=== PATIENT | female | born 1970 | race Caucasian/White ===

== ENCOUNTER 2016-08-17 11:23 | Emergency (ER) | payer OTHER ==
[2016-08-17 11:28] VITALS: RESP 16
[2016-08-17] MEDS ORDERED: SODIUM CHLORIDE 0.9% 1,000 ML IV STA (11:39)
--- NOTE | 2016-08-17 11:50 | ED ---
Abdominal Pain HPI - General Chief Complaint: Abdominal Pain Stated Complaint: Abdominal pain, heartburn Time Seen by Provider: 08/17/16 11:32 Source: patient, RN notes reviewed Mode of arrival: ambulatory Limitations: no limitations - History of Present Illness Initial Comments: This a 46-year-old female presents emergency Department with chief complaint of left-sided abdominal pain. Patient states it started last few days. He states that she's been having some diarrhea but also some constipation. She states this is hard to go. She states that she's had some vomiting and nausea she states that his sour taste. Patient denies any chest pain or shortness breath. Patient has fever, chills, dysuria, hematuria. Patient has no history of diverticulitis, kidney stones, abdominal surgeries. Patient states she's had cardiac stents in the past proximal one year ago. Patient called her primary care physician if symptoms emergency department for evaluation. Patient states she does not want any medications at this time. - Related Data Home Medications Medication Instructions Recorded Confirmed Calcium Carbonate [Calcium] 600 mg PO DAILY 10/18/15 08/17/16 Cyanocobalamin [Vitamin B-12] 500 mcg PO DAILY 10/18/15 08/17/16 [place]-3 Fatty Acids/Fish Oil [Fish 1 cap PO DAILY 10/18/15 08/17/16 Oil 1,000 mg Softgel] Atorvastatin Calcium [Lipitor] 40 mg PO HS 08/17/16 08/17/16 Biotin 5 mg PO DAILY 08/17/16 08/17/16 Cholecalciferol [Vitamin D3] 1,000 unit PO DAILY 08/17/16 08/17/16 Ubidecarenone [Co Q-10] 100 mg PO DAILY 08/17/16 08/17/16 Zinc 50 mg PO DAILY 08/17/16 08/17/16 Previous Rx's Medication Instructions Recorded Aspirin 325 mg PO DAILY #30 tab 10/21/15 Clopidogrel [Plavix] 75 mg PO DAILY #30 tab 10/21/15 Enalapril [Vasotec] 5 mg PO BID #60 tab 10/21/15 Metoprolol Tartrate [Lopressor] 50 mg PO BID #60 tab 10/21/15 Nitroglycerin Sl Tabs [Nitrostat] 0.4 mg SUBLINGUAL Q5M PRN #25 tab 10/21/15 Ciprofloxacin HCl [Cipro] 500 mg PO Q12HR #20 tablet 08/17/16 metroNIDAZOLE [Flagyl] 500 mg PO TID #30 tab 08/17/16 Allergies Allergy/AdvReac Type Severity Reaction Status Date / Time Penicillins Allergy Rash/Hives Verified 08/17/16 11:40 Review of Systems ROS Statement: Those systems with pertinent positive or pertinent negative responses have been documented in the HPI. ROS Other: All systems not noted in ROS Statement are negative. Past Medical History Past Medical History: Coronary Artery Disease (CAD), Hyperlipidemia, Hypertension, Myocardial Infarction (ID) Additional Past Medical History / Comment(s): NO REPORTED MEDICAL HX Last Myocardial Infarction Date:: 10/18/15 History of Any Multi-Drug Resistant Organisms: None Reported Past Surgical History: Heart Catheterization With Stent Additional Past Surgical History / Comment(s): STENTS X2 10/18/15 Past Anesthesia/Blood Transfusion Reactions: No Reported Reaction Additional Past Anesthesia/Blood Transfusion Reaction / Comment(s): NO GENERAL ANESTHESIA Date of Last Stent Placement:: 10/18/15 Past Psychological History: No Psychological Hx Reported Smoking Status: Former smoker Past Alcohol Use History: None Reported Additional Past Alcohol Use History / Comment(s): QUIT SMOKING 10/18/15, STARTED SMOKING AT AGE 13, DID QUIT FOR 6 YEARS THEN RESUMED 2012. SMOKED 1 PPD. Past Drug Use History: None Reported - Past Family History Father Family Medical History: Unable to Obtain Additional Family Medical History / Comment(s): RAISED BY STEP DAD Mother Family Medical History: CVA/TIA General Exam Limitations: no limitations General appearance: alert, in no apparent distress Head exam: Present: atraumatic, normocephalic, normal inspection Neck exam: Present: normal inspection, full ROM. Absent: tenderness, meningismus, lymphadenopathy Respiratory exam: Present: normal lung sounds bilaterally. Absent: respiratory distress, wheezes, rales, rhonchi, stridor Cardiovascular Exam: Present: regular rate, normal rhythm, normal heart sounds. Absent: systolic murmur, diastolic murmur, rubs, gallop, clicks GI/Abdominal exam: Present: soft, tenderness (Mild tenderness on left lower quadrant), normal bowel sounds. Absent: distended, guarding, rebound, rigid Back exam: Present: CVA tenderness (L). Absent: CVA tenderness (R) Skin exam: Present: warm, dry, intact, normal color. Absent: rash Course Vital Signs 08/17/16 11:24 Temperature 99.2 F Pulse Rate 81 Respiratory 16 Rate Blood Pressure 193/96 O2 Sat by Pulse 97 Oximetry Medical Decision Making - Medical Decision Making 46-year-old female presented emergency from for left-sided abdominal pain. Patient lab work within normal limits CT does show some diverticulitis. There is no abscesses. Patient was started on Cipro and Flagyl discharge. She'll have close follow-up with primary care physician and surgery as needed. Return parameters were discussed. - Lab Data Result diagrams: 08/17/16 12:00 08/17/16 12:00 Lab Results 08/17/16 08/17/16 08/17/16 Range/Units 12:00 12:00 12:00 WBC 7.3 (3.8-10.6) k/uL RBC 3.93 (3.80-5.40) m/uL Hgb 12.6 (11.4-16.0) gm/dL Hct 38.4 (34.0-46.0) % MCV 97.7 (80.0-100.0) fL MCH 32.2 (25.0-35.0) pg MCHC 32.9 (31.0-37.0) g/dL RDW 13.2 (11.5-15.5) % Plt Count 292 (150-450) k/uL Neutrophils % 61 % Lymphocytes % 27 % Monocytes % 5 % Eosinophils % 4 % Basophils % 0 % Neutrophils # 4.5 (1.3-7.7) k/uL Lymphocytes # 2.0 (1.0-4.8) k/uL Monocytes # 0.4 (0-1.0) k/uL Eosinophils # 0.3 (0-0.7) k/uL Basophils # 0.0 (0-0.2) k/uL Sodium 143 (137-145) mmol/L Potassium 4.0 (3.5-5.1) mmol/L Chloride 107 (98-107) mmol/L Carbon Dioxide 25 (22-30) mmol/L Anion Gap 11 mmol/L BUN 11 (7-17) mg/dL Creatinine 0.77 (0.52-1.04) mg/dL Est GFR (MDRD) Af Amer >60 (>60 ml/min/1.73 sqM) Est GFR (MDRD) Non-Af >60 (>60 ml/min/1.73 sqM) Glucose 109 H (74-99) mg/dL Calcium 8.9 (8.4-10.2) mg/dL Total Bilirubin 0.3 (0.2-1.3) mg/dL AST 25 (14-36) U/L ALT 45 (9-52) U/L Alkaline Phosphatase 56 (38-126) U/L Troponin I (0.000-0.034) ng/mL Total Protein 7.4 (6.3-8.2) g/dL Albumin 4.0 (3.5-5.0) g/dL Amylase 33 (30-110) U/L Lipase 38 (23-300) U/L Urine Color Urine Appearance (Clear) Urine pH (5.0-8.0) Ur Specific [place] (1.001-1.035) Urine Protein (Negative) Urine Glucose (UA) (Negative) Urine Ketones (Negative) Urine Blood (Negative) Urine Nitrate (Negative) Urine Bilirubin (Negative) Urine Urobilinogen (<2.0) mg/dL Ur Leukocyte Esterase (Negative) Urine RBC (0-5) /hpf Urine WBC (0-5) /hpf Ur Squamous Epith Cells (0-4) /hpf Urine Bacteria (None) /hpf Urine Mucus (None) /hpf Urine HCG, Qual Not Detected (Not Detectd) 08/17/16 08/17/16 Range/Units 12:00 12:00 WBC (3.8-10.6) k/uL RBC (3.80-5.40) m/uL Hgb (11.4-16.0) gm/dL Hct (34.0-46.0) % MCV (80.0-100.0) fL MCH (25.0-35.0) pg MCHC (31.0-37.0) g/dL RDW (11.5-15.5) % Plt Count (150-450) k/uL Neutrophils % % Lymphocytes % % Monocytes % % Eosinophils % % Basophils % % Neutrophils # (1.3-7.7) k/uL Lymphocytes # (1.0-4.8) k/uL Monocytes # (0-1.0) k/uL Eosinophils # (0-0.7) k/uL Basophils # (0-0.2) k/uL Sodium (137-145) mmol/L Potassium (3.5-5.1) mmol/L Chloride (98-107) mmol/L Carbon Dioxide (22-30) mmol/L Anion Gap mmol/L BUN (7-17) mg/dL Creatinine (0.52-1.04) mg/dL Est GFR (MDRD) Af Amer (>60 ml/min/1.73 sqM) Est GFR (MDRD) Non-Af (>60 ml/min/1.73 sqM) Glucose (74-99) mg/dL Calcium (8.4-10.2) mg/dL Total Bilirubin (0.2-1.3) mg/dL AST (14-36) U/L ALT (9-52) U/L Alkaline Phosphatase (38-126) U/L Troponin I <0.012 (0.000-0.034) ng/mL Total Protein (6.3-8.2) g/dL Albumin (3.5-5.0) g/dL Amylase (30-110) U/L Lipase (23-300) U/L Urine Color Yellow Urine Appearance Cloudy H (Clear) Urine pH 7.0 (5.0-8.0) Ur Specific [place] 1.011 (1.001-1.035) Urine Protein Negative (Negative) Urine Glucose (UA) Negative (Negative) Urine Ketones Negative (Negative) Urine Blood Negative (Negative) Urine Nitrate Negative (Negative) Urine Bilirubin Negative (Negative) Urine Urobilinogen <2.0 (<2.0) mg/dL Ur Leukocyte Esterase Negative (Negative) Urine RBC <1 (0-5) /hpf Urine WBC 2 (0-5) /hpf Ur Squamous Epith Cells 9 H (0-4) /hpf Urine Bacteria Rare H (None) /hpf Urine Mucus Rare H (None) /hpf Urine HCG, Qual (Not Detectd) Disposition Clinical Impression: Diverticulitis Disposition: HOME SELF-CARE Condition: Stable Instructions: Diverticulitis (ED), Diverticulitis Diet (ED) Additional Instructions: Please return to the Emergency Department if symptoms worsen or any other concerns. Prescriptions: Ciprofloxacin HCl [Cipro] 500 mg PO Q12HR #20 tablet metroNIDAZOLE [Flagyl] 500 mg PO TID #30 tab Time of Disposition: 13:32
[2016-08-17 12:25] LABS: Appearance,Urine Cloudy (Clear); Bacteria,Urine Rare /hpf; Bilirubin,Urine Negative (Negative); Glucose,Urine (UA) Negative (Negative); Ketones,Urine Negative (Negative); Leukocyte Esterase,Urine Negative (Negative); Mucus,Urine Rare /hpf; Nitrite,Urine Negative (Negative); Particle Count 5217; Protein,Urine Negative (Negative); RBC,Urine <1 /hpf (0-5); Specific Gravity,Urine 1.011 (1.001-1.035); Squamous Epithelial Cell,Urine 9 /hpf (0-4); UA Billing (MACRO vs. MICRO) MICRO; Urobilinogen,Urine <2.0 mg/dL (<2.0); WBC,Urine 2 /hpf (0-5)
[2016-08-17 12:29] LABS: Basophils % (A) 0 %; CH 32.9; CHCM 33.8; Eosinophils # (A) 0.3 k/uL (0-0.7); Eosinophils % (A) 4 %; HCT 38.4 % (34.0-46.0); HDW 2.33; HGB 12.6 gm/dL (11.4-16.0); Luc # (Auto) 0.12; Luc % (Auto) 2; Lymphocytes % (A) 27 %; MCH 32.2 pg (25.0-35.0); MCHC 32.9 g/dL (31.0-37.0); MCV 97.7 fL (80.0-100.0); Mean Platelet Volume 6.6; Monocytes # (A) 0.4 k/uL (0-1.0); Monocytes % (A) 5 %; Neutrophils # (A) 4.5 k/uL (1.3-7.7); Neutrophils % (A) 61 %; RBC 3.93 m/uL (3.80-5.40); RDW 13.2 % (11.5-15.5); WBC 7.3 k/uL (3.8-10.6); WBC (Perox) 7.53
[2016-08-17 12:30] LABS: ALT 45 U/L (9-52); AST 25 U/L (14-36); Alkaline Phosphatase 56 U/L (38-126); Amylase 33 U/L (30-110); Anion Gap 11 mmol/L; Blood Urea Nitrogen 11 mg/dL (7-17); Calcium 8.9 mg/dL (8.4-10.2); Carbon Dioxide 25 mmol/L (22-30); Chloride 107 mmol/L (98-107); Glucose 109 mg/dL (74-99); Non-African American GFR(MDRD) >60 (>60 ml/min/1.73 sqM); Sodium 143 mmol/L (137-145); Total Bilirubin 0.3 mg/dL (0.2-1.3); Total Protein 7.4 g/dL (6.3-8.2)
[2016-08-17] MEDS ORDERED: RX INFO: IV CONTRAST WAS GIVEN 1 EACH MISC MISCELLANE PRN (12:39)
[2016-08-17] MEDS ORDERED: ACETAMINOPHEN TAB 500 MG TAB PO STA (12:41)
--- NOTE | 2016-08-17 12:42 | XR ---
Abdomen HISTORY: Nausea vomiting and constipation Frontal view of the abdomen on 2 images The heart is enlarged. Lung bases are clear. No pneumoperitoneum or bowel obstruction is evident. The re is a spinal curvature. Air-fluid levels present without bowel dilation. IMPRESSION: Correlate for possible enteritis, ileus, follow-up as indicated. Cardiomegaly.
--- NOTE | 2016-08-17 13:27 | CT ---
EXAMINATION TYPE: CT abdomen pelvis w con DATE OF EXAM: 08/17/2016 1:06 PM COMPARISON: Abdomen same date HISTORY: LUQ pain, RLQ pain moving to the Lt. painful bowel movements CT DLP: 1654.3 mGycm Automated exposure control for dose reduction was used. TECHNIQUE: Helical acquisition of images was performed from the lung bases through the pelvis. CONTRAST: Performed without Oral Contrast and with IV Contrast, patient injected with 100 ml mL of Omnipaque 30 0. FINDINGS: Small hiatal hernia is present. There are coronary artery calcifications. LUNG BASES: Some minimal peripheral increased attenuation present in the nondependent lung bases may be related to some scarring. LIVER/GB: The liver shows low attenuation and is slightly enlarged. Gallbladder is contracted. PANCREAS: No significant abnormality is seen. SPLEEN: No significant abnormality is seen. ADRENALS: No significant abnormality is seen. KIDNEYS: No significant abnormality is seen. RETROPERITONEAL ADENOPATHY: None visualized REPRODUCTIVE ORGANS: Uterus and adnexal structures within normal limits. URINARY BLADDER: No significant abnormality is seen. PELVIC ADENOPATHY: None visualized. OSSEOUS STRUCTURES: No significant abnormality is seen. BOWEL: There is diverticular change involving the descending and sigmoid colon, areas of colonic wal l thickening. Dirty fat, pericolonic inflammatory change noted adjacent to the descending colon. The appendix is normal. OTHER: IMPRESSION: FINDINGS COMPATIBLE WITH DIVERTICULITIS WITHOUT ABSCESS, FOLLOW-UP INDICATED.
[2016-08-17 13:45] VITALS: BP 154/74; PULSE 71; TEMP 98.1
== END 2016-08-17 13:44 | disposition home or self-care (01) ==
LOC: EC 11:23
DX: K57.92 Diverticulitis of intestine, part unspecified, without perforation or abscess without bleeding (principal); R10.32 Left lower quadrant pain; R11.2 Nausea with vomiting, unspecified; R19.7 Diarrhea, unspecified; I25.10 Atherosclerotic heart disease of native coronary artery without angina pectoris; E78.5 Hyperlipidemia, unspecified; I10 Essential (primary) hypertension; I25.2 Old myocardial infarction; Z87.891 Personal history of nicotine dependence; Z79.899 Other long term (current) drug therapy; Z88.0 Allergy status to penicillin
CPT/HCPCS: 99284; 96360; 36415; 80053; 82150; 83690; 84484; 85025; 81001; 81025; 74000; 74177; Q9967

== ENCOUNTER → 2016-09-22 | Outpatient (CLI) | payer OTHER ==
--- NOTE | 2016-09-22 10:11 | MM ---
Reason for exam: follow-up at short interval from prior study. Last mammogram was performed 6 months ago. History: Patient is nulliparous. Physical Findings: Nurse did not find any significant physical abnormalities on exam. MG Diagnostic Mammo RT w CAD CC and MLO view(s) were taken of the right breast. Prior study comparison: March 30, 2016, right breast MG work up mamm w CAD RT. March 23, 2016, bilateral MG screening mammo w CAD. The breast tissue is heterogeneously dense. This may lower the sensitivity of mammography. Dense tissues in the upper outer quadrant. Stable upper outer quadrant nodularity likely lymph nodes, unchanged from 03/30/16. These results were verbally communicated with the patient and result sheet given to the patient on 09/22/16. ASSESSMENT: Incomplete: need additional imaging evaluation, BI-RAD 0 RECOMMENDATION: Ultrasound of the right breast.
--- NOTE | 2016-09-22 10:13 | USB ---
Reason for exam: additional evaluation requested from abnormal screening. History: Patient is nulliparous. US Breast RT Right breast ultrasound includes all four quadrants, the retroareolar region and axilla. Finding demonstrate no cystic or solid lesion seen. Unable to reproduce prior lesion, probable 10 o'clock lymph node seen on prior. Continued short interval follow up right breast mammogram recommended. These results were verbally communicated with the patient and result sheet given to the patient on 09/22/16. ASSESSMENT: Probably benign, BI-RAD 3 RECOMMENDATION: Follow-up diagnostic mammogram of both breasts in 6 months.
== END | disposition home or self-care (01) ==
LOC: RADMAMWWP 08:50
PROVIDERS: ATTEND Internal Medicine
DX: R92.8 Other abnormal and inconclusive findings on diagnostic imaging of breast (principal)
CPT/HCPCS: 76641; G0206

== ENCOUNTER → 2016-10-29 | Outpatient (CLI) | payer OTHER ==
[2016-10-29 12:53] LABS: CH 32.5; CHCM 33.2; HCT 37.7 % (34.0-46.0); HDW 2.32; HGB 12.7 gm/dL (11.4-16.0); MCH 33.3 pg (25.0-35.0); MCHC 33.8 g/dL (31.0-37.0); MCV 98.4 fL (80.0-100.0); Mean Platelet Volume 6.6; RBC 3.83 m/uL (3.80-5.40); RDW 13.7 % (11.5-15.5); WBC 7.6 k/uL (3.8-10.6)
[2016-10-29 13:10] LABS: Anion Gap 10 mmol/L; Blood Urea Nitrogen 16 mg/dL (7-17); Carbon Dioxide 22 mmol/L (22-30); Chloride 109 mmol/L (98-107); Non-African American GFR(MDRD) >60 (>60 ml/min/1.73 sqM); Potassium 4.4 mmol/L (3.5-5.1); Sodium 141 mmol/L (137-145)
== END ==
LOC: LABPAT 12:22
PROVIDERS: ATTEND Internal Medicine Interventional Cardiology
DX: I25.10 Atherosclerotic heart disease of native coronary artery without angina pectoris (principal)
CPT/HCPCS: 80051; 82565; 84520; 85027

== ENCOUNTER 2016-11-03 08:00 | Day surgery (SDC) | payer OTHER ==
[~2016-11-03 08:00] MED LIST: ALPRAZolam 0.25 MG TAB PO PRN; ASPIRIN 325 MG TAB PO ONE; ATORVASTATIN 80 MG TAB PO ONE; NITROGLYCERIN SL TABS 0.4 MG TAB SUBLINGUAL PRN; SODIUM CHLORIDE 0.9% 1,000 ML in EMPTY BAG 1 BAG IV ONE
[2016-11-03] MEDS ORDERED: LIDOCAINE 2% INJ 20 MG/ML (20 ML MDV) ONE (09:41)
[2016-11-03] MEDS ORDERED: MIDAZOLAM 2 MG/2 ML VIAL IV ONE (10:00)
[2016-11-03] MEDS ORDERED: MIDAZOLAM 2 MG/2 ML VIAL ONE (10:02)
[2016-11-03] MEDS ORDERED: LIDOCAINE 2% INJ 20 MG/ML SQ ONE (10:05)
[2016-11-03] MEDS ORDERED: HYDROmorphone 2 MG/ML 1 ML SYRINGE ONE (10:08)
[2016-11-03] MEDS ORDERED: HYDROmorphone 2 MG/ML 1 ML SYRINGE IV ONE (10:09)
[2016-11-03] MEDS ORDERED: NITROGLYCERIN 1000MCG/10ML SYRINGE INTRAARTER ONE ×2 (10:12→10:40)
[2016-11-03] MEDS ORDERED: CLOPIDOGREL 75 MG TAB PO ONE (10:15)
[2016-11-03] MEDS ORDERED: CLOPIDOGREL 75 MG TAB ONE (10:27)
[2016-11-03] MEDS ORDERED: BIVALIRUDIN BOLUS 250 MG/50 ML IV ONE (10:27)
[2016-11-03] MEDS ORDERED: BIVALIRUDIN 250 MG in SODIUM CHLORIDE 0.9% 50 ML IV ONE (10:28)
[2016-11-03] MEDS ORDERED: IOHEXOL 350 MG/ML 125ML BOTTLE INJ ONE (10:46)
[2016-11-03] MEDS ORDERED: NITROGLYCERIN SL TABS 0.4 MG TAB SUBLINGUAL PRN (10:53)
[2016-11-03] MEDS ORDERED: RX INFO: IV CONTRAST WAS GIVEN 1 EACH MISC MISCELLANE PRN (10:54)
[2016-11-03] MEDS ORDERED: SODIUM CHLORIDE 0.9% 1,000 ML IV SCH (11:00)
[2016-11-03] MEDS: Acetaminophen-Codeine 300-30mg TAB PO PRN ×2 (14:00→22:54)
[2016-11-03 17:22] VITALS: BMI 39.2
--- NOTE | 2016-11-03 21:59 | LTR ---
November 03, 2016 RE: Thiago Isela Kary Dear Dr. Owen: Ms. Isela Das was experiencing chest discomfort. The patient underwent a stress test as an outpatient and that showed lateral ischemia. In view of that she underwent a heart catheterization which showed severe disease involving the proximal left circumflex. The previous 2 stents in the LAD and RCA are patent. She underwent successful stenting of the left circumflex with a good angiographic result and without any complication. I want to thank you for allowing us to participate in her care. Sincerely, ANH GIL MD
--- NOTE | 2016-11-03 22:14 | CC ---
DATE OF SERVICE: 11/03/2016 PERFORMING PHYSICIAN: Chao Marsh M.D., gericare aide teacher. PROCEDURES PERFORMED: 1. Selective right and left coronary angiogram. 2. Successful stenting of the proximal left circumflex using a 3.0 x 18 mm Xience ALONA with good angiographic results. INDICATION: This is a pleasant 46-year-old female patient who is known to have coronary artery disease with prior stenting of the mid RCA and mid LAD. She was experiencing chest discomfort consistent with angina. She underwent a stress test which showed lateral ischemia. She was brought today to undergo heart catheterization. APPROACH: Right common femoral artery. COMPLICATIONS: None. LEVEL OF SEDATION: Moderate with sedation length of 45 minutes. PROCEDURE DESCRIPTION: After obtaining informed consent, the patient was brought to the cardiac labor economics professor. The right common femoral artery was cannulated using micropuncture technique. The micropuncture wire passed easily. Then I placed a 6 Haitian sheath in the right common femoral artery. After that I did selective right and left coronary angiogram using JR4 and JL4 catheters. I was having some dampening in the pressure using JR4 catheter, so I used a 5 Haitian Jadiel Brooks catheter. After that I decided to intervene on the left circumflex. Please see separate paragraph for that. SELECTIVE CORONARY ANGIOGRAM: 1. The right coronary artery is a large-caliber vessel and it is a dominant vessel. The proximal RCA appeared to be angiographically normally. The mid RCA is stented, and the stent is patent. The RCA distally appeared to be angiographically normal and bifurcates into PDA and PLV branches; both are angiographically normal. 2. Left main is angiographically normal. It bifurcates into the left circumflex and left anterior descending artery. 3. The left circumflex is a large-caliber vessel. It is a non-dominant vessel. The proximal circumflex appeared to have a hazy lesion that seemed to be in the range of 70%. The mid and distal circumflex appeared to be angiographically normal. 4. Left anterior descending artery. The proximal LAD appeared to be angiographically normal. The mid LAD is stented and the stent seems to be patent. The LAD distally appeared to be angiographically normal. PCI OF THE LEFT CIRCUMFLEX: Anticoagulation was initiated using Angiomax. Subsequently I took JL4 guide and the left main was engaged. The left circumflex was wired using a Whisper wire. Subsequently I did direct stenting of the lesion using a 3.0 x 18 mm Xience ALONA, where the stent was positioned under fluoroscopy guidance and it was deployed under 14 atmospheres for 20 seconds. I post dilated that stent using a 3.25 mm NC balloon. It was inflated under 18 atmospheres for 20 seconds. The following angiogram showed good angiographic results. The procedure was completed without any complication. CONCLUSION: 1. Patent stents in the mid RCA and mid LAD. 2. Severe de ashwin lesion that involving the proximal left circumflex coronary artery. 3. Successful stenting of the left circumflex using a 3.0 x 18 mm Xience ALONA with good angiographic results. POST-PROCEDURE MANAGEMENT: 1. Dual antiplatelet therapy. 2. Risk factor modifications. 3. Followup with the patient.
[2016-11-03] MEDS: METOPROLOL TARTRATE 50 MG TAB PO SCH (22:55)
[2016-11-04 07:00] LABS: Basophils % (A) 0 %; CH 32.5; CHCM 32.8; Eosinophils # (A) 0.4 k/uL (0-0.7); Eosinophils % (A) 7 %; HCT 37.5 % (34.0-46.0); HDW 2.33; HGB 12.1 gm/dL (11.4-16.0); Luc # (Auto) 0.09; Luc % (Auto) 2; Lymphocytes # (A) 2.1 k/uL (1.0-4.8); Lymphocytes % (A) 38 %; MCH 32.2 pg (25.0-35.0); MCHC 32.4 g/dL (31.0-37.0); MCV 99.5 fL (80.0-100.0); Mean Platelet Volume 6.5; Monocytes # (A) 0.3 k/uL (0-1.0); Monocytes % (A) 6 %; Neutrophils # (A) 2.6 k/uL (1.3-7.7); Neutrophils % (A) 48 %; RBC 3.77 m/uL (3.80-5.40); RDW 13.4 % (11.5-15.5); WBC 5.5 k/uL (3.8-10.6)
[2016-11-04 07:16] LABS: Anion Gap 7 mmol/L; Blood Urea Nitrogen 12 mg/dL (7-17); Calcium 8.5 mg/dL (8.4-10.2); Carbon Dioxide 25 mmol/L (22-30); Chloride 107 mmol/L (98-107); Glucose 91 mg/dL (74-99); Non-African American GFR(MDRD) >60 (>60 ml/min/1.73 sqM); Potassium 4.1 mmol/L (3.5-5.1); Sodium 139 mmol/L (137-145)
[2016-11-04] MEDS: METOPROLOL TARTRATE 50 MG TAB PO SCH (07:39)
[2016-11-04 07:51] VITALS: TEMP 97
[2016-11-04] MEDS ORDERED: ISOSORBIDE MONONITRATE ER 30 MG TAB.ER.24H PO SCH (09:00)
[2016-11-04] MEDS ORDERED: NON-FORMULARY DRUG (Ubidecarenone [Co Q-10] 100 MG) PO SCH (09:00)
[2016-11-04] MEDS ORDERED: ASPIRIN 325 MG TAB PO SCH (09:00)
[2016-11-04] MEDS ORDERED: NON-FORMULARY DRUG (Zinc [Zinc] 50 MG) PO SCH (09:00)
[2016-11-04] MEDS ORDERED: NON-FORMULARY DRUG (Biotin [Biotin] 5 MG) PO SCH (09:00)
[2016-11-04] MEDS ORDERED: LISINOPRIL 20 MG TAB PO SCH (09:00)
[2016-11-04] MEDS ORDERED: CALCIUM CARBONATE 500 MG CHEWABLE PO SCH (09:00)
[2016-11-04] MEDS ORDERED: CLOPIDOGREL 75 MG TAB PO SCH (09:00)
[2016-11-04] MEDS ORDERED: NON-FORMULARY DRUG (Omega-3 Fatty Acids/Fish Oil [Fish Oil 1,000 Mg Softgel] 1 CAP) PO SCH (09:00)
[2016-11-04] MEDS ORDERED: CHOLECALCIFEROL 1,000 UNIT TAB PO SCH (12:00)
[2016-11-04] MEDS ORDERED: CYANOCOBALAMIN 500 MCG TAB PO SCH (12:00)
--- NOTE | 2016-11-04 14:04 | P.PN ---
Subjective Principal diagnosis: Status post circumflex stent Discharge note This is a pleasant 46-year-old female with known history of coronary artery disease and prior RCA and LAD stenting. Patient was experiencing chest discomfort consistent with angina and for this reason was brought to the hospital for further evaluation. She was taken to the Automatic Packer Operator where she underwent successful stenting of the proximal circumflex. Patient was seen and examined this morning, denies any chest pain or difficulty in breathing. She has been up ambulating without any difficulty. Blood pressure this morning 128/70 with a heart rate in the 70s, 97% on room air. Objective - Vital Signs Vital signs: Vital Signs Temp 97 F L 11/04/16 07:48 Pulse 73 11/04/16 07:48 Resp 16 11/04/16 07:48 BP 127/72 11/04/16 07:48 Pulse Ox 97 11/04/16 07:48 Intake & Output 11/03/16 11/04/16 11/04/16 18:59 06:59 18:59 Intake Total 1350.59 360 Output Total 550 Balance 800.59 360 Weight 103.5 kg 106.4 kg Intake: IV 550.59 Sodium Chloride 0.9% 1, 220 000 ml @ 100 mls/hr IV . Q10H SANDOR Rx#:[id number] Oral 800 360 Output: Urine 550 Other: Voiding Method Toilet # Voids 1 1 1 - Exam PHYSICAL EXAMINATION: HEENT: Head is atraumatic, normocephalic. Pupils equal, round. Neck is supple. There is no elevated jugular venous pressure. HEART EXAMINATION: Heart S1, S2 normal. No murmur or gallop heard. CHEST EXAMINATION: Lungs are clear to auscultation and precussion. No chest wall tenderness is noted on palpation or with deep breathing. ABDOMEN: Soft, nontender. Bowel sounds are heard. No organomegaly noted. Right groin soft, no evidence of any hematoma. EXTREMITIES: 2+ peripheral pulses with no evidence of peripheral edema and no calf tenderness noted. NEUROLOGIC patient is awake, alert and oriented -3. . - Labs CBC & Chem 7: 11/04/16 06:33 11/04/16 06:33 Labs: Abnormal Lab Results - Last 24 Hours (Table) 11/04/16 Range/Units 06:33 RBC 3.77 L (3.80-5.40) m/uL Assessment and Plan (1) Presence of stent in left circumflex coronary artery Status: Acute (2) Chest pain Status: Acute (3) CAD (coronary artery disease) Status: Acute (4) Hyperlipemia Status: Acute (5) Nicotine dependence Status: Acute Plan: Patient may be able to be discharged home today. We'll make her a follow-up appointment to see Dr. Golden in the office in one week. Patient will be discharged home on aspirin 325 mg daily, Lipitor 80 mg daily, vitamin D, Plavix 75 mg daily, Imdur will be discontinued per the patient's request secondary to headaches, metoprolol tartrate 50 mg twice a day, sublingual nitro as needed for chest pain. DNP note has been reviewed, I agree with a documented findings and plan of care. Patient was seen and examined.
[2016-11-04 14:39] VITALS: BP 117/65; PULSE 68; RESP 18
[2016-11-04] MEDS ORDERED: ATORVASTATIN 40 MG TAB PO SCH (21:00)
== END 2016-11-04 15:04 | disposition home or self-care (01) ==
LOC: CATHCVL 08:00 → 6SEL 10:46 → CATHCVL 11-04 15:04
PROVIDERS: ATTEND Internal Medicine Interventional Cardiology
DX: I25.110 Atherosclerotic heart disease of native coronary artery with unstable angina pectoris (principal); Z95.5 Presence of coronary angioplasty implant and graft; I10 Essential (primary) hypertension; Z87.891 Personal history of nicotine dependence; E78.5 Hyperlipidemia, unspecified; I42.9 Cardiomyopathy, unspecified; Z88.0 Allergy status to penicillin
CPT/HCPCS: 93454; 80048; 85025; 81025; 99152; 99153 ×2; C9600; C1769 ×4; C1887; C1725; C1894; C1874; C1760; J2001; J2250; J1170; J0583; Q9967

== ENCOUNTER → 2017-04-06 | Outpatient (CLI) | payer OTHER ==
--- NOTE | 2017-04-06 11:57 | MM ---
Reason for exam: additional evaluation requested from prior study. Last mammogram was performed 6 months ago. History: Patient is nulliparous. Physical Findings: Nurse did not find any significant physical abnormalities on exam. MG Diagnostic Mammo w CAD [place]RIST[place] Bilateral CC and MLO view(s) were taken. Prior study comparison: September 22, 2016, right breast MG diagnostic mammo RT w CAD. March 30, 2016, right breast MG work up mamm w CAD RT. The breast tissue is heterogeneously dense. This may lower the sensitivity of mammography. There is chronic nodularity bilaterally, stable. These results were verbally communicated with the patient and result sheet given to the patient on 04/06/17. ASSESSMENT: Probably benign, BI-RAD 3 RECOMMENDATION: Follow-up diagnostic mammogram of the right breast in 6 months.
--- NOTE | 2017-04-06 11:59 | USB ---
Reason for exam: additional evaluation requested from prior study. History: Patient is nulliparous. US Breast RT Right breast ultrasound includes all four quadrants, the retroareolar region and axilla. Finding demonstrates a 0.4 x 0.3 x 0.2cm oval lesion too small to characterize at 5 o'clock and a 0.6 x 0.9 x 0.1cm questionable duct at 6 o'clock. These results were verbally communicated with the patient and result sheet given to the patient on 04/06/17. ASSESSMENT: Probably benign, BI-RAD 3 RECOMMENDATION: Follow-up diagnostic mammogram and ultrasound of the right breast in 6 months.
== END | disposition home or self-care (01) ==
LOC: RADMAMWWP 08:00
PROVIDERS: ATTEND Internal Medicine
DX: R92.8 Other abnormal and inconclusive findings on diagnostic imaging of breast (principal)
CPT/HCPCS: 76641; G0204

== ENCOUNTER → 2017-09-16 | Outpatient (CLI) | payer OTHER ==
[2017-09-16 11:03] LABS: ALT 34 U/L (9-52); AST 22 U/L (14-36); Cholesterol 159 mg/dL (<200); HDL Cholesterol 37 mg/dL (40-60); LDL Cholesterol,Calculated 67 mg/dL (0-99); Triglycerides 273 mg/dL (<150)
== END | disposition home or self-care (01) ==
LOC: LABWHC1 10:26
PROVIDERS: ATTEND Internal Medicine Interventional Cardiology
DX: E78.2 Mixed hyperlipidemia (principal)
CPT/HCPCS: 36415; 80061; 84450; 84460

== ENCOUNTER → 2017-09-29 | Outpatient (CLI) | payer OTHER ==
--- NOTE | 2017-09-29 11:08 | MM ---
Reason for exam: additional evaluation requested from prior study. Last mammogram was performed 6 months ago. History: Patient is nulliparous. Physical Findings: Nurse did not find any significant physical abnormalities on exam. MG Diagnostic Mammo RT w CAD CC and MLO view(s) were taken of the right breast. Prior study comparison: April 06, 2017, bilateral MG diagnostic mammo w CAD CHRISTIAN. September 22, 2016, right breast MG diagnostic mammo RT w CAD. The breast tissue is heterogeneously dense. This may lower the sensitivity of mammography. Global asymmetry and nodularity in the upper outer quadrant right breast is unchanged for 18 months. These results were verbally communicated with the patient and result sheet given to the patient on 09/29/17. ASSESSMENT: Incomplete: need additional imaging evaluation, BI-RAD 0 RECOMMENDATION: Ultrasound of the right breast.
--- NOTE | 2017-09-29 11:11 | USB ---
Reason for exam: follow-up at short interval from prior study. History: Patient is nulliparous. US Breast RT Right breast ultrasound includes all four quadrants, the retroareolar region and axilla. Finding demonstrates a 0.5 x 0.9 x 0.1cm cystic lesion at 5 o'clock but slightly larger and a 0.6 x 0.7 x 0.1cm cystic lesion at 6 o'clock. No solid or cystic lesion seen in the upper outer quadrant at the mammographic site. Additional 6 month follow up would demonstrate 2 years of stability. These results were verbally communicated with the patient and result sheet given to the patient on 09/29/17. ASSESSMENT: Probably benign, BI-RAD 3 RECOMMENDATION: Follow-up diagnostic mammogram of both breasts in 6 months. Back on schedule for April 2018.
== END | disposition home or self-care (01) ==
LOC: RADMAMWWP 08:07
PROVIDERS: ATTEND Internal Medicine
DX: R92.8 Other abnormal and inconclusive findings on diagnostic imaging of breast (principal)
CPT/HCPCS: 77065

== ENCOUNTER → 2018-08-08 | Outpatient (CLI) | payer OTHER ==
--- NOTE | 2018-08-08 14:55 | CT ---
EXAMINATION TYPE: CT abdomen pelvis w con DATE OF EXAM: 08/08/2018 HISTORY: Patient complains of LLQ pain x1 year with recurrent bouts of diverticulitis. CT DLP: 1558.7mGycm Automated Exposure Control for Dose Reduction was Utilized. CONTRAST: CT scan of the abdomen and pelvis is performed with IV Contrast, patient injected with 100 mL of Isov ue 300. COMPARISON: CT abdomen pelvis August 17, 2016 FINDINGS: LUNG BASES: There is coronary stent RCA distribution redemonstrated. LIVER/GB: No significant abnormality is appreciated. PANCREAS: No significant abnormality is seen. SPLEEN: No significant abnormality is seen. ADRENALS: No significant abnormality is seen. KIDNEYS: No significant abnormality is seen. BOWEL: The oral contrast reaches level of rectum. There are diverticula in the left and sigmoid colon . There is moderate to severe wall thickening in the sigmoid colon redemonstrated with mild to modera te ill-defined fluid and fat stranding. There is round 2.3 cm enhancing lesion axial image 66 seen li peter was present prior study image 64 that shows heterogeneous internal and rim peripheral enhancemen t of uncertain etiology, possible large polyp. No free air is seen. No well-formed fluid collection o r abscess is noted. UTERUS/ADNEXA: Anteverted uterus incidentally noted. LYMPH NODES: No greater than 1cm abdominal or pelvic lymph nodes are appreciated. OSSEOUS STRUCTURES: No significant abnormality is seen. OTHER: No significant additional abnormality is seen. IMPRESSION: CT findings consistent with mild to moderate acute diverticulitis on background severe di verticulosis. No drainable abscess noted. Suspicious enhancing 2.3 cm round structure raises concern for large sigmoid polyp. Consider colonoscopy after medical treatment. Consider surgical referral due to background severe sigmoid colonic diverticulosis. A [place] level critical message alert has been initiated for Jeanette Wise MD via the [employer] Critical Results System on 08/08/2018 2:53 PM. This message alert has been sent to Jeanette Wise MD v may the preferences provided by the clinician for the receipt of Radiology Critical Findings. Message ID [id number].
== END | disposition home or self-care (01) ==
LOC: RADCTMAIN 12:18
PROVIDERS: ATTEND Internal Medicine
DX: R10.84 Generalized abdominal pain (principal)
CPT/HCPCS: 74177; Q9967

== ENCOUNTER 2018-08-15 12:19 | Inpatient (IN) | payer OTHER ==
--- NOTE | 2018-08-15 16:18 | P.HPIM ---
History of Present Illness H&P Date: 08/15/18 This is a 48-year-old female patient who was direct admit from her PCP. Patient reports that he's been having issues with diverticulitis intermittently for the past year. Patient reports that this flareup started about 3 months ago patient reports that she's had no improvement with antibiotics. Patient reports that she's had severe abdominal cramping with diarrhea. Patient denies nausea vomiting Patient does reports she has a colonoscopy scheduled at the end of August with Dr. Yeager. Patient does have a past medical history of coronary artery disease with myocardial infarction and stent placement last stent November 2016. Patient reports that she follows with cardiology is currently not on anticoagulation per cardiology. Additional medical history includes hyperlipidemia, hypertension and ex-smoker. Computed tomography scan completed outpatient sewing findings consistent with mild to moderate acute diverticulitis on background severe diverticulosis. No drainable abscess noted. Suspicious enhancing 2. recently round structure raises concern for large sigmoid polyp. Consider colonoscopy after medical treatment. Consider surgical referral due to back on severe sigmoid colonic diverticulosis . Will consult Dr. yeager at this time. Patient started on Levaquin and Flagyl for IV antibiotics. A.m. labs have been ordered. At this time patient denies chest pain or shortness breath. Patient denies nausea or vomiting. Patient denies any urinary burning or frequency Review of Systems Please refer to HPI otherwise unremarkable Past Medical History Past Medical History: Coronary Artery Disease (CAD), Hyperlipidemia, Hypertension, Myocardial Infarction ([place]) Additional Past Medical History / Comment(s): NO REPORTED other MEDICAL HX Last Myocardial Infarction Date:: 10/18/15 History of Any Multi-Drug Resistant Organisms: None Reported Past Surgical History: Heart Catheterization With Stent Additional Past Surgical History / Comment(s): STENTS X2 10/18/15 Past Anesthesia/Blood Transfusion Reactions: No Reported Reaction Additional Past Anesthesia/Blood Transfusion Reaction / Comment(s): NO GENERAL ANESTHESIA Date of Last Stent Placement:: 10/18/15 Past Psychological History: No Psychological Hx Reported Smoking Status: Former smoker Past Alcohol Use History: None Reported Additional Past Alcohol Use History / Comment(s): QUIT SMOKING 10/18/15, STARTED SMOKING AT AGE 13, DID QUIT FOR 6 YEARS THEN RESUMED 2012. SMOKED 1 PPD. Past Drug Use History: None Reported - Past Family History Father Family Medical History: Unable to Obtain Additional Family Medical History / Comment(s): RAISED BY STEP DAD Mother Family Medical History: CVA/TIA Medications and Allergies Home Medications Medication Instructions Recorded Confirmed Type Calcium Carbonate [Calcium] 600 mg PO DAILY 10/18/15 11/03/16 History Cyanocobalamin [Vitamin B-12] 500 mcg PO DAILY 10/18/15 11/03/16 History [place]-3 Fatty Acids/Fish Oil [Fish 1 cap PO DAILY 10/18/15 11/03/16 History Oil 1,000 mg Softgel] Aspirin 325 mg PO DAILY #30 tab 10/21/15 11/03/16 Rx Clopidogrel [Plavix] 75 mg PO DAILY #30 tab 10/21/15 11/03/16 Rx Metoprolol Tartrate [Lopressor] 50 mg PO BID #60 tab 10/21/15 11/03/16 Rx Nitroglycerin Sl Tabs [Nitrostat] 0.4 mg SUBLINGUAL Q5M PRN #25 tab 10/21/1508/21 Rx Atorvastatin Calcium [Lipitor] 40 mg PO HS 08/17/16 11/03/16 History Biotin 5 mg PO DAILY 08/17/16 11/03/16 History Cholecalciferol [Vitamin D3] 1,000 unit PO DAILY 08/17/16 11/03/16 History Ubidecarenone [Co Q-10] 100 mg PO DAILY 08/17/16 11/03/16 History Zinc 50 mg PO DAILY 08/17/16 11/03/16 History Lisinopril [Zestril] 20 mg PO DAILY #30 tab 11/04/16 Rx Nitroglycerin Sl Tabs [Nitrostat] 0.4 mg SUBLINGUAL Q5M PRN #25 tab 11/04/16 Rx Allergies Allergy/AdvReac Type Severity Reaction Status Date / Time Penicillins Allergy Rash/Hives Verified 11/03/16 08:11 Physical Exam Head normocephalic Neck supple Lungs clear to auscultation bilaterally no wheezing or crackles Heart regular rate and rhythm S1-S2, no rub or gallop Abdomen is soft nontender nondistended positive bowel sounds no hepatosplenomegaly Extremities no edema Neuro alert and orientated to 3 Assessment and Plan Assessment: 1. Diverticulitis. CT completed outpatient showing findings consistent with mild to moderate acute diverticulitis on Bactrim and severe diverticulosis. No drainable abscess noted. Suspicious enhancing 2.3 cm round structure raises concern for large sigmoid polyp. Consider colonoscopy after medical treatment. Consider surgical referral due to Severe Sigmoid Colonic Diverticulosis. Dr. Yeager Has Been Consulted for Surgical Services. Patient Started on Levaquin and Flagyl. 2. History of coronary artery disease with previous ID with stent placement in November 2016. Patient reports she is no longer on anticoagulation per cardiology 3. Ex-smoker. Patient reports she quit in 2015 4. History of essential hypertension 5. History of hyperlipidemia DVT prophylaxis Lovenox. GI prophylaxis Protonix Dr. yeager consulted for surgical services A.m. labs have been Time with Patient: Greater than 30 (Greater than 60% of the total time spent in counseling and coordination of care. I performed an examination of the patient and discussed their management with the Nurse Practitioner. I have reviewed the Nurse Practitioner's notes and agree with the documented findings and plan of care)
[2018-08-15 16:52] LABS: Basophils % (A) 0 %; Eosinophils # (A) 0.3 k/uL (0-0.7); Eosinophils % (A) 3 %; HCT 37.4 % (34.0-46.0); HGB 12.1 gm/dL (11.4-16.0); Lymphocytes # (A) 2.2 k/uL (1.0-4.8); Lymphocytes % (A) 24 %; MCH 31.1 pg (25.0-35.0); MCHC 32.4 g/dL (31.0-37.0); MCV 96.2 fL (80.0-100.0); Mean Platelet Volume 6.7; Monocytes # (A) 0.5 k/uL (0-1.0); Monocytes % (A) 5 %; Neutrophils # (A) 6.3 k/uL (1.3-7.7); Neutrophils % (A) 68 %; Platelet Count 318 k/uL (150-450); RBC 3.89 m/uL (3.80-5.40); RDW 13.5 % (11.5-15.5); WBC 9.3 k/uL (3.8-10.6)
[2018-08-15 17:00] LABS: ALT 33 U/L (9-52); AST 19 U/L (14-36); Albumin 3.8 g/dL (3.5-5.0); Alkaline Phosphatase 54 U/L (38-126); Anion Gap 9 mmol/L; Blood Urea Nitrogen 13 mg/dL (7-17); Calcium 9.2 mg/dL (8.4-10.2); Carbon Dioxide 27 mmol/L (22-30); Chloride 105 mmol/L (98-107); Glucose 88 mg/dL (74-99); Potassium 4.6 mmol/L (3.5-5.1); Sodium 141 mmol/L (137-145); Total Bilirubin 0.3 mg/dL (0.2-1.3); Total Protein 7.2 g/dL (6.3-8.2)
[2018-08-15] MEDS: metroNIDAZOLE-NS PMX 500 MG in SALINE 1 100ML.BAG IVPB SCH ×2 (17:08→23:27)
[2018-08-15] MEDS: SODIUM CHLORIDE 0.9% 1,000 ML IV SCH (17:08)
--- NOTE | 2018-08-15 17:39 | P.GSCN ---
History of Present Illness Consult date: 08/15/18 Reason for Consult: Sigmoid diverticulitis History of present illness: 48-year-old female known to our service. The patient was seen in the office last year for diverticulitis. At that time the patient was not cleared for colonoscopy or sigmoid colon resection because of underlying cardiac disease and ongoing blood thinner use. The patient states she has had symptoms of left lower quadrant pain for the last 3 months. Pain is daily at this time. She says she has 2-3 stools per day which are not diarrhea she states. No mucus or rectal bleeding. Patient had a CAT scan performed on 08/08 as an outpatient. CAT scan shows inflammatory change involving the sigmoid colon and descending colon with a possible large polyp in the sigmoid colon. Denies fevers. White blood cell count normal. Review of Systems The patient denies any acute changes in vision or hearing, no dysphagia or odynophagia, no chest pain or shortness of breath, no dysuria or hematuria, no headache, no runny nose, no rectal bleeding or melena, no unexplained weight loss Past Medical History Past Medical History: Coronary Artery Disease (CAD), Hyperlipidemia, Hypertension, Myocardial Infarction ([place]) Additional Past Medical History / Comment(s): NO REPORTED other MEDICAL HX Last Myocardial Infarction Date:: 10/18/15 History of Any Multi-Drug Resistant Organisms: None Reported Past Surgical History: Heart Catheterization With Stent Additional Past Surgical History / Comment(s): STENTS X2 10/18/15 Past Anesthesia/Blood Transfusion Reactions: No Reported Reaction Additional Past Anesthesia/Blood Transfusion Reaction / Comm: NO GENERAL ANESTHESIA Date of Last Stent Placement:: 10/18/15 Smoking Status: Former smoker - Past Family History Father Family Medical History: Unable to Obtain Additional Family Medical History / Comment(s): RAISED BY STEP DAD Mother Family Medical History: CVA/TIA Medications and Allergies Home Medications Medication Instructions Recorded Confirmed Type Aspirin 325 mg PO DAILY #30 tab 10/21/15 08/15/18 Rx Atorvastatin Calcium [Lipitor] 40 mg PO HS 08/17/16 08/15/18 History Lisinopril [Zestril] 20 mg PO DAILY #30 tab 11/04/16 08/15/18 Rx Naproxen 500 mg PO BID PRN 08/15/18 08/15/18 History Allergies Allergy/AdvReac Type Severity Reaction Status Date / Time Penicillins Allergy Rash/Hives Verified 08/15/18 17:09 Surgical - Exam Vital Signs Temp Pulse Resp BP Pulse Ox 97.4 F L 82 17 139/87 97 08/15/18 16:14 08/15/18 16:14 08/15/18 16:14 08/15/18 16:14 08/15/18 16:14 Physical exam: General: Well-developed, well-nourished HEENT: Normocephalic, sclerae nonicteric Abdomen: Mild left lower quadrant tenderness, nondistended Extremities: No edema Neuro: Alert and oriented Results - Labs 08/15/18 16:05 08/15/18 16:05 Diabetes panel 08/15/18 Range/Units 16:05 Sodium 141 (137-145) mmol/L Potassium 4.6 (3.5-5.1) mmol/L Chloride 105 (98-107) mmol/L Carbon Dioxide 27 (22-30) mmol/L BUN 13 (7-17) mg/dL Creatinine 0.70 (0.52-1.04) mg/dL Glucose 88 (74-99) mg/dL Calcium 9.2 (8.4-10.2) mg/dL AST 19 (14-36) U/L ALT 33 (9-52) U/L Alkaline Phosphatase 54 (38-126) U/L Total Protein 7.2 (6.3-8.2) g/dL Albumin 3.8 (3.5-5.0) g/dL Calcium panel 08/15/18 Range/Units 16:05 Calcium 9.2 (8.4-10.2) mg/dL Albumin 3.8 (3.5-5.0) g/dL Pituitary panel 08/15/18 Range/Units 16:05 Sodium 141 (137-145) mmol/L Potassium 4.6 (3.5-5.1) mmol/L Chloride 105 (98-107) mmol/L Carbon Dioxide 27 (22-30) mmol/L BUN 13 (7-17) mg/dL Creatinine 0.70 (0.52-1.04) mg/dL Glucose 88 (74-99) mg/dL Calcium 9.2 (8.4-10.2) mg/dL Adrenal panel 08/15/18 Range/Units 16:05 Sodium 141 (137-145) mmol/L Potassium 4.6 (3.5-5.1) mmol/L Chloride 105 (98-107) mmol/L Carbon Dioxide 27 (22-30) mmol/L BUN 13 (7-17) mg/dL Creatinine 0.70 (0.52-1.04) mg/dL Glucose 88 (74-99) mg/dL Calcium 9.2 (8.4-10.2) mg/dL Total Bilirubin 0.3 (0.2-1.3) mg/dL AST 19 (14-36) U/L ALT 33 (9-52) U/L Alkaline Phosphatase 54 (38-126) U/L Total Protein 7.2 (6.3-8.2) g/dL Albumin 3.8 (3.5-5.0) g/dL Assessment and Plan (1) Diverticulitis Narrative/Plan: Continue IV antibiotics. Will review office records. We'll discuss further plans with patient. Current Visit: Yes Status: Acute Code(s): K57.92 - DVTRCLI OF INTEST, PART UNSP, W/O PERF OR ABSCESS W/O BLEED SNOMED Code(s): 296072766
[2018-08-15] MEDS: LEVOFLOXACIN 500MG-D5W PMX 500 MG in DEXTROSE/WATER 1 100ML.BAG IVPB SCH (18:25)
[2018-08-16] MEDS: SODIUM CHLORIDE 0.9% 1,000 ML IV SCH ×2 (07:41→18:20)
[2018-08-16] MEDS: metroNIDAZOLE-NS PMX 500 MG in SALINE 1 100ML.BAG IVPB SCH ×3 (07:45→23:41)
[2018-08-16] MEDS: PANTOPRAZOLE 40 MG TABLET PO SCH (07:51)
[2018-08-16 08:06] LABS: Basophils % (A) 0 %; Eosinophils # (A) 0.3 k/uL (0-0.7); Eosinophils % (A) 5 %; HCT 33.4 % (34.0-46.0); HGB 11.3 gm/dL (11.4-16.0); Lymphocytes # (A) 1.7 k/uL (1.0-4.8); Lymphocytes % (A) 28 %; MCH 32.7 pg (25.0-35.0); MCHC 33.9 g/dL (31.0-37.0); MCV 96.7 fL (80.0-100.0); Mean Platelet Volume 6.9; Monocytes # (A) 0.4 k/uL (0-1.0); Monocytes % (A) 7 %; Neutrophils # (A) 3.6 k/uL (1.3-7.7); Neutrophils % (A) 59 %; Platelet Count 255 k/uL (150-450); RBC 3.45 m/uL (3.80-5.40); RDW 13.3 % (11.5-15.5); WBC 6.1 k/uL (3.8-10.6)
[2018-08-16] MEDS ORDERED: NAPROXEN 250 MG TAB PO PRN (08:24)
[2018-08-16 08:27] LABS: ALT 29 U/L (9-52); AST 13 U/L (14-36); Albumin 3.2 g/dL (3.5-5.0); Alkaline Phosphatase 46 U/L (38-126); Anion Gap 5 mmol/L; Blood Urea Nitrogen 13 mg/dL (7-17); Calcium 8.5 mg/dL (8.4-10.2); Carbon Dioxide 28 mmol/L (22-30); Chloride 107 mmol/L (98-107); Glucose 96 mg/dL (74-99); Potassium 4.7 mmol/L (3.5-5.1); Sodium 140 mmol/L (137-145); Total Bilirubin 0.4 mg/dL (0.2-1.3); Total Protein 6.2 g/dL (6.3-8.2)
[2018-08-16] MEDS: LISINOPRIL 20 MG TAB PO SCH (09:05)
--- NOTE | 2018-08-16 10:22 | P.PN ---
Subjective Progress Note Date: 08/16/18 This is a 48-year-old female patient who was direct admit from her PCP. Patient reports that he's been having issues with diverticulitis intermittently for the past year. Patient reports that this flareup started about 3 months ago patient reports that she's had no improvement with antibiotics. Patient reports that she's had severe abdominal cramping with diarrhea. Patient denies nausea vomiting Patient does reports she has a colonoscopy scheduled at the end of August with Dr. Yeager. Patient does have a past medical history of coronary artery disease with myocardial infarction and stent placement last stent November 2016. Patient reports that she follows with cardiology is currently not on anticoagulation per cardiology. Additional medical history includes hyperlipidemia, hypertension and ex-smoker. Computed tomography scan completed outpatient sewing findings consistent with mild to moderate acute diverticulitis on background severe diverticulosis. No drainable abscess noted. Suspicious enhancing 2. recently round structure raises concern for large sigmoid polyp. Consider colonoscopy after medical treatment. Consider surgical referral due to back on severe sigmoid colonic diverticulosis . Will consult Dr. yeager at this time. Patient started on Levaquin and Flagyl for IV antibiotics. A.m. labs have been ordered. At this time patient denies chest pain or shortness breath. Patient denies nausea or vomiting. Patient denies any urinary burning or frequency On 08/16/2018 patient remains alert and oriented 3. Patient continuing to have abdominal discomfort. Patient denies any nausea vomiting or diarrhea. Patient remains on Levaquin and Flagyl for IV antibiotics. Patient followed by surgical services. This time patient denies nausea vomiting or diarrhea. Patient denies any urinary burning or frequency. Objective - Vital Signs Vital signs: Vital Signs Temp 97.8 F 08/15/18 21:00 Pulse 78 08/15/18 21:00 Resp 16 08/15/18 23:48 BP 123/64 08/15/18 21:00 Pulse Ox 97 08/15/18 21:00 Intake & Output 08/15/18 08/16/18 08/16/18 18:59 06:59 18:59 Intake Total 2260 Balance 2260 Weight 96.842 kg Intake: Intake, IV Titration 600 Amount Sodium Chloride 0.9% 1, 600 000 ml @ 75 mls/hr IV . [id number] [facility] Rx#:[id number] Oral 1660 Other: # Voids 1 - Exam Head normocephalic Neck supple Lungs clear to auscultation bilaterally no wheezing or crackles Heart regular rate and rhythm S1-S2, no rub or gallop Abdomen is soft nontender nondistended positive bowel sounds no hepatosplenomegaly Extremities no edema Neuro alert and orientated to 3 - Labs CBC & Chem 7: 08/16/18 06:26 08/16/18 06:26 Labs: Abnormal Lab Results - Last 24 Hours (Table) 08/16/18 08/16/18 Range/Units 06:26 06:26 RBC 3.45 L (3.80-5.40) m/uL Hgb 11.3 L (11.4-16.0) gm/dL Hct 33.4 L (34.0-46.0) % AST 13 L (14-36) U/L Total Protein 6.2 L (6.3-8.2) g/dL Albumin 3.2 L (3.5-5.0) g/dL Assessment and Plan Assessment: 1. Diverticulitis. CT completed outpatient showing findings consistent with mild to moderate acute diverticulitis on Bactrim and severe diverticulosis. No drainable abscess noted. Suspicious enhancing 2.3 cm round structure raises concern for large sigmoid polyp. Consider colonoscopy after medical treatment. Consider surgical referral due to Severe Sigmoid Colonic Diverticulosis. Dr. Yeager Has Been Consulted for Surgical Services. Patient Started on Levaquin and Flagyl. 2. History of coronary artery disease with previous [place] with stent placement in November 2016. Patient reports she is no longer on anticoagulation per cardiology 3. Ex-smoker. Patient reports she quit in 2015 4. History of essential hypertension 5. History of hyperlipidemia DVT prophylaxis Lovenox. GI prophylaxis Protonix Dr. yeager consulted for surgical services A.m. labs have been I performed an examination of the patient and discussed their management with the Nurse Practitioner. I have reviewed the Nurse Practitioner's notes and agree with the documented findings and plan of care
[2018-08-16] MEDS: ENOXAPARIN 40 MG/0.4 ML SYRINGE SQ SCH (12:16)
[2018-08-16] MEDS: ASPIRIN 325 MG TAB PO SCH (12:16)
[2018-08-16] MEDS: IOPAMIDOL-300 CONTRAST 30 ML VIAL (ORAL USE) PO PRN ×2 (12:27→13:04)
--- NOTE | 2018-08-16 13:54 | P.PN ---
Subjective Progress Note Date: 08/16/18 Principal diagnosis: Left lower quadrant pain Patient continues to have pain left lower quadrant. No significant change. She is afebrile. White blood cell count remains normal. Her office charts were reviewed. The patient had been last seen in the office November 2016. At that time she was tentatively scheduled for colonoscopy April 2017. Apparently while she was waiting to have that repeat colonoscopy performed she developed another cardiac event requiring catheterization and stent placement. This required prolonging her anticoagulation. She then lost her insurance and did not follow-up with me. Objective - Vital Signs Vital signs: Vital Signs Temp 97.8 F 08/16/18 12:27 Pulse 90 08/16/18 12:27 Resp 18 08/16/18 12:27 BP 148/85 08/16/18 12:27 Pulse Ox 99 08/16/18 12:27 Intake & Output 08/15/18 08/16/18 08/16/18 18:59 06:59 18:59 Intake Total 2260 Balance 2260 Weight 96.842 kg Intake: Intake, IV Titration 600 Amount Sodium Chloride 0.9% 1, 600 000 ml @ 75 mls/hr IV . [id number] [facility] Rx#:[id number] Oral 1660 Other: # Voids 1 - Exam Abdomen: Soft, mild left lower quadrant tenderness - Labs CBC & Chem 7: 08/16/18 06:26 08/16/18 06:26 Labs: Abnormal Lab Results - Last 24 Hours (Table) 08/16/18 08/16/18 Range/Units 06:26 06:26 RBC 3.45 L (3.80-5.40) m/uL Hgb 11.3 L (11.4-16.0) gm/dL Hct 33.4 L (34.0-46.0) % AST 13 L (14-36) U/L Total Protein 6.2 L (6.3-8.2) g/dL Albumin 3.2 L (3.5-5.0) g/dL Assessment and Plan (1) Diverticulitis Narrative/Plan: Repeat CAT scan ordered by the primary service. Patient I discussed the plans moving forward. We'll review the CAT scan before decision regarding colonoscopy made however the patient's symptoms have persisted over the last 3 months or so despite 2-3 courses of outpatient oral antibiotics. The long segment of inflammation involving sigmoid and distal descending colon raised the possibility of colitis rather than diverticulitis. The other abnormalities seen on CAT scan that is worrisome is the possible large polyp in the mid sigmoid colon. The patient realizes there is increased risk of colonoscopy in the setting of possible diverticulitis and perforation risk is significantly increased. Despite that however would consider colonoscopy during this hospitalization to better differentiate between diverticulitis or colitis. Decisions regarding surgical resection would obviously then be made following endoscopic evaluation. At this time await CAT scan. Current Visit: Yes Status: Acute Code(s): K57.92 - DVTRCLI OF INTEST, PART UNSP, W/O PERF OR ABSCESS W/O BLEED SNOMED Code(s): 331490533
--- NOTE | 2018-08-16 14:20 | CT ---
EXAMINATION TYPE: CT abdomen pelvis w con DATE OF EXAM: 08/16/2018 HISTORY: LLQ pain CT DLP: 1589mGycm Automated Exposure Control for Dose Reduction was Utilized. CONTRAST: CT scan of the abdomen and pelvis is performed with IV Contrast, patient injected with 100 mL of Isov ue 370. COMPARISON: CT abdomen pelvis 8 days ago FINDINGS: LUNG BASES: Coronary calcification or stent RCA distribution is redemonstrated. LIVER/GB: No significant abnormality is appreciated. PANCREAS: No significant abnormality is seen. SPLEEN: No significant abnormality is seen. ADRENALS: No significant abnormality is seen. KIDNEYS: No significant abnormality is seen. BOWEL: The oral contrast reaches level of the distal transverse colon. There are scattered diverticul a throughout the colon most prominent in the left and sigmoid colon. There is persistent moderate to severe wall thickening in the proximal to mid sigmoid colon with mild/moderate ill-defined fluid and fat stranding that is slightly more prominent from prior study. There is persistent 2.5 cm round hype rdense structure axial image 66 slightly more hyperdense from prior favoring contrast filled large or giant diverticulum. No new pneumoperitoneum is present. No new well-formed drainable abscess is iden tified. UTERUS/ADNEXA: No gross abnormality seen. LYMPH NODES: No greater than 1cm abdominal or pelvic lymph nodes are appreciated. OSSEOUS STRUCTURES: No significant abnormality is seen. OTHER: No significant additional abnormality is seen. IMPRESSION: CT findings consistent with fairly moderate to severe acute diverticulitis over fairly mo derate segment with more prominent inflammatory change noted from prior CT beginning distal left colo n level extending through the mid transverse colon.
[2018-08-16] MEDS: LEVOFLOXACIN 500MG-D5W PMX 500 MG in DEXTROSE/WATER 1 100ML.BAG IVPB SCH (18:19)
[2018-08-16] MEDS: ATORVASTATIN 40 MG TAB PO SCH (20:23)
[2018-08-17 07:21] LABS: Basophils % (A) 1 %; Eosinophils # (A) 0.3 k/uL (0-0.7); Eosinophils % (A) 6 %; HCT 35.2 % (34.0-46.0); HGB 11.6 gm/dL (11.4-16.0); Lymphocytes # (A) 1.7 k/uL (1.0-4.8); Lymphocytes % (A) 34 %; MCH 31.6 pg (25.0-35.0); MCHC 32.9 g/dL (31.0-37.0); MCV 96.1 fL (80.0-100.0); Mean Platelet Volume 6.6; Monocytes # (A) 0.4 k/uL (0-1.0); Monocytes % (A) 7 %; Neutrophils # (A) 2.5 k/uL (1.3-7.7); Neutrophils % (A) 51 %; Platelet Count 241 k/uL (150-450); RBC 3.66 m/uL (3.80-5.40); RDW 13.2 % (11.5-15.5)
[2018-08-17 07:36] LABS: ALT 30 U/L (9-52); AST 15 U/L (14-36); Albumin 3.2 g/dL (3.5-5.0); Alkaline Phosphatase 45 U/L (38-126); Anion Gap 5 mmol/L; Blood Urea Nitrogen 8 mg/dL (7-17); Calcium 8.8 mg/dL (8.4-10.2); Carbon Dioxide 29 mmol/L (22-30); Chloride 106 mmol/L (98-107); Glucose 94 mg/dL (74-99); Potassium 4.2 mmol/L (3.5-5.1); Sodium 140 mmol/L (137-145); Total Bilirubin 0.3 mg/dL (0.2-1.3); Total Protein 6.3 g/dL (6.3-8.2)
[2018-08-17] MEDS: metroNIDAZOLE-NS PMX 500 MG in SALINE 1 100ML.BAG IVPB SCH ×3 (09:20→23:52)
[2018-08-17] MEDS: ENOXAPARIN 40 MG/0.4 ML SYRINGE SQ SCH (10:11)
[2018-08-17] MEDS: PANTOPRAZOLE 40 MG TABLET PO SCH (10:11)
[2018-08-17] MEDS: LISINOPRIL 20 MG TAB PO SCH (10:11)
[2018-08-17] MEDS: ASPIRIN 325 MG TAB PO SCH (10:11)
--- NOTE | 2018-08-17 11:12 | P.PN ---
Subjective Progress Note Date: 08/17/18 This is a 48-year-old female patient who was direct admit from her PCP. Patient reports that he's been having issues with diverticulitis intermittently for the past year. Patient reports that this flareup started about 3 months ago patient reports that she's had no improvement with antibiotics. Patient reports that she's had severe abdominal cramping with diarrhea. Patient denies nausea vomiting Patient does reports she has a colonoscopy scheduled at the end of August with Dr. Yeager. Patient does have a past medical history of coronary artery disease with myocardial infarction and stent placement last stent November 2016. Patient reports that she follows with cardiology is currently not on anticoagulation per cardiology. Additional medical history includes hyperlipidemia, hypertension and ex-smoker. Computed tomography scan completed outpatient sewing findings consistent with mild to moderate acute diverticulitis on background severe diverticulosis. No drainable abscess noted. Suspicious enhancing 2. recently round structure raises concern for large sigmoid polyp. Consider colonoscopy after medical treatment. Consider surgical referral due to back on severe sigmoid colonic diverticulosis . Will consult Dr. yeager at this time. Patient started on Levaquin and Flagyl for IV antibiotics. A.m. labs have been ordered. At this time patient denies chest pain or shortness breath. Patient denies nausea or vomiting. Patient denies any urinary burning or frequency On 08/16/2018 patient remains alert and oriented 3. Patient continuing to have abdominal discomfort. Patient denies any nausea vomiting or diarrhea. Patient remains on Levaquin and Flagyl for IV antibiotics. Patient followed by surgical services. This time patient denies nausea vomiting or diarrhea. Patient denies any urinary burning or frequency. On 08/17/2018 patient remains alert and oriented 3. Patient reports some improvement with abdominal discomfort. Patient remains on IV Levaquin and Flagyl for antibiotics. Repeat CT completed. Awaiting surgical input. At this time patient denies chest pain or shortness breath. Patient denies any nausea vomiting or diarrhea. Patient denies any urinary burning or frequency Objective - Vital Signs Vital signs: Vital Signs Temp 98.2 F 08/17/18 05:00 Pulse 61 08/17/18 05:00 Resp 16 08/17/18 05:00 BP 90/49 08/17/18 05:00 Pulse Ox 96 08/17/18 05:00 Intake & Output 08/16/18 08/17/18 08/17/18 18:59 06:59 18:59 Intake Total 1580 1340 Balance 1580 1340 Intake: Intake, IV Titration 800 500 Amount Levofloxacin 500Mg-D5w 100 100 Pmx 500 mg In Dextrose/ Water 1 100ml.bag @ 100 mls/hr IVPB Q24H [facility] Rx#: [id number] Sodium Chloride 0.9% 1, 600 300 000 ml @ 75 mls/hr IV . [id number] [facility] Rx#:[id number] metroNIDAZOLE-NS PMX 500 100 100 mg In Saline 1 100ml.bag @ 100 mls/hr IVPB Q8HR [facility] Rx#:[id number] Oral 780 840 Other: # Voids 3 1 - Exam Head normocephalic Neck supple Lungs clear to auscultation bilaterally no wheezing or crackles Heart regular rate and rhythm S1-S2, no rub or gallop Abdomen is soft nontender nondistended positive bowel sounds no hepatosplenomegaly Extremities no edema Neuro alert and orientated to 3 - Labs CBC & Chem 7: 08/17/18 06:50 08/17/18 06:50 Labs: Abnormal Lab Results - Last 24 Hours (Table) 08/17/18 08/17/18 Range/Units 06:50 06:50 RBC 3.66 L (3.80-5.40) m/uL Albumin 3.2 L (3.5-5.0) g/dL Assessment and Plan Assessment: 1. Diverticulitis. CT completed outpatient showing findings consistent with mild to moderate acute diverticulitis on Bactrim and severe diverticulosis. No drainable abscess noted. Suspicious enhancing 2.3 cm round structure raises concern for large sigmoid polyp. Consider colonoscopy after medical treatment. Consider surgical referral due to Severe Sigmoid Colonic Diverticulosis. Repeat CT of abdomen and pelvis completed showing findings consistent with fairly moderate to severe acute diverticulitis over fairly moderate segmental wall pulmonary inflammatory changes noted prior CT dating distal left colon level extending to the mid transverse colon. Awaiting surgical recommendation. Patient remains on IV Flagyl and Levaquin at this time 2. History of coronary artery disease with previous [place] with stent placement in November 2016. Patient reports she is no longer on anticoagulation per cardiology 3. Ex-smoker. Patient reports she quit in 2015 4. History of essential hypertension 5. History of hyperlipidemia DVT prophylaxis Lovenox. GI prophylaxis Protonix I performed an examination of the patient and discussed their management with the Nurse Practitioner. I have reviewed the Nurse Practitioner's notes and agree with the documented findings and plan of care
[2018-08-17] MEDS: SODIUM CHLORIDE 0.9% 1,000 ML IV SCH ×2 (12:12→22:55)
[2018-08-17] MEDS ORDERED: PEG 3350-NA SULF,BICARB,CL/KCL 4,000 ML BOTTLE PO ONE (13:07)
--- NOTE | 2018-08-17 13:09 | P.PN ---
Subjective Progress Note Date: 08/17/18 Principal diagnosis: Left lower quadrant pain Patient says her pain is slightly better today. CAT scan from yesterday reviewed. Patient has persistent thickening of the descending and sigmoid colon. The previously described area that was thought to represent a polyp is likely a large diverticulum. Tolerating clears. No fevers. White blood cell count remains normal. Objective - Vital Signs Vital signs: Vital Signs Temp 97.3 F L 08/17/18 11:27 Pulse 72 08/17/18 11:27 Resp 16 08/17/18 11:27 BP 124/74 08/17/18 11:27 Pulse Ox 97 08/17/18 11:27 Intake & Output 08/16/18 08/17/18 08/17/18 18:59 06:59 18:59 Intake Total 1580 1340 750 Balance 1580 1340 750 Intake: Intake, IV Titration 800 500 250 Amount Levofloxacin 500Mg-D5w 100 100 Pmx 500 mg In Dextrose/ Water 1 100ml.bag @ 100 mls/hr IVPB Q24H [facility] Rx#: [id number] Sodium Chloride 0.9% 1, 600 300 150 000 ml @ 75 mls/hr IV . [id number] [facility] Rx#:[id number] metroNIDAZOLE-NS PMX 500 100 100 100 mg In Saline 1 100ml.bag @ 100 mls/hr IVPB Q8HR [facility] Rx#:[id number] Oral 780 840 Tube Feeding 500 Other: # Voids 3 1 - Exam Abdomen: Soft, nondistended, mild left lower quadrant tenderness - Labs CBC & Chem 7: 08/17/18 06:50 08/17/18 06:50 Labs: Abnormal Lab Results - Last 24 Hours (Table) 08/17/18 08/17/18 Range/Units 06:50 06:50 RBC 3.66 L (3.80-5.40) m/uL Albumin 3.2 L (3.5-5.0) g/dL Assessment and Plan (1) Diverticulitis Narrative/Plan: Continue antibiotics. Ambulate. Options reviewed with the patient in detail. Option of outpatient antibiotics with interval colonoscopy versus seeding with colonoscopy at this time given the increased risks of perforation. Possibility of finding colitis rather than diverticulitis reviewed. Will schedule colonoscopy for tomorrow. Patient understands the increased risk of perforation and bleeding. Current Visit: Yes Status: Acute Code(s): K57.92 - DVTRCLI OF INTEST, PART UNSP, W/O PERF OR ABSCESS W/O BLEED SNOMED Code(s): 613294425
[2018-08-17] MEDS: LEVOFLOXACIN 500MG-D5W PMX 500 MG in DEXTROSE/WATER 1 100ML.BAG IVPB SCH (19:28)
[2018-08-17] MEDS: ATORVASTATIN 40 MG TAB PO SCH (20:08)
[2018-08-18 08:08] LABS: Basophils % (A) 1 %; Eosinophils # (A) 0.3 k/uL (0-0.7); Eosinophils % (A) 5 %; HCT 36.7 % (34.0-46.0); HGB 12.1 gm/dL (11.4-16.0); Lymphocytes # (A) 1.6 k/uL (1.0-4.8); Lymphocytes % (A) 32 %; MCH 31.8 pg (25.0-35.0); MCV 96.3 fL (80.0-100.0); Mean Platelet Volume 6.9; Monocytes # (A) 0.3 k/uL (0-1.0); Monocytes % (A) 6 %; Neutrophils # (A) 2.7 k/uL (1.3-7.7); Neutrophils % (A) 55 %; Platelet Count 258 k/uL (150-450); RBC 3.81 m/uL (3.80-5.40); RDW 13.3 % (11.5-15.5); WBC 4.9 k/uL (3.8-10.6)
[2018-08-18 08:22] LABS: ALT 35 U/L (9-52); AST 30 U/L (14-36); Albumin 3.3 g/dL (3.5-5.0); Alkaline Phosphatase 46 U/L (38-126); Anion Gap 9 mmol/L; Blood Urea Nitrogen 7 mg/dL (7-17); Calcium 8.9 mg/dL (8.4-10.2); Carbon Dioxide 27 mmol/L (22-30); Chloride 106 mmol/L (98-107); Glucose 92 mg/dL (74-99); Sodium 142 mmol/L (137-145); Total Bilirubin 0.3 mg/dL (0.2-1.3); Total Protein 6.4 g/dL (6.3-8.2)
[2018-08-18] MEDS: ASPIRIN 325 MG TAB PO SCH (08:30)
[2018-08-18] MEDS: ENOXAPARIN 40 MG/0.4 ML SYRINGE SQ SCH (08:30)
[2018-08-18] MEDS: PANTOPRAZOLE 40 MG TABLET PO SCH (08:32)
[2018-08-18] MEDS: LISINOPRIL 20 MG TAB PO SCH (08:32)
[2018-08-18] MEDS: metroNIDAZOLE-NS PMX 500 MG in SALINE 1 100ML.BAG IVPB SCH ×3 (09:20→23:24)
[2018-08-18] MEDS: SODIUM CHLORIDE 0.9% 1,000 ML IV SCH ×2 (09:34→15:51)
--- NOTE | 2018-08-18 12:21 | P.PN ---
Subjective Progress Note Date: 08/18/18 This is a 48-year-old female patient who was direct admit from her PCP. Patient reports that he's been having issues with diverticulitis intermittently for the past year. Patient reports that this flareup started about 3 months ago patient reports that she's had no improvement with antibiotics. Patient reports that she's had severe abdominal cramping with diarrhea. Patient denies nausea vomiting Patient does reports she has a colonoscopy scheduled at the end of August with Dr. Yeager. Patient does have a past medical history of coronary artery disease with myocardial infarction and stent placement last stent November 2016. Patient reports that she follows with cardiology is currently not on anticoagulation per cardiology. Additional medical history includes hyperlipidemia, hypertension and ex-smoker. Computed tomography scan completed outpatient sewing findings consistent with mild to moderate acute diverticulitis on background severe diverticulosis. No drainable abscess noted. Suspicious enhancing 2. recently round structure raises concern for large sigmoid polyp. Consider colonoscopy after medical treatment. Consider surgical referral due to back on severe sigmoid colonic diverticulosis . Will consult Dr. yeager at this time. Patient started on Levaquin and Flagyl for IV antibiotics. A.m. labs have been ordered. At this time patient denies chest pain or shortness breath. Patient denies nausea or vomiting. Patient denies any urinary burning or frequency On 08/16/2018 patient remains alert and oriented 3. Patient continuing to have abdominal discomfort. Patient denies any nausea vomiting or diarrhea. Patient remains on Levaquin and Flagyl for IV antibiotics. Patient followed by surgical services. This time patient denies nausea vomiting or diarrhea. Patient denies any urinary burning or frequency. On 08/17/2018 patient remains alert and oriented 3. Patient reports some improvement with abdominal discomfort. Patient remains on IV Levaquin and Flagyl for antibiotics. Repeat CT completed. Awaiting surgical input. At this time patient denies chest pain or shortness breath. Patient denies any nausea vomiting or diarrhea. Patient denies any urinary burning or frequency On 08/18/2018. Patient is alert and oriented 3. Patient states improvement with abdominal discomfort. Plan for colonoscopy. Is today. Patient remains on Levaquin and Flagyl. Patient denies nausea vomiting or diarrhea. Patient denies any urinary burning or frequency. Patient denies chest pain or shortness of breath. Objective - Vital Signs Vital signs: Vital Signs Temp 98 F 08/18/18 12:17 Pulse 98 02/14/19 12:17 Resp 20 08/18/18 12:17 BP 123/84 08/18/18 12:17 Pulse Ox 96 08/18/18 12:17 Intake & Output 08/17/18 08/18/18 08/18/18 18:59 06:59 18:59 Intake Total 750 300 Balance 750 300 Intake: Intake, IV Titration 250 300 Amount Levofloxacin 500Mg-D5w 200 Pmx 500 mg In Dextrose/ Water 1 100ml.bag @ 100 mls/hr IVPB Q24H [facility] Rx#: [id number] Sodium Chloride 0.9% 1, 150 000 ml @ 75 mls/hr IV . [id number] [facility] Rx#:[id number] metroNIDAZOLE-NS PMX 500 100 100 mg In Saline 1 100ml.bag @ 100 mls/hr IVPB Q8HR [facility] Rx#:[id number] Tube Feeding 500 Other: Voiding Method Toilet # Voids 1 3 # Bowel Movements 3 - Exam Head normocephalic Neck supple Lungs clear to auscultation bilaterally no wheezing or crackles Heart regular rate and rhythm S1-S2, no rub or gallop Abdomen is soft nontender nondistended positive bowel sounds no hepatosplenomegaly Extremities no edema Neuro alert and orientated to 3 - Labs CBC & Chem 7: 08/18/18 07:41 08/18/18 07:41 Labs: Abnormal Lab Results - Last 24 Hours (Table) 08/18/18 Range/Units 07:41 Albumin 3.3 L (3.5-5.0) g/dL Assessment and Plan Assessment: 1. Diverticulitis. CT completed outpatient showing findings consistent with mild to moderate acute diverticulitis on Bactrim and severe diverticulosis. No drainable abscess noted. Suspicious enhancing 2.3 cm round structure raises concern for large sigmoid polyp. Consider colonoscopy after medical treatment. Consider surgical referral due to Severe Sigmoid Colonic Diverticulosis. Repeat CT of abdomen and pelvis completed showing findings consistent with fairly moderate to severe acute diverticulitis over fairly moderate segmental wall pulmonary inflammatory changes noted prior CT dating distal left colon level extending to the mid transverse colon. Awaiting surgical recommendation. Patient remains on IV Flagyl and Levaquin at this time. Planning colonoscopy today per surgical services 2. History of coronary artery disease with previous [place] with stent placement in November 2016. Patient reports she is no longer on anticoagulation per cardiology 3. Ex-smoker. Patient reports she quit in 2016 4. History of essential hypertension 5. History of hyperlipidemia DVT prophylaxis Lovenox. GI prophylaxis Protonix I performed an examination of the patient and discussed their management with the Nurse Practitioner. I have reviewed the Nurse Practitioner's notes and agree with the documented findings and plan of care
[2018-08-18] MEDS ORDERED: PROPOFOL 10 MG/ML 20 ML VIAL IV ONE (13:30)
[2018-08-18] MEDS ORDERED: fentaNYL (PF) 50 MCG/ML 2 ML AMP ONE (13:30)
[2018-08-18] MEDS ORDERED: IV FLUID CONTINUATION 1,000 ML IV ONE (13:39)
--- NOTE | 2018-08-18 14:43 | P.PCN ---
Date of Procedure: 08/18/18 Procedure(s) Performed: PREOPERATIVE DIAGNOSIS: Change in bowel habits, diverticulitis, abnormal CAT scan POSTOPERATIVE DIAGNOSIS: Diverticulosis, diverticulitis, ascending colon polyp PROCEDURE: Colonoscopy with snare polypectomy ANESTHESIA: MAC SURGEON: Nicolas Chavez M.D. SPECIMENS: Ascending colon polyp ENDOSCOPIC PROCEDURE: The patient was placed on the endoscopy table in the left decubitus position. The Olympus colonoscope was inserted into the anus and passed under direct visualization to the base of the cecum. The appendiceal orifice was visualized. From that point the scope was slowly withdrawn inspecting all surfaces carefully. There were no neoplastic inflammatory or polypoid lesions throughout the cecum. In the ascending colon a small polyp was identified and removed using the snare with cautery technique. The remainder of the ascending transverse and descending colon appeared normal. The patient had evidence of diverticulosis seen scattered throughout the entire colon. In the mid sigmoid there was a segment that probably measured 10 cm or so in length that demonstrated edema and mild erythema of the lining of the colon. There was no ulcerations or significant mucosal irritation. This was consistent with the patient's presumptive diagnosis of diverticulitis rather than colitis. No biopsies were necessary. A single large diverticular orifice was thought to be visualized as well. The remainder of the distal sigmoid and rectum appeared relatively normal. Digital rectal examination was normal. The patient was taken to the recovery room in stable condition per anesthesia guidelines. RECOMMENDATIONS: Await biopsy results. Anticipate resuming diet at this time. Will plan discharge home on oral antibiotics and will discuss sigmoid resection in the next several weeks. The patient I discussed that waiting for full resolution of the diverticulitis before proceeding with surgical intervention is likely not possible given the patient's persistent symptoms over the last 3 months.
[2018-08-18] MEDS: LEVOFLOXACIN 500MG-D5W PMX 500 MG in DEXTROSE/WATER 1 100ML.BAG IVPB SCH (16:46)
[2018-08-18] MEDS: ATORVASTATIN 40 MG TAB PO SCH (20:22)
[2018-08-19] MEDS: SODIUM CHLORIDE 0.9% 1,000 ML IV SCH (01:09)
[2018-08-19] MEDS: metroNIDAZOLE-NS PMX 500 MG in SALINE 1 100ML.BAG IVPB SCH (08:16)
[2018-08-19 08:30] LABS: Basophils % (A) 0 %; Eosinophils # (A) 0.3 k/uL (0-0.7); Eosinophils % (A) 4 %; HCT 36.8 % (34.0-46.0); Lymphocytes # (A) 1.9 k/uL (1.0-4.8); Lymphocytes % (A) 35 %; MCH 31.4 pg (25.0-35.0); MCHC 32.7 g/dL (31.0-37.0); Mean Platelet Volume 6.1; Monocytes # (A) 0.3 k/uL (0-1.0); Monocytes % (A) 6 %; Neutrophils % (A) 54 %; Platelet Count 273 k/uL (150-450); RBC 3.83 m/uL (3.80-5.40); RDW 13.1 % (11.5-15.5); WBC 5.6 k/uL (3.8-10.6)
[2018-08-19 08:41] LABS: ALT 45 U/L (9-52); AST 42 U/L (14-36); Albumin 3.2 g/dL (3.5-5.0); Alkaline Phosphatase 39 U/L (38-126); Anion Gap 5 mmol/L; Blood Urea Nitrogen 10 mg/dL (7-17); Calcium 8.5 mg/dL (8.4-10.2); Carbon Dioxide 27 mmol/L (22-30); Chloride 109 mmol/L (98-107); Glucose 87 mg/dL (74-99); Potassium 4.7 mmol/L (3.5-5.1); Sodium 141 mmol/L (137-145); Total Bilirubin 0.3 mg/dL (0.2-1.3); Total Protein 6.2 g/dL (6.3-8.2)
[2018-08-19] MEDS: LISINOPRIL 20 MG TAB PO SCH (09:55)
[2018-08-19] MEDS: PANTOPRAZOLE 40 MG TABLET PO SCH (09:55)
[2018-08-19] MEDS: ASPIRIN 325 MG TAB PO SCH (09:55)
[2018-08-19] MEDS: ENOXAPARIN 40 MG/0.4 ML SYRINGE SQ SCH (09:55)
--- NOTE | 2018-08-19 11:04 | P.DS ---
Providers Date of admission: 08/15/18 15:22 Expected date of discharge: 08/19/18 Attending physician: Jeanette Wise Consults: 08/15/18 15:45 Consult Physician Routine Consulting Provider: Nicolas Chavez Consult Reason/Comments: diverticulitis. OP CT Do you want consulting provider notified?: Yes Placement Type Exists?: Yes Primary care physician: Jeanette Wise Hospital Course: Discharge diagnosis 1. Diverticulitis. CT completed outpatient showing findings consistent with mild to moderate acute diverticulitis on Bactrim and severe diverticulosis. No drainable abscess noted. Suspicious enhancing 2.3 cm round structure raises concern for large sigmoid polyp. Consider colonoscopy after medical treatment. Consider surgical referral due to Severe Sigmoid Colonic Diverticulosis. Repeat CT of abdomen and pelvis completed showing findings consistent with fairly moderate to severe acute diverticulitis over fairly moderate segmental wall pulmonary inflammatory changes noted prior CT dating distal left colon level extending to the mid transverse colon. Awaiting surgical recommendation. Patient remains on IV Flagyl and Levaquin at this time. Patient underwent colonoscopy yesterday with Dr. yeager. Colonoscopy findings include diverticulosis, diverticulitis and ascending colon polyp. Patient has been tolerating diet and feels much improved. Per Dr. yeager recommending oral antibiotics with possible sigmoid resection in the next several weeks. Patient will be DC'd on Augmentin and Flagyl. Follow-up with PCP and surgical services. 2. History of coronary artery disease with previous [place] with stent placement in November 2016. Patient reports she is no longer on anticoagulation per cardiology 3. Ex-smoker. Patient reports she quit in 2015 4. History of essential hypertension 5. History of hyperlipidemia Hospital course This is a 48-year-old female patient who was direct admit from her PCP. Patient reports that he's been having issues with diverticulitis intermittently for the past year. Patient reports that this flareup started about 3 months ago patient reports that she's had no improvement with antibiotics. Patient reports that she's had severe abdominal cramping with diarrhea. Patient denies nausea vomiting Patient does reports she has a colonoscopy scheduled at the end of August with Dr. Yeager. Patient does have a past medical history of coronary artery disease with myocardial infarction and stent placement last stent November 2016. Patient reports that she follows with cardiology is currently not on anticoagulation per cardiology. Additional medical history includes hyperlipidemia, hypertension and ex-smoker. Computed tomography scan completed outpatient sewing findings consistent with mild to moderate acute diverticulitis on background severe diverticulosis. No drainable abscess noted. Suspicious enhancing 2. recently round structure raises concern for large sigmoid polyp. Consider colonoscopy after medical treatment. Consider surgical referral due to back on severe sigmoid colonic diverticulosis . Will consult Dr. yeager at this time. Patient started on Levaquin and Flagyl for IV antibiotics. A.m. labs have been ordered. At this time patient denies chest pain or shortness breath. Patient denies nausea or vomiting. Patient denies any urinary burning or frequency On 08/16/2018 patient remains alert and oriented 3. Patient continuing to have abdominal discomfort. Patient denies any nausea vomiting or diarrhea. Patient remains on Levaquin and Flagyl for IV antibiotics. Patient followed by surgical services. This time patient denies nausea vomiting or diarrhea. Patient denies any urinary burning or frequency. On 08/17/2018 patient remains alert and oriented 3. Patient reports some improvement with abdominal discomfort. Patient remains on IV Levaquin and Flagyl for antibiotics. Repeat CT completed. Awaiting surgical input. At this time patient denies chest pain or shortness breath. Patient denies any nausea vomiting or diarrhea. Patient denies any urinary burning or frequency On 08/18/2018. Patient is alert and oriented 3. Patient states improvement with abdominal discomfort. Plan for colonoscopy. Is today. Patient remains on Levaquin and Flagyl. Patient denies nausea vomiting or diarrhea. Patient denies any urinary burning or frequency. Patient denies chest pain or shortness of breath. On 08/19/2018 patient alert and oriented 3. Patient should she is eager to go home. Patient's states her abdominal pain is significantly improved. Patient denies nausea vomiting or diarrhea. Patient denies chest pain or shortness breath. Patient denies any urinary burning or frequency. Patient to follow up I performed an examination of the patient and discussed their management with the Nurse Practitioner. I have reviewed the Nurse Practitioner's notes and agree with the documented findings and plan of care Patient Condition at Discharge: Stable Plan - Discharge Summary Discharge Rx Participant: No New Discharge Prescriptions: New Pantoprazole [Protonix] 40 mg PO AC-BRKFST #30 tablet. metroNIDAZOLE [Flagyl] 500 mg PO TID 10 Days #30 tab Continue Aspirin 325 mg PO DAILY #30 tab Atorvastatin Calcium [Lipitor] 40 mg PO HS Lisinopril [Zestril] 20 mg PO DAILY #30 tab Naproxen 500 mg PO BID PRN PRN Reason: Pain Discharge Medication List Aspirin 325 mg PO DAILY #30 tab 10/21/15 [Rx] Atorvastatin Calcium [Lipitor] 40 mg PO HS 08/17/16 [History] Lisinopril [Zestril] 20 mg PO DAILY #30 tab 11/04/16 [Rx] Naproxen 500 mg PO BID PRN 08/15/18 [History] Pantoprazole [Protonix] 40 mg PO AC-BRKFST #30 tablet. 08/19/18 [Rx] metroNIDAZOLE [Flagyl] 500 mg PO TID 10 Days #30 tab 08/19/18 [Rx] Follow up Appointment(s)/Referral(s): Nicolas Chavez MD [Medical Doctor] - 1 Week Jeanette Wise MD [Primary Care Provider] - 1 Week Ambulatory/Diagnostic Orders: Comprehensive Metabolic Panel [LAB.AMB] Time Frame: 3 Days, Location: None Selected Activity/Diet/Wound Care/Special Instructions: Activity as tolerated Diet low fiber Discharge Disposition: HOME SELF-CARE
[2018-08-19 11:43] VITALS: BP 139/82; PULSE 83; RESP 18; TEMP 98.7
== END 2018-08-19 12:33 | disposition home or self-care (01) | DRG 392 ==
LOC: 3NMEDONC 15:22
PROVIDERS: ADMIT Internal Medicine; ATTEND Internal Medicine
PROC: 0DBK8ZX Excision of Ascending Colon, Via Natural or Artificial Opening Endoscopic, Diagnostic (ICD-10-PCS; principal; 2018-08-18 07:30)
DX: K57.32 Diverticulitis of large intestine without perforation or abscess without bleeding (principal); D12.2 Benign neoplasm of ascending colon; E78.5 Hyperlipidemia, unspecified; I25.10 Atherosclerotic heart disease of native coronary artery without angina pectoris; I10 Essential (primary) hypertension; I25.2 Old myocardial infarction; Z79.82 Long term (current) use of aspirin; Z79.02 Long term (current) use of antithrombotics/antiplatelets; Z79.899 Other long term (current) drug therapy; Z87.891 Personal history of nicotine dependence; Z95.5 Presence of coronary angioplasty implant and graft; Z88.0 Allergy status to penicillin; Z82.3 Family history of stroke
CPT/HCPCS: 45385; 74177; 80053; 82378; 84703; 85025; 88305; 93005

== ENCOUNTER → 2018-11-15 | Outpatient (CLI) | payer OTHER ==
--- NOTE | 2018-11-15 10:27 | MM ---
Reason for exam: additional evaluation requested from prior study. Last mammogram was performed 1 year and 2 months ago. History: Patient is nulliparous. Physical Findings: Nurse did not find any significant physical abnormalities on exam. [facility] Diagnostic Mammo w CAD [facility]RISTIAN Bilateral CC and MLO view(s) were taken. XCCL view(s) were taken of the right breast. Prior study comparison: September 29, 2017, right breast MG diagnostic mammo RT w CAD. April 06, 2017, bilateral MG diagnostic mammo w CAD CHRISTIAN. The breast tissue is heterogeneously dense. This may lower the sensitivity of mammography. Overall increased density corresponds with weight loss. Right upper outer quadrant focal asymmetry appears similar to priors however precautionary ultrasound will be performed. These results were verbally communicated with the patient and result sheet given to the patient on 11/15/18. ASSESSMENT: Incomplete: need additional imaging evaluation, BI-RAD 0 RECOMMENDATION: Ultrasound of the right breast. (upper outer quadrant)
--- NOTE | 2018-11-15 10:31 | USB ---
Reason for exam: additional evaluation requested from abnormal screening. History: Patient is nulliparous. US Breast Limited RT Right limited breast ultrasound including focal area of concern, retroareolar and axilla demonstrates a 5 x 2 x 5mm oval, cystic lesion at 12 o'clock and a 7 x 3 x 4mm cystic cluster at 7 o'clock. These results were verbally communicated with the patient and result sheet given to the patient on 11/15/18. ASSESSMENT: Benign, BI-RAD 2 RECOMMENDATION: Routine screening mammogram of both breasts in 1 year.
== END | disposition home or self-care (01) ==
LOC: RADMAMWWP 08:14
PROVIDERS: ATTEND Internal Medicine
DX: R92.8 Other abnormal and inconclusive findings on diagnostic imaging of breast (principal)
CPT/HCPCS: 77066

== ENCOUNTER → 2018-12-21 | Outpatient (CLI) | payer OTHER ==
--- NOTE | 2018-12-21 10:36 | XR ---
EXAMINATION TYPE: XR foot complete RT DATE OF EXAM: 12/21/2018 COMPARISON: NONE HISTORY: Pain TECHNIQUE: Three views are submitted. FINDINGS: There is a fracture line through the proximal phalanx fourth digit. Plantar calcaneal spur noted. Hyp ertrophic change and arthropathy of the first MTP. IMPRESSION: 1. Mildly displaced fracture proximal phalanx fourth digit.
== END | disposition home or self-care (01) ==
LOC: RADXRMAIN 09:47
PROVIDERS: ATTEND Emergency Medicine
DX: S92.511A Displaced fracture of proximal phalanx of right lesser toe(s), initial encounter for closed fracture (principal)

== ENCOUNTER 2020-01-25 21:28 | Emergency (ER) | payer OTHER ==
[2020-01-25 21:35] VITALS: BP 160/94; PULSE 106; RESP 18; TEMP 98.2
--- NOTE | 2020-01-25 22:14 | XR ---
EXAMINATION TYPE: XR hand complete LT DATE OF EXAM: 01/25/2020 COMPARISON: None HISTORY: Pain TECHNIQUE: 3 views FINDINGS: I see no fracture nor dislocation. Joint spaces are normal. There are no pathologic calcifi cations. IMPRESSION: Negative left hand exam.
--- NOTE | 2020-01-25 22:16 | XR ---
PROCEDURE: XR wrist complete LT - 3V DATE AND TIME: 01/25/2020 10:07 PM CLINICAL INDICATION: PHH; pain after fall TECHNIQUE: Department protocol COMPARISON: None FINDINGS: There is evidence of dorsal soft tissue swelling over the wrist with a vertically oriented linear lucency suspicious for nondisplaced triquetral fracture. The bones and joints are otherwise unremarkable. IMPRESSION: Subtle findings can correlate with a clinical diagnosis of triquetral fracture.
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
== END 2020-01-25 22:44 | disposition home or self-care (01) ==
LOC: EC 21:28
DX: S62.112A Displaced fracture of triquetrum [cuneiform] bone, left wrist, initial encounter for closed fracture (principal); I25.10 Atherosclerotic heart disease of native coronary artery without angina pectoris; I10 Essential (primary) hypertension; E78.5 Hyperlipidemia, unspecified; I25.2 Old myocardial infarction; Z79.899 Other long term (current) drug therapy; Z88.0 Allergy status to penicillin; Z95.5 Presence of coronary angioplasty implant and graft; W19.XXXA Unspecified fall, initial encounter; Y93.02 Activity, running
CPT/HCPCS: 29125; 99283

== ENCOUNTER → 2020-05-16 | Outpatient (CLI) | payer OTHER ==
--- NOTE | 2020-05-20 09:01 | MM ---
Reason for exam: screening (asymptomatic). Last mammogram was performed 1 year and 6 months ago. History: Patient is nulliparous. Physical Findings: A clinical breast exam by your physician is recommended on an annual basis and results should be correlated with mammographic findings. MG Screening Mammo w CAD Bilateral CC and MLO view(s) were taken. Prior study comparison: November 15, 2018, bilateral MG diagnostic mammo w CAD [facility]. September 29, 2017, right breast MG diagnostic mammo RT w CAD. April 06, 2017, bilateral MG diagnostic mammo w CAD [facility]. March 23, 2016, bilateral MG screening mammo w CAD. The breast tissue is heterogeneously dense. This may lower the sensitivity of mammography. There is chronic nodularity in the right breast. No significant changes when compared with prior studies. ASSESSMENT: Benign, BI-RAD 2 RECOMMENDATION: Routine screening mammogram of both breasts in 1 year.
== END | disposition home or self-care (01) ==
LOC: RADMAMWWP 14:27
PROVIDERS: ATTEND Internal Medicine
DX: Z12.31 Encounter for screening mammogram for malignant neoplasm of breast (principal)
CPT/HCPCS: 77067

== ENCOUNTER 2020-10-07 02:26 | Inpatient (IN) | payer OTHER ==
--- NOTE | 2020-10-07 02:46 | ED ---
SOB HPI - General Chief Complaint: Shortness of Breath Stated Complaint: SOB Time Seen by Provider: 10/07/20 02:42 Source: patient, EMS Mode of arrival: EMS Limitations: no limitations - History of Present Illness Initial Comments: This patient is a 50-year-old woman presenting with a constellation of symptoms she is concerned about possibility of coronavirus. Going back approximately 4 days she has had myalgias, fever or chills, mild headache, cough and now developing worsening shortness of breath. MD Complaint: shortness of breath, cough -: days(s) Consistency: constant Improves With: nothing Worsens With: exertion Associated Symptoms: fever, cough Treatments Prior to Arrival: none - Related Data Home Medications Medication Instructions Recorded Confirmed Naproxen 500 mg PO BID PRN 08/15/18 10/07/20 Cyclobenzaprine [Flexeril] 5 mg PO HS PRN 10/07/20 10/07/20 Docusate [Colace] 100 mg PO DAILY 10/07/20 10/07/20 Metoprolol Tartrate [Lopressor] 25 mg PO DAILY 10/07/20 10/07/20 Rosuvastatin [Crestor] 20 mg PO DAILY 10/07/20 10/07/20 hydroCHLOROthiazide [Hydrodiuril] 25 mg PO DAILY 10/07/20 10/07/20 lisinopriL [Zestril] 20 mg PO BID 10/07/20 10/07/20 Previous Rx's Medication Instructions Recorded Aspirin 325 mg PO DAILY #30 tab 10/21/15 Allergies Allergy/AdvReac Type Severity Reaction Status Date / Time Penicillins Allergy Rash/Hives Verified 10/07/20 06:55 Review of Systems ROS Statement: Those systems with pertinent positive or pertinent negative responses have been documented in the HPI. ROS Other: All systems not noted in ROS Statement are negative. Constitutional: Reports: fever, chills, weakness Respiratory: Reports: cough, dyspnea. Denies: hemoptysis Cardiovascular: Denies: chest pain, palpitations, orthopnea, edema, syncope Endocrine: Reports: fatigue Gastrointestinal: Denies: abdominal pain, nausea, vomiting, diarrhea Genitourinary: Denies: dysuria, hematuria Musculoskeletal: Denies: back pain Skin: Denies: rash Neurological: Denies: headache, weakness Past Medical History Past Medical History: Coronary Artery Disease (CAD), Hyperlipidemia, Hypertension, Myocardial Infarction ([place]) Additional Past Medical History / Comment(s): NO REPORTED other MEDICAL HX Last Myocardial Infarction Date:: 10/18/15 History of Any Multi-Drug Resistant Organisms: None Reported Past Surgical History: Heart Catheterization With Stent Additional Past Surgical History / Comment(s): STENTS X2 10/18/15 Past Anesthesia/Blood Transfusion Reactions: No Reported Reaction Additional Past Anesthesia/Blood Transfusion Reaction / Comment(s): NO GENERAL ANESTHESIA Date of Last Stent Placement:: 10/18/15 Past Psychological History: No Psychological Hx Reported Past Alcohol Use History: None Reported Past Drug Use History: None Reported - Past Family History Father Family Medical History: Unable to Obtain Additional Family Medical History / Comment(s): RAISED BY STEP DAD Mother Family Medical History: CVA/TIA General Exam Limitations: no limitations General appearance: alert, in distress Head exam: Present: atraumatic, normocephalic Eye exam: Present: normal appearance. Absent: scleral icterus, conjunctival injection ENT exam: Present: normal oropharynx Neck exam: Present: normal inspection Respiratory exam: Present: respiratory distress, rales. Absent: wheezes, rhonchi, stridor, accessory muscle use, decreased breath sounds Cardiovascular Exam: Present: regular rate, normal rhythm, normal heart sounds. Absent: systolic murmur, diastolic murmur, rubs, gallop GI/Abdominal exam: Present: soft. Absent: distended, tenderness, guarding, rebound, rigid, mass Extremities exam: Present: normal inspection, normal capillary refill. Absent: pedal edema, calf tenderness Back exam: Present: normal inspection. Absent: CVA tenderness (R), CVA tenderness (L) Neurological exam: Present: alert Skin exam: Present: warm, dry, intact, normal color. Absent: rash Course Vital Signs 10/07/20 10/07/20 10/07/20 02:28 04:44 06:26 Temperature 99.8 F H 99.9 F H Pulse Rate 100 89 80 Respiratory 22 20 21 Rate Blood Pressure 89/40 105/54 99/54 O2 Sat by Pulse 88 L 87 L 90 L Oximetry Medical Decision Making - Lab Data Result diagrams: 10/07/20 03:19 10/07/20 03:19 Lab Results 10/07/20 10/07/20 10/07/20 Range/Units 03:19 03:19 03:19 WBC 4.6 (3.8-10.6) k/uL RBC 3.77 L (3.80-5.40) m/uL Hgb 12.3 (11.4-16.0) gm/dL Hct 35.8 (34.0-46.0) % MCV 95.2 (80.0-100.0) fL MCH 32.7 (25.0-35.0) pg MCHC 34.4 (31.0-37.0) g/dL RDW 12.7 (11.5-15.5) % Plt Count 231 (150-450) k/uL MPV 7.6 Neutrophils % 66 % Lymphocytes % 25 % Monocytes % 7 % Eosinophils % 0 % Basophils % 0 % Neutrophils # 3.0 (1.3-7.7) k/uL Lymphocytes # 1.1 (1.0-4.8) k/uL Monocytes # 0.3 (0-1.0) k/uL Eosinophils # 0.0 (0-0.7) k/uL Basophils # 0.0 (0-0.2) k/uL PT 9.8 (9.0-12.0) sec INR 0.9 (<1.2) APTT 26.8 (22.0-30.0) sec D-Dimer 0.31 (<0.60) mg/L FEU Sodium 133 L (137-145) mmol/L Potassium 3.8 (3.5-5.1) mmol/L Chloride 98 (98-107) mmol/L Carbon Dioxide 26 (22-30) mmol/L Anion Gap 9 mmol/L BUN 30 H (7-17) mg/dL Creatinine 1.45 H (0.52-1.04) mg/dL Est GFR (CKD-EPI)AfAm 48 (>60 ml/min/1.73 sqM) Est GFR (CKD-EPI)NonAf 42 (>60 ml/min/1.73 sqM) Glucose 157 H (74-99) mg/dL Plasma Lactic Acid Madan (0.7-2.0) mmol/L Calcium 7.7 L (8.4-10.2) mg/dL Magnesium 2.7 H (1.6-2.3) mg/dL Total Bilirubin 0.4 (0.2-1.3) mg/dL AST 163 H (14-36) U/L ALT 117 H (4-34) U/L Alkaline Phosphatase 44 (38-126) U/L Lactate Dehydrogenase 2034 H (313-618) U/L C-Reactive Protein 83.4 H (<10.0) mg/L Total Protein 6.5 (6.3-8.2) g/dL Albumin 3.4 L (3.5-5.0) g/dL Coronavirus (PCR) (Not Detectd) 10/07/20 10/07/20 Range/Units 03:19 03:45 WBC (3.8-10.6) k/uL RBC (3.80-5.40) m/uL Hgb (11.4-16.0) gm/dL Hct (34.0-46.0) % MCV (80.0-100.0) fL MCH (25.0-35.0) pg MCHC (31.0-37.0) g/dL RDW (11.5-15.5) % Plt Count (150-450) k/uL MPV Neutrophils % % Lymphocytes % % Monocytes % % Eosinophils % % Basophils % % Neutrophils # (1.3-7.7) k/uL Lymphocytes # (1.0-4.8) k/uL Monocytes # (0-1.0) k/uL Eosinophils # (0-0.7) k/uL Basophils # (0-0.2) k/uL PT (9.0-12.0) sec INR (<1.2) APTT (22.0-30.0) sec D-Dimer (<0.60) mg/L FEU Sodium (137-145) mmol/L Potassium (3.5-5.1) mmol/L Chloride (98-107) mmol/L Carbon Dioxide (22-30) mmol/L Anion Gap mmol/L BUN (7-17) mg/dL Creatinine (0.52-1.04) mg/dL Est GFR (CKD-EPI)AfAm (>60 ml/min/1.73 sqM) Est GFR (CKD-EPI)NonAf (>60 ml/min/1.73 sqM) Glucose (74-99) mg/dL Plasma Lactic Acid Madan 0.9 (0.7-2.0) mmol/L Calcium (8.4-10.2) mg/dL Magnesium (1.6-2.3) mg/dL Total Bilirubin (0.2-1.3) mg/dL AST (14-36) U/L ALT (4-34) U/L Alkaline Phosphatase (38-126) U/L Lactate Dehydrogenase (313-618) U/L C-Reactive Protein (<10.0) mg/L Total Protein (6.3-8.2) g/dL Albumin (3.5-5.0) g/dL Coronavirus (PCR) Detected A (Not Detectd) - EKG Data -: EKG Interpreted by Ms EKG shows normal: sinus rhythm, axis (left axis), intervals (normal), QRS complexes (normal), ST-T waves (normal) Rate: normal (98 bpm) Disposition Clinical Impression: Pneumonia due to COVID-19 virus Disposition: ADMITTED IP TO THIS [facility] Condition: Fair Is patient prescribed a controlled substance at d/c from ED?: No
[2020-10-07 03:36] LABS: Basophils % (A) 0 %; Eosinophils % (A) 0 %; HCT 35.8 % (34.0-46.0); HGB 12.3 gm/dL (11.4-16.0); Lymphocytes # (A) 1.1 k/uL (1.0-4.8); Lymphocytes % (A) 25 %; MCH 32.7 pg (25.0-35.0); MCHC 34.4 g/dL (31.0-37.0); MCV 95.2 fL (80.0-100.0); Mean Platelet Volume 7.6; Monocytes # (A) 0.3 k/uL (0-1.0); Monocytes % (A) 7 %; Neutrophils % (A) 66 %; Platelet Count 231 k/uL (150-450); RBC 3.77 m/uL (3.80-5.40); RDW 12.7 % (11.5-15.5); WBC 4.6 k/uL (3.8-10.6)
[2020-10-07 03:49] LABS: D-Dimer 0.31 mg/L FEU (<0.60); INR 0.9 (<1.2); Partial Thromboplastin Time 26.8 sec (22.0-30.0); Potassium 3.8 mmol/L (3.5-5.1); Prothrombin Time 9.8 sec (9.0-12.0)
[2020-10-07 03:52] LABS: Albumin 3.4 g/dL (3.5-5.0); C Reactive Protein 83.4 mg/L (<10.0); Calcium 7.7 mg/dL (8.4-10.2); Magnesium 2.7 mg/dL (1.6-2.3); Total Bilirubin 0.4 mg/dL (0.2-1.3); Total Protein 6.5 g/dL (6.3-8.2)
--- NOTE | 2020-10-07 03:56 | XR ---
EXAM: XR Chest, 1 View CLINICAL HISTORY: ITS.REASON XR Reason: Suspected COVID-19 pneumonia TECHNIQUE: Frontal view of the chest. COMPARISON: No relevant prior studies available. FINDINGS: Lungs: Ill-defined opacities in the lower lobes bilaterally. Pleural space: No acute findings Heart: No cardiomegaly. Bones/joints: No acute findings. IMPRESSION: Ill-defined opacities in the lower lobes bilaterally.
[2020-10-07] MEDS ORDERED: DEXAMETHASONE SOD PHOSPHATE 4 MG/ML 1 ML VIAL IV STA (04:12)
[2020-10-07] MEDS ORDERED: NALOXONE 0.4 MG/ML 1 ML VIAL IV PRN (05:13)
[2020-10-07] MEDS ORDERED: NAPROXEN 250 MG TAB PO PRN (05:14)
[2020-10-07] MEDS: SODIUM CHLORIDE 0.9% 1,000 ML IV SCH (06:08)
[2020-10-07] MEDS ORDERED: FAMOTIDINE 20 MG TAB PO SCH (09:00)
[2020-10-07] MEDS ORDERED: lisinopriL 20 MG TAB PO SCH (09:00)
[2020-10-07] MEDS ORDERED: ENOXAPARIN 40 MG/0.4 ML SYRINGE SQ SCH (09:00)
[2020-10-07] MEDS: metroNIDAZOLE 500 MG TAB PO SCH ×3 (09:06→15:29)
[2020-10-07] MEDS: DEXAMETHASONE SOD PHOSPHATE 10 MG/ML 1 ML VIAL IV SCH (09:07)
[2020-10-07] MEDS: ZINC SULFATE 220 MG CAP PO SCH (09:07)
[2020-10-07] MEDS: CHOLECALCIFEROL 25 MCG (1000 IU) TABLET PO SCH (09:07)
[2020-10-07] MEDS: ASPIRIN 325 MG TAB PO SCH (09:07)
[2020-10-07] MEDS: PANTOPRAZOLE 40 MG TABLET PO SCH (09:07)
[2020-10-07] MEDS: ASCORBIC ACID 500 MG TAB PO SCH ×2 (09:07→22:23)
[2020-10-07 11:25] LABS: Ferritin 3834.4 ng/mL (10.0-291.0)
--- NOTE | 2020-10-07 12:32 | P.CNPUL ---
History of Present Illness Consult date: 10/07/20 Requesting physician: José Miguel Hall Reason for consult: dyspnea, hypoxemia, pneumonia, abnormal CXR/CT Chief complaint: Fever, body aches, headache, cough, shortness of breath History of present illness: 50-year-old white female patient of Dr. Wise, who presented to the emergency department on 10/07/2020 for evaluation of dyspnea, cough, fever, body aches and chills. Patient reports symptom onset 4 days ago, she saw Dr. Wise and had an outpatient test for COVID 19, the results were unknown to her, however she was told in case of worsening symptoms to present to the emergency department. Past medical history is that of hypertension, hyperlipidemia, previous history of myocardial infarction, coronary artery disease with prior stenting. Chest x-ray shows ill-defined opacities in the lower lobes bilaterally. COVID 19 PCR was positive. Lab work has been reviewed, showing white blood cell, 4.6, hemoglobin 12.3, lymphocyte count was within normal limits at 1.1, d-dimer is 0.31, sodium is 133, the rest of electrolytes were within normal limits, B1 is 20 creatinine is 1.45 with GFR of 42, lactic acid 0.9, ferritin level is 3834, AST is 163, ALT is 117, LDH is 2034, CRP is 83.4, pro-calcitonin was 0.27. Low-grade fevers followed in the emergency department. Patient was started on Decadron 6 mg daily, we'll start her on vitamins, one unit, less than plasma, we'll try to qu alify her for tocilizumab Review of Systems All systems: negative Constitutional: Denies chills, Denies fever Eyes: denies blurred vision, denies pain Ears, nose, mouth and throat: Denies headache, Denies sore throat Cardiovascular: Denies chest pain, Denies shortness of breath Respiratory: Reports dyspnea, Denies cough Gastrointestinal: Denies abdominal pain, Denies diarrhea, Denies nausea, Denies vomiting Genitourinary: Denies dysuria, Denies hematuria Musculoskeletal: Denies myalgias Integumentary: Denies pruritus, Denies rash Neurological: Denies numbness, Denies weakness Psychiatric: Denies anxiety, Denies depression Endocrine: Denies fatigue, Denies weight change Past Medical History Past Medical History: Coronary Artery Disease (CAD), Hyperlipidemia, Hypertension, Myocardial Infarction ([place]) Additional Past Medical History / Comment(s): NO REPORTED other MEDICAL HX Last Myocardial Infarction Date:: 10/18/15 History of Any Multi-Drug Resistant Organisms: None Reported Past Surgical History: Heart Catheterization With Stent Additional Past Surgical History / Comment(s): STENTS X2 10/18/15 Past Anesthesia/Blood Transfusion Reactions: No Reported Reaction Additional Past Anesthesia/Blood Transfusion Reaction / Comment(s): NO GENERAL ANESTHESIA Date of Last Stent Placement:: 10/18/15 Past Psychological History: No Psychological Hx Reported Past Alcohol Use History: None Reported Past Drug Use History: None Reported - Past Family History Father Family Medical History: Unable to Obtain Additional Family Medical History / Comment(s): RAISED BY STEP DAD Mother Family Medical History: CVA/TIA Medications and Allergies Home Medications Medication Instructions Recorded Confirmed Type Aspirin 325 mg PO DAILY #30 tab 10/21/15 10/07/20 Rx Naproxen 500 mg PO BID PRN 08/15/18 10/07/20 History Cyclobenzaprine [Flexeril] 5 mg PO HS PRN 10/07/20 10/07/20 History Docusate [Colace] 100 mg PO DAILY 10/07/20 10/07/20 History Metoprolol Tartrate [Lopressor] 25 mg PO DAILY 10/07/20 10/07/20 History Rosuvastatin [Crestor] 20 mg PO DAILY 10/07/20 10/07/20 History hydroCHLOROthiazide [Hydrodiuril] 25 mg PO DAILY 10/07/20 10/07/20 History lisinopriL [Zestril] 20 mg PO BID 10/07/20 10/07/20 History Allergies Allergy/AdvReac Type Severity Reaction Status Date / Time Penicillins Allergy Rash/Hives Verified 10/07/20 06:55 Physical Exam Vitals: Vital Signs Temp Pulse Resp BP Pulse Ox 10/07/20 08:00 91 L 10/07/20 07:55 98.8 F 84 24 104/58 88 L 10/07/20 06:26 99.9 F H 80 21 99/54 90 L 10/07/20 04:44 89 20 105/54 87 L 10/07/20 02:28 99.8 F H 100 22 89/40 88 L Intake and Output 10/06/20 10/07/20 10/07/20 22:59 06:59 14:59 Other: Weight 107.955 kg GENERAL EXAM: Alert, very pleasant, 50-year-old white female, on 15 L of oxygen with pulse ox of comfortable in no apparent distress. HEAD: Normocephalic/atraumatic. EYES: Normal reaction of pupils, equal size. Conjunctiva pink, sclera white. NOSE: Clear with pink turbinates. THROAT: No erythema or exudates. NECK: No masses, no JVD, no thyroid enlargement, no adenopathy. CHEST: No chest wall deformity. Symmetrical expansion. LUNGS: Equal air entry with no crackles, wheeze, rhonchi or dullness. CVS: Regular rate and rhythm, normal S1 and S2, no gallops, no murmurs, no rubs ABDOMEN: Soft, nontender. No hepatosplenomegaly, normal bowel sounds, no guarding or rigidity. EXTREMITIES: No clubbing, no edema, no cyanosis, 2+ pulses and upper and lower extremities. MUSCULOSKELETAL: Muscle strength and tone normal. SPINE: No scoliosis or deformity SKIN: No rashes CENTRAL NERVOUS SYSTEM: Alert and oriented -3. No focal deficits, tone is normal in all 4 extremities. PSYCHIATRIC: Alert and oriented -3. Appropriate affect. Intact judgment and insight. Results - Laboratory Findings CBC and BMP: 10/07/20 03:19 10/07/20 03:19 PT/INR, D-dimer PT 9.8 sec (9.0-12.0) 10/07/20 03:19 INR 0.9 (<1.2) 10/07/20 03:19 D-Dimer 0.31 mg/L FEU (<0.60) 10/07/20 03:19 Abnormal lab findings: Abnormal Labs 10/07/20 10/07/20 10/07/20 03:19 03:19 03:19 RBC 3.77 L Sodium 133 L BUN 30 H Creatinine 1.45 H Glucose 157 H Calcium 7.7 L Magnesium 2.7 H Ferritin 3834.4 H AST 163 H ALT 117 H Lactate Dehydrogenase 2034 H C-Reactive Protein 83.4 H Albumin 3.4 L Procalcitonin 0.27 H Coronavirus (PCR) 10/07/20 03:19 RBC Sodium BUN Creatinine Glucose Calcium Magnesium Ferritin AST ALT Lactate Dehydrogenase C-Reactive Protein Albumin Procalcitonin Coronavirus (PCR) Detected A - Diagnostic Findings Chest x-ray: report reviewed, image reviewed Assessment and Plan Plan: Assessment: #1. Acute hypoxic respiratory failure, related to acute COVID19 pneumonia, patient reports a 4 day history of worsening dyspnea, fever, chills, patient was already in moderate to severe hypoxic respiratory failure on presentation, and as such does not qualify for Remdesivir. We will try to qualify the patient for Tocilizumab, convalescent plasma in addition to steroids #2. Dyspnea, cough, body aches, weakness related to the above #3. Acute kidney injury likely related to ATN, dehydration #4. Recent inflammatory markers related to acute COVID 19 pneumonia #5. Increased liver enzymes related to viral pneumonia #6. Hypertension #7. Hyperlipidemia #8. History of coronary artery disease with previous stenting #9. History of myocardial infarction #10. History of morbid obesity Plan: Although still within the window for Remdesivir patient already presented in severe hypoxic respiratory failure, not a candidate for Remdesivir, we'll give the patient a dose of Tocilizumab, continue Decadron, with vitamins, we will add prophylactic anticoagulation, we'll continue to closely follow her clinical course, we will add a 1 unit convalescent plasma. Overall prognosis is extremely guarded. I performed a history & physical examination of the patient and discussed their management with my nurse practitioner, Abby Peters. I reviewed the nurse practitioner's note and agree with the documented findings and plan of care. Lung sounds are positive for diminished breath sounds. The findings and the impression was discussed with the patient. I attest to the documentation by the nurse practitioner. Time with Patient: Greater than 30
[2020-10-07] MEDS ORDERED: TOCILIZUMAB 800 MG in SODIUM CHLORIDE 0.9% 60 ML IV ONE (13:00)
[2020-10-07] MEDS: HEPARIN SODIUM,PORCINE/PF 5,000 UNIT/0.5 ML SYRINGE SQ SCH ×2 (15:13→22:23)
[2020-10-07] MEDS: ACETAMINOPHEN TAB 325 MG TAB PO PRN (15:15)
--- NOTE | 2020-10-07 17:04 | P.HPIM ---
History of Present Illness 50-year-old pleasant female came to ER with complaints of a cough fever body aches chills and shortness of breath presently on 15 L of oxygen along with the nonrebreather still saturations are low and patient had to use prone position for the saturations to go up. Patient started having symptoms about 8 days ago was tested positive for covid 19, patient was started on Decadron, vitamins, received convulsant plasma and toclizumab. Patient does have elevated inflammatory markers with a d-dimer of around 0.31, patient is hyponatremic with elevated creatinine of 1.45 baseline being within normal limits. Patient does have elevated liver enzymes Review of Systems REVIEW OF SYSTEMS: CONSTITUTIONAL: As mentioned in HPI HEENT: No recent visual problems or hearing problems. Denied any sore throat. CARDIOVASCULAR: No chest pain, orthopnea, PND, no palpitations, no syncope. PULMONARY no hemoptysis. GASTROINTESTINAL: No diarrhea, no nausea, no vomiting, no abdominal pain. NEUROLOGICAL: No headaches, no weakness, no numbness. HEMATOLOGICAL: Denies any bleeding or petechiae. GENITOURINARY: Denies any burning micturition, frequency, or urgency. MUSCULOSKELETAL/RHEUMATOLOGICAL: Denies any joint pain, swelling, or any muscle pain. ENDOCRINE: Denies any polyuria or polydipsia. The rest of the 14-point review of systems is negative. Past Medical History Past Medical History: Coronary Artery Disease (CAD), Hyperlipidemia, Hypertension, Myocardial Infarction (NE) Additional Past Medical History / Comment(s): NO REPORTED other MEDICAL HX Last Myocardial Infarction Date:: 10/18/15 History of Any Multi-Drug Resistant Organisms: None Reported Past Surgical History: Heart Catheterization With Stent Additional Past Surgical History / Comment(s): STENTS X2 10/18/15 Past Anesthesia/Blood Transfusion Reactions: No Reported Reaction Additional Past Anesthesia/Blood Transfusion Reaction / Comment(s): NO GENERAL ANESTHESIA Date of Last Stent Placement:: 10/18/15 Past Psychological History: No Psychological Hx Reported Smoking Status: Never smoker Past Alcohol Use History: None Reported Additional Past Alcohol Use History / Comment(s): QUIT SMOKING 10/18/15, STARTED SMOKING AT AGE 13, DID QUIT FOR 6 YEARS THEN RESUMED 2012. SMOKED 1 PPD. Past Drug Use History: None Reported - Past Family History Father Family Medical History: Unable to Obtain Additional Family Medical History / Comment(s): RAISED BY GLADIS ORNELAS Mother Family Medical History: CVA/TIA Medications and Allergies Home Medications Medication Instructions Recorded Confirmed Type Aspirin 325 mg PO DAILY #30 tab 10/21/15 10/07/20 Rx Naproxen 500 mg PO BID PRN 08/15/18 10/07/20 History Cyclobenzaprine [Flexeril] 5 mg PO HS PRN 10/07/20 10/07/20 History Docusate [Colace] 100 mg PO DAILY 10/07/20 10/07/20 History Metoprolol Tartrate [Lopressor] 25 mg PO DAILY 10/07/20 10/07/20 History Rosuvastatin [Crestor] 20 mg PO DAILY 10/07/20 10/07/20 History hydroCHLOROthiazide [Hydrodiuril] 25 mg PO DAILY 10/07/20 10/07/20 History lisinopriL [Zestril] 20 mg PO BID 10/07/20 10/07/20 History Allergies Allergy/AdvReac Type Severity Reaction Status Date / Time Penicillins Allergy Rash/Hives Verified 10/07/20 06:55 Physical Exam Vitals: Vital Signs Temp Pulse Resp BP Pulse Ox 10/07/20 16:15 99.0 F 84 18 104/66 88 L 10/07/20 16:02 87 L 10/07/20 16:00 87 L 10/07/20 15:50 88 L 10/07/20 15:42 88 L 10/07/20 15:40 99.0 F 80 17 104/54 87 L 10/07/20 15:34 80 L 10/07/20 15:27 88 17 107/62 80 L 10/07/20 15:10 99.0 F 84 19 107/60 87 L 10/07/20 15:00 99.0 F 81 16 104/50 89 L 10/07/20 14:48 99.0 F 79 24 92/51 89 L 10/07/20 08:00 91 L 10/07/20 07:55 98.8 F 84 24 104/58 88 L 10/07/20 06:26 99.9 F H 80 21 99/54 90 L 10/07/20 04:44 89 20 105/54 87 L 10/07/20 02:28 99.8 F H 100 22 89/40 88 L Intake and Output 10/07/20 10/07/20 10/07/20 06:59 14:59 22:59 Intake Total 0 Balance 0 Intake: Blood Product 0 Ffp Convalescent Plasma 0 Cpd Unit [id number] Other: Weight 107.955 kg 107.955 kg PHYSICAL EXAMINATION: GENERAL: The patient is alert and oriented x3, not in any acute distress. Well developed, well nourished. HEENT: Pupils are round and equally reacting to light. EOMI. No scleral icterus. No conjunctival pallor. Normocephalic, atraumatic. No pharyngeal erythema. No thyromegaly. CARDIOVASCULAR: S1 and S2 present. No murmurs, rubs, or gallops. PULMONARY: Chest is clear to auscultation, no wheezing or crackles. ABDOMEN: Soft, nontender, nondistended, normoactive bowel sounds. No palpable organomegaly. MUSCULOSKELETAL: No joint swelling or deformity. EXTREMITIES: No cyanosis, clubbing, or pedal edema. NEUROLOGICAL: Gross neurological examination did not reveal any focal deficits. SKIN: No rashes. Results CBC & Chem 7: 10/07/20 03:19 10/07/20 03:19 Labs: Abnormal Lab Results - Last 24 Hours (Table) 10/07/20 10/07/20 10/07/20 Range/Units 03:19 03:19 03:19 RBC 3.77 L (3.80-5.40) m/uL Sodium 133 L (137-145) mmol/L BUN 30 H (7-17) mg/dL Creatinine 1.45 H (0.52-1.04) mg/dL Glucose 157 H (74-99) mg/dL Calcium 7.7 L (8.4-10.2) mg/dL Magnesium 2.7 H (1.6-2.3) mg/dL Ferritin 3834.4 H (10.0-291.0) ng/mL AST 163 H (14-36) U/L ALT 117 H (4-34) U/L Lactate Dehydrogenase 2034 H (313-618) U/L C-Reactive Protein 83.4 H (<10.0) mg/L Albumin 3.4 L (3.5-5.0) g/dL Procalcitonin 0.27 H (0.02-0.09) ng/mL Coronavirus (PCR) (Not Detectd) 10/07/20 Range/Units 03:19 RBC (3.80-5.40) m/uL Sodium (137-145) mmol/L BUN (7-17) mg/dL Creatinine (0.52-1.04) mg/dL Glucose (74-99) mg/dL Calcium (8.4-10.2) mg/dL Magnesium (1.6-2.3) mg/dL Ferritin (10.0-291.0) ng/mL AST (14-36) U/L ALT (4-34) U/L Lactate Dehydrogenase (313-618) U/L C-Reactive Protein (<10.0) mg/L Albumin (3.5-5.0) g/dL Procalcitonin (0.02-0.09) ng/mL Coronavirus (PCR) Detected A (Not Detectd) Thrombosis Risk Factor Assmnt - Choose All That Apply Any of the Below Risk Factors Present?: Yes Each Factor Represents 1 point: Age 41-60 years Thrombosis Risk Factor Assessment Total Risk Factor Score: 1 Thrombosis Risk Factor Assessment Level: Low Risk Assessment and Plan Plan: Acute hypoxic respiratory failure secondary to covid 19 ammonia.: Patient is on systemic steroids, received Tocilizumab, convalescent plasma. Patient is still severely hypoxic is on Ventimask as well as a high flow nasal cannula oxygen 15 L patient appears to be getting bit worse at this time -Acute renal failure: Probably peripheral azotemia and acute tubular necrosis secondary to sepsis patient will be started on IV fluids -Hypovolemic hyponatremia expected to improve with IV fluids -Elevated liver enzymes seconded to sepsis and viral pneumonia -Hypertension -Hyperlipidemia -Coronary disease with previous stenting in the past GI prophylaxis with Protonix DVT prophylaxis with heparin as patient has renal failure.
[2020-10-07] MEDS: ATORVASTATIN 40 MG TAB PO SCH (22:23)
[2020-10-08] MEDS: SODIUM CHLORIDE 0.9% 1,000 ML IV SCH (05:40)
[2020-10-08] MEDS: ZINC SULFATE 220 MG CAP PO SCH (08:25)
[2020-10-08] MEDS: CHOLECALCIFEROL 25 MCG (1000 IU) TABLET PO SCH (08:25)
[2020-10-08] MEDS: HEPARIN SODIUM,PORCINE/PF 5,000 UNIT/0.5 ML SYRINGE SQ SCH ×3 (08:25→23:44)
[2020-10-08] MEDS: DEXAMETHASONE SOD PHOSPHATE 10 MG/ML 1 ML VIAL IV SCH (08:25)
[2020-10-08] MEDS: ASPIRIN 325 MG TAB PO SCH (08:25)
[2020-10-08] MEDS: ASCORBIC ACID 500 MG TAB PO SCH ×2 (08:25→21:33)
[2020-10-08] MEDS: PANTOPRAZOLE 40 MG TABLET PO SCH (08:25)
--- NOTE | 2020-10-08 08:31 | XR ---
EXAMINATION TYPE: XR chest 1V portable DATE OF EXAM: 10/08/2020 COMPARISON: 10/07/2020 INDICATION: Covid TECHNIQUE: Single frontal view of the chest is obtained. FINDINGS: The heart size is upper limits of normal. The pulmonary vasculature is normal. Diffuse increased lung markings are present prominently at bilateral lung bases. Findings are worseni ng over the interval IMPRESSION: 1. Worsening diffuse lung infiltrates greater in the lung bases
[2020-10-08] MEDS ORDERED: FAMOTIDINE 20 MG TAB PO SCH (09:00)
--- NOTE | 2020-10-08 15:21 | P.PN ---
Subjective 50-year-old pleasant female came to ER with complaints of a cough fever body aches chills and shortness of breath presently on 15 L of oxygen along with the nonrebreather still saturations are low and patient had to use prone position for the saturations to go up. Patient started having symptoms about 8 days ago was tested positive for covid 19, patient was started on Decadron, vitamins, received convulsant plasma and toclizumab. Patient does have elevated inflammatory markers with a d-dimer of around 0.31, patient is hyponatremic with elevated creatinine of 1.45 baseline being within normal limits. Patient does have elevated liver enzymes 10/08/2020 Patient is still on 15 L of oxygen, patient is on Decadron. I do not have any repeat labs available today patient will be continued on IV fluids at this time. Patient feels little bit better overall although still significantly short of breath. Constitutional: Denied any fatigue denied any fever. Cardio vascular: denied any chest pain, palpitations Gastrointestinal denied any nausea vomiting Pulmonary: As mentioned in HPI Neurologic denied any new focal deficits All inpatient medications were reviewed and appropriate changes in these medications as dictated in the interval history and assessment and plan. Objective - Vital Signs Vital signs: Vital Signs Temp 98.1 F 10/08/20 14:00 Pulse 76 10/08/20 14:00 Resp 18 10/08/20 14:00 BP 120/73 10/08/20 14:00 Pulse Ox 93 L 10/08/20 14:00 Intake & Output 10/07/20 10/08/20 10/08/20 18:59 06:59 18:59 Intake Total 291 Balance 291 Weight 107.955 kg Intake: Blood Product 291 Ffp Convalescent Plasma 291 Cpd Unit [id number] Other: Voiding Method Bedside Commode # Voids 2 # Bowel Movements 2 - Exam PHYSICAL EXAMINATION: GENERAL: The patient is alert and oriented x3, not in any acute distress. Well developed, well nourished. HEENT: Pupils are round and equally reacting to light. EOMI. No scleral icterus. No conjunctival pallor. Normocephalic, atraumatic. No pharyngeal erythema. No thyromegaly. CARDIOVASCULAR: S1 and S2 present. No murmurs, rubs, or gallops. PULMONARY: Chest is clear to auscultation, no wheezing or crackles. ABDOMEN: Soft, nontender, nondistended, normoactive bowel sounds. No palpable organomegaly. MUSCULOSKELETAL: No joint swelling or deformity. EXTREMITIES: No cyanosis, clubbing, or pedal edema. NEUROLOGICAL: Gross neurological examination did not reveal any focal deficits. SKIN: No rashes. - Labs CBC & Chem 7: 10/07/20 03:19 10/07/20 03:19 Assessment and Plan Plan: Acute hypoxic respiratory failure secondary to covid 19 pneumonia: Patient is on systemic steroids, received Tocilizumab, convalescent plasma. Patient is on 50 L of oxygen at this time. Patient is on systemic steroids -Acute renal failure: Probably peripheral azotemia and acute tubular necrosis secondary to sepsis patient is on IV fluids -Hypovolemic hyponatremia expected to improve with IV fluids -Elevated liver enzymes seconded to sepsis and viral pneumonia -Hypertension -Hyperlipidemia -Coronary disease with previous stenting in the past GI prophylaxis with Protonix DVT prophylaxis with heparin as patient has renal failure.
--- NOTE | 2020-10-08 16:13 | P.PN ---
Subjective Progress Note Date: 10/08/20 Principal diagnosis: Covid 19 pneumonia 50-year-old white female patient of Dr. Wise, who presented to the emergency department on 10/07/2020 for evaluation of dyspnea, cough, fever, body aches and chills. Patient reports symptom onset 4 days ago, she saw Dr. Wise and had an outpatient test for COVID 19, the results were unknown to her, however she was told in case of worsening symptoms to present to the emergency department. Past medical history is that of hypertension, hyperlipidemia, previous history of myocardial infarction, coronary artery disease with prior stenting. Chest x-ray shows ill-defined opacities in the lower lobes bilaterally. COVID 19 PCR was p ositive. Lab work has been reviewed, showing white blood cell, 4.6, hemoglobin 12.3, lymphocyte count was within normal limits at 1.1, d-dimer is 0.31, sodium is 133, the rest of electrolytes were within normal limits, B1 is 20 creatinine is 1.45 with GFR of 42, lactic acid 0.9, ferritin level is 3834, AST is 163, ALT is 117, LDH is 2034, CRP is 83.4, pro-calcitonin was 0.27. Low-grade fevers fo llowed in the emergency department. Patient was started on Decadron 6 mg daily, we'll start her on vitamins, one unit, less than plasma, we'll try to qualify her for tocilizumab 10/08/2020 patient seen in follow-up on medical floor, patient is status post Tocilizumab, infusion of 1 dose of convalescent plasma, she remains on Decadron, she remains on vitamins, IV hydration with 0.9 normal saline at 100 ML per hour, she is on subcu heparin 5000 units subcu 8 hours. Remains on 15 L high flow and nonrebreather mask, her pulse ox is 93-96%, overall reports feeling somewhat better. Follow-up chest x-ray today shows worsening diffuse lung infiltrates greatest in the lung bases, labs today show d-dimer 0.26, LDH and CRP are pending, pro-calcitonin level was low at 0.27. Objective - Vital Signs Vital signs: Vital Signs Temp 98.1 F 10/08/20 14:00 Pulse 76 10/08/20 14:00 Resp 18 10/08/20 14:00 BP 120/73 10/08/20 14:00 Pulse Ox 93 L 10/08/20 14:00 Intake & Output 10/07/20 10/08/20 10/08/20 18:59 06:59 18:59 Intake Total 291 Balance 291 Weight 107.955 kg Intake: Blood Product 291 Ffp Convalescent Plasma 291 Cpd Unit [id number] Other: Voiding Method Bedside Commode # Voids 2 # Bowel Movements 2 - Exam GENERAL EXAM: Alert, very pleasant, 50-year-old white female, on 15 L of oxygen and 100% nonrebreather, with pulse ox of 93 comfortable in no apparent distress. HEAD: Normocephalic/atraumatic. EYES: Normal reaction of pupils, equal size. Conjunctiva pink, sclera white. NOSE: Clear with pink turbinates. THROAT: No erythema or exudates. NECK: No masses, no JVD, no thyroid enlargement, no adenopathy. CHEST: No chest wall deformity. Symmetrical expansion. LUNGS: Equal air entry with no crackles, wheeze, rhonchi or dullness. CVS: Regular rate and rhythm, normal S1 and S2, no gallops, no murmurs, no rubs ABDOMEN: Soft, nontender. No hepatosplenomegaly, normal bowel sounds, no guarding or rigidity. EXTREMITIES: No clubbing, no edema, no cyanosis, 2+ pulses and upper and lower extremities. MUSCULOSKELETAL: Muscle strength and tone normal. SPINE: No scoliosis or deformity SKIN: No rashes CENTRAL NERVOUS SYSTEM: Alert and oriented -3. No focal deficits, tone is normal in all 4 extremities. PSYCHIATRIC: Alert and oriented -3. Appropriate affect. Intact judgment and insight. - Labs CBC & Chem 7: 10/07/20 03:19 10/07/20 03:19 Assessment and Plan Plan: Assessment: #1. Acute hypoxic respiratory failure, related to acute COVID19 pneumonia, patient reports a 4 day history of worsening dyspnea, fever, chills, patient was already in moderate to severe hypoxic respiratory failure on presentation, and as such does not qualify for Remdesivir. Status post fusion of Tocilizumab, convalescent plasma in addition to steroids #2. Dyspnea, cough, body aches, weakness related to the above #3. Acute kidney injury likely related to ATN, dehydration #4. Recent inflammatory markers related to acute COVID 19 pneumonia #5. Increased liver enzymes related to viral pneumonia #6. Hypertension #7. Hyperlipidemia #8. History of coronary artery disease with previous stenting #9. History of myocardial infarction #10. History of morbid obesity Plan: Continue current medical treatment, continue Decadron, patient received 1 dose of Toci, 1 unit of convalescent plasma, remains on steroids, remains on vitamins, and prophylactic anticoagulation, d-dimer remains low, awaiting results of the follow-up inflammatory markers, clinically feeling better, denies chest x-ray has been reviewed, and current medical treatment, wean FiO2 to maintain O2 sat between 88-90%, continue monitoring for worsening dyspnea or hypoxemia, we'll continue to follow I performed a history & physical examination of the patient and discussed their management with my nurse practitioner, Abby Peters. I reviewed the nurse practitioner's note and agree with the documented findings and plan of care. Beti ng sounds are positive for diminished breath sounds. The findings and the impression was discussed with the patient. I attest to the documentation by the nurse practitioner. Time with Patient: Less than 30
[2020-10-08] MEDS: ACETAMINOPHEN TAB 325 MG TAB PO PRN (17:01)
[2020-10-08] MEDS: ATORVASTATIN 40 MG TAB PO SCH (21:33)
[2020-10-09] MEDS: ACETAMINOPHEN TAB 325 MG TAB PO PRN ×3 (03:08→20:54)
[2020-10-09] MEDS: SODIUM CHLORIDE 0.9% 1,000 ML IV SCH (05:57)
[2020-10-09] MEDS: DEXAMETHASONE SOD PHOSPHATE 10 MG/ML 1 ML VIAL IV SCH (08:57)
[2020-10-09] MEDS: PANTOPRAZOLE 40 MG TABLET PO SCH (08:57)
[2020-10-09] MEDS: CHOLECALCIFEROL 25 MCG (1000 IU) TABLET PO SCH (08:58)
[2020-10-09] MEDS: HEPARIN SODIUM,PORCINE/PF 5,000 UNIT/0.5 ML SYRINGE SQ SCH ×2 (08:58→17:07)
[2020-10-09] MEDS: ASPIRIN 325 MG TAB PO SCH (08:58)
[2020-10-09] MEDS: ZINC SULFATE 220 MG CAP PO SCH (08:58)
[2020-10-09] MEDS: ASCORBIC ACID 500 MG TAB PO SCH ×2 (08:58→20:54)
[2020-10-09 11:13] LABS: African American GFR (CKD) 67.3 (60.0-200.0); Albumin 3.7 g/dL (3.80-4.90); Albumin/Globulin Ratio 1.48 (1.60-3.17); BUN/Creat Ratio 39.09 Ratio (12.00-20.00); Calcium 7.9 mg/dL (8.7-10.3); Globulin 2.5 g/dL (1.6-3.3); Non-African American GFR(CKD) 58.1 (60.0-200.0); Potassium 4.2 mmol/L (3.5-5.5); Total Bilirubin 0.3 mg/dL (0.3-1.2); Total Protein 6.2 g/dL (6.2-8.2)
[2020-10-09] MEDS: ALBUTEROL HFA INHALER INHALATION SCH ×3 (11:37→19:56)
--- NOTE | 2020-10-09 15:41 | P.PN ---
Subjective 50-year-old pleasant female came to ER with complaints of a cough fever body aches chills and shortness of breath presently on 15 L of oxygen along with the nonrebreather still saturations are low and patient had to use prone position for the saturations to go up. Patient started having symptoms about 8 days ago was tested positive for covid 19, patient was started on Decadron, vitamins, received convulsant plasma and toclizumab. Patient does have elevated inflammatory markers with a d-dimer of around 0.31, patient is hyponatremic with elevated creatinine of 1.45 baseline being within normal limits. Patient does have elevated liver enzymes 10/08/2020 Patient is still on 15 L of oxygen, patient is on Decadron. I do not have any repeat labs available today patient will be continued on IV fluids at this time. Patient feels little bit better overall although still significantly short of breath. 10/09/2020 Patient is presently a level liters of oxygen saturating well for try to taper down the oxygen even more Constitutional: Denied any fatigue denied any fever. Cardio vascular: denied any chest pain, palpitations Gastrointestinal denied any nausea vomiting Pulmonary: As mentioned in HPI Neurologic denied any new focal deficits All inpatient medications were reviewed and appropriate changes in these medications as dictated in the interval history and assessment and plan. Objective - Vital Signs Vital signs: Vital Signs Temp 97.4 F L 10/09/20 10:00 Pulse 72 10/09/20 10:00 Resp 16 10/09/20 10:00 BP 120/78 10/09/20 10:00 Pulse Ox 97 10/09/20 10:00 Intake & Output 10/08/20 10/09/20 10/09/20 18:59 06:59 18:59 Intake Total 1920 Balance 1920 Intake: Intake, IV Titration 300 Amount Sodium Chloride 0.9% 1, 300 000 ml @ 100 mls/hr IV . Q10H [facility] Rx#:[id number] Oral 1620 Other: Voiding Method Bedside Commode # Voids 3 3 - Exam PHYSICAL EXAMINATION: GENERAL: The patient is alert and oriented x3, not in any acute distress. Well developed, well nourished. HEENT: Pupils are round and equally reacting to light. EOMI. No scleral icterus. No conjunctival pallor. Normocephalic, atraumatic. No pharyngeal erythema. No thyromegaly. CARDIOVASCULAR: S1 and S2 present. No murmurs, rubs, or gallops. PULMONARY: Chest is clear to auscultation, no wheezing or crackles. ABDOMEN: Soft, nontender, nondistended, normoactive bowel sounds. No palpable organomegaly. MUSCULOSKELETAL: No joint swelling or deformity. EXTREMITIES: No cyanosis, clubbing, or pedal edema. NEUROLOGICAL: Gross neurological examination did not reveal any focal deficits. SKIN: No rashes. - Labs CBC & Chem 7: 10/07/20 03:19 10/09/20 06:43 Labs: Abnormal Lab Results - Last 24 Hours (Table) 10/09/20 Range/Units 06:43 BUN 43.0 H (9.0-27.0) mg/dL Est GFR (CKD-EPI)NonAf 58.1 L (60.0-200.0) BUN/Creatinine Ratio 39.09 H (12.00-20.00) Ratio Glucose 200 H (70-110) mg/dL Calcium 7.9 L (8.7-10.3) mg/dL AST 77 H (13-35) U/L ALT 80 H (8-44) U/L Alkaline Phosphatase 40 L (41-126) U/L Albumin 3.70 L (3.80-4.90) g/dL Albumin/Globulin Ratio 1.48 L (1.60-3.17) g/dL Assessment and Plan Plan: Acute hypoxic respiratory failure secondary to covid 19 pneumonia: Patient is on systemic steroids, received Tocilizumab, convalescent plasma. Patient is on 11L of oxygen at this time. Patient is on systemic steroids -Acute renal failure: Probably peripheral azotemia and acute tubular necrosis secondary to sepsis. -Hypovolemic hyponatremia expected to improve with IV fluids -Elevated liver enzymes seconded to sepsis and viral pneumonia -Hypertension -Hyperlipidemia -Coronary disease with previous stenting in the past GI prophylaxis with Protonix DVT prophylaxis with heparin as patient has renal failure.
--- NOTE | 2020-10-09 17:21 | P.PN ---
Subjective Progress Note Date: 10/09/20 Principal diagnosis: Covid 19 pneumonia 50-year-old white female patient of Dr. Wise, who presented to the emergency department on 10/07/2020 for evaluation of dyspnea, cough, fever, body aches and chills. Patient reports symptom onset 4 days ago, she saw Dr. Wise and had an outpatient test for COVID 19, the results were unknown to her, however she was told in case of worsening symptoms to present to the emergency department. Past medical history is that of hypertension, hyperlipidemia, previous history of myocardial infarction, coronary artery disease with prior stenting. Chest x-ray shows ill-defined opacities in the lower lobes bilaterally. COVID 19 PCR was p ositive. Lab work has been reviewed, showing white blood cell, 4.6, hemoglobin 12.3, lymphocyte count was within normal limits at 1.1, d-dimer is 0.31, sodium is 133, the rest of electrolytes were within normal limits, B1 is 20 creatinine is 1.45 with GFR of 42, lactic acid 0.9, ferritin level is 3834, AST is 163, ALT is 117, LDH is 2034, CRP is 83.4, pro-calcitonin was 0.27. Low-grade fevers fo llowed in the emergency department. Patient was started on Decadron 6 mg daily, we'll start her on vitamins, one unit, less than plasma, we'll try to qualify her for tocilizumab 10/08/2020 patient seen in follow-up on medical floor, patient is status post Tocilizumab, infusion of 1 dose of convalescent plasma, she remains on Decadron, she remains on vitamins, IV hydration with 0.9 normal saline at 100 ML per hour, she is on subcu heparin 5000 units subcu 8 hours. Remains on 15 L high flow and nonrebreather mask, her pulse ox is 93-96%, overall reports feeling somewhat better. Follow-up chest x-ray today shows worsening diffuse lung infiltrates greatest in the lung bases, labs today show d-dimer 0.26, LDH and CRP are pending, pro-calcitonin level was low at 0.27. On 10/09/2020 patient seen in follow-up on the medical floor she is currently on 15 L high flow nasal cannula, in addition to pulmonary rehab mask, and a pulse ox is 86-98%, she is afebrile, hemodynamically patient is stable, she said no continues to bed, appears to be breathing comfortably, denies any chest discomfort, no fever or chills. Patient remains on systemic steroids, she is status post Tocilizumab and convalescent plasma. She remains on IV hydration, she states she is tolerating oral diet, no nausea or vomiting, today's labs have been reviewed, electrolytes are within normal limits, her creatinine has s ignificantly improved, down to 1.1 from 1.45 couple days ago, BUN is 43, AST and ALT have also improved, down to 77 and 80 respectively, alk phos is at 40. Procalcitonin level was low at 0.7, tolerating activity fairly well. Objective - Vital Signs Vital signs: Vital Signs Temp 97.4 F L 10/09/20 10:00 Pulse 72 10/09/20 10:00 Resp 16 10/09/20 10:00 BP 120/78 10/09/20 10:00 Pulse Ox 86 L 10/09/20 16:17 Intake & Output 10/08/20 10/09/20 10/09/20 18:59 06:59 18:59 Intake Total 1920 Balance 1920 Intake: Intake, IV Titration 300 Amount Sodium Chloride 0.9% 1, 300 000 ml @ 100 mls/hr IV . Q10H [facility] Rx#:[id number] Oral 1620 Other: Voiding Method Bedside Commode # Voids 3 3 - Exam GENERAL EXAM: Alert, very pleasant, 50-year-old white female, on 15 L of oxygen and 100% nonrebreather, with pulse ox of 86 comfortable in no apparent distress. HEAD: Normocephalic/atraumatic. EYES: Normal reaction of pupils, equal size. Conjunctiva pink, sclera white. NOSE: Clear with pink turbinates. THROAT: No erythema or exudates. NECK: No masses, no JVD, no thyroid enlargement, no adenopathy. CHEST: No chest wall deformity. Symmetrical expansion. LUNGS: Equal air entry with no crackles, wheeze, rhonchi or dullness. CVS: Regular rate and rhythm, normal S1 and S2, no gallops, no murmurs, no rubs ABDOMEN: Soft, nontender. No hepatosplenomegaly, normal bowel sounds, no guarding or rigidity. EXTREMITIES: No clubbing, no edema, no cyanosis, 2+ pulses and upper and lower extremities. MUSCULOSKELETAL: Muscle strength and tone normal. SPINE: No scoliosis or deformity SKIN: No rashes CENTRAL NERVOUS SYSTEM: Alert and oriented -3. No focal deficits, tone is normal in all 4 extremities. PSYCHIATRIC: Alert and oriented -3. Appropriate affect. Intact judgment and insight. - Labs CBC & Chem 7: 10/07/20 03:19 10/09/20 06:43 Labs: Abnormal Lab Results - Last 24 Hours (Table) 10/09/20 Range/Units 06:43 BUN 43.0 H (9.0-27.0) mg/dL Est GFR (CKD-EPI)NonAf 58.1 L (60.0-200.0) BUN/Creatinine Ratio 39.09 H (12.00-20.00) Ratio Glucose 200 H (70-110) mg/dL Calcium 7.9 L (8.7-10.3) mg/dL AST 77 H (13-35) U/L ALT 80 H (8-44) U/L Alkaline Phosphatase 40 L (41-126) U/L Albumin 3.70 L (3.80-4.90) g/dL Albumin/Globulin Ratio 1.48 L (1.60-3.17) g/dL Assessment and Plan Plan: Assessment: #1. Acute hypoxic respiratory failure, related to acute COVID19 pneumonia, patient reports a 4 day history of worsening dyspnea, fever, chills, patient was already in moderate to severe hypoxic respiratory failure on presentation, and as such does not qualify for Remdesivir. Status post fusion of Tocilizumab, convalescent plasma in addition to steroids #2. Dyspnea, cough, body aches, weakness related to the above #3. Acute kidney injury likely related to ATN, dehydration #4. Recent inflammatory markers related to acute COVID 19 pneumonia #5. Increased liver enzymes related to viral pneumonia #6. Hypertension #7. Hyperlipidemia #8. History of coronary artery disease with previous stenting #9. History of myocardial infarction #10. History of morbid obesity Plan: Still requiring high flow oxygen, continue weaning FiO2, maintain O2 saturations between 89-90%, continue current dose prophylactic anticoagulation, today's labs have been noted, ears oral intake, she is tolerating oral diet. Urged patient to sit up in a chair and increase activity as tolerated, encourage deep breathing exercises. Follow-up chest x-ray on Wednesday. Follow-up inflammatory markers tomorrow I performed a history & physical examination of the patient and discussed their management with my nurse practitioner, Abby Peters. I reviewed the nurse practitioner's note and agree with the documented findings and plan of care. Lung sounds are positive for diminished breath sounds. The findings and the impression was discussed with the patient. I attest to the documentation by the nurse practitioner. Time with Patient: Less than 30
[2020-10-09] MEDS: ATORVASTATIN 40 MG TAB PO SCH (20:54)
[2020-10-09] MEDS: ALPRAZolam 0.25 MG TAB PO PRN (21:01)
[2020-10-10] MEDS: HEPARIN SODIUM,PORCINE/PF 5,000 UNIT/0.5 ML SYRINGE SQ SCH ×4 (00:31→23:19)
[2020-10-10] MEDS: SODIUM CHLORIDE 0.9% 1,000 ML IV SCH ×2 (02:53→17:55)
[2020-10-10] MEDS: ACETAMINOPHEN TAB 325 MG TAB PO PRN (02:54)
[2020-10-10] MEDS: ALBUTEROL HFA INHALER INHALATION SCH ×4 (07:52→19:19)
[2020-10-10] MEDS: DEXAMETHASONE SOD PHOSPHATE 10 MG/ML 1 ML VIAL IV SCH (09:10)
[2020-10-10] MEDS: CHOLECALCIFEROL 25 MCG (1000 IU) TABLET PO SCH (09:10)
[2020-10-10] MEDS: ZINC SULFATE 220 MG CAP PO SCH (09:10)
[2020-10-10] MEDS: ASCORBIC ACID 500 MG TAB PO SCH ×2 (09:10→21:07)
[2020-10-10] MEDS: ASPIRIN 325 MG TAB PO SCH (09:11)
[2020-10-10] MEDS: PANTOPRAZOLE 40 MG TABLET PO SCH (09:11)
--- NOTE | 2020-10-10 11:38 | P.PN ---
Subjective Progress Note Date: 10/10/20 Principal diagnosis: Acute hypoxic respiratory failure secondary to covid 19 pneumonia 50-year-old white female patient of Dr. Wise, who presented to the emergency department on 10/07/2020 for evaluation of dyspnea, cough, fever, body aches and chills. Patient reports symptom onset 4 days ago, she saw Dr. Wise and had an outpatient test for COVID 19, the results were unknown to her, however she was told in case of worsening symptoms to present to the emergency department. Past medical history is that of hypertension, hyperlipidemia, previous history of myocardial infarction, coronary artery disease with prior stenting. Chest x-ray shows ill-defined opacities in the lower lobes bilaterally. COVID 19 PCR was positive. Lab work has been reviewed, showing white blood cell, 4.6, hemoglobin 12.3, lymphocyte count was within normal limits at 1.1, d-dimer is 0.31, sodium is 133, the rest of electrolytes were within normal limits, B1 is 20 creatinine is 1.45 with GFR of 42, lactic acid 0.9, ferritin level is 3834, AST is 163, ALT is 117, LDH is 2034, CRP is 83.4, pro-calcitonin was 0.27. Low-grade fevers followed in the emergency department. Patient was started on Decadron 6 mg daily, we'll start her on vitamins, one unit, less than plasma, we'll try to qu alify her for tocilizumab 10/08/2020 patient seen in follow-up on medical floor, patient is status post Tocilizumab, infusion of 1 dose of convalescent plasma, she remains on Decadron, she remains on vitamins, IV hydration with 0.9 normal saline at 100 ML per hour, she is on subcu heparin 5000 units subcu 8 hours. Remains on 15 L high flow and nonrebreather mask, her pulse ox is 93-96%, overall reports feeling somewhat better. Follow-up chest x-ray today shows worsening diffuse lung infiltrates greatest in the lung bases, labs today show d-dimer 0.26, LDH and CRP are pending, pro-calcitonin level was low at 0.27. On 10/09/2020 patient seen in follow-up on the medical floor she is currently on 15 L high flow nasal cannula, in addition to pulmonary rehab mask, and a pulse ox is 86-98%, she is afebrile, hemodynamically patient is stable, she said no continues to bed, appears to be breathing comfortably, denies any chest discomfort, no fever or chills. Patient remains on systemic steroids, she is status post Tocilizumab and convalescent plasma. She remains on IV hydration, she states she is tolerating oral diet, no nausea or vomiting, today's labs have been reviewed, electrolytes are within normal limits, her creatinine has significantly improved, down to 1.1 from 1.45 couple days ago, BUN is 43, AST and ALT have also improved, down to 77 and 80 respectively, alk phos is at 40. Procalcitonin level was low at 0.7, tolerating activity fairly well. Reevaluated today on 10/10/2020, patient remains on the regular medical floor, will requiring significant amount of oxygen she is on 15 L high flow/nonrebreather and her O2 sats is 93%. Surprisingly the patient seems to be doing well, not in as much distress as expected considering her oxygen requirement. Chest x-ray on admission showed diffuse lung infiltrates greater in the lung bases. D-dimer remains low at 0.60. Electrolytes are normal BUN is 43 creatinine is coming down to 1.1. LDH is 799 and her C-reactive protein was 3.0, coming down nicely. Objective - Vital Signs Vital signs: Vital Signs Temp 98.6 F 10/10/20 10:06 Pulse 73 10/10/20 10:06 Resp 20 10/10/20 10:06 BP 136/84 10/10/20 10:06 Pulse Ox 93 L 10/10/20 10:06 Intake & Output 10/09/20 10/10/20 10/10/20 18:59 06:59 18:59 Intake Total 1500 Balance 1500 Intake: Oral 1500 Other: Voiding Method Bedside Commode # Voids 4 - Exam Physical Exam: Revealed a 50-year-old female on 15 L oxygen and 100% nonrebreather mask. With marginal O2 saturation. Head: Atraumatic, normocephalic. HEENT:[Neck is supple.] [No neck masses.] [No thyromegaly.] [No JVD.] Chest: [Symmetrical chest expansion, crackles at the bases. No rhonchi and no wheezes. Cardiac Exam: [Normal S1 and S2, no S3 gallop, no murmur.] Abdomen: [Soft, nontender, no megaly, no rebound, no guarding, normal bowel sounds.] Extremities: [No clubbing, no edema, no cyanosis.] Neurological Exam: [No focal neurologic deficit.] Alert and oriented 3. Psychiatric: Normal mood affect and normal mental status examination. Skin: No rashes. - Labs CBC & Chem 7: 10/07/20 03:19 10/09/20 06:43 Labs: Abnormal Lab Results - Last 24 Hours (Table) 10/09/20 10/10/20 Range/Units 06:43 05:06 D-Dimer 0.60 H (<0.60) mg/L FEU BUN 43.0 H (9.0-27.0) mg/dL Est GFR (CKD-EPI)NonAf 58.1 L (60.0-200.0) BUN/Creatinine Ratio 39.09 H (12.00-20.00) Ratio Glucose 200 H (70-110) mg/dL Calcium 7.9 L (8.7-10.3) mg/dL AST 77 H (13-35) U/L ALT 80 H (8-44) U/L Alkaline Phosphatase 40 L (41-126) U/L Lactate Dehydrogenase 799 H (120-246) U/L C-Reactive Protein 3.0 H (0.0-0.8) mg/dL Albumin 3.70 L (3.80-4.90) g/dL Albumin/Globulin Ratio 1.48 L (1.60-3.17) g/dL Assessment and Plan Assessment: Impression: Acute hypoxic respiratory failure secondary to acute covid 19 pneumonia. Acute kidney injury, likely ATN and possibly dehydration, improving since admission. Elevated inflammatory markers Increased liver enzymes secondary to viral pneumonia Hypertension. Dyslipidemia. Coronary artery disease and previous stent placement Morbid obesity. Recommendation: Continue present oxygen and titrate accordingly. Continue Lovenox. Continue Decadron. Ambulate and increase activity. Encourage deep coughing and breathing. Continue to follow inflammatory markers. Patient received actemra, and received 1 unit of convalescent plasma. Patient was out of the window for REM. We'll continue to follow. Time with Patient: Less than 30
[2020-10-10 13:11] LABS: C Reactive Protein 17.8 mg/L (<10.0)
--- NOTE | 2020-10-10 14:50 | P.PN ---
Subjective 50-year-old pleasant female came to ER with complaints of a cough fever body aches chills and shortness of breath presently on 15 L of oxygen along with the nonrebreather still saturations are low and patient had to use prone position for the saturations to go up. Patient started having symptoms about 8 days ago was tested positive for covid 19, patient was started on Decadron, vitamins, received convulsant plasma and toclizumab. Patient does have elevated inflammatory markers with a d-dimer of around 0.31, patient is hyponatremic with elevated creatinine of 1.45 baseline being within normal limits. Patient does have elevated liver enzymes 10/08/2020 Patient is still on 15 L of oxygen, patient is on Decadron. I do not have any repeat labs available today patient will be continued on IV fluids at this time. Patient feels little bit better overall although still significantly short of breath. 10/09/2020 Patient is presently a level liters of oxygen saturating well for try to taper down the oxygen even more. 10/10/2020 Patient respiratory status is fairly stable is on 15 L levofloxacin as well as nonrebreather saturating at 90%. Chest x-ray showing diffuse infiltrates in both lungs. Inflammatory markers are bit better, creatinine improved. Constitutional: Denied any fatigue denied any fever. Cardio vascular: denied any chest pain, palpitations Gastrointestinal denied any nausea vomiting Pulmonary: As mentioned in HPI Neurologic denied any new focal deficits All inpatient medications were reviewed and appropriate changes in these medications as dictated in the interval history and assessment and plan. Objective - Vital Signs Vital signs: Vital Signs Temp 98.6 F 10/10/20 10:06 Pulse 73 10/10/20 10:06 Resp 20 10/10/20 10:06 BP 136/84 10/10/20 10:06 Pulse Ox 93 L 10/10/20 10:06 Intake & Output 10/09/20 10/10/20 10/10/20 18:59 06:59 18:59 Intake Total 1500 Balance 1500 Intake: Oral 1500 Other: Voiding Method Bedside Commode # Voids 4 - Exam PHYSICAL EXAMINATION: GENERAL: The patient is alert and oriented x3, not in any acute distress. Well developed, well nourished. HEENT: Pupils are round and equally reacting to light. EOMI. No scleral icterus. No conjunctival pallor. Normocephalic, atraumatic. No pharyngeal erythema. No thyromegaly. CARDIOVASCULAR: S1 and S2 present. No murmurs, rubs, or gallops. PULMONARY: Chest is clear to auscultation, no wheezing or crackles. ABDOMEN: Soft, nontender, nondistended, normoactive bowel sounds. No palpable organomegaly. MUSCULOSKELETAL: No joint swelling or deformity. EXTREMITIES: No cyanosis, clubbing, or pedal edema. NEUROLOGICAL: Gross neurological examination did not reveal any focal deficits. SKIN: No rashes. - Labs CBC & Chem 7: 10/07/20 03:19 10/09/20 06:43 Labs: Abnormal Lab Results - Last 24 Hours (Table) 10/09/20 10/10/20 10/10/20 Range/Units 06:43 05:06 05:06 D-Dimer 0.60 H (<0.60) mg/L FEU BUN 43.0 H (9.0-27.0) mg/dL Est GFR (CKD-EPI)NonAf 58.1 L (60.0-200.0) BUN/Creatinine Ratio 39.09 H (12.00-20.00) Ratio Glucose 200 H (70-110) mg/dL Calcium 7.9 L (8.7-10.3) mg/dL AST 77 H (13-35) U/L ALT 80 H (8-44) U/L Alkaline Phosphatase 40 L (41-126) U/L Lactate Dehydrogenase 799 H 2198 H (120-246) U/L C-Reactive Protein 3.0 H 17.8 H (0.0-0.8) mg/dL Albumin 3.70 L (3.80-4.90) g/dL Albumin/Globulin Ratio 1.48 L (1.60-3.17) g/dL Assessment and Plan Plan: Acute hypoxic respiratory failure secondary to covid 19 pneumonia: Patient is on systemic steroids, received Tocilizumab, convalescent plasma. Patient is presently on 15 L of oxygen and Ventimask. Patient is on systemic steroids -Acute renal failure: Probably peripheral azotemia and acute tubular necrosis secondary to sepsis. Improving and has creatinine of around 1.1 -Hypovolemic hyponatremia expected to improved with IV fluids. Repeat basic metabolic profile tomorrow possibility discontinue normal saline at that time -Elevated liver enzymes seconded to sepsis and viral pneumonia -Hypertension -Hyperlipidemia -Coronary disease with previous stenting in the past GI prophylaxis with Protonix DVT prophylaxis with heparin as patient has renal failure.
[2020-10-10] MEDS: ATORVASTATIN 40 MG TAB PO SCH (21:07)
[2020-10-10] MEDS: lisinopriL 20 MG TAB PO SCH (21:07)
[2020-10-10] MEDS: ALPRAZolam 0.25 MG TAB PO PRN (22:16)
[2020-10-11] MEDS: ALBUTEROL HFA INHALER INHALATION SCH ×4 (07:21→20:19)
[2020-10-11] MEDS: HEPARIN SODIUM,PORCINE/PF 5,000 UNIT/0.5 ML SYRINGE SQ SCH ×3 (09:18→23:19)
[2020-10-11] MEDS: hydroCHLOROthiazide 25 MG TAB PO SCH (09:19)
[2020-10-11] MEDS: METOPROLOL TARTRATE 25 MG TAB PO SCH (09:19)
[2020-10-11] MEDS: ASPIRIN 325 MG TAB PO SCH (09:19)
[2020-10-11] MEDS: ASCORBIC ACID 500 MG TAB PO SCH ×2 (09:19→23:18)
[2020-10-11] MEDS: DOCUSATE 100 MG CAP PO SCH (09:19)
[2020-10-11] MEDS: PANTOPRAZOLE 40 MG TABLET PO SCH (09:19)
[2020-10-11] MEDS: lisinopriL 20 MG TAB PO SCH ×2 (09:19→23:18)
[2020-10-11] MEDS: ZINC SULFATE 220 MG CAP PO SCH (09:19)
[2020-10-11] MEDS: CHOLECALCIFEROL 25 MCG (1000 IU) TABLET PO SCH (09:19)
[2020-10-11] MEDS: dexAMETHasone ORAL SOLUTION 4 MG/ML VIAL PO SCH (09:21)
[2020-10-11 10:30] LABS: African American GFR (CKD) 98.9 (60.0-200.0); Anion Gap 10.3 mmol/L (4.00-12.00); BUN/Creat Ratio 38.75 Ratio (12.00-20.00); Calcium 8.8 mg/dL (8.7-10.3); Carbon Dioxide 25.7 mmol/L (21.6-31.8); Non-African American GFR(CKD) 85.4 (60.0-200.0); Potassium 4.8 mmol/L (3.5-5.5)
[2020-10-11] MEDS: SODIUM CHLORIDE 0.9% 1,000 ML IV SCH ×2 (12:36→17:29)
--- NOTE | 2020-10-11 15:19 | P.PN ---
Subjective Progress Note Date: 10/11/20 50-year-old pleasant female came to ER with complaints of a cough fever body aches chills and shortness of breath presently on 15 L of oxygen along with the nonrebreather still saturations are low and patient had to use prone position for the saturations to go up. Patient started having symptoms about 8 days ago was tested positive for covid 19, patient was started on Decadron, vitamins, received convulsant plasma and toclizumab. Patient does have elevated inflammatory markers with a d-dimer of around 0.31, patient is hyponatremic with elevated creatinine of 1.45 baseline being within normal limits. Patient does have elevated liver enzymes 10/08/2020 Patient is still on 15 L of oxygen, patient is on Decadron. I do not have any repeat labs available today patient will be continued on IV fluids at this time. Patient feels little bit better overall although still significantly short of breath. 10/09/2020 Patient is presently a level liters of oxygen saturating well for try to taper down the oxygen even more. 10/10/2020 Patient respiratory status is fairly stable is on 15 L levofloxacin as well as nonrebreather saturating at 90%. Chest x-ray showing diffuse infiltrates in both lungs. Inflammatory markers are bit better, creatinine improved. 10/11/2020 Patient is seen and evaluated in follow-up this morning continues to be extremely dyspneic. Patient is currently maintained on high flow oxygen at 15 L nasal cannula along with nonrebreather and maintaining 92-94%. Patient at tempted to work with physical therapy from the bed to the chair and became extremely dyspneic and oxygen saturations dropped into the low 80s. BMP within normal limits today. Pulmonary following. Constitutional: Denied any fatigue denied any fever. Cardio vascular: denied any chest pain, palpitations Gastrointestinal denied any nausea vomiting Pulmonary: As mentioned in HPI Neurologic denied any new focal deficits, reports generalized weakness secondary to severe dyspnea with minimal exertion All inpatient medications were reviewed and appropriate changes in these medications as dictated in the interval history and assessment and plan. Objective - Vital Signs Vital signs: Vital Signs Temp 97.7 F 10/11/20 05:15 Pulse 64 10/11/20 05:15 Resp 19 10/10/20 22:00 BP 134/80 10/11/20 05:15 Pulse Ox 92 L 10/11/20 09:30 Intake & Output 10/10/20 10/11/20 10/11/20 18:59 06:59 18:59 Intake Total 240 Balance 240 Intake: Oral 240 Other: # Voids 2 1 - Exam GENERAL: The patient is alert and oriented x3, not in any acute distress. Well developed, well nourished. HEENT: Pupils are round and equally reacting to light. EOMI. No scleral icterus. No conjunctival pallor. Normocephalic, atraumatic. No pharyngeal erythema. No thyromegaly. CARDIOVASCULAR: S1 and S2 present. No murmurs, rubs, or gallops. PULMONARY: Chest is clear to auscultation, no wheezing or crackles. ABDOMEN: Soft, nontender, nondistended, normoactive bowel sounds. No palpable organomegaly. MUSCULOSKELETAL: No joint swelling or deformity. EXTREMITIES: No cyanosis, clubbing, or pedal edema. NEUROLOGICAL: Gross neurological examination did not reveal any focal deficits. SKIN: No rashes. - Labs CBC & Chem 7: 10/07/20 03:19 10/11/20 04:56 Labs: Abnormal Lab Results - Last 24 Hours (Table) 10/10/20 Range/Units 05:06 Lactate Dehydrogenase 2198 H (313-618) U/L C-Reactive Protein 17.8 H (<10.0) mg/L Assessment and Plan Assessment: -Acute hypoxic respiratory failure secondary to covid 19 pneumonia: Patient is on systemic steroids, received Tocilizumab, convalescent plasma. Patient is presently on 15 L of oxygen and nonrebreather. -Acute renal failure: Probably prerenal azotemia and acute tubular necrosis secondary to sepsis. Improving, creatinine is 0.8 -Hypovolemic hyponatremia expected to improved with IV fluids. Repeat basic metabolic profile tomorrow possibility discontinue normal saline at that time -Elevated liver enzymes secondary to sepsis and viral pneumonia -Hypertension -Hyperlipidemia -Coronary disease with previous stenting in the past -GI prophylaxis with Protonix -DVT prophylaxis with heparin as patient has renal failure. Plan: Continue with current medications. Continue with gentle IV hydration as patient's oral intake is poor and will continue to monitor. BMP within normal limits today and creatinine is improved. Patient continues to be on 15 L of high flow along with nonrebreather and is severely dyspneic with minimal exertion. Patient is also weak secondary to respiratory status and is requiring assistance. Will repeat a.m. chest x-ray. Pulmonary is following.
--- NOTE | 2020-10-11 17:05 | P.PN ---
Subjective Progress Note Date: 10/11/20 Principal diagnosis: Covid 19 pneumonia 50-year-old white female patient of Dr. Wise, who presented to the emergency department on 10/07/2020 for evaluation of dyspnea, cough, fever, body aches and chills. Patient reports symptom onset 4 days ago, she saw Dr. Wise and had an outpatient test for COVID 19, the results were unknown to her, however she was told in case of worsening symptoms to present to the emergency department. Past medical history is that of hypertension, hyperlipidemia, previous history of myocardial infarction, coronary artery disease with prior stenting. Chest x-ray shows ill-defined opacities in the lower lobes bilaterally. COVID 19 PCR was p ositive. Lab work has been reviewed, showing white blood cell, 4.6, hemoglobin 12.3, lymphocyte count was within normal limits at 1.1, d-dimer is 0.31, sodium is 133, the rest of electrolytes were within normal limits, B1 is 20 creatinine is 1.45 with GFR of 42, lactic acid 0.9, ferritin level is 3834, AST is 163, ALT is 117, LDH is 2034, CRP is 83.4, pro-calcitonin was 0.27. Low-grade fevers fo llowed in the emergency department. Patient was started on Decadron 6 mg daily, we'll start her on vitamins, one unit, less than plasma, we'll try to qualify her for tocilizumab 10/08/2020 patient seen in follow-up on medical floor, patient is status post Tocilizumab, infusion of 1 dose of convalescent plasma, she remains on Decadron, she remains on vitamins, IV hydration with 0.9 normal saline at 100 ML per hour, she is on subcu heparin 5000 units subcu 8 hours. Remains on 15 L high flow and nonrebreather mask, her pulse ox is 93-96%, overall reports feeling somewhat better. Follow-up chest x-ray today shows worsening diffuse lung infiltrates greatest in the lung bases, labs today show d-dimer 0.26, LDH and CRP are pending, pro-calcitonin level was low at 0.27. On 10/09/2020 patient seen in follow-up on the medical floor she is currently on 15 L high flow nasal cannula, in addition to pulmonary rehab mask, and a pulse ox is 86-98%, she is afebrile, hemodynamically patient is stable, she said no continues to bed, appears to be breathing comfortably, denies any chest discomfort, no fever or chills. Patient remains on systemic steroids, she is status post Tocilizumab and convalescent plasma. She remains on IV hydration, she states she is tolerating oral diet, no nausea or vomiting, today's labs have been reviewed, electrolytes are within normal limits, her creatinine has s ignificantly improved, down to 1.1 from 1.45 couple days ago, BUN is 43, AST and ALT have also improved, down to 77 and 80 respectively, alk phos is at 40. Procalcitonin level was low at 0.7, tolerating activity fairly well. On 10/10/2020 patient seen in follow-up on medical floor. She is on 15 L per nonrebreather mask in addition to 15 L high flow, she is awake and alert, is short of breath with exertion, but she has been able to use the bedside commode, and tolerated fairly well, she is afebrile, denies any chest pain, no cough, lung sounds reveal scattered crackles, she is tolerating oral intake, no nausea or vomiting. No new chest x-ray, her latest d-dimer from yesterday was 0.60, L DH was 2198, and CRP was 17.8, patient remains on Decadron 6 mg daily, vitamins. This had no acute events overnight, no worsening, however no significant improvement in dyspnea and oxygenation Objective - Vital Signs Vital signs: Vital Signs Temp 98.6 F 10/11/20 14:00 Pulse 81 10/11/20 14:00 Resp 20 10/11/20 14:00 BP 144/82 10/11/20 14:00 Pulse Ox 94 L 10/11/20 14:00 Intake & Output 10/10/20 10/11/20 10/11/20 18:59 06:59 18:59 Intake Total 240 Balance 240 Intake: Oral 240 Other: # Voids 2 1 - Exam GENERAL EXAM: Alert, very pleasant, 50-year-old white female, on 15 L of oxygen and 100% nonrebreather, with pulse ox of 94 comfortable in no apparent distress. HEAD: Normocephalic/atraumatic. EYES: Normal reaction of pupils, equal size. Conjunctiva pink, sclera white. NOSE: Clear with pink turbinates. THROAT: No erythema or exudates. NECK: No masses, no JVD, no thyroid enlargement, no adenopathy. CHEST: No chest wall deformity. Symmetrical expansion. LUNGS: Equal air entry with no crackles, wheeze, rhonchi or dullness. CVS: Regular rate and rhythm, normal S1 and S2, no gallops, no murmurs, no rubs ABDOMEN: Soft, nontender. No hepatosplenomegaly, normal bowel sounds, no guarding or rigidity. EXTREMITIES: No clubbing, no edema, no cyanosis, 2+ pulses and upper and lower extremities. MUSCULOSKELETAL: Muscle strength and tone normal. SPINE: No scoliosis or deformity SKIN: No rashes CENTRAL NERVOUS SYSTEM: Alert and oriented -3. No focal deficits, tone is normal in all 4 extremities. PSYCHIATRIC: Alert and oriented -3. Appropriate affect. Intact judgment and insight. - Labs CBC & Chem 7: 10/07/20 03:19 10/11/20 04:56 Labs: Abnormal Lab Results - Last 24 Hours (Table) 10/11/20 Range/Units 04:56 BUN 31.0 H (9.0-27.0) mg/dL BUN/Creatinine Ratio 38.75 H (12.00-20.00) Ratio Glucose 149 H (70-110) mg/dL Assessment and Plan Plan: Assessment: #1. Acute hypoxic respiratory failure, related to acute COVID19 pneumonia, patient reports a 4 day history of worsening dyspnea, fever, chills, patient was already in moderate to severe hypoxic respiratory failure on presentation, and as such does not qualify for Remdesivir. Status post transfusion of Tocilizumab, convalescent plasma in addition to steroids #2. Dyspnea, cough, body aches, weakness related to the above #3. Acute kidney injury likely related to ATN, dehydration #4. Recent inflammatory markers related to acute COVID 19 pneumonia #5. Increased liver enzymes related to viral pneumonia #6. Hypertension #7. Hyperlipidemia #8. History of coronary artery disease with previous stenting #9. History of myocardial infarction #10. History of morbid obesity Plan: No significant improvement or worsening, attempt to wean FiO2 to keep O2 sat at about 89-90% as well as the patient is asymptomatic, encourage deep breathing and coughing, follow-up x-ray in the morning, D-dimer and inflammatory markers, BNP continue supportive care, and has been slow to progress I performed a history & physical examination of the patient and discussed their management with my nurse practitioner, Abby Peters. I reviewed the nurse practitioner's note and agree with the documented findings and plan of care. Lung sounds are positive for diminished breath sounds. The findings and the impression was discussed with the patient. I attest to the documentation by the nurse practitioner. Time with Patient: Less than 30
[2020-10-11] MEDS: ALPRAZolam 0.25 MG TAB PO PRN (23:18)
[2020-10-11] MEDS: ATORVASTATIN 40 MG TAB PO SCH (23:18)
--- NOTE | 2020-10-12 07:31 | XR ---
EXAMINATION TYPE: XR chest 1V portable DATE OF EXAM: 10/12/2020 COMPARISON: 10/08/2020 INDICATION: Shortness of breath TECHNIQUE: Single frontal view of the chest is obtained. FINDINGS: The heart size is mildly prominent. The pulmonary vasculature is normal. Diffuse scattered infiltrate is present throughout the bilateral lung land. This may have slight pr ogression over the interval. IMPRESSION: 1. Slight worsening of diffuse infiltrate bilaterally. 2. Cardiomegaly
[2020-10-12] MEDS: ALBUTEROL HFA INHALER INHALATION SCH ×4 (08:26→20:45)
[2020-10-12 08:31] LABS: African American GFR (CKD) >90 (>60 ml/min/1.73 sqM); Anion Gap 7 mmol/L; Blood Urea Nitrogen 28 mg/dL (7-17); C Reactive Protein 8.6 mg/L (<10.0); Calcium 8.8 mg/dL (8.4-10.2); Carbon Dioxide 25 mmol/L (22-30); Chloride 106 mmol/L (98-107); Glucose 99 mg/dL (74-99); Non-African American GFR(CKD) >90 (>60 ml/min/1.73 sqM); Potassium 3.9 mmol/L (3.5-5.1); Sodium 138 mmol/L (137-145)
[2020-10-12] MEDS: lisinopriL 20 MG TAB PO SCH ×2 (08:32→19:18)
[2020-10-12] MEDS: PANTOPRAZOLE 40 MG TABLET PO SCH (08:32)
[2020-10-12] MEDS: METOPROLOL TARTRATE 25 MG TAB PO SCH (08:32)
[2020-10-12] MEDS: hydroCHLOROthiazide 25 MG TAB PO SCH (08:32)
[2020-10-12] MEDS: HEPARIN SODIUM,PORCINE/PF 5,000 UNIT/0.5 ML SYRINGE SQ SCH ×3 (08:32→23:25)
[2020-10-12] MEDS: ZINC SULFATE 220 MG CAP PO SCH (08:33)
[2020-10-12] MEDS: DOCUSATE 100 MG CAP PO SCH (08:33)
[2020-10-12] MEDS: ASPIRIN 325 MG TAB PO SCH (08:33)
[2020-10-12] MEDS: dexAMETHasone ORAL SOLUTION 4 MG/ML VIAL PO SCH (08:34)
[2020-10-12] MEDS: CHOLECALCIFEROL 25 MCG (1000 IU) TABLET PO SCH (08:34)
[2020-10-12] MEDS: dexAMETHasone 2 MG TAB PO SCH (08:36)
[2020-10-12] MEDS: SODIUM CHLORIDE 0.9% 1,000 ML IV SCH (08:37)
[2020-10-12 08:38] LABS: LDH 2729 U/L (313-618)
--- NOTE | 2020-10-12 12:51 | P.PN ---
Subjective Progress Note Date: 10/12/20 Principal diagnosis: Acute hypoxic respiratory failure secondary to covid 19 pneumonia 50-year-old white female patient of Dr. Wise, who presented to the emergency department on 10/07/2020 for evaluation of dyspnea, cough, fever, body aches and chills. Patient reports symptom onset 4 days ago, she saw Dr. Wise and had an outpatient test for COVID 19, the results were unknown to her, however she was told in case of worsening symptoms to present to the emergency department. Past medical history is that of hypertension, hyperlipidemia, previous history of myocardial infarction, coronary artery disease with prior stenting. Chest x-ray shows ill-defined opacities in the lower lobes bilaterally. COVID 19 PCR was positive. Lab work has been reviewed, showing white blood cell, 4.6, hemoglobin 12.3, lymphocyte count was within normal limits at 1.1, d-dimer is 0.31, sodium is 133, the rest of electrolytes were within normal limits, B1 is 20 creatinine is 1.45 with GFR of 42, lactic acid 0.9, ferritin level is 3834, AST is 163, ALT is 117, LDH is 2034, CRP is 83.4, pro-calcitonin was 0.27. Low-grade fevers followed in the emergency department. Patient was started on Decadron 6 mg daily, we'll start her on vitamins, one unit, less than plasma, we'll try to qu alify her for tocilizumab 10/08/2020 patient seen in follow-up on medical floor, patient is status post Tocilizumab, infusion of 1 dose of convalescent plasma, she remains on Decadron, she remains on vitamins, IV hydration with 0.9 normal saline at 100 ML per hour, she is on subcu heparin 5000 units subcu 8 hours. Remains on 15 L high flow and nonrebreather mask, her pulse ox is 93-96%, overall reports feeling somewhat better. Follow-up chest x-ray today shows worsening diffuse lung infiltrates greatest in the lung bases, labs today show d-dimer 0.26, LDH and CRP are pending, pro-calcitonin level was low at 0.27. On 10/09/2020 patient seen in follow-up on the medical floor she is currently on 15 L high flow nasal cannula, in addition to pulmonary rehab mask, and a pulse ox is 86-98%, she is afebrile, hemodynamically patient is stable, she said no continues to bed, appears to be breathing comfortably, denies any chest discomfort, no fever or chills. Patient remains on systemic steroids, she is status post Tocilizumab and convalescent plasma. She remains on IV hydration, she states she is tolerating oral diet, no nausea or vomiting, today's labs have been reviewed, electrolytes are within normal limits, her creatinine has significantly improved, down to 1.1 from 1.45 couple days ago, BUN is 43, AST and ALT have also improved, down to 77 and 80 respectively, alk phos is at 40. Procalcitonin level was low at 0.7, tolerating activity fairly well. Reevaluated today on 10/10/2020, patient remains on the regular medical floor, will requiring significant amount of oxygen she is on 15 L high flow/nonrebreather and her O2 sats is 93%. Surprisingly the patient seems to be doing well, not in as much distress as expected considering her oxygen requirement. Chest x-ray on admission showed diffuse lung infiltrates greater in the lung bases. D-dimer remains low at 0.60. Electrolytes are normal BUN is 43 creatinine is coming down to 1.1. LDH is 799 and her C-reactive protein was 3.0, coming down nicely. Patient was reevaluated today on 10/12/2020, remains on high flow cannula 15 L/m, and non-rebreather mask. O2 saturations are in the low 90s 94% at best. However clinically the patient is doing better, feeling better. Not in any distress. Her elect lites are normal renal profile is normal LDH is rising now 2729 and her C-reactive protein is 8.6.better than 2 days ago. No major issues in the last 24 hours. Objective - Vital Signs Vital signs: Vital Signs Temp 98.8 F 10/12/20 09:54 Pulse 78 10/12/20 09:54 Resp 20 10/12/20 09:54 BP 137/87 10/12/20 09:54 Pulse Ox 94 L 10/12/20 09:54 Intake & Output 10/11/20 10/12/20 10/12/20 18:59 06:59 18:59 Intake Total 600 Output Total 500 Balance 600 -500 Intake: Oral 600 Output: Urine 500 Other: Voiding Method Bedside Commode Bedside Commode # Voids 5 - Exam Physical Exam: Revealed a 50-year-old female on 15 L oxygen and 100% nonreb reather mask. Not in distress. Head: Atraumatic, normocephalic. HEENT:[Neck is supple.] [No neck masses.] [No thyromegaly.] [No JVD.] Chest: [Symmetrical chest expansion, crackles at the bases. No rhonchi and no wheezes. Cardiac Exam: [Normal S1 and S2, no S3 gallop, no murmur.] Abdomen: [Soft, nontender, no megaly, no rebound, no guarding, normal bowel sounds.] Extremities: [No clubbing, no edema, no cyanosis.] Neurological Exam: [No focal neurologic deficit.] Alert and oriented 3. Psychiatric: Normal mood affect and normal mental status examination. Skin: No rashes. - Labs CBC & Chem 7: 10/07/20 03:19 10/12/20 07:50 Labs: Abnormal Lab Results - Last 24 Hours (Table) 10/12/20 10/12/20 Range/Units 07:50 07:50 D-Dimer 1.21 H (<0.60) mg/L FEU BUN 28 H (7-17) mg/dL Lactate Dehydrogenase 2729 H (313-618) U/L Assessment and Plan Assessment: Impression: Acute hypoxic respiratory failure secondary to acute covid 19 pneumonia. Acute kidney injury, likely ATN and possibly dehydration, improving since admission. Elevated inflammatory markers Increased liver enzymes secondary to viral pneumonia Hypertension. Dyslipidemia. Coronary artery disease and previous stent placement Morbid obesity. Recommendation: Continue present oxygen and titrate accordingly. Continue Lovenox. Continue Decadron. Ambulate and increase activity. Continue to follow inflammatory markers. The increase in LDH is a bit worrisome. Patient received actemra, and received 1 unit of convalescent plasma. Patient was out of the window for REM. We'll continue to follow. Time with Patient: Less than 30
--- NOTE | 2020-10-12 13:03 | P.PN ---
Subjective 50-year-old pleasant female came to ER with complaints of a cough fever body aches chills and shortness of breath presently on 15 L of oxygen along with the nonrebreather still saturations are low and patient had to use prone position for the saturations to go up. Patient started having symptoms about 8 days ago was tested positive for covid 19, patient was started on Decadron, vitamins, received convulsant plasma and toclizumab. Patient does have elevated inflammatory markers with a d-dimer of around 0.31, patient is hyponatremic with elevated creatinine of 1.45 baseline being within normal limits. Patient does have elevated liver enzymes 10/08/2020 Patient is still on 15 L of oxygen, patient is on Decadron. I do not have any repeat labs available today patient will be continued on IV fluids at this time. Patient feels little bit better overall although still significantly short of breath. 10/09/2020 Patient is presently a level liters of oxygen saturating well for try to taper down the oxygen even more. 10/10/2020 Patient respiratory status is fairly stable is on 15 L levofloxacin as well as nonrebreather saturating at 90%. Chest x-ray showing diffuse infiltrates in both lungs. Inflammatory markers are bit better, creatinine improved. 10/12/2020 patient had couple episodes of diarrhea she continues to have diarrh ea we'll obtain a C. diff testing at that time patient will continue on IV fluids hydrochlorothiazide will be discontinued. Patient is still on the 15 L of oxygen with Ventimask 100% nonrebreather Constitutional: Denied any fatigue denied any fever. Cardio vascular: denied any chest pain, palpitations Gastrointestinal denied any nausea vomiting Pulmonary: As mentioned in HPI Neurologic denied any new focal deficits All inpatient medications were reviewed and appropriate changes in these medic ations as dictated in the interval history and assessment and plan. Objective - Vital Signs Vital signs: Vital Signs Temp 98.8 F 10/12/20 09:54 Pulse 78 10/12/20 09:54 Resp 20 10/12/20 09:54 BP 137/87 10/12/20 09:54 Pulse Ox 94 L 10/12/20 09:54 Intake & Output 10/11/20 10/12/20 10/12/20 18:59 06:59 18:59 Intake Total 600 Output Total 500 Balance 600 -500 Intake: Oral 600 Output: Urine 500 Other: Voiding Method Bedside Commode Bedside Commode # Voids 5 - Exam PHYSICAL EXAMINATION: GENERAL: The patient is alert and oriented x3, not in any acute distress. Well developed, well nourished. HEENT: Pupils are round and equally reacting to light. EOMI. No scleral icterus. No conjunctival pallor. Normocephalic, atraumatic. No pharyngeal erythema. No thyromegaly. CARDIOVASCULAR: S1 and S2 present. No murmurs, rubs, or gallops. PULMONARY: Chest is clear to auscultation, no wheezing or crackles. ABDOMEN: Soft, nontender, nondistended, normoactive bowel sounds. No palpable organomegaly. MUSCULOSKELETAL: No joint swelling or deformity. EXTREMITIES: No cyanosis, clubbing, or pedal edema. NEUROLOGICAL: Gross neurological examination did not reveal any focal deficits. SKIN: No rashes. - Labs CBC & Chem 7: 10/07/20 03:19 10/12/20 07:50 Labs: Abnormal Lab Results - Last 24 Hours (Table) 10/12/20 10/12/20 Range/Units 07:50 07:50 D-Dimer 1.21 H (<0.60) mg/L FEU BUN 28 H (7-17) mg/dL Lactate Dehydrogenase 2729 H (313-618) U/L Assessment and Plan Plan: Acute hypoxic respiratory failure secondary to covid 19 pneumonia: Patient is on systemic steroids, received Tocilizumab, convalescent plasma. Patient is presently on 15 L of oxygen and Ventimask. Patient is on systemic steroids -Diarrhea: Secondary to over 19 but we'll rule out C. diff colitis. -Acute renal failure: Probably peripheral azotemia and acute tubular necrosis secondary to sepsis. Now any with IV fluids for 1 more day. -Hypovolemic hyponatremia expected to improved with IV fluids. Repeat basic metabolic profile tomorrow possibility discontinue normal saline at that time -Elevated liver enzymes seconded to sepsis and viral pneumonia -Hypertension -Hyperlipidemia -Coronary disease with previous stenting in the past GI prophylaxis with Protonix DVT prophylaxis with heparin as patient has renal failure.
[2020-10-12] MEDS: MELATONIN 3 MG TABLET PO SCH (19:18)
[2020-10-12] MEDS: ATORVASTATIN 40 MG TAB PO SCH (19:18)
[2020-10-12] MEDS: ASCORBIC ACID 500 MG TAB PO SCH (19:18)
[2020-10-12] MEDS: ALPRAZolam 0.25 MG TAB PO PRN (19:18)
[2020-10-13] MEDS: SODIUM CHLORIDE 0.9% 1,000 ML IV SCH ×2 (02:20→12:01)
[2020-10-13 07:34] LABS: ALT 328 U/L (4-34); AST 194 U/L (14-36); African American GFR (CKD) >90 (>60 ml/min/1.73 sqM); Albumin 3.5 g/dL (3.5-5.0); Albumin/Globulin Ratio 1.1; Alkaline Phosphatase 78 U/L (38-126); Anion Gap 9 mmol/L; Blood Urea Nitrogen 23 mg/dL (7-17); Calcium 8.9 mg/dL (8.4-10.2); Carbon Dioxide 24 mmol/L (22-30); Chloride 103 mmol/L (98-107); Globulin 3.2 g/dL; Glucose 104 mg/dL (74-99); Non-African American GFR(CKD) >90 (>60 ml/min/1.73 sqM); Potassium 3.9 mmol/L (3.5-5.1); Sodium 136 mmol/L (137-145); Total Bilirubin 0.6 mg/dL (0.2-1.3); Total Protein 6.7 g/dL (6.3-8.2)
[2020-10-13] MEDS: ALBUTEROL HFA INHALER INHALATION SCH ×4 (08:52→20:27)
[2020-10-13] MEDS: PANTOPRAZOLE 40 MG TABLET PO SCH (09:20)
[2020-10-13] MEDS: CHOLECALCIFEROL 25 MCG (1000 IU) TABLET PO SCH (09:20)
[2020-10-13] MEDS: lisinopriL 20 MG TAB PO SCH ×2 (09:20→18:59)
[2020-10-13] MEDS: DOCUSATE 100 MG CAP PO SCH ×2 (09:20→09:29)
[2020-10-13] MEDS: METOPROLOL TARTRATE 25 MG TAB PO SCH (09:20)
[2020-10-13] MEDS: ASPIRIN 325 MG TAB PO SCH (09:20)
[2020-10-13] MEDS: dexAMETHasone 2 MG TAB PO SCH (09:20)
[2020-10-13] MEDS: ASCORBIC ACID 500 MG TAB PO SCH ×2 (09:20→18:59)
[2020-10-13] MEDS: HEPARIN SODIUM,PORCINE/PF 5,000 UNIT/0.5 ML SYRINGE SQ SCH ×2 (09:20→16:08)
[2020-10-13] MEDS: ZINC SULFATE 220 MG CAP PO SCH (09:21)
--- NOTE | 2020-10-13 13:21 | P.PN ---
Subjective 50-year-old pleasant female came to ER with complaints of a cough fever body aches chills and shortness of breath presently on 15 L of oxygen along with the nonrebreather still saturations are low and patient had to use prone position for the saturations to go up. Patient started having symptoms about 8 days ago was tested positive for covid 19, patient was started on Decadron, vitamins, received convulsant plasma and toclizumab. Patient does have elevated inflammatory markers with a d-dimer of around 0.31, patient is hyponatremic with elevated creatinine of 1.45 baseline being within normal limits. Patient does have elevated liver enzymes 10/08/2020 Patient is still on 15 L of oxygen, patient is on Decadron. I do not have any repeat labs available today patient will be continued on IV fluids at this time. Patient feels little bit better overall although still significantly short of breath. 10/09/2020 Patient is presently a level liters of oxygen saturating well for try to taper down the oxygen even more. 10/10/2020 Patient respiratory status is fairly stable is on 15 L levofloxacin as well as nonrebreather saturating at 90%. Chest x-ray showing diffuse infiltrates in both lungs. Inflammatory markers are bit better, creatinine improved. 10/12/2020 patient had couple episodes of diarrhea she continues to have diarrh ea we'll obtain a C. diff testing at that time patient will continue on IV fluids hydrochlorothiazide will be discontinued. Patient is still on the 15 L of oxygen with Ventimask 100% nonrebreather 10/13/2020 Patient still feels like she is confined on 100% nonrebreather and 15 L of oxygen. Patient doesn't feel well still having body aches. Constitutional: In the interval history Cardio vascular: denied any chest pain, palpitations Gastrointestinal denied any nausea vomiting Pulmonary: As mentioned in HPI Neurologic denied any new focal deficits All inpatient medications were reviewed and appropriate changes in these medications as dictated in the interval history and assessment and plan. Objective - Vital Signs Vital signs: Vital Signs Temp 98.7 F 10/13/20 09:45 Pulse 108 H 10/13/20 09:45 Resp 20 10/13/20 09:45 BP 110/73 10/13/20 09:45 Pulse Ox 95 10/13/20 10:34 Intake & Output 10/12/20 10/13/2021 18:59 06:59 18:59 Other: Voiding Method Bedside Commode Bedside Commode Diaper Incontinent # Voids 3 1 - Exam PHYSICAL EXAMINATION: GENERAL: The patient is alert and oriented x3, not in any acute distress. Well developed, well nourished. HEENT: Pupils are round and equally reacting to light. EOMI. No scleral icterus. No conjunctival pallor. Normocephalic, atraumatic. No pharyngeal erythema. No thyromegaly. CARDIOVASCULAR: S1 and S2 present. No murmurs, rubs, or gallops. PULMONARY: Chest is clear to auscultation, no wheezing or crackles. ABDOMEN: Soft, nontender, nondistended, normoactive bowel sounds. No palpable organomegaly. MUSCULOSKELETAL: No joint swelling or deformity. EXTREMITIES: No cyanosis, clubbing, or pedal edema. NEUROLOGICAL: Gross neurological examination did not reveal any focal deficits. SKIN: No rashes. - Labs CBC & Chem 7: 10/07/20 03:19 10/13/20 06:33 Labs: Abnormal Lab Results - Last 24 Hours (Table) 10/13/20 Range/Units 06:33 Sodium 136 L (137-145) mmol/L BUN 23 H (7-17) mg/dL Glucose 104 H (74-99) mg/dL AST 194 H (14-36) U/L ALT 328 H (4-34) U/L Assessment and Plan Plan: Acute hypoxic respiratory failure secondary to covid 19 pneumonia: Patient is on systemic steroids, received Tocilizumab, convalescent plasma. Patient is presently on 15 L of oxygen and Ventimask. Patient is on systemic steroids -Diarrhea: Secondary to over 19 but we'll rule out C. diff colitis. -Acute renal failure: Probably peripheral azotemia and acute tubular necrosis secondary to sepsis. Now any with IV fluids for 1 more day. -Hypovolemic hyponatremia expected to improved with IV fluids. Repeat basic metabolic profile tomorrow possibility discontinue normal saline at that time -Elevated liver enzymes seconded to sepsis and viral pneumonia -Hypertension -Hyperlipidemia -Coronary disease with previous stenting in the past GI prophylaxis with Protonix DVT prophylaxis with heparin as patient has renal failure.
--- NOTE | 2020-10-13 15:54 | P.PN ---
Subjective Progress Note Date: 10/13/20 Principal diagnosis: Covid 19 pneumonia 50-year-old white female patient of Dr. Wise, who presented to the emergency department on 10/07/2020 for evaluation of dyspnea, cough, fever, body aches and chills. Patient reports symptom onset 4 days ago, she saw Dr. Wise and had an outpatient test for COVID 19, the results were unknown to her, however she was told in case of worsening symptoms to present to the emergency department. Past medical history is that of hypertension, hyperlipidemia, previous history of myocardial infarction, coronary artery disease with prior stenting. Chest x-ray shows ill-defined opacities in the lower lobes bilaterally. COVID 19 PCR was p ositive. Lab work has been reviewed, showing white blood cell, 4.6, hemoglobin 12.3, lymphocyte count was within normal limits at 1.1, d-dimer is 0.31, sodium is 133, the rest of electrolytes were within normal limits, B1 is 20 creatinine is 1.45 with GFR of 42, lactic acid 0.9, ferritin level is 3834, AST is 163, ALT is 117, LDH is 2034, CRP is 83.4, pro-calcitonin was 0.27. Low-grade fevers fo llowed in the emergency department. Patient was started on Decadron 6 mg daily, we'll start her on vitamins, one unit, less than plasma, we'll try to qualify her for tocilizumab 10/08/2020 patient seen in follow-up on medical floor, patient is status post Tocilizumab, infusion of 1 dose of convalescent plasma, she remains on Decadron, she remains on vitamins, IV hydration with 0.9 normal saline at 100 ML per hour, she is on subcu heparin 5000 units subcu 8 hours. Remains on 15 L high flow and nonrebreather mask, her pulse ox is 93-96%, overall reports feeling somewhat better. Follow-up chest x-ray today shows worsening diffuse lung infiltrates greatest in the lung bases, labs today show d-dimer 0.26, LDH and CRP are pending, pro-calcitonin level was low at 0.27. On 10/09/2020 patient seen in follow-up on the medical floor she is currently on 15 L high flow nasal cannula, in addition to pulmonary rehab mask, and a pulse ox is 86-98%, she is afebrile, hemodynamically patient is stable, she said no continues to bed, appears to be breathing comfortably, denies any chest discomfort, no fever or chills. Patient remains on systemic steroids, she is status post Tocilizumab and convalescent plasma. She remains on IV hydration, she states she is tolerating oral diet, no nausea or vomiting, today's labs have been reviewed, electrolytes are within normal limits, her creatinine has s ignificantly improved, down to 1.1 from 1.45 couple days ago, BUN is 43, AST and ALT have also improved, down to 77 and 80 respectively, alk phos is at 40. Procalcitonin level was low at 0.7, tolerating activity fairly well. On 10/10/2020 patient seen in follow-up on medical floor. She is on 15 L per nonrebreather mask in addition to 15 L high flow, she is awake and alert, is short of breath with exertion, but she has been able to use the bedside commode, and tolerated fairly well, she is afebrile, denies any chest pain, no cough, lung sounds reveal scattered crackles, she is tolerating oral intake, no nausea or vomiting. No new chest x-ray, her latest d-dimer from yesterday was 0.60, L DH was 2198, and CRP was 17.8, patient remains on Decadron 6 mg daily, vitamins. This had no acute events overnight, no worsening, however no significant improvement in dyspnea and oxygenation On 10/13/2020 patient seen in follow-up on medical surgical floor. She remains on high flow oxygen per 15 L high flow nasal cannula and 100% nonrebreather mask, pulse ox is 90-95%, she doesn't With exertion, but overall seems to be improving, lung sounds reveal minimal rales at bilateral bases, without signs have been stable, she has been slow to improve, no acute events overnight, no chest discomfort. Yesterday chest x-ray shows slight worsening of diffuse infiltrates. The labs have been reviewed, her d-dimer was 1.21, and her liver enzymes have worsened with AST up to 194, and ALT of 328, alkaline phosphatase was up to 78, LDH was overall on the rise up to 2729, by CRP was improving. Clinically seems to be doing better. No worsening cough, patient would like to be able to walk around in the room, however still requiring high flow oxygen and she can only walk so far, other than that no specific complaints Objective - Vital Signs Vital signs: Vital Signs Temp 98.6 F 10/13/20 14:00 Pulse 87 10/13/20 14:00 Resp 18 10/13/20 14:00 BP 114/70 10/13/20 14:00 Pulse Ox 95 10/13/20 14:00 Intake & Output 10/12/20 10/13/20 10/13/20 18:59 06:59 18:59 Other: Voiding Method Bedside Commode Bedside Commode Diaper Incontinent # Voids 3 1 - Exam GENERAL EXAM: Alert, very pleasant, 50-year-old white female, on 15 L of oxygen and 100% nonrebreather, with pulse ox of 95 comfortable in no apparent distress. HEAD: Normocephalic/atraumatic. EYES: Normal reaction of pupils, equal size. Conjunctiva pink, sclera white. NOSE: Clear with pink turbinates. THROAT: No erythema or exudates. NECK: No masses, no JVD, no thyroid enlargement, no adenopathy. CHEST: No chest wall deformity. Symmetrical expansion. LUNGS: Equal air entry with no crackles, wheeze, rhonchi or dullness. CVS: Regular rate and rhythm, normal S1 and S2, no gallops, no murmurs, no rubs ABDOMEN: Soft, nontender. No hepatosplenomegaly, normal bowel sounds, no guarding or rigidity. EXTREMITIES: No clubbing, no edema, no cyanosis, 2+ pulses and upper and lower extremities. MUSCULOSKELETAL: Muscle strength and tone normal. SPINE: No scoliosis or deformity SKIN: No rashes CENTRAL NERVOUS SYSTEM: Alert and oriented -3. No focal deficits, tone is normal in all 4 extremities. PSYCHIATRIC: Alert and oriented -3. Appropriate affect. Intact judgment and insight. - Labs CBC & Chem 7: 10/07/20 03:19 10/13/20 06:33 Labs: Abnormal Lab Results - Last 24 Hours (Table) 10/13/20 Range/Units 06:33 Sodium 136 L (137-145) mmol/L BUN 23 H (7-17) mg/dL Glucose 104 H (74-99) mg/dL AST 194 H (14-36) U/L ALT 328 H (4-34) U/L Assessment and Plan Plan: Assessment: #1. Acute hypoxic respiratory failure, related to acute COVID19 pneumonia, patient reports a 4 day history of worsening dyspnea, fever, chills, patient was already in moderate to severe hypoxic respiratory failure on presentation, and as such does not qualify for Remdesivir. Status post transfusion of Tocilizumab, convalescent plasma in addition to steroids #2. Dyspnea, cough, body aches, weakness related to the above #3. Acute kidney injury likely related to ATN, dehydration #4. Recent inflammatory markers related to acute COVID 19 pneumonia #5. Increased liver enzymes related to viral pneumonia #6. Hypertension #7. Hyperlipidemia #8. History of coronary artery disease with previous stenting #9. History of myocardial infarction #10. History of morbid obesity Plan: Continues to require high flow oxygen, but clinically she feels no worse, patient is attempting to self prolonged, she is tolerating sitting up in a chair, is tolerating oral diet, no fever. Continue supportive treatment, wean FiO2 to maintain O2 sat between 89-90% as well as the patient is asymptomatic. We'll continue to follow I performed a history & physical examination of the patient and discussed their management with my nurse practitioner, Abby Peters. I reviewed the nurse practitioner's note and agree with the documented findings and plan of care. Lung sounds are positive for diminished breath sounds. The findings and the impression was discussed with the patient. I attest to the documentation by the nurse practitioner. Time with Patient: Less than 30
[2020-10-13] MEDS: ALPRAZolam 0.25 MG TAB PO PRN (18:17)
[2020-10-13] MEDS: MELATONIN 3 MG TABLET PO SCH (18:59)
[2020-10-13] MEDS: ATORVASTATIN 40 MG TAB PO SCH (18:59)
[2020-10-14] MEDS: ACETAMINOPHEN TAB 325 MG TAB PO PRN ×3 (00:10→21:07)
[2020-10-14] MEDS: HEPARIN SODIUM,PORCINE/PF 5,000 UNIT/0.5 ML SYRINGE SQ SCH ×3 (00:11→16:29)
[2020-10-14] MEDS: SODIUM CHLORIDE 0.9% 1,000 ML IV SCH (04:40)
[2020-10-14 07:21] LABS: ALT 257 U/L (4-34); AST 102 U/L (14-36); African American GFR (CKD) >90 (>60 ml/min/1.73 sqM); Albumin 3.5 g/dL (3.5-5.0); Albumin/Globulin Ratio 1.1; Alkaline Phosphatase 84 U/L (38-126); Anion Gap 9 mmol/L; Blood Urea Nitrogen 24 mg/dL (7-17); Calcium 8.7 mg/dL (8.4-10.2); Carbon Dioxide 26 mmol/L (22-30); Chloride 102 mmol/L (98-107); Globulin 3.2 g/dL; Glucose 94 mg/dL (74-99); Non-African American GFR(CKD) 81 (>60 ml/min/1.73 sqM); Potassium 3.9 mmol/L (3.5-5.1); Sodium 137 mmol/L (137-145); Total Bilirubin 0.7 mg/dL (0.2-1.3); Total Protein 6.7 g/dL (6.3-8.2)
[2020-10-14] MEDS: METOPROLOL TARTRATE 25 MG TAB PO SCH (08:28)
[2020-10-14] MEDS: ASCORBIC ACID 500 MG TAB PO SCH ×2 (08:29→21:05)
[2020-10-14] MEDS: CHOLECALCIFEROL 25 MCG (1000 IU) TABLET PO SCH (08:29)
[2020-10-14] MEDS: ASPIRIN 325 MG TAB PO SCH (08:29)
[2020-10-14] MEDS: dexAMETHasone 2 MG TAB PO SCH (08:29)
[2020-10-14] MEDS: lisinopriL 20 MG TAB PO SCH ×2 (08:29→21:05)
[2020-10-14] MEDS: DOCUSATE 100 MG CAP PO SCH ×2 (08:29→08:30)
[2020-10-14] MEDS: ZINC SULFATE 220 MG CAP PO SCH (08:29)
[2020-10-14] MEDS: PANTOPRAZOLE 40 MG TABLET PO SCH (08:29)
[2020-10-14] MEDS: ALBUTEROL HFA INHALER INHALATION SCH ×4 (08:53→20:52)
--- NOTE | 2020-10-14 12:18 | P.PN ---
Subjective Progress Note Date: 10/14/20 50-year-old white female patient of Dr. Wise, who presented to the emergency department on 10/07/2020 for evaluation of dyspnea, cough, fever, body aches and chills. Patient reports symptom onset 4 days ago, she saw Dr. Wise and had an outpatient test for COVID 19, the results were unknown to her, however she was told in case of worsening symptoms to present to the emergency department. Past medical history is that of hypertension, hyperlipidemia, previous history of myocardial infarction, coronary artery disease with prior stenting. Chest x-ray shows ill-defined opacities in the lower lobes bilaterally. COVID 19 PCR was positive. Lab work has been reviewed, showing white blood cell, 4.6, hemoglobin 12.3, lymphocyte count was within normal limits at 1.1, d-dimer is 0.31, sodium is 133, the rest of electrolytes were within normal limits, B1 is 20 creatinine is 1.45 with GFR of 42, lactic acid 0.9, ferritin level is 3834, AST is 163, ALT is 117, LDH is 2034, CRP is 83.4, pro-calcitonin was 0.27. Low-grade fevers followed in the emergency department. Patient was started on Decadron 6 mg daily, we'll start her on vitamins, one unit, less than plasma, we'll try to qualify her for tocilizumab 10/08/2020 patient seen in follow-up on medical floor, patient is status post Tocilizumab, infusion of 1 dose of convalescent plasma, she remains on Decadron, she remains on vitamins, IV hydration with 0.9 normal saline at 100 ML per hour, she is on subcu heparin 5000 units subcu 8 hours. Remains on 15 L high flow and nonrebreather mask, her pulse ox is 93-96%, overall reports feeling somewhat better. Follow-up chest x-ray today shows worsening diffuse lung infiltrates greatest in the lung bases, labs today show d-dimer 0.26, LDH and CRP are pending, pro-calcitonin level was low at 0.27. On 10/09/2020 patient seen in follow-up on the medical floor she is currently on 15 L high flow nasal cannula, in addition to pulmonary rehab mask, and a pulse ox is 86-98%, she is afebrile, hemodynamically patient is stable, she said no continues to bed, appears to be breathing comfortably, denies any chest discomfort, no fever or chills. Patient remains on systemic steroids, she is status post Tocilizumab and convalescent plasma. She remains on IV hydration, she states she is tolerating oral diet, no nausea or vomiting, today's labs have been reviewed, electrolytes are within normal limits, her creatinine has significantly improved, down to 1.1 from 1.45 couple days ago, BUN is 43, AST and ALT have also improved, down to 77 and 80 respectively, alk phos is at 40. Procalcitonin level was low at 0.7, tolerating activity fairly well. On 10/10/2020 patient seen in follow-up on medical floor. She is on 15 L per nonrebreather mask in addition to 15 L high flow, she is awake and alert, is short of breath with exertion, but she has been able to use the bedside commode, and tolerated fairly well, she is afebrile, denies any chest pain, no cough, lung sounds reveal scattered crackles, she is tolerating oral intake, no nausea or vomiting. No new chest x-ray, her latest d-dimer from yesterday was 0.60, LDH was 2198, and CRP was 17.8, patient remains on Decadron 6 mg daily, vitamins. This had no acute events overnight, no worsening, however no significant improvement in dyspnea and oxygenation On 10/13/2020 patient seen in follow-up on medical surgical floor. She remains on high flow oxygen per 15 L high flow nasal cannula and 100% nonrebreather mask, pulse ox is 90-95%, she doesn't With exertion, but overall seems to be improving, lung sounds reveal minimal rales at bilateral bases, without signs have been stable, she has been slow to improve, no acute events overnight, no chest discomfort. Yesterday chest x-ray shows slight worsening of diffuse infiltrates. The labs have been reviewed, her d-dimer was 1.21, and her liver enzymes have worsened with AST up to 194, and ALT of 328, alkaline phosphatase was up to 78, LDH was overall on the rise up to 2729, by CRP was improving. Clinically seems to be doing better. No worsening cough, patient would like to be able to walk around in the room, however still requiring high flow oxygen and she can only walk so far, other than that no specific complaints On 10/14/2020 the patient is being seen for a follow-up. The patient remains on high flow oxygen at 60 L with an FiO2 of 85% and the patient is also utilizing 100% nonrebreather facemask. She is afebrile and she is hemodynamically stable. Her current pulse ox is around 92%. She is still short of breath. She is on steroids and the patient has received Decadron. She has also completed her course of convalescent plasma and Tocilizumab, and for now she is on oral Decadron 6 mg by mouth daily. She is also on subcu heparin 5000 every 8 hours. Rest of the treatment is essentially supportive. She is receiving IV fluids with normal saline at the rate of 75 mL's an hour. Her liver function tests are slightly elevated and the patient has some mild transaminitis. D-dimer was 1.2 and LDH level was 2729 on 10/12/2020. Objective - Vital Signs Vital signs: Vital Signs Temp 97.4 F L 10/14/20 10:00 Pulse 107 H 10/14/20 10:00 Resp 16 10/14/20 10:00 BP 99/64 10/14/20 10:00 Pulse Ox 92 L 10/14/20 10:00 Intake & Output 10/13/20 10/14/20 10/14/20 18:59 06:59 18:59 Other: Voiding Method Bedside Commode Diaper Incontinent # Voids 3 4 - Exam GENERAL EXAM: Alert, very pleasant, 50-year-old white female, on 15 L of oxygen and 100% nonrebreather and AIrvo 60 liters and 85% FIO2, with pulse ox of 95 comfortable in no apparent distress. HEAD: Normocephalic/atraumatic. EYES: Normal reaction of pupils, equal size. Conjunctiva pink, sclera white. NOSE: Clear with pink turbinates. THROAT: No erythema or exudates. NECK: No masses, no JVD, no thyroid enlargement, no adenopathy. CHEST: No chest wall deformity. Symmetrical expansion. LUNGS: Equal air entry with no crackles, wheeze, rhonchi or dullness. CVS: Regular rate and rhythm, normal S1 and S2, no gallops, no murmurs, no rubs ABDOMEN: Soft, nontender. No hepatosplenomegaly, normal bowel sounds, no gua rding or rigidity. EXTREMITIES: No clubbing, no edema, no cyanosis, 2+ pulses and upper and lower extremities. MUSCULOSKELETAL: Muscle strength and tone normal. SPINE: No scoliosis or deformity SKIN: No rashes CENTRAL NERVOUS SYSTEM: Alert and oriented -3. No focal deficits, tone is normal in all 4 extremities. PSYCHIATRIC: Alert and oriented -3. Appropriate affect. Intact judgment and insight. - Labs CBC & Chem 7: 10/07/20 03:19 10/14/20 06:09 Labs: Abnormal Lab Results - Last 24 Hours (Table) 10/14/20 Range/Units 06:09 BUN 24 H (7-17) mg/dL AST 102 H (14-36) U/L ALT 257 H (4-34) U/L Assessment and Plan Plan: #1. Acute hypoxic respiratory failure, related to acute COVID19 pneumonia, patient reports a 4 day history of worsening dyspnea, fever, chills, patient was already in moderate to severe hypoxic respiratory failure on presentation, and a s such does not qualify for Remdesivir. Status post tx Tocilizumab, convalescent plasma in addition to steroids, the patient is currently on Decadron 6 mg on a daily basis by mouth. Inflammatory markers are not elevated. Chest x-ray from 10/12/2020 showed some limited improvement in the bilateral pulmonary infiltrates. #2. Dyspnea, cough, body aches, weakness related to the above #3. Acute kidney injury likely related to ATN, dehydration, improved #4. Recent inflammatory markers related to acute COVID 19 pneumonia #5. Increased liver enzymes related to viral pneumonia, mild Covid 19 related transaminitis #6. Hypertension #7. Hyperlipidemia #8. History of coronary artery disease with previous stenting #9. History of myocardial infarction #10. History of morbid obesity Plan: Continues to require high flow oxygen 6 L with an FiO2 of 85% along with 100% nonrebreather facemask. Continue steroids. Continue heparin subcu. We'll continue to follow monitor the liver function tests. Provide the patient incentive spirometer. Dietary support. We'll continue to follow.
--- NOTE | 2020-10-14 13:02 | P.PN ---
Subjective Progress Note Date: 10/14/20 50-year-old pleasant female came to ER with complaints of a cough fever body aches chills and shortness of breath presently on 15 L of oxygen along with the nonrebreather still saturations are low and patient had to use prone position for the saturations to go up. Patient started having symptoms about 8 days ago was tested positive for covid 19, patient was started on Decadron, vitamins, received convulsant plasma and toclizumab. Patient does have elevated inflammatory markers with a d-dimer of around 0.31, patient is hyponatremic with elevated creatinine of 1.45 baseline being within normal limits. Patient does have elevated liver enzymes 10/08/2020 Patient is still on 15 L of oxygen, patient is on Decadron. I do not have any repeat labs available today patient will be continued on IV fluids at this time. Patient feels little bit better overall although still significantly short of breath. 10/09/2020 Patient is presently a level liters of oxygen saturating well for try to taper down the oxygen even more. 10/10/2020 Patient respiratory status is fairly stable is on 15 L levofloxacin as well as nonrebreather saturating at 90%. Chest x-ray showing diffuse infiltrates in both lungs. Inflammatory markers are bit better, creatinine improved. 10/11/2020 Patient is seen and evaluated in follow-up this morning continues to be extremely dyspneic. Patient is currently maintained on high flow oxygen at 15 L nasal cannula along with nonrebreather and maintaining 92-94%. Patient at tempted to work with physical therapy from the bed to the chair and became extremely dyspneic and oxygen saturations dropped into the low 80s. BMP within normal limits today. Pulmonary following. 10/12/2020 patient had couple episodes of diarrhea she continues to have diarrhea we'll obtain a C. diff testing at that time patient will continue on IV fluids hydrochlorothiazide will be discontinued. Patient is still on the 15 L of oxygen with Ventimask 100% nonrebreather 10/13/2020 Patient still feels like she is confined on 100% nonrebreather and 15 L of oxygen. Patient doesn't feel well still having body aches. 10/14/2020 Patient is seen this morning and continues to be on airvo along with nonrebreather with a flow rate of 16 and FiO2 of 85% along with 15 L nonrebreather and patient continues to be dyspneic and weak. Patient is maintained on vitamin and zinc supplements along with dexamethasone and heparin injections and will continue. Patient continues to be lethargic as well although easily arousable. Fluids have been discontinued. Sodium today is 137 with a potassium of 3.9 and current creatinine is 0.84. Liver functions slowly trending down. Pulmonary is following. Repeat chest x-ray in the morning along with inflammatory markers and labs. Constitutional: Denied any fatigue denied any fever. Cardio vascular: denied any chest pain, palpitations Gastrointestinal denied any nausea vomiting Pulmonary: As mentioned in HPI Neurologic denied any new focal deficits, reports generalized weakness secondary to severe dyspnea with minimal exertion All inpatient medications were reviewed and appropriate changes in these medications as dictated in the interval history and assessment and plan. Objective - Vital Signs Vital signs: Vital Signs Temp 98.5 F 10/14/20 06:00 Pulse 101 H 10/14/20 06:00 Resp 22 10/14/20 06:00 BP 107/71 10/14/20 06:00 Pulse Ox 86 L 10/14/20 08:54 Intake & Output 10/13/20 10/14/20 10/14/20 18:59 06:59 18:59 Other: Voiding Method Bedside Commode Diaper Incontinent # Voids 3 4 - Exam GENERAL: The patient is alert and oriented x3, not in any acute distress. Lethargic although easily arousable. Well developed, well nourished. HEENT: Pupils are round and equally reacting to light. EOMI. No scleral icterus. No conjunctival pallor. Normocephalic, atraumatic. No pharyngeal erythema. No thyromegaly. CARDIOVASCULAR: S1 and S2 present. No murmurs, rubs, or gallops. PULMONARY: Chest is clear to auscultation, no wheezing or crackles. ABDOMEN: Soft, nontender, nondistended, normoactive bowel sounds. No palpable organomegaly. MUSCULOSKELETAL: No joint swelling or deformity. EXTREMITIES: No cyanosis, clubbing, or pedal edema. NEUROLOGICAL: Gross neurological examination did not reveal any focal deficits. SKIN: No rashes. - Labs CBC & Chem 7: 10/07/20 03:19 10/14/20 06:09 Labs: Abnormal Lab Results - Last 24 Hours (Table) 10/14/20 Range/Units 06:09 BUN 24 H (7-17) mg/dL AST 102 H (14-36) U/L ALT 257 H (4-34) U/L Assessment and Plan Assessment: -Acute hypoxic respiratory failure secondary to covid 19 pneumonia: Patient is on systemic steroids, received Tocilizumab, convalescent plasma. Patient is presently on 15 L of oxygen and nonrebreather. -Diarrhea: Secondary to Covid 19, seems to have improved slightly with continued slightly formed loose stool, if continues will obtain C. diff specimen -Acute renal failure: Probably prerenal azotemia and acute tubular necrosis secondary to sepsis. Improving, creatinine is 0.7 -Hypovolemic hyponatremia expected to improved with IV fluids. Improved , sodium is 137 -Elevated liver enzymes secondary to sepsis and viral pneumonia, trending down and will continue to monitor -Hypertension -Hyperlipidemia -Coronary disease with previous stenting in the past -GI prophylaxis with Protonix -DVT prophylaxis with heparin as patient has renal failure. Plan: Continue with current medications. Patient reported having multiple episodes of loose stool although has improved since yesterday and if continues will order C. diff testing. Patient continues to be on 15 L of high flow along with nonrebreather and is severely dyspneic with minimal exertion. Patient is also weak secondary to respiratory status and is requiring assistance. Inflammatory markers pending. Will repeat a.m. chest x-ray. Pulmonary is following.
[2020-10-14 13:20] LABS: C Reactive Protein 8.8 mg/L (<10.0)
[2020-10-14 15:34] VITALS: BMI 40.8
[2020-10-14] MEDS: ALPRAZolam 0.25 MG TAB PO PRN (16:29)
[2020-10-14] MEDS: ATORVASTATIN 40 MG TAB PO SCH (21:04)
[2020-10-14] MEDS: MELATONIN 3 MG TABLET PO SCH (21:05)
[2020-10-15] MEDS: HEPARIN SODIUM,PORCINE/PF 5,000 UNIT/0.5 ML SYRINGE SQ SCH ×2 (00:15→07:58)
[2020-10-15 05:34] LABS: Basophils % (A) 0 %; Eosinophils # (A) 0.6 k/uL (0-0.7); Eosinophils % (A) 7 %; HCT 41.5 % (34.0-46.0); HGB 14.1 gm/dL (11.4-16.0); Lymphocytes % (A) 13 %; MCH 31.7 pg (25.0-35.0); MCHC 33.9 g/dL (31.0-37.0); MCV 93.3 fL (80.0-100.0); Mean Platelet Volume 6.9; Monocytes # (A) 0.3 k/uL (0-1.0); Monocytes % (A) 4 %; Neutrophils # (A) 5.7 k/uL (1.3-7.7); RBC 4.45 m/uL (3.80-5.40); RDW 12.7 % (11.5-15.5); WBC 7.7 k/uL (3.8-10.6)
[2020-10-15 06:18] LABS: ALT 186 U/L (4-34); AST 71 U/L (14-36); African American GFR (CKD) 83 (>60 ml/min/1.73 sqM); Albumin 3.5 g/dL (3.5-5.0); Albumin/Globulin Ratio 1.1; Alkaline Phosphatase 82 U/L (38-126); Anion Gap 9 mmol/L; Blood Urea Nitrogen 29 mg/dL (7-17); Calcium 8.7 mg/dL (8.4-10.2); Carbon Dioxide 26 mmol/L (22-30); Chloride 100 mmol/L (98-107); Globulin 3.2 g/dL; Glucose 83 mg/dL (74-99); Non-African American GFR(CKD) 72 (>60 ml/min/1.73 sqM); Sodium 135 mmol/L (137-145); Total Bilirubin 0.5 mg/dL (0.2-1.3); Total Protein 6.7 g/dL (6.3-8.2)
[2020-10-15 06:52] LABS: Platelet Count 541 k/uL (150-450)
[2020-10-15] MEDS: lisinopriL 20 MG TAB PO SCH ×2 (07:54→21:08)
[2020-10-15] MEDS: ACETAMINOPHEN TAB 325 MG TAB PO PRN ×2 (07:57→21:07)
[2020-10-15] MEDS: ASCORBIC ACID 500 MG TAB PO SCH ×2 (07:58→21:08)
[2020-10-15] MEDS: ZINC SULFATE 220 MG CAP PO SCH (07:58)
[2020-10-15] MEDS: PANTOPRAZOLE 40 MG TABLET PO SCH (07:58)
[2020-10-15] MEDS: dexAMETHasone 2 MG TAB PO SCH (07:58)
[2020-10-15] MEDS: DOCUSATE 100 MG CAP PO SCH (07:59)
[2020-10-15] MEDS: ASPIRIN 325 MG TAB PO SCH (07:59)
[2020-10-15] MEDS: METOPROLOL TARTRATE 25 MG TAB PO SCH (07:59)
[2020-10-15] MEDS: CHOLECALCIFEROL 25 MCG (1000 IU) TABLET PO SCH (07:59)
[2020-10-15] MEDS: ALBUTEROL HFA INHALER INHALATION SCH ×4 (08:05→21:13)
--- NOTE | 2020-10-15 10:10 | XR ---
EXAMINATION TYPE: XR chest 1V portable DATE OF EXAM: 10/15/2020 Comparison: 10/12/2020 Clinical History: 50-year-old female COVID 19 Findings: Heart normal size. Patchy peripheral and basilar airspace and interstitial opacities have slightly wo rsened. Impression: Peripheral and basilar COVID pneumonia has slightly worsened.
--- NOTE | 2020-10-15 12:29 | P.PN ---
Subjective Progress Note Date: 10/15/20 50-year-old white female patient of Dr. Wise, who presented to the emergency department on 10/07/2020 for evaluation of dyspnea, cough, fever, body aches and chills. Patient reports symptom onset 4 days ago, she saw Dr. Wise and had an outpatient test for COVID 19, the results were unknown to her, however she was told in case of worsening symptoms to present to the emergency department. Past medical history is that of hypertension, hyperlipidemia, previous history of myocardial infarction, coronary artery disease with prior stenting. Chest x-ray shows ill-defined opacities in the lower lobes bilaterally. COVID 19 PCR was positive. Lab work has been reviewed, showing white blood cell, 4.6, hemoglobin 12.3, lymphocyte count was within normal limits at 1.1, d-dimer is 0.31, sodium is 133, the rest of electrolytes were within normal limits, B1 is 20 creatinine is 1.45 with GFR of 42, lactic acid 0.9, ferritin level is 3834, AST is 163, ALT is 117, LDH is 2034, CRP is 83.4, pro-calcitonin was 0.27. Low-grade fevers followed in the emergency department. Patient was started on Decadron 6 mg daily, we'll start her on vitamins, one unit, less than plasma, we'll try to qualify her for tocilizumab 10/08/2020 patient seen in follow-up on medical floor, patient is status post Tocilizumab, infusion of 1 dose of convalescent plasma, she remains on Decadron, she remains on vitamins, IV hydration with 0.9 normal saline at 100 ML per hour, she is on subcu heparin 5000 units subcu 8 hours. Remains on 15 L high flow and nonrebreather mask, her pulse ox is 93-96%, overall reports feeling somewhat better. Follow-up chest x-ray today shows worsening diffuse lung infiltrates greatest in the lung bases, labs today show d-dimer 0.26, LDH and CRP are pending, pro-calcitonin level was low at 0.27. On 10/09/2020 patient seen in follow-up on the medical floor she is currently on 15 L high flow nasal cannula, in addition to pulmonary rehab mask, and a pulse ox is 86-98%, she is afebrile, hemodynamically patient is stable, she said no continues to bed, appears to be breathing comfortably, denies any chest discomfort, no fever or chills. Patient remains on systemic steroids, she is status post Tocilizumab and convalescent plasma. She remains on IV hydration, she states she is tolerating oral diet, no nausea or vomiting, today's labs have been reviewed, electrolytes are within normal limits, her creatinine has significantly improved, down to 1.1 from 1.45 couple days ago, BUN is 43, AST and ALT have also improved, down to 77 and 80 respectively, alk phos is at 40. Procalcitonin level was low at 0.7, tolerating activity fairly well. On 10/10/2020 patient seen in follow-up on medical floor. She is on 15 L per nonrebreather mask in addition to 15 L high flow, she is awake and alert, is short of breath with exertion, but she has been able to use the bedside commode, and tolerated fairly well, she is afebrile, denies any chest pain, no cough, lung sounds reveal scattered crackles, she is tolerating oral intake, no nausea or vomiting. No new chest x-ray, her latest d-dimer from yesterday was 0.60, LDH was 2198, and CRP was 17.8, patient remains on Decadron 6 mg daily, vitamins. This had no acute events overnight, no worsening, however no significant improvement in dyspnea and oxygenation On 10/13/2020 patient seen in follow-up on medical surgical floor. She remains on high flow oxygen per 15 L high flow nasal cannula and 100% nonrebreather mask, pulse ox is 90-95%, she doesn't With exertion, but overall seems to be improving, lung sounds reveal minimal rales at bilateral bases, without signs have been stable, she has been slow to improve, no acute events overnight, no chest discomfort. Yesterday chest x-ray shows slight worsening of diffuse infiltrates. The labs have been reviewed, her d-dimer was 1.21, and her liver enzymes have worsened with AST up to 194, and ALT of 328, alkaline phosphatase was up to 78, LDH was overall on the rise up to 2729, by CRP was improving. Clinically seems to be doing better. No worsening cough, patient would like to be able to walk around in the room, however still requiring high flow oxygen and she can only walk so far, other than that no specific complaints On 10/14/2020 the patient is being seen for a follow-up. The patient remains on high flow oxygen at 60 L with an FiO2 of 85% and the patient is also utilizing 100% nonrebreather facemask. She is afebrile and she is hemodynamically stable. Her current pulse ox is around 92%. She is still short of breath. She is on steroids and the patient has received Decadron. She has also completed her course of convalescent plasma and Tocilizumab, and for now she is on oral Decadron 6 mg by mouth daily. She is also on subcu heparin 5000 every 8 hours. Rest of the treatment is essentially supportive. She is receiving IV fluids with normal saline at the rate of 75 mL's an hour. Her liver function tests are slightly elevated and the patient has some mild transaminitis. D-dimer was 1.2 and LDH level was 2729 on 10/12/2020. On 10/16/19, the patient remains on Airvo, 60 L with an FiO2 of 90%. This is essentially the same as yesterday and the patient is alert and 100% nonrebreather facemask. Chest x-ray showing bilateral lower lobe pulmonary infiltrates, probably slightly worse compared to the earlier chest x-rays. I would say overall, chest x-rays probably stable. The patient remains on Decadron. The patient has completed convalescent plasma and Tocilizumab, and for now she is on oral Decadron 6 mg by mouth daily. She is on IV fluids at the rate of 75 mL an hour. Her inflammatory markers from few days ago are still elevated. The level from yesterday of LDH was 2150 and the CRP was 8.8. Meanwhile, the patient is afebrile. D-dimer is at 2.14. The patient on heparin subcu for DVT prophylaxis 5000 units every 8 hours. Objective - Vital Signs Vital signs: Vital Signs Temp 98.4 F 10/15/20 10:00 Pulse 80 10/15/20 10:00 Resp 16 10/15/20 10:00 BP 137/70 10/15/20 10:00 Pulse Ox 92 L 10/15/20 10:00 Intake & Output 0410/15/20 10/15/20 18:59 06:59 18:59 Intake Total 100 Balance 100 Weight 107.955 kg Intake: Oral 100 Other: # Voids 3 4 # Bowel Movements 1 - Exam GENERAL EXAM: Alert, very pleasant, 50-year-old white female, on 15 L of oxygen and 100% nonrebreather and AIrvo 60 liters and 90% FIO2, with pulse ox of 92 comfortable in no apparent distress. HEAD: Normocephalic/atraumatic. EYES: Normal reaction of pupils, equal size. Conjunctiva pink, sclera white. NOSE: Clear with pink turbinates. THROAT: No erythema or exudates. NECK: No masses, no JVD, no thyroid enlargement, no adenopathy. CHEST: No chest wall deformity. Symmetrical expansion. LUNGS: Equal air entry with no crackles, wheeze, rhonchi or dullness. CVS: Regular rate and rhythm, normal S1 and S2, no gallops, no murmurs, no rubs ABDOMEN: Soft, nontender. No hepatosplenomegaly, normal bowel sounds, no guarding or rigidity. EXTREMITIES: No clubbing, no edema, no cyanosis, 2+ pulses and upper and lower extremities. MUSCULOSKELETAL: Muscle strength and tone normal. SPINE: No scoliosis or deformity SKIN: No rashes CENTRAL NERVOUS SYSTEM: Alert and oriented -3. No focal deficits, tone is normal in all 4 extremities. PSYCHIATRIC: Alert and oriented -3. Appropriate affect. Intact judgment and insight. - Labs CBC & Chem 7: 10/15/20 05:08 10/15/20 05:08 Labs: Abnormal Lab Results - Last 24 Hours (Table) 10/14/20 10/14/20 10/15/20 Range/Units 12:43 12:43 05:08 Plt Count 541 H D (150-450) k/uL D-Dimer 2.14 H (<0.60) mg/L FEU Sodium (137-145) mmol/L BUN (7-17) mg/dL AST (14-36) U/L ALT (4-34) U/L Lactate Dehydrogenase 2150 H (313-618) U/L 10/15/20 Range/Units 05:08 Plt Count (150-450) k/uL D-Dimer (<0.60) mg/L FEU Sodium 135 L (137-145) mmol/L BUN 29 H (7-17) mg/dL AST 71 H (14-36) U/L ALT 186 H (4-34) U/L Lactate Dehydrogenase (313-618) U/L Assessment and Plan Plan: #1. Acute hypoxic respiratory failure, related to acute COVID19 pneumonia, patient reports a 4 day history of worsening dyspnea, fever, chills, patient was already in moderate to severe hypoxic respiratory failure on presentation, and as such does not qualify for Remdesivir. Status post tx Tocilizumab, convalescent plasma in addition to steroids, the patient is currently on Decadron 6 mg on a daily basis by mouth. Inflammatory markers are not elevated. Chest x-ray from 10/12/2020 showed some limited improvement in the bilateral p ulmonary infiltrates. The repeat x-ray from today is showing either stable or some progression in the lung infiltrates in lung bases. #2. Dyspnea, cough, body aches, weakness related to the above #3. Acute kidney injury likely related to ATN, dehydration, improved #4. Recent inflammatory markers related to acute COVID 19 pneumonia #5. Increased liver enzymes related to viral pneumonia, mild Covid 19 related transaminitis #6. Hypertension #7. Hyperlipidemia #8. History of coronary artery disease with previous stenting #9. History of myocardial infarction #10. History of morbid obesity Plan: Continues to require high flow oxygen 60 L with an FiO2 of 90% along with 100% nonrebreather facemask. Continue steroids. Continue Lovenox 40 mg subcu for DVT prophylaxis Monitor inflammatory markers LDH level remains elevated Continue using incentive spirometer We'll continue to follow. Very slow to progress.
[2020-10-15] MEDS: ENOXAPARIN 40 MG/0.4 ML SYRINGE SQ SCH (12:49)
[2020-10-15] MEDS: METHYL SALICYLATE/MENTHOL CREAM 5 OZ TOPICAL PRN ×2 (13:31→21:10)
--- NOTE | 2020-10-15 14:45 | P.PN ---
Subjective Progress Note Date: 10/15/20 50-year-old pleasant female came to ER with complaints of a cough fever body aches chills and shortness of breath presently on 15 L of oxygen along with the nonrebreather still saturations are low and patient had to use prone position for the saturations to go up. Patient started having symptoms about 8 days ago was tested positive for covid 19, patient was started on Decadron, vitamins, received convulsant plasma and toclizumab. Patient does have elevated inflammatory markers with a d-dimer of around 0.31, patient is hyponatremic with elevated creatinine of 1.45 baseline being within normal limits. Patient does have elevated liver enzymes 10/08/2020 Patient is still on 15 L of oxygen, patient is on Decadron. I do not have any repeat labs available today patient will be continued on IV fluids at this time. Patient feels little bit better overall although still significantly short of breath. 10/09/2020 Patient is presently a level liters of oxygen saturating well for try to taper down the oxygen even more. 10/10/2020 Patient respiratory status is fairly stable is on 15 L levofloxacin as well as nonrebreather saturating at 90%. Chest x-ray showing diffuse infiltrates in both lungs. Inflammatory markers are bit better, creatinine improved. 10/11/2020 Patient is seen and evaluated in follow-up this morning continues to be extremely dyspneic. Patient is currently maintained on high flow oxygen at 15 L nasal cannula along with nonrebreather and maintaining 92-94%. Patient at tempted to work with physical therapy from the bed to the chair and became extremely dyspneic and oxygen saturations dropped into the low 80s. BMP within normal limits today. Pulmonary following. 10/12/2020 patient had couple episodes of diarrhea she continues to have diarrhea we'll obtain a C. diff testing at that time patient will continue on IV fluids hydrochlorothiazide will be discontinued. Patient is still on the 15 L of oxygen with Ventimask 100% nonrebreather 10/13/2020 Patient still feels like she is confined on 100% nonrebreather and 15 L of oxygen. Patient doesn't feel well still having body aches. 10/14/2020 Patient is seen this morning and continues to be on airvo along with nonrebreather with a flow rate of 60 and FiO2 of 85% along with 15 L nonrebreather and patient continues to be dyspneic and weak. Patient is maintained on vitamin and zinc supplements along with dexamethasone and heparin injections and will continue. Patient continues to be lethargic as well although easily arousable. Fluids have been discontinued. Sodium today is 137 with a potassium of 3.9 and current creatinine is 0.84. Liver functions slowly trending down. Pulmonary is following. Repeat chest x-ray in the morning along with inflammatory markers and labs. 10/15/2020 Patient is seen this morning and continues to be on Airvo with a flow rate of 60 and an FiO2 of 90% and still continues to be dyspneic with minimal exertion. Patient is working with physical therapy daily and continues to be weak. Pulmonary following as well. Chest x-ray today shows peripheral and basilar C ovid pneumonia has slightly worsened with continued patchy peripheral and basilar airspace and interstitial opacities. Liver functions trending down and other labs within normal limits. Constitutional: Denied any fatigue denied any fever. Cardio vascular: denied any chest pain, palpitations Gastrointestinal denied any nausea vomiting Pulmonary: Continued shortness of breath with minimal exertion Neurologic denied any new focal deficits, reports generalized weakness secondary to severe dyspnea with minimal exertion All inpatient medications were reviewed and appropriate changes in these me dications as dictated in the interval history and assessment and plan. Objective - Vital Signs Vital signs: Vital Signs Temp 98.4 F 10/15/20 10:00 Pulse 80 10/15/20 10:00 Resp 16 10/15/20 10:00 BP 137/70 10/15/20 10:00 Pulse Ox 92 L 10/15/20 10:00 Intake & Output 10/14/20 10/15/20 10/15/20 18:59 06:59 18:59 Intake Total 100 Balance 100 Weight 107.955 kg Intake: Oral 100 Other: # Voids 3 4 # Bowel Movements 1 - Exam GENERAL: The patient is alert and oriented x3, not in any acute distress. Lethargic although easily arousable. Well developed, well nourished. HEENT: Pupils are round and equally reacting to light. EOMI. No scleral icterus. No conjunctival pallor. Normocephalic, atraumatic. No pharyngeal erythema. No thyromegaly. CARDIOVASCULAR: S1 and S2 present. No murmurs, rubs, or gallops. PULMONARY: Chest is clear to auscultation, no wheezing or crackles. ABDOMEN: Soft, nontender, nondistended, normoactive bowel sounds. No palpable organomegaly. MUSCULOSKELETAL: No joint swelling or deformity. EXTREMITIES: No cyanosis, clubbing, or pedal edema. NEUROLOGICAL: Gross neurological examination did not reveal any focal deficits. SKIN: No rashes. - Labs CBC & Chem 7: 10/15/20 05:08 10/15/20 05:08 Labs: Abnormal Lab Results - Last 24 Hours (Table) 10/14/20 10/14/20 10/15/20 Range/Units 12:43 12:43 05:08 Plt Count 541 H D (150-450) k/uL D-Dimer 2.14 H (<0.60) mg/L FEU Sodium (137-145) mmol/L BUN (7-17) mg/dL AST (14-36) U/L ALT (4-34) U/L Lactate Dehydrogenase 2150 H (313-618) U/L 10/15/20 Range/Units 05:08 Plt Count (150-450) k/uL D-Dimer (<0.60) mg/L FEU Sodium 135 L (137-145) mmol/L BUN 29 H (7-17) mg/dL AST 71 H (14-36) U/L ALT 186 H (4-34) U/L Lactate Dehydrogenase (313-618) U/L Assessment and Plan Assessment: -Acute hypoxic respiratory failure secondary to covid 19 pneumonia: Patient is on systemic steroids, received Tocilizumab, convalescent plasma. Patient is presently on Airvo the flow rate of 60 and an FiO2 of 90% -Diarrhea: Secondary to Covid 19, seems to have improved -Acute renal failure: Probably prerenal azotemia and acute tubular necrosis secondary to sepsis. Improving, creatinine is 0.93 -Hypovolemic hyponatremia expected to improved with IV fluids. Improved , sodium is 135 -Elevated liver enzymes secondary to sepsis and viral pneumonia, trending down and will continue to monitor -Hypertension -Hyperlipidemia -Coronary disease with previous stenting in the past -GI prophylaxis with Protonix -DVT prophylaxis with Lovenox Plan: Continue with current medications. Patient continues to be on Airvo high flow and is severely dyspneic with minimal exertion. Patient is also weak secondary to respiratory status and is requiring assistance. Patient has been working with physical therapy daily. Chest x-ray shows slightly worsening. Pulmonary is following.
[2020-10-15] MEDS: ATORVASTATIN 40 MG TAB PO SCH (21:08)
[2020-10-15] MEDS: MELATONIN 3 MG TABLET PO SCH (21:08)
[2020-10-15] MEDS: ALPRAZolam 0.25 MG TAB PO PRN (21:08)
[2020-10-16] MEDS: ACETAMINOPHEN TAB 325 MG TAB PO PRN ×3 (05:41→20:54)
[2020-10-16] MEDS: METHYL SALICYLATE/MENTHOL CREAM 5 OZ TOPICAL PRN ×2 (05:42→15:02)
[2020-10-16] MEDS ORDERED: SODIUM CHLORIDE 0.9% 1,000 ML IV ONE (07:39)
[2020-10-16] MEDS: lisinopriL 20 MG TAB PO SCH (08:21)
[2020-10-16] MEDS: ALBUTEROL HFA INHALER INHALATION SCH ×4 (08:25→22:18)
[2020-10-16] MEDS: ENOXAPARIN 40 MG/0.4 ML SYRINGE SQ SCH (08:41)
[2020-10-16] MEDS: ASPIRIN 325 MG TAB PO SCH (08:41)
[2020-10-16] MEDS: CHOLECALCIFEROL 25 MCG (1000 IU) TABLET PO SCH (08:42)
[2020-10-16] MEDS: ZINC SULFATE 220 MG CAP PO SCH (08:42)
[2020-10-16] MEDS: DOCUSATE 100 MG CAP PO SCH (08:42)
[2020-10-16] MEDS: ASCORBIC ACID 500 MG TAB PO SCH ×2 (08:42→20:31)
[2020-10-16] MEDS: PANTOPRAZOLE 40 MG TABLET PO SCH (08:42)
[2020-10-16] MEDS: dexAMETHasone 2 MG TAB PO SCH (08:42)
[2020-10-16] MEDS: METOPROLOL TARTRATE 25 MG TAB PO SCH (09:01)
[2020-10-16] MEDS: SODIUM CHLORIDE 0.9% 1,000 ML IV SCH ×2 (09:20→23:02)
--- NOTE | 2020-10-16 10:08 | P.PN ---
Subjective Progress Note Date: 10/16/20 I am assuming care of this patient as of 10/16/2020 at 8 AM. I was out of town and Dr. Craven was covering for me. H&P done by Dr. Tamayo on 10/07/2020 This is a 50-year-old female patient presented to the ER on 10/07/2020 with complaints of cough fever and body aches. Patient did test positive for COVID- 19 with symptoms starting about 8 days prior at that time patient was started on Decadron, vitamins, convulsant plasma and toclizumab. Patient does have a past medical history of coronary artery disease, hyperlipidemia, hypertension and [place]. Patient also has been cleared history of previous nicotine dependence. Patient admitted to medical floor pulmonary service is consulted On 10/16/2020 patient is alert and oriented resting in chair. Patient had episode of hypotension. At this time lisinopril DC'd parameter set to Metroprolol. Blood pressure has improved continue normal saline at 100. Patient currently on high flow oxygen with the flow rate of 60 and an FiO2 of 90%. Patient remains dyspneic. Remains on IV Decadron. Patient denies any chest pain. Patient denies nausea vomiting or diarrhea. Patient denies any urinary burning or frequency. Objective - Vital Signs Vital signs: Vital Signs Temp 98.0 F 10/16/20 06:38 Pulse 79 10/16/20 06:38 Resp 21 10/16/20 06:38 BP 90/51 10/16/20 07:35 Pulse Ox 92 L 10/16/20 08:19 Intake & Output 10/15/20 10/16/20 10/16/20 18:59 06:59 18:59 Intake Total 540 Balance 540 Intake: Oral 540 Other: Voiding Method Bedside Commode Diaper # Voids 5 - Exam Head normocephalic Neck supple Lungs diminished bilaterally Heart regular rate and rhythm S1-S2, no rub or gallop Abdomen is soft nontender nondistended positive bowel sounds no hepatosplen omegaly Extremities no edema Neuro alert and orientated to 3 - Labs CBC & Chem 7: 10/15/20 05:08 10/15/20 05:08 Assessment and Plan Assessment: 1. Acute hypoxic respiratory failure secondary to COVID-19 pneumonia. Patient is on Decadron, received Tocilizumab, and convalescent plasma. Pulmonary services are following. Remains on Airvo 2. Diarrhea secondary to COVID-19. This does seem improved 3. Acute renal failure probably prerenal azotemia and acute tubular necrosis secondary to sepsis. Improved 4. Hyponatremia on admission. Improved 5. Elevated liver enzymes secondary to sepsis and viral pneumonia. Trending down. Continue to monitor 6. History of essential hypertension 7. History of hyperlipidemia 8. History of coronary artery disease with previous stenting 9. Ex-smoker. 10. Hypotension. Lisinopril DC'd. Parameters set to Metroprolol. normal saline at 100 ordered DVT prophylaxis Lovenox. GI prophylaxis tonic Pulmonary services are following Remains on Decadron, vitamin C, zinc and vitamin D PT OT consulted Repeat labs ordered for a.m. Continue normal saline at 100 for hypotension
[2020-10-16 11:27] LABS: ALT 111 U/L (4-34); AST 55 U/L (14-36); African American GFR (CKD) >90 (>60 ml/min/1.73 sqM); Albumin 3.2 g/dL (3.5-5.0); Albumin/Globulin Ratio 1.1; Alkaline Phosphatase 84 U/L (38-126); Anion Gap 7 mmol/L; Blood Urea Nitrogen 28 mg/dL (7-17); Calcium 8.4 mg/dL (8.4-10.2); Carbon Dioxide 26 mmol/L (22-30); Chloride 102 mmol/L (98-107); Glucose 97 mg/dL (74-99); Non-African American GFR(CKD) 86 (>60 ml/min/1.73 sqM); Potassium 3.9 mmol/L (3.5-5.1); Sodium 135 mmol/L (137-145); Total Bilirubin 0.5 mg/dL (0.2-1.3); Total Protein 6.2 g/dL (6.3-8.2)
[2020-10-16 11:34] LABS: Basophils % (A) 0 %; Eosinophils # (A) 0.5 k/uL (0-0.7); Eosinophils % (A) 6 %; HCT 36.9 % (34.0-46.0); HGB 13.1 gm/dL (11.4-16.0); Lymphocytes % (A) 12 %; MCH 33.5 pg (25.0-35.0); MCHC 35.5 g/dL (31.0-37.0); MCV 94.6 fL (80.0-100.0); Mean Platelet Volume 7.7; Monocytes # (A) 0.3 k/uL (0-1.0); Monocytes % (A) 4 %; Neutrophils # (A) 5.9 k/uL (1.3-7.7); Neutrophils % (A) 77 %; Platelet Count 495 k/uL (150-450); RDW 12.7 % (11.5-15.5); WBC 7.7 k/uL (3.8-10.6)
--- NOTE | 2020-10-16 15:01 | P.PN ---
Subjective Progress Note Date: 10/16/20 Principal diagnosis: Covid 19 pneumonia 50-year-old white female patient of Dr. Wise, who presented to the emergency department on 10/07/2020 for evaluation of dyspnea, cough, fever, body aches and chills. Patient reports symptom onset 4 days ago, she saw Dr. Wise and had an outpatient test for COVID 19, the results were unknown to her, however she was told in case of worsening symptoms to present to the emergency department. Past medical history is that of hypertension, hyperlipidemia, previous history of myocardial infarction, coronary artery disease with prior stenting. Chest x-ray shows ill-defined opacities in the lower lobes bilaterally. COVID 19 PCR was p ositive. Lab work has been reviewed, showing white blood cell, 4.6, hemoglobin 12.3, lymphocyte count was within normal limits at 1.1, d-dimer is 0.31, sodium is 133, the rest of electrolytes were within normal limits, B1 is 20 creatinine is 1.45 with GFR of 42, lactic acid 0.9, ferritin level is 3834, AST is 163, ALT is 117, LDH is 2034, CRP is 83.4, pro-calcitonin was 0.27. Low-grade fevers fo llowed in the emergency department. Patient was started on Decadron 6 mg daily, we'll start her on vitamins, one unit, less than plasma, we'll try to qualify her for tocilizumab 10/08/2020 patient seen in follow-up on medical floor, patient is status post Tocilizumab, infusion of 1 dose of convalescent plasma, she remains on Decadron, she remains on vitamins, IV hydration with 0.9 normal saline at 100 ML per hour, she is on subcu heparin 5000 units subcu 8 hours. Remains on 15 L high flow and nonrebreather mask, her pulse ox is 93-96%, overall reports feeling somewhat better. Follow-up chest x-ray today shows worsening diffuse lung infiltrates greatest in the lung bases, labs today show d-dimer 0.26, LDH and CRP are pending, pro-calcitonin level was low at 0.27. On 10/09/2020 patient seen in follow-up on the medical floor she is currently on 15 L high flow nasal cannula, in addition to pulmonary rehab mask, and a pulse ox is 86-98%, she is afebrile, hemodynamically patient is stable, she said no continues to bed, appears to be breathing comfortably, denies any chest discomfort, no fever or chills. Patient remains on systemic steroids, she is status post Tocilizumab and convalescent plasma. She remains on IV hydration, she states she is tolerating oral diet, no nausea or vomiting, today's labs have been reviewed, electrolytes are within normal limits, her creatinine has s ignificantly improved, down to 1.1 from 1.45 couple days ago, BUN is 43, AST and ALT have also improved, down to 77 and 80 respectively, alk phos is at 40. Procalcitonin level was low at 0.7, tolerating activity fairly well. On 10/10/2020 patient seen in follow-up on medical floor. She is on 15 L per nonrebreather mask in addition to 15 L high flow, she is awake and alert, is short of breath with exertion, but she has been able to use the bedside commode, and tolerated fairly well, she is afebrile, denies any chest pain, no cough, lung sounds reveal scattered crackles, she is tolerating oral intake, no nausea or vomiting. No new chest x-ray, her latest d-dimer from yesterday was 0.60, L DH was 2198, and CRP was 17.8, patient remains on Decadron 6 mg daily, vitamins. This had no acute events overnight, no worsening, however no significant improvement in dyspnea and oxygenation On 10/13/2020 patient seen in follow-up on medical surgical floor. She remains on high flow oxygen per 15 L high flow nasal cannula and 100% nonrebreather mask, pulse ox is 90-95%, she doesn't With exertion, but overall seems to be improving, lung sounds reveal minimal rales at bilateral bases, without signs have been stable, she has been slow to improve, no acute events overnight, no chest discomfort. Yesterday chest x-ray shows slight worsening of diffuse infiltrates. The labs have been reviewed, her d-dimer was 1.21, and her liver enzymes have worsened with AST up to 194, and ALT of 328, alkaline phosphatase was up to 78, LDH was overall on the rise up to 2729, by CRP was improving. Clinically seems to be doing better. No worsening cough, patient would like to be able to walk around in the room, however still requiring high flow oxygen and she can only walk so far, other than that no specific complaints On 10/16/2020 patient seen in follow-up on medical floor, she still remains on Airvo, at 60 L and FiO2 of 90%, her pulse ox is 92-97%, apparently earlier this morning rapid response team was called and the patient was confused, she was hypotensive, with blood pressure of 60/40, and a liter bolus was given, currently her IV fluids are infusing at 100 ML per hour, her antihypertensives were readjusted, lisinopril has been placed on hold, metoprolol dose was adjusted, her blood pressure responded well to fluids, currently is at 92/59, she is afebrile, no complaints of chest discomfort, breathing is about the same, she does desat with any exertion, but no worsening. No new chest x-ray today, right now she is sitting up in bed, breathing fairly comfortable, no worsening cough, lung sounds reveal bilateral crackles, no worsening. Today's labs have been noted, no d-dimer from today, electric selective renal profile are unremarkable, her troponin is less than 0.012. Patient continues on dexamethasone 6 mg daily, she is on prophylactic dose of Lovenox, multivitamins. Objective - Vital Signs Vital signs: Vital Signs Temp 97.5 F L 10/16/20 09:53 Pulse 80 10/16/20 09:53 Resp 20 10/16/20 09:53 BP 92/59 10/16/20 09:53 Pulse Ox 97 10/16/20 11:56 Intake & Output 10/15/20 10/16/20 10/16/20 18:59 06:59 18:59 Intake Total 540 Balance 540 Intake: Oral 540 Other: Voiding Method Bedside Commode Diaper # Voids 5 - Exam GENERAL EXAM: Alert, very pleasant, 50-year-old white female, on Airvo at 60 L and FiO2 of 90% with a pulse ox of 97% HEAD: Normocephalic/atraumatic. EYES: Normal reaction of pupils, equal size. Conjunctiva pink, sclera white. NOSE: Clear with pink turbinates. THROAT: No erythema or exudates. NECK: No masses, no JVD, no thyroid enlargement, no adenopathy. CHEST: No chest wall deformity. Symmetrical expansion. LUNGS: Equal air entry with bilateral crackles CVS: Regular rate and rhythm, normal S1 and S2, no gallops, no murmurs, no rubs ABDOMEN: Soft, nontender. No hepatosplenomegaly, normal bowel sounds, no guarding or rigidity. EXTREMITIES: No clubbing, no edema, no cyanosis, 2+ pulses and upper and lower extremities. MUSCULOSKELETAL: Muscle strength and tone normal. SPINE: No scoliosis or deformity SKIN: No rashes CENTRAL NERVOUS SYSTEM: Alert and oriented -3. No focal deficits, tone is normal in all 4 extremities. PSYCHIATRIC: Alert and oriented -3. Appropriate affect. Intact judgment and insight. - Labs CBC & Chem 7: 10/16/20 10:19 10/16/20 10:19 Labs: Abnormal Lab Results - Last 24 Hours (Table) 10/16/20 10/16/20 Range/Units 10:19 10:19 Plt Count 495 H (150-450) k/uL Sodium 135 L (137-145) mmol/L BUN 28 H (7-17) mg/dL AST 55 H (14-36) U/L ALT 111 H (4-34) U/L Total Protein 6.2 L (6.3-8.2) g/dL Albumin 3.2 L (3.5-5.0) g/dL Assessment and Plan Plan: Assessment: #1. Acute hypoxic respiratory failure, related to acute COVID19 pneumonia, patient reports a 4 day history of worsening dyspnea, fever, chills, patient was already in moderate to severe hypoxic respiratory failure on presentation, and as such does not qualify for Remdesivir. Status post transfusion of Tocilizumab, convalescent plasma in addition to steroids #2. Dyspnea, cough, body aches, weakness related to the above #3. Acute kidney injury likely related to ATN, dehydration #4. Recent inflammatory markers related to acute COVID 19 pneumonia #5. Increased liver enzymes related to viral pneumonia #6. Hypertension #7. Hyperlipidemia #8. History of coronary artery disease with previous stenting #9. History of myocardial infarction #10. History of morbid obesity #11. History of hypotension, likely related to hypovolemia and dehydration, and antihypertensives, responded well to IV fluids. Plan: Continue titrating FiO2 to keep O2 sat at or above 89-90% in the thumb she is asymptomatic, she is currently on Airvo, she responded well to IV fluids, antihypertensives have been adjusted. No worsening in her dyspnea, follow-up chest x-ray will be according to mom, and d-dimer Inflammatory markers a repeated tomorrow. I performed a history & physical examination of the patient and discussed their management with my nurse practitioner, Abby Peters. I reviewed the nurse practitioner's note and agree with the documented findings and plan of care. Lung sounds are positive for diminished breath sounds. The findings and the impression was discussed with the patient. I attest to the documentation by the nurse practitioner. Time with Patient: Less than 30
[2020-10-16] MEDS: MELATONIN 3 MG TABLET PO SCH (20:31)
[2020-10-16] MEDS: ATORVASTATIN 40 MG TAB PO SCH (20:31)
[2020-10-17] MEDS: SODIUM CHLORIDE 0.9% 1,000 ML IV SCH ×3 (04:37→23:05)
--- NOTE | 2020-10-17 07:29 | XR ---
EXAMINATION TYPE: XR chest 1V portable DATE OF EXAM: 10/17/2020 COMPARISON: 10/15/2020 INDICATION: Short of breath COVID TECHNIQUE: Single frontal view of the chest is obtained. FINDINGS: The heart size is normal. The pulmonary vasculature is normal. There is increased lung markings diffusely. Findings are worsening over the interval. IMPRESSION: 1. Worsening bilateral diffuse lung infiltrates
[2020-10-17] MEDS: ALBUTEROL HFA INHALER INHALATION SCH ×5 (07:58→22:12)
[2020-10-17] MEDS: ENOXAPARIN 40 MG/0.4 ML SYRINGE SQ SCH (09:00)
[2020-10-17] MEDS: PANTOPRAZOLE 40 MG TABLET PO SCH (09:00)
[2020-10-17] MEDS: ZINC SULFATE 220 MG CAP PO SCH (09:00)
[2020-10-17] MEDS: CHOLECALCIFEROL 25 MCG (1000 IU) TABLET PO SCH (09:00)
[2020-10-17] MEDS: METOPROLOL TARTRATE 25 MG TAB PO SCH (09:00)
[2020-10-17] MEDS: DOCUSATE 100 MG CAP PO SCH (09:01)
[2020-10-17] MEDS: ASCORBIC ACID 500 MG TAB PO SCH ×2 (09:01→21:28)
[2020-10-17] MEDS: dexAMETHasone 2 MG TAB PO SCH (09:01)
[2020-10-17] MEDS: ASPIRIN 325 MG TAB PO SCH (09:01)
[2020-10-17 09:30] LABS: Basophils % (A) 0 %; Eosinophils # (A) 0.2 k/uL (0-0.7); Eosinophils % (A) 4 %; HCT 36.3 % (34.0-46.0); HGB 12.5 gm/dL (11.4-16.0); Lymphocytes # (A) 1.2 k/uL (1.0-4.8); Lymphocytes % (A) 21 %; MCH 32.6 pg (25.0-35.0); MCHC 34.5 g/dL (31.0-37.0); MCV 94.6 fL (80.0-100.0); Mean Platelet Volume 7.2; Monocytes # (A) 0.3 k/uL (0-1.0); Monocytes % (A) 5 %; Neutrophils # (A) 3.9 k/uL (1.3-7.7); Neutrophils % (A) 68 %; Platelet Count 447 k/uL (150-450); RBC 3.84 m/uL (3.80-5.40); RDW 12.8 % (11.5-15.5); WBC 5.7 k/uL (3.8-10.6)
--- NOTE | 2020-10-17 10:37 | P.PN ---
Subjective Progress Note Date: 10/17/20 I am assuming care of this patient as of 10/16/2020 at 8 AM. I was out of town and Dr. Craven was covering for me. H&P done by Dr. Tamayo on 10/07/2020 This is a 50-year-old female patient presented to the ER on 10/07/2020 with complaints of cough fever and body aches. Patient did test positive for COVID- 19 with symptoms starting about 8 days prior at that time patient was started on Decadron, vitamins, convulsant plasma and toclizumab. Patient does have a past medical history of coronary artery disease, hyperlipidemia, hypertension and [place]. Patient also has been cleared history of previous nicotine dependence. Patient admitted to medical floor pulmonary service is consulted On 10/16/2020 patient is alert and oriented resting in chair. Patient had episode of hypotension. At this time lisinopril DC'd parameter set to Metroprolol. Blood pressure has improved continue normal saline at 100. Patient currently on high flow oxygen with the flow rate of 60 and an FiO2 of 90%. Patient remains dyspneic. Remains on IV Decadron. Patient denies any chest pain. Patient denies nausea vomiting or diarrhea. Patient denies any urinary burning or frequency. On 10/17/2020 patient was seen and examined on the medical floor she is alert and oriented 3 in no apparent distress she is still maintained on high flow oxygen she is complaining of shortness of breath with any activity she is also complaining of cough and chest tightness otherwise she denies any complaints there is no fever or chills no headache or dizziness no chest pain no nausea or vomiting no abdominal pain no diarrhea no blood in the stools no burning with urination no frequency or urgency and no hematuria. Objective - Vital Signs Vital signs: Vital Signs Temp 97.4 F L 10/17/20 05:45 Pulse 86 10/17/20 05:45 Resp 20 10/17/20 05:45 BP 100/62 10/17/20 05:45 Pulse Ox 92 L 10/17/20 05:45 Intake & Output 10/16/20 10/17/20 10/17/20 18:59 06:59 18:59 Intake Total 1080 Balance 1080 Weight 107.955 kg Intake: Oral 1080 Other: Voiding Method Bedside Commode Diaper # Voids 2 - Exam In general patient is alert and oriented 3 in no apparent distress Head normocephalic and atraumatic Neck supple no JVD no goiter no lymphadenopathy Lungs diminished bilaterally no crackles no wheezing Heart regular rate and rhythm S1-S2, no rub or gallop Abdomen is soft nontender nondistended positive bowel sounds no hepatosplenomegaly Extremities no edema Neuro no gross focal neurological deficit - Labs CBC & Chem 7: 10/17/20 08:32 10/16/20 10:19 Labs: Abnormal Lab Results - Last 24 Hours (Table) 10/16/20 10/16/20 Range/Units 10:19 10:19 Plt Count 495 H (150-450) k/uL Sodium 135 L (137-145) mmol/L BUN 28 H (7-17) mg/dL AST 55 H (14-36) U/L ALT 111 H (4-34) U/L Total Protein 6.2 L (6.3-8.2) g/dL Albumin 3.2 L (3.5-5.0) g/dL Assessment and Plan Assessment: 1. Acute hypoxic respiratory failure secondary to COVID-19 pneumonia. Patient is on Decadron, received Tocilizumab, and convalescent plasma. Pulmonary services are following. Remains on Airvo 2. Diarrhea secondary to COVID-19. This does seem improved 3. Acute renal failure probably prerenal azotemia and acute tubular necrosis secondary to sepsis. Improved 4. Hyponatremia on admission. Improved 5. Elevated liver enzymes secondary to sepsis and viral pneumonia. Trending down. Continue to monitor 6. History of essential hypertension 7. History of hyperlipidemia 8. History of coronary artery disease with previous stenting 9. Ex-smoker. 10. Hypotension. Lisinopril DC'd. Parameters set to Metroprolol. normal saline at 100 ordered DVT prophylaxis Lovenox. GI prophylaxis tonic Pulmonary services are following Remains on Decadron, vitamin C, zinc and vitamin D PT OT consulted Repeat labs ordered for a.m. Continue normal saline at 100 for hypotension
[2020-10-17 12:16] LABS: ALT 88 U/L (4-34); AST 49 U/L (14-36); African American GFR (CKD) >90 (>60 ml/min/1.73 sqM); Albumin 3.2 g/dL (3.5-5.0); Albumin/Globulin Ratio 1.1; Alkaline Phosphatase 86 U/L (38-126); Anion Gap 4 mmol/L; Blood Urea Nitrogen 19 mg/dL (7-17); C Reactive Protein 10.7 mg/L (<10.0); Calcium 8.8 mg/dL (8.4-10.2); Carbon Dioxide 28 mmol/L (22-30); Chloride 105 mmol/L (98-107); Globulin 2.9 g/dL; Glucose 94 mg/dL (74-99); Non-African American GFR(CKD) >90 (>60 ml/min/1.73 sqM); Potassium 3.9 mmol/L (3.5-5.1); Sodium 137 mmol/L (137-145); Total Bilirubin 0.4 mg/dL (0.2-1.3); Total Protein 6.1 g/dL (6.3-8.2)
--- NOTE | 2020-10-17 12:47 | P.PN ---
Subjective Progress Note Date: 10/17/20 Covid 19 pneumonia 50-year-old white female patient of Dr. Wise, who presented to the emergency department on 10/07/2020 for evaluation of dyspnea, cough, fever, body aches and chills. Patient reports symptom onset 4 days ago, she saw Dr. Wise and had an outpatient test for COVID 19, the results were unknown to her, however she was told in case of worsening symptoms to present to the emergency department. Past medical history is that of hypertension, hyperlipidemia, previous history of myocardial infarction, coronary artery disease with prior stenting. Chest x-ray shows ill-defined opacities in the lower lobes bilaterally. COVID 19 PCR was positive. Lab work has been reviewed, showing white blood cell, 4.6, hemoglobin 12.3, lymphocyte count was within normal limits at 1.1, d-dimer is 0.31, sodium is 133, the rest of electrolytes were within normal limits, B1 is 20 creatinine is 1.45 with GFR of 42, lactic acid 0.9, ferritin level is 3834, AST is 163, ALT is 117, LDH is 2034, CRP is 83.4, pro-calcitonin was 0.27. Low-grade fevers followed in the emergency department. Patient was started on Decadron 6 mg daily, we'll start her on vitamins, one unit, less than plasma, we'll try to qualify her for tocilizumab 10/08/2020 patient seen in follow-up on medical floor, patient is status post Tocilizumab, infusion of 1 dose of convalescent plasma, she remains on Decadron, she remains on vitamins, IV hydration with 0.9 normal saline at 100 ML per hour, she is on subcu heparin 5000 units subcu 8 hours. Remains on 15 L high flow and nonrebreather mask, her pulse ox is 93-96%, overall reports feeling somewhat better. Follow-up chest x-ray today shows worsening diffuse lung infiltrates greatest in the lung bases, labs today show d-dimer 0.26, LDH and CRP are pending, pro-calcitonin level was low at 0.27. On 10/09/2020 patient seen in follow-up on the medical floor she is currently on 15 L high flow nasal cannula, in addition to pulmonary rehab mask, and a pulse ox is 86-98%, she is afebrile, hemodynamically patient is stable, she said no continues to bed, appears to be breathing comfortably, denies any chest discomfort, no fever or chills. Patient remains on systemic steroids, she is status post Tocilizumab and convalescent plasma. She remains on IV hydration, she states she is tolerating oral diet, no nausea or vomiting, today's labs have been reviewed, electrolytes are within normal limits, her creatinine has significantly improved, down to 1.1 from 1.45 couple days ago, BUN is 43, AST and ALT have also improved, down to 77 and 80 respectively, alk phos is at 40. Procalcitonin level was low at 0.7, tolerating activity fairly well. On 10/10/2020 patient seen in follow-up on medical floor. She is on 15 L per nonrebreather mask in addition to 15 L high flow, she is awake and alert, is short of breath with exertion, but she has been able to use the bedside commode, and tolerated fairly well, she is afebrile, denies any chest pain, no cough, lung sounds reveal scattered crackles, she is tolerating oral intake, no nausea or vomiting. No new chest x-ray, her latest d-dimer from yesterday was 0.60, LDH was 2198, and CRP was 17.8, patient remains on Decadron 6 mg daily, vitamins. This had no acute events overnight, no worsening, however no significant improvement in dyspnea and oxygenation On 10/13/2020 patient seen in follow-up on medical surgical floor. She remains on high flow oxygen per 15 L high flow nasal cannula and 100% nonrebreather mask, pulse ox is 90-95%, she doesn't With exertion, but overall seems to be improving, lung sounds reveal minimal rales at bilateral bases, without signs have been stable, she has been slow to improve, no acute events overnight, no chest discomfort. Yesterday chest x-ray shows slight worsening of diffuse infiltrates. The labs have been reviewed, her d-dimer was 1.21, and her liver enzymes have worsened with AST up to 194, and ALT of 328, alkaline phosphatase was up to 78, LDH was overall on the rise up to 2729, by CRP was improving. Clinically seems to be doing better. No worsening cough, patient would like to be able to walk around in the room, however still requiring high flow oxygen and she can only walk so far, other than that no specific complaints On 10/16/2020 patient seen in follow-up on medical floor, she still remains on Airvo, at 60 L and FiO2 of 90%, her pulse ox is 92-97%, apparently earlier this morning rapid response team was called and the patient was confused, she was hypotensive, with blood pressure of 60/40, and a liter bolus was given, currently her IV fluids are infusing at 100 ML per hour, her antihypertensives were readjusted, lisinopril has been placed on hold, metoprolol dose was adjusted, her blood pressure responded well to fluids, currently is at 92/59, she is afebrile, no complaints of chest discomfort, breathing is about the same, she does desat with any exertion, but no worsening. No new chest x-ray today, r ight now she is sitting up in bed, breathing fairly comfortable, no worsening cough, lung sounds reveal bilateral crackles, no worsening. Today's labs have been noted, no d-dimer from today, electric selective renal profile are unremarkable, her troponin is less than 0.012. Patient continues on de xamethasone 6 mg daily, she is on prophylactic dose of Lovenox, multivitamins. 10/17/2020, no worsening in the patient's condition. She remains on high flow 60 L with an FiO2 of 90% along with 100% nonrebreather facemask. Whenever she sits up she does fine. Upon laying down supine, she desaturates. Her current pulse ox is around 90%. We will concerned about her situation yesterday and we thought that she was getting get intubated knowing that she was also becoming hypotensive. We stopped the antihypertensive medication and she did well and her blood pressures improved. The chest x-ray is showing some worsening of infiltrate on the right. Left side findings are essentially stable. In terms of her blood work, the patient has a d-dimer which is up to 5.17, her CRP is at 10 and LDH is still pending. Cardiac enzymes from yesterday were negative. Renal function is stable and within normal limits. CBC showing a white cell count of 5.7 with a hemoglobin of 12.5. No other significant issues otherwise for now. She is tolerating some diet. She is eating probably 50% of her meals. She has been on Decadron 6 mg on a daily basis in addition to prophylactic dose of Lovenox and multivitamins. IV fluids are running at 100 mL an hour of normal saline. Her at least, the patient was supposed to be on IV fluids at 100 mL and she has refused taking any fluids. Objective - Vital Signs Vital signs: Vital Signs Temp 98.8 F 10/17/20 10:00 Pulse 81 10/17/20 10:00 Resp 20 10/17/20 10:00 BP 104/68 10/17/20 10:00 Pulse Ox 90 L 10/17/20 10:00 Intake & Output 10/16/20 10/17/20 10/17/20 18:59 06:59 18:59 Intake Total 1080 200 Balance 1080 200 Weight 107.955 kg Intake: Oral 1080 200 Other: Voiding Method Bedside Commode Diaper # Voids 2 - Exam GENERAL EXAM: Alert, very pleasant, 50-year-old white female, on 15 L of oxygen and 100% nonrebreather and AIrvo 60 liters and 90% FIO2, with pulse ox of 92 comfortable in no apparent distress. HEAD: Normocephalic/atraumatic. EYES: Normal reaction of pupils, equal size. Conjunctiva pink, sclera white. NOSE: Clear with pink turbinates. THROAT: No erythema or exudates. NECK: No masses, no JVD, no thyroid enlargement, no adenopathy. CHEST: No chest wall deformity. Symmetrical expansion. LUNGS: Equal air entry with no crackles, wheeze, rhonchi or dullness. CVS: Regular rate and rhythm, normal S1 and S2, no gallops, no murmurs, no rubs ABDOMEN: Soft, nontender. No hepatosplenomegaly, normal bowel sounds, no guarding or rigidity. EXTREMITIES: No clubbing, no edema, no cyanosis, 2+ pulses and upper and lower extremities. MUSCULOSKELETAL: Muscle strength and tone normal. SPINE: No scoliosis or deformity SKIN: No rashes CENTRAL NERVOUS SYSTEM: Alert and oriented -3. No focal deficits, tone is normal in all 4 extremities. PSYCHIATRIC: Alert and oriented -3. Appropriate affect. Intact judgment and insight. - Labs CBC & Chem 7: 10/17/20 08:32 10/17/20 08:32 Labs: Abnormal Lab Results - Last 24 Hours (Table) 04/15/21 04/15/21 Range/Units 08:32 08:32 D-Dimer 5.17 H (<0.60) mg/L FEU BUN 19 H (7-17) mg/dL AST 49 H (14-36) U/L ALT 88 H (4-34) U/L C-Reactive Protein 10.7 H (<10.0) mg/L Total Protein 6.1 L (6.3-8.2) g/dL Albumin 3.2 L (3.5-5.0) g/dL Assessment and Plan Plan: #1. Acute hypoxic respiratory failure, related to acute COVID19 pneumonia, She did not qualify for Remdesivir. Status post transfusion of Tocilizumab, convalescent plasma in addition to steroids chest x-ray still showing diffuse bilateral pulmonary infiltrates. Slight worsening of the right. She is on high flow oxygen at 6 L with an FiO2 of 90% and on and off she is using 100% nonrebreather facemask. At the time of my evaluation, she was sitting up on a chair and she was having some lunch. D-dimer is currently at 5.17. #2. Dyspnea, cough, body aches, weakness related to the above #3. Acute kidney injury likely related to ATN, dehydration #4. Recent inflammatory markers related to acute COVID 19 pneumonia #5. Increased liver enzymes related to viral pneumonia #6. Hypertension #7. Hyperlipidemia #8. History of coronary artery disease with previous stenting #9. History of myocardial infarction #10. History of morbid obesity #11. History of hypotension, likely related to hypovolemia and dehydration, and antihypertensives, responded well to IV fluids. Plan: continue oxygen at high flow 60 L with an FiO2 of 90% and utilized 100% nonrebreather as needed continue Decadron increase the Lovenox up to 50 mg subcu every 12 hours Continue the rest of the treatment. Monitor inflammatory markers. Chest x-ray from today was noted. Clinically somewhat improved compared to yesterday. We'll continue to follow.
[2020-10-17 12:48] LABS: LDH 2141 U/L (313-618)
[2020-10-17] MEDS: MELATONIN 3 MG TABLET PO SCH (21:28)
[2020-10-17] MEDS: ATORVASTATIN 40 MG TAB PO SCH (21:28)
[2020-10-17] MEDS: ENOXAPARIN 60 MG/0.6 ML SYRINGE SQ SCH (21:29)
[2020-10-17] MEDS: ACETAMINOPHEN TAB 325 MG TAB PO PRN (21:29)
[2020-10-18] MEDS: ALBUTEROL HFA INHALER INHALATION SCH ×4 (07:44→20:11)
[2020-10-18] MEDS: DOCUSATE 100 MG CAP PO SCH (08:45)
[2020-10-18] MEDS: ASCORBIC ACID 500 MG TAB PO SCH ×2 (08:45→21:19)
[2020-10-18] MEDS: CHOLECALCIFEROL 25 MCG (1000 IU) TABLET PO SCH (08:45)
[2020-10-18] MEDS: dexAMETHasone 2 MG TAB PO SCH (08:45)
[2020-10-18] MEDS: ASPIRIN 325 MG TAB PO SCH (08:45)
[2020-10-18] MEDS: PANTOPRAZOLE 40 MG TABLET PO SCH (08:45)
[2020-10-18] MEDS: METOPROLOL TARTRATE 25 MG TAB PO SCH (08:45)
[2020-10-18] MEDS: ZINC SULFATE 220 MG CAP PO SCH (08:45)
[2020-10-18] MEDS: ENOXAPARIN 60 MG/0.6 ML SYRINGE SQ SCH ×2 (08:46→21:19)
[2020-10-18 09:58] LABS: Basophils % (A) 0 %; Eosinophils # (A) 0.1 k/uL (0-0.7); Eosinophils % (A) 2 %; HCT 37.5 % (34.0-46.0); HGB 12.2 gm/dL (11.4-16.0); Lymphocytes # (A) 1.5 k/uL (1.0-4.8); Lymphocytes % (A) 23 %; MCH 31.6 pg (25.0-35.0); MCHC 32.4 g/dL (31.0-37.0); MCV 97.5 fL (80.0-100.0); Mean Platelet Volume 7.7; Monocytes # (A) 0.3 k/uL (0-1.0); Monocytes % (A) 5 %; Neutrophils # (A) 4.4 k/uL (1.3-7.7); Neutrophils % (A) 68 %; Platelet Count 494 k/uL (150-450); RBC 3.85 m/uL (3.80-5.40); RDW 13.4 % (11.5-15.5); WBC 6.5 k/uL (3.8-10.6)
--- NOTE | 2020-10-18 10:23 | P.PN ---
Subjective Progress Note Date: 10/18/20 I am assuming care of this patient as of 10/16/2020 at 8 AM. I was out of town and Dr. Craven was covering for me. H&P done by Dr. Tamayo on 10/07/2020 This is a 50-year-old female patient presented to the ER on 10/07/2020 with complaints of cough fever and body aches. Patient did test positive for COVID- 19 with symptoms starting about 8 days prior at that time patient was started on Decadron, vitamins, convulsant plasma and toclizumab. Patient does have a past medical history of coronary artery disease, hyperlipidemia, hypertension and [place]. Patient also has been cleared history of previous nicotine dependence. Patient admitted to medical floor pulmonary service is consulted On 10/16/2020 patient is alert and oriented resting in chair. Patient had episode of hypotension. At this time lisinopril DC'd parameter set to Metroprolol. Blood pressure has improved continue normal saline at 100. Patient currently on high flow oxygen with the flow rate of 60 and an FiO2 of 90%. Patient remains dyspneic. Remains on IV Decadron. Patient denies any chest pain. Patient denies nausea vomiting or diarrhea. Patient denies any urinary burning or frequency. On 10/17/2020 patient was seen and examined on the medical floor she is alert and oriented 3 in no apparent distress she is still maintained on high flow oxygen she is complaining of shortness of breath with any activity she is also complaining of cough and chest tightness otherwise she denies any complaints there is no fever or chills no headache or dizziness no chest pain no nausea or vomiting no abdominal pain no diarrhea no blood in the stools no burning with urination no frequency or urgency and no hematuria. On 10/18/2020 patient alert and oriented 3. Patient remains on airvo. Reports that she feels slightly improved. Patient denies any nausea vomiting or diarrhea. Patient denies any urinary burning or frequency. Patient remains on Decadron. Pulmonary services are following. Objective - Vital Signs Vital signs: Vital Signs Temp 97.8 F 10/18/20 10:00 Pulse 71 10/18/20 10:00 Resp 22 10/18/20 10:00 BP 103/67 10/18/20 10:00 Pulse Ox 90 L 10/18/20 10:00 Intake & Output 10/17/20 10/18/20 10/18/20 18:59 06:59 18:59 Intake Total 400 Balance 400 Intake: Oral 400 Other: Voiding Method Bedside Commode Diaper # Voids 3 1 # Bowel Movements 2 - Exam In general patient is alert and oriented 3 in no apparent distress Head normocephalic and atraumatic Neck supple no JVD no goiter no lymphadenopathy Lungs diminished bilaterally no crackles no wheezing Heart regular rate and rhythm S1-S2, no rub or gallop Abdomen is soft nontender nondistended positive bowel sounds no hepatosplenomegaly Extremities no edema Neuro no gross focal neurological deficit - Labs CBC & Chem 7: 10/18/20 08:34 10/17/20 08:32 Labs: Abnormal Lab Results - Last 24 Hours (Table) 10/17/20 10/18/20 Range/Units 08:32 08:34 Plt Count 494 H (150-450) k/uL BUN 19 H (7-17) mg/dL AST 49 H (14-36) U/L ALT 88 H (4-34) U/L Lactate Dehydrogenase 2141 H (313-618) U/L C-Reactive Protein 10.7 H (<10.0) mg/L Total Protein 6.1 L (6.3-8.2) g/dL Albumin 3.2 L (3.5-5.0) g/dL Assessment and Plan Assessment: 1. Acute hypoxic respiratory failure secondary to COVID-19 pneumonia. Patient is on Decadron, received Tocilizumab, and convalescent plasma. Pulmonary services are following. Remains on Airvo 2. Diarrhea secondary to COVID-19. This does seem improved 3. Acute renal failure probably prerenal azotemia and acute tubular necrosis secondary to sepsis. Improved 4. Hyponatremia on admission. Improved 5. Elevated liver enzymes secondary to sepsis and viral pneumonia. Trending down. Continue to monitor 6. History of essential hypertension 7. History of hyperlipidemia 8. History of coronary artery disease with previous stenting 9. Ex-smoker. 10. Hypotension. Lisinopril DC'd. Parameters set to Metroprolol. normal saline at 100 ordered DVT prophylaxis Lovenox. GI prophylaxis tonic Pulmonary services are following Remains on Decadron, vitamin C, zinc and vitamin D PT OT consulted Repeat labs ordered for a.m. Continue normal saline at 100 for hypotension
[2020-10-18 11:00] LABS: ALT 83 U/L (4-34); AST 57 U/L (14-36); African American GFR (CKD) >90 (>60 ml/min/1.73 sqM); Alkaline Phosphatase 76 U/L (38-126); Anion Gap 6 mmol/L; Blood Urea Nitrogen 23 mg/dL (7-17); Calcium 8.5 mg/dL (8.4-10.2); Carbon Dioxide 25 mmol/L (22-30); Chloride 106 mmol/L (98-107); Glucose 72 mg/dL (74-99); Non-African American GFR(CKD) >90 (>60 ml/min/1.73 sqM); Potassium 4.1 mmol/L (3.5-5.1); Sodium 137 mmol/L (137-145); Total Bilirubin 0.4 mg/dL (0.2-1.3)
--- NOTE | 2020-10-18 15:23 | P.PN ---
Subjective Progress Note Date: 10/18/20 Covid 19 pneumonia 50-year-old white female patient of Dr. Wise, who presented to the emergency department on 10/07/2020 for evaluation of dyspnea, cough, fever, body aches and chills. Patient reports symptom onset 4 days ago, she saw Dr. Wise and had an outpatient test for COVID 19, the results were unknown to her, however she was told in case of worsening symptoms to present to the emergency department. Past medical history is that of hypertension, hyperlipidemia, previous history of myocardial infarction, coronary artery disease with prior stenting. Chest x-ray shows ill-defined opacities in the lower lobes bilaterally. COVID 19 PCR was positive. Lab work has been reviewed, showing white blood cell, 4.6, hemoglobin 12.3, lymphocyte count was within normal limits at 1.1, d-dimer is 0.31, sodium is 133, the rest of electrolytes were within normal limits, B1 is 20 creatinine is 1.45 with GFR of 42, lactic acid 0.9, ferritin level is 3834, AST is 163, ALT is 117, LDH is 2034, CRP is 83.4, pro-calcitonin was 0.27. Low-grade fevers followed in the emergency department. Patient was started on Decadron 6 mg daily, we'll start her on vitamins, one unit, less than plasma, we'll try to qualify her for tocilizumab 10/08/2020 patient seen in follow-up on medical floor, patient is status post Tocilizumab, infusion of 1 dose of convalescent plasma, she remains on Decadron, she remains on vitamins, IV hydration with 0.9 normal saline at 100 ML per hour, she is on subcu heparin 5000 units subcu 8 hours. Remains on 15 L high flow and nonrebreather mask, her pulse ox is 93-96%, overall reports feeling somewhat better. Follow-up chest x-ray today shows worsening diffuse lung infiltrates greatest in the lung bases, labs today show d-dimer 0.26, LDH and CRP are pending, pro-calcitonin level was low at 0.27. On 10/09/2020 patient seen in follow-up on the medical floor she is currently on 15 L high flow nasal cannula, in addition to pulmonary rehab mask, and a pulse ox is 86-98%, she is afebrile, hemodynamically patient is stable, she said no continues to bed, appears to be breathing comfortably, denies any chest discomfort, no fever or chills. Patient remains on systemic steroids, she is status post Tocilizumab and convalescent plasma. She remains on IV hydration, she states she is tolerating oral diet, no nausea or vomiting, today's labs have been reviewed, electrolytes are within normal limits, her creatinine has significantly improved, down to 1.1 from 1.45 couple days ago, BUN is 43, AST and ALT have also improved, down to 77 and 80 respectively, alk phos is at 40. Procalcitonin level was low at 0.7, tolerating activity fairly well. On 10/10/2020 patient seen in follow-up on medical floor. She is on 15 L per nonrebreather mask in addition to 15 L high flow, she is awake and alert, is short of breath with exertion, but she has been able to use the bedside commode, and tolerated fairly well, she is afebrile, denies any chest pain, no cough, lung sounds reveal scattered crackles, she is tolerating oral intake, no nausea or vomiting. No new chest x-ray, her latest d-dimer from yesterday was 0.60, LDH was 2198, and CRP was 17.8, patient remains on Decadron 6 mg daily, vitamins. This had no acute events overnight, no worsening, however no significant improvement in dyspnea and oxygenation On 10/13/2020 patient seen in follow-up on medical surgical floor. She remains on high flow oxygen per 15 L high flow nasal cannula and 100% nonrebreather mask, pulse ox is 90-95%, she doesn't With exertion, but overall seems to be improving, lung sounds reveal minimal rales at bilateral bases, without signs have been stable, she has been slow to improve, no acute events overnight, no chest discomfort. Yesterday chest x-ray shows slight worsening of diffuse infiltrates. The labs have been reviewed, her d-dimer was 1.21, and her liver enzymes have worsened with AST up to 194, and ALT of 328, alkaline phosphatase was up to 78, LDH was overall on the rise up to 2729, by CRP was improving. Clinically seems to be doing better. No worsening cough, patient would like to be able to walk around in the room, however still requiring high flow oxygen and she can only walk so far, other than that no specific complaints On 10/16/2020 patient seen in follow-up on medical floor, she still remains on Airvo, at 60 L and FiO2 of 90%, her pulse ox is 92-97%, apparently earlier this morning rapid response team was called and the patient was confused, she was hypotensive, with blood pressure of 60/40, and a liter bolus was given, currently her IV fluids are infusing at 100 ML per hour, her antihypertensives were readjusted, lisinopril has been placed on hold, metoprolol dose was adjusted, her blood pressure responded well to fluids, currently is at 92/59, she is afebrile, no complaints of chest discomfort, breathing is about the same, she does desat with any exertion, but no worsening. No new chest x-ray today, r ight now she is sitting up in bed, breathing fairly comfortable, no worsening cough, lung sounds reveal bilateral crackles, no worsening. Today's labs have been noted, no d-dimer from today, electric selective renal profile are unremarkable, her troponin is less than 0.012. Patient continues on de xamethasone 6 mg daily, she is on prophylactic dose of Lovenox, multivitamins. 10/17/2020, no worsening in the patient's condition. She remains on high flow 60 L with an FiO2 of 90% along with 100% nonrebreather facemask. Whenever she sits up she does fine. Upon laying down supine, she desaturates. Her current pulse ox is around 90%. We will concerned about her situation yesterday and we thought that she was getting get intubated knowing that she was also becoming hypotensive. We stopped the antihypertensive medication and she did well and her blood pressures improved. The chest x-ray is showing some worsening of infiltrate on the right. Left side findings are essentially stable. In terms of her blood work, the patient has a d-dimer which is up to 5.17, her CRP is at 10 and LDH is still pending. Cardiac enzymes from yesterday were negative. Renal function is stable and within normal limits. CBC showing a white cell count of 5.7 with a hemoglobin of 12.5. No other significant issues otherwise for now. She is tolerating some diet. She is eating probably 50% of her meals. She has been on Decadron 6 mg on a daily basis in addition to prophylactic dose of Lovenox and multivitamins. IV fluids are running at 100 mL an hour of normal saline. Her at least, the patient was supposed to be on IV fluids at 100 mL and she has refused taking any fluids. On 10/18/2020 I'm seeing the patient for a follow-up. The patient is a case of COVID-19 related pneumonia and the patient has been in the hospital for more than 10 days. She remains on high flow oxygen at 60 L with an FiO2 of 90%. Sitting up on a in her bed. Using incentive spirometer although not aggressively. He is also utilizing 100% nonrebreather facemask and supplement her high flow oxygen. Her pulse ox is above 90%. Denies having any worsening shortness of breath and she claims that her condition is stable. She is eating. No nausea vomiting or emesis. The d-dimer is of 5.17. The blood work is showing a normal renal function, normal electrolytes, mild transaminitis. She remains on Decadron 6 mg IV every 24 hours. She is also on Lovenox 50 mg subcu every 12 hours. She is also on multivitamin supplements. No new complaints otherwise for now. No hypotension. No chest pain. No worsening shortness of breath. Her condition has been stable since yesterday. Objective - Vital Signs Vital signs: Vital Signs Temp 98.1 F 10/18/20 14:31 Pulse 66 10/18/20 14:31 Resp 22 10/18/20 14:31 BP 125/59 10/18/20 14:31 Pulse Ox 88 L 10/18/20 14:31 Intake & Output 10/17/20 10/18/20 10/18/20 18:59 06:59 18:59 Intake Total 400 Balance 400 Weight 107.955 kg Intake: Oral 400 Other: Voiding Method Bedside Commode Bedside Commode Diaper Diaper # Voids 3 1 # Bowel Movements 2 - Exam GENERAL EXAM: Alert, very pleasant, 50-year-old white female, on 15 L of oxygen and 100% nonrebreather and AIrvo 60 liters and 90% FIO2, with pulse ox of 92 comfortable in no apparent distress. The patient gets dyspneic on minimal amount of activity and while talking. She is on 100% nonrebreather facemask in addition to the high flow oxygen. HEAD: Normocephalic/atraumatic. EYES: Normal reaction of pupils, equal size. Conjunctiva pink, sclera white. NOSE: Clear with pink turbinates. THROAT: No erythema or exudates. NECK: No masses, no JVD, no thyroid enlargement, no adenopathy. CHEST: No chest wall deformity. Symmetrical expansion. LUNGS: Equal air entry with no crackles, wheeze, rhonchi or dullness. CVS: Regular rate and rhythm, normal S1 and S2, no gallops, no murmurs, no rubs ABDOMEN: Soft, nontender. No hepatosplenomegaly, normal bowel sounds, no guarding or rigidity. EXTREMITIES: No clubbing, no edema, no cyanosis, 2+ pulses and upper and lower extremities. MUSCULOSKELETAL: Muscle strength and tone normal. SPINE: No scoliosis or deformity SKIN: No rashes CENTRAL NERVOUS SYSTEM: Alert and oriented -3. No focal deficits, tone is normal in all 4 extremities. PSYCHIATRIC: Alert and oriented -3. Appropriate affect. Intact judgment and insight. - Labs CBC & Chem 7: 10/18/20 08:34 10/18/20 08:34 Labs: Abnormal Lab Results - Last 24 Hours (Table) 10/18/20 10/18/20 Range/Units 08:34 08:34 Plt Count 494 H (150-450) k/uL BUN 23 H (7-17) mg/dL Glucose 72 L (74-99) mg/dL AST 57 H (14-36) U/L ALT 83 H (4-34) U/L Total Protein 6.0 L (6.3-8.2) g/dL Albumin 3.0 L (3.5-5.0) g/dL Assessment and Plan Plan: #1. Acute hypoxic respiratory failure, related to acute COVID19 pneumonia, She did not qualify for Remdesivir. Status post transfusion of Tocilizumab, convalescent plasma in addition to steroids chest x-ray still showing diffuse bilateral pulmonary infiltrates. For now, the patient is stable since yesterday. No worsening in her oxygenation. Still on high flow oxygen at 60 L with an FiO2 of 90% in addition to 100% nonrebreather facemask. She is continuing her steroid treatment in addition to her anticoagulation with Lovenox. Inflammatory markers including d-dimer was still elevated. #2. Dyspnea, cough, body aches, weakness related to the above, stable for now without any interval worsening #3. Acute kidney injury likely related to ATN, dehydration, creatinine is down to 0.7 #4. Recent inflammatory markers related to acute COVID 19 pneumonia #5. Increased liver enzymes related to viral pneumonia #6. Hypertension #7. Hyperlipidemia #8. History of coronary artery disease with previous stenting #9. History of myocardial infarction #10. History of morbid obesity #11. History of hypotension, likely related to hypovolemia and dehydration, and antihypertensives, responded well to IV fluids. Plan: continue oxygen at high flow 60 L with an FiO2 of 90% and utilized 100% nonrebre ather as needed continue Decadron Increase the Lovenox up to 50 mg subcu every 12 hours Condition is stable without any interval worsening Continue the rest of the treatment. Monitor inflammatory markers. We'll continue to follow.
[2020-10-18] MEDS: MELATONIN 3 MG TABLET PO SCH (21:19)
[2020-10-18] MEDS: ATORVASTATIN 40 MG TAB PO SCH (21:19)
[2020-10-18] MEDS: SODIUM CHLORIDE 0.9% 1,000 ML IV SCH (23:28)
[2020-10-19] MEDS: DOCUSATE 100 MG CAP PO SCH (08:39)
[2020-10-19] MEDS: ASPIRIN 325 MG TAB PO SCH (08:39)
[2020-10-19] MEDS: METOPROLOL TARTRATE 25 MG TAB PO SCH (08:39)
[2020-10-19] MEDS: CHOLECALCIFEROL 25 MCG (1000 IU) TABLET PO SCH (08:39)
[2020-10-19] MEDS: ASCORBIC ACID 500 MG TAB PO SCH ×2 (08:40→20:15)
[2020-10-19] MEDS: dexAMETHasone 2 MG TAB PO SCH (08:40)
[2020-10-19] MEDS: ZINC SULFATE 220 MG CAP PO SCH (08:40)
[2020-10-19] MEDS: PANTOPRAZOLE 40 MG TABLET PO SCH (08:40)
[2020-10-19] MEDS: ENOXAPARIN 60 MG/0.6 ML SYRINGE SQ SCH ×2 (08:40→20:15)
[2020-10-19] MEDS: ALBUTEROL HFA INHALER INHALATION SCH ×4 (09:41→20:37)
--- NOTE | 2020-10-19 09:59 | P.PN ---
Subjective Progress Note Date: 10/19/20 I am assuming care of this patient as of 10/16/2020 at 8 AM. I was out of town and Dr. Craven was covering for me. H&P done by Dr. Tamayo on 10/07/2020 This is a 50-year-old female patient presented to the ER on 10/07/2020 with complaints of cough fever and body aches. Patient did test positive for COVID- 19 with symptoms starting about 8 days prior at that time patient was started on Decadron, vitamins, convulsant plasma and toclizumab. Patient does have a past medical history of coronary artery disease, hyperlipidemia, hypertension and [place]. Patient also has been cleared history of previous nicotine dependence. Patient admitted to medical floor pulmonary service is consulted On 10/16/2020 patient is alert and oriented resting in chair. Patient had episode of hypotension. At this time lisinopril DC'd parameter set to Metroprolol. Blood pressure has improved continue normal saline at 100. Patient currently on high flow oxygen with the flow rate of 60 and an FiO2 of 90%. Patient remains dyspneic. Remains on IV Decadron. Patient denies any chest pain. Patient denies nausea vomiting or diarrhea. Patient denies any urinary burning or frequency. On 10/17/2020 patient was seen and examined on the medical floor she is alert and oriented 3 in no apparent distress she is still maintained on high flow oxygen she is complaining of shortness of breath with any activity she is also complaining of cough and chest tightness otherwise she denies any complaints there is no fever or chills no headache or dizziness no chest pain no nausea or vomiting no abdominal pain no diarrhea no blood in the stools no burning with urination no frequency or urgency and no hematuria. On 10/18/2020 patient alert and oriented 3. Patient remains on airvo. Reports that she feels slightly improved. Patient denies any nausea vomiting or diarrhea. Patient denies any urinary burning or frequency. Patient remains on Decadron. Pulmonary services are following. On 10/19/2020 patient was seen and examined on the medical floor she is alert and oriented 3 in no distress she is feeling better she is still maintained on high flow oxygen via Airvo she is complaining of shortness of breath with any activity she is complaining of cough otherwise she denies any complaints there is no fever or chills no headache or dizziness no chest pain no nausea or vomiting no abdominal pain no diarrhea no blood in the stools no burning with urination no frequency or urgency and no hematuria Objective - Vital Signs Vital signs: Vital Signs Temp 97.7 F 10/19/20 05:27 Pulse 74 10/19/20 05:27 Resp 16 10/19/20 05:27 BP 122/76 10/19/20 05:27 Pulse Ox 93 L 10/19/20 05:27 Intake & Output 10/18/20 10/19/20 10/19/20 18:59 06:59 18:59 Weight 107.955 kg Other: Voiding Method Bedside Commode Bedside Commode Diaper Diaper # Voids 2 1 # Bowel Movements 0 1 - Exam In general patient is alert and oriented 3 in no apparent distress Head normocephalic and atraumatic Neck supple no JVD no goiter no lymphadenopathy Lungs diminished bilaterally no crackles no wheezing Heart regular rate and rhythm S1-S2, no rub or gallop Abdomen is soft nontender nondistended positive bowel sounds no hepatosplenomegaly Extremities no edema Neuro no gross focal neurological deficit - Labs CBC & Chem 7: 10/18/20 08:34 10/18/20 08:34 Labs: Abnormal Lab Results - Last 24 Hours (Table) 10/18/20 10/18/20 Range/Units 08:34 08:34 Plt Count 494 H (150-450) k/uL BUN 23 H (7-17) mg/dL Glucose 72 L (74-99) mg/dL AST 57 H (14-36) U/L ALT 83 H (4-34) U/L Total Protein 6.0 L (6.3-8.2) g/dL Albumin 3.0 L (3.5-5.0) g/dL Assessment and Plan Assessment: 1. Acute hypoxic respiratory failure secondary to COVID-19 pneumonia. Patient is on Decadron, received Tocilizumab, and convalescent plasma. Pulmonary services are following. Remains on Airvo 2. Diarrhea secondary to COVID-19. This does seem improved 3. Acute renal failure probably prerenal azotemia and acute tubular necrosis secondary to sepsis. Improved 4. Hyponatremia on admission. Improved 5. Elevated liver enzymes secondary to sepsis and viral pneumonia. Trending down. Continue to monitor 6. History of essential hypertension 7. History of hyperlipidemia 8. History of coronary artery disease with previous stenting 9. Ex-smoker. 10. Hypotension. Lisinopril DC'd. Parameters set to Metroprolol. normal saline at 100 ordered DVT prophylaxis Lovenox. GI prophylaxis tonic Pulmonary services are following Remains on Decadron, vitamin C, zinc and vitamin D PT OT consulted Repeat labs ordered for a.m. Continue normal saline at 100 for hypotension
[2020-10-19] MEDS: SODIUM CHLORIDE 0.9% 1,000 ML IV SCH (10:50)
[2020-10-19 11:35] LABS: African American GFR (CKD) 116.3 (60.0-200.0); Albumin 3.6 g/dL (3.80-4.90); Albumin/Globulin Ratio 1.57 (1.60-3.17); Anion Gap 8.2 mmol/L (4.00-12.00); BUN/Creat Ratio 27.14 Ratio (12.00-20.00); Calcium 8.7 mg/dL (8.7-10.3); Carbon Dioxide 25.8 mmol/L (21.6-31.8); Globulin 2.3 g/dL (1.6-3.3); Non-African American GFR(CKD) 100.3 (60.0-200.0); Potassium 3.8 mmol/L (3.5-5.5); Total Bilirubin 0.3 mg/dL (0.2-1.2); Total Protein 5.9 g/dL (6.2-8.2)
[2020-10-19] MEDS: ACETAMINOPHEN TAB 325 MG TAB PO PRN (12:45)
[2020-10-19] MEDS ORDERED: SODIUM CHLORIDE 0.65% NASAL SPRAY 44 ML BTL NASAL PRN (12:52)
--- NOTE | 2020-10-19 14:03 | P.PN ---
Subjective Progress Note Date: 10/19/20 Principal diagnosis: Covid 19 pneumonia 50-year-old white female patient of Dr. Wise, who presented to the emergency department on 10/07/2020 for evaluation of dyspnea, cough, fever, body aches and chills. Patient reports symptom onset 4 days ago, she saw Dr. Wise and had an outpatient test for COVID 19, the results were unknown to her, however she was told in case of worsening symptoms to present to the emergency department. Past medical history is that of hypertension, hyperlipidemia, previous history of myocardial infarction, coronary artery disease with prior stenting. Chest x-ray shows ill-defined opacities in the lower lobes bilaterally. COVID 19 PCR was p ositive. Lab work has been reviewed, showing white blood cell, 4.6, hemoglobin 12.3, lymphocyte count was within normal limits at 1.1, d-dimer is 0.31, sodium is 133, the rest of electrolytes were within normal limits, B1 is 20 creatinine is 1.45 with GFR of 42, lactic acid 0.9, ferritin level is 3834, AST is 163, ALT is 117, LDH is 2034, CRP is 83.4, pro-calcitonin was 0.27. Low-grade fevers fo llowed in the emergency department. Patient was started on Decadron 6 mg daily, we'll start her on vitamins, one unit, less than plasma, we'll try to qualify her for tocilizumab 10/08/2020 patient seen in follow-up on medical floor, patient is status post Tocilizumab, infusion of 1 dose of convalescent plasma, she remains on Decadron, she remains on vitamins, IV hydration with 0.9 normal saline at 100 ML per hour, she is on subcu heparin 5000 units subcu 8 hours. Remains on 15 L high flow and nonrebreather mask, her pulse ox is 93-96%, overall reports feeling somewhat better. Follow-up chest x-ray today shows worsening diffuse lung infiltrates greatest in the lung bases, labs today show d-dimer 0.26, LDH and CRP are pending, pro-calcitonin level was low at 0.27. On 10/09/2020 patient seen in follow-up on the medical floor she is currently on 15 L high flow nasal cannula, in addition to pulmonary rehab mask, and a pulse ox is 86-98%, she is afebrile, hemodynamically patient is stable, she said no continues to bed, appears to be breathing comfortably, denies any chest discomfort, no fever or chills. Patient remains on systemic steroids, she is status post Tocilizumab and convalescent plasma. She remains on IV hydration, she states she is tolerating oral diet, no nausea or vomiting, today's labs have been reviewed, electrolytes are within normal limits, her creatinine has s ignificantly improved, down to 1.1 from 1.45 couple days ago, BUN is 43, AST and ALT have also improved, down to 77 and 80 respectively, alk phos is at 40. Procalcitonin level was low at 0.7, tolerating activity fairly well. On 10/10/2020 patient seen in follow-up on medical floor. She is on 15 L per nonrebreather mask in addition to 15 L high flow, she is awake and alert, is short of breath with exertion, but she has been able to use the bedside commode, and tolerated fairly well, she is afebrile, denies any chest pain, no cough, lung sounds reveal scattered crackles, she is tolerating oral intake, no nausea or vomiting. No new chest x-ray, her latest d-dimer from yesterday was 0.60, L DH was 2198, and CRP was 17.8, patient remains on Decadron 6 mg daily, vitamins. This had no acute events overnight, no worsening, however no significant improvement in dyspnea and oxygenation On 10/13/2020 patient seen in follow-up on medical surgical floor. She remains on high flow oxygen per 15 L high flow nasal cannula and 100% nonrebreather mask, pulse ox is 90-95%, she doesn't With exertion, but overall seems to be improving, lung sounds reveal minimal rales at bilateral bases, without signs have been stable, she has been slow to improve, no acute events overnight, no chest discomfort. Yesterday chest x-ray shows slight worsening of diffuse infiltrates. The labs have been reviewed, her d-dimer was 1.21, and her liver enzymes have worsened with AST up to 194, and ALT of 328, alkaline phosphatase was up to 78, LDH was overall on the rise up to 2729, by CRP was improving. Clinically seems to be doing better. No worsening cough, patient would like to be able to walk around in the room, however still requiring high flow oxygen and she can only walk so far, other than that no specific complaints On 10/16/2020 patient seen in follow-up on medical floor, she still remains on Airvo, at 60 L and FiO2 of 90%, her pulse ox is 92-97%, apparently earlier this morning rapid response team was called and the patient was confused, she was hypotensive, with blood pressure of 60/40, and a liter bolus was given, currently her IV fluids are infusing at 100 ML per hour, her antihypertensives were readjusted, lisinopril has been placed on hold, metoprolol dose was adjusted, her blood pressure responded well to fluids, currently is at 92/59, she is afebrile, no complaints of chest discomfort, breathing is about the same, she does desat with any exertion, but no worsening. No new chest x-ray today, right now she is sitting up in bed, breathing fairly comfortable, no worsening cough, lung sounds reveal bilateral crackles, no worsening. Today's labs have been noted, no d-dimer from today, electric selective renal profile are unremarkable, her troponin is less than 0.012. Patient continues on dexamethasone 6 mg daily, she is on prophylactic dose of Lovenox, multivitamins. On 10/19/2020 patient seen in follow-up. She remains on high flow oxygen per Airvo currently 60 L and FiO2 of 90% in addition to partial rebreather mask, and patient removed partial rebreather mask for meals, appears to be fairly comfortable, denies any worsening dyspnea but still requiring high flow oxygen. She thinks that it might be due to nasal congestion from high flow oxygen, and she states when she cleans out her nose usually her O2 saturations improve. Patient's last chest x-ray from 10/17/2020 showed worsening bilateral diffuse lung infiltrates. Patient continues on Decadron 6 mg daily, she continues on Lovenox 50 mg twice a day her last TD was back on 10/17/2020 and was elevated at 5.17, patient remains on IV fluids at 100 ML per hour, she is tolerating oral intake, nausea vomiting or diarrhea. Objective - Vital Signs Vital signs: Vital Signs Temp 97.9 F 04/17/21 09:38 Pulse 79 10/19/20 09:38 Resp 20 10/19/20 09:38 BP 107/63 10/19/20 09:38 Pulse Ox 90 L 10/19/20 09:38 Intake & Output 10/18/20 10/19/20 10/19/20 18:59 06:59 18:59 Weight 107.955 kg Other: Voiding Method Bedside Commode Bedside Commode Diaper Diaper # Voids 2 1 # Bowel Movements 0 1 - Exam GENERAL EXAM: Alert, very pleasant, 50-year-old white female, on Airvo at 60 L and FiO2 of 90% with a pulse ox of 97% HEAD: Normocephalic/atraumatic. EYES: Normal reaction of pupils, equal size. Conjunctiva pink, sclera white. NOSE: Clear with pink turbinates. THROAT: No erythema or exudates. NECK: No masses, no JVD, no thyroid enlargement, no adenopathy. CHEST: No chest wall deformity. Symmetrical expansion. LUNGS: Equal air entry with bilateral crackles CVS: Regular rate and rhythm, normal S1 and S2, no gallops, no murmurs, no rubs ABDOMEN: Soft, nontender. No hepatosplenomegaly, normal bowel sounds, no guarding or rigidity. EXTREMITIES: No clubbing, no edema, no cyanosis, 2+ pulses and upper and lower extremities. MUSCULOSKELETAL: Muscle strength and tone normal. SPINE: No scoliosis or deformity SKIN: No rashes CENTRAL NERVOUS SYSTEM: Alert and oriented -3. No focal deficits, tone is normal in all 4 extremities. PSYCHIATRIC: Alert and oriented -3. Appropriate affect. Intact judgment and insight. - Labs CBC & Chem 7: 10/18/20 08:34 10/19/20 08:13 Labs: Abnormal Lab Results - Last 24 Hours (Table) 10/19/20 Range/Units 08:13 BUN/Creatinine Ratio 27.14 H (12.00-20.00) Ratio AST 47 H (13-35) U/L ALT 90 H (8-44) U/L Total Protein 5.9 L (6.2-8.2) g/dL Albumin 3.60 L (3.80-4.90) g/dL Albumin/Globulin Ratio 1.57 L (1.60-3.17) g/dL Assessment and Plan Plan: Assessment: #1. Acute hypoxic respiratory failure, related to acute COVID19 pneumonia, patient reports a 4 day history of worsening dyspnea, fever, chills, patient was already in moderate to severe hypoxic respiratory failure on presentation, and as such does not qualify for Remdesivir. Status post transfusion of Tocilizumab, convalescent plasma in addition to steroids #2. Dyspnea, cough, body aches, weakness related to the above #3. Acute kidney injury likely related to ATN, dehydration #4. Recent inflammatory markers related to acute COVID 19 pneumonia #5. Increased liver enzymes related to viral pneumonia #6. Hypertension #7. Hyperlipidemia #8. History of coronary artery disease with previous stenting #9. History of myocardial infarction #10. History of morbid obesity #11. History of hypotension, likely related to hypovolemia and dehydration, and antihypertensives, responded well to IV fluids. Plan: We will obtain follow-up d-dimer inflammatory markers, follow-up chest x-ray in the morning, Encourage deep breathing and coughing, and incentive spirometry use Titrate FiO2 to maintain O2 saturation at around 89%-90 percent Continue current dose Decadron We will obtain a follow-up d-dimer and adjust her anticoagulation up accordingly I performed a history & physical examination of the patient and discussed their management with my nurse practitioner, Abby Peters. I reviewed the nurse practitioner's note and agree with the documented findings and plan of care. Beti ng sounds are positive for diminished breath sounds. The findings and the impression was discussed with the patient. I attest to the documentation by the nurse practitioner. Time with Patient: Less than 30
[2020-10-19 15:09] LABS: C Reactive Protein 0.5 mg/dL (<1.0)
[2020-10-19] MEDS: MELATONIN 3 MG TABLET PO SCH (20:15)
[2020-10-19] MEDS: ATORVASTATIN 40 MG TAB PO SCH (20:15)
[2020-10-20] MEDS: ACETAMINOPHEN TAB 325 MG TAB PO PRN ×3 (02:01→21:45)
[2020-10-20] MEDS: ALBUTEROL HFA INHALER INHALATION SCH ×4 (08:36→20:25)
[2020-10-20] MEDS: METOPROLOL TARTRATE 25 MG TAB PO SCH (08:52)
[2020-10-20] MEDS: ASPIRIN 325 MG TAB PO SCH (08:52)
[2020-10-20] MEDS: ASCORBIC ACID 500 MG TAB PO SCH ×2 (08:52→21:44)
[2020-10-20] MEDS: ZINC SULFATE 220 MG CAP PO SCH (08:52)
[2020-10-20] MEDS: dexAMETHasone 2 MG TAB PO SCH (08:52)
[2020-10-20] MEDS: DOCUSATE 100 MG CAP PO SCH (08:52)
[2020-10-20] MEDS: PANTOPRAZOLE 40 MG TABLET PO SCH (08:52)
[2020-10-20] MEDS: CHOLECALCIFEROL 25 MCG (1000 IU) TABLET PO SCH (08:52)
[2020-10-20] MEDS: ENOXAPARIN 60 MG/0.6 ML SYRINGE SQ SCH ×2 (08:53→21:44)
[2020-10-20 08:55] LABS: Basophils # (A) 0.02 X 10*3/uL (0.00-0.10); Basophils % (A) 0.2 %; Eosinophils # (A) 0.14 X 10*3/uL (0.04-0.35); Eosinophils % (A) 1.7 %; HCT 37.7 % (37.2-46.3); HGB 12.4 g/dL (12.0-15.0); Lymphocytes # (A) 2.11 X 10*3/uL (0.90-5.00); MCH 32.1 pg (27.0-32.0); MCHC 32.9 g/dL (32.0-37.0); MCV 97.7 fL (80.0-97.0); Mean Platelet Volume 9.9 fL (9.5-12.2); Monocytes # (A) 0.69 X 10*3/uL (0.20-1.00); Monocytes % (A) 8.2 %; Platelet Count 452 X 10*3/uL (140-440); RBC 3.86 X 10*6/uL (4.10-5.20); RDW 12.8 % (11.5-14.5); WBC 8.44 X 10*3/uL (4.50-10.00)
[2020-10-20 09:36] LABS: ALT 69 U/L (8-44); AST 29 U/L (13-35); African American GFR (CKD) 98.9 (60.0-200.0); Albumin/Globulin Ratio 1.65 (1.60-3.17); Alkaline Phosphatase 87 U/L (41-126); BUN/Creat Ratio 26.25 Ratio (12.00-20.00); C Reactive Protein <0.4 mg/dL (0.0-0.8); Carbon Dioxide 29.2 mmol/L (21.6-31.8); Chloride 104 mmol/L (96-109); Globulin 2.3 g/dL (1.6-3.3); Glucose 102 mg/dL (70-110); LDH 583 U/L (120-246); Non-African American GFR(CKD) 85.4 (60.0-200.0); Sodium 139 mmol/L (135-145); Total Bilirubin 0.3 mg/dL (0.3-1.2); Total Protein 6.1 g/dL (6.2-8.2)
--- NOTE | 2020-10-20 13:04 | P.PN ---
Subjective Progress Note Date: 10/20/20 50-year-old white female patient of Dr. Wise, who presented to the emergency department on 10/07/2020 for evaluation of dyspnea, cough, fever, body aches and chills. Patient reports symptom onset 4 days ago, she saw Dr. Wise and had an outpatient test for COVID 19, the results were unknown to her, however she was told in case of worsening symptoms to present to the emergency department. Past medical history is that of hypertension, hyperlipidemia, previous history of myocardial infarction, coronary artery disease with prior stenting. Chest x-ray shows ill-defined opacities in the lower lobes bilaterally. COVID 19 PCR was positive. Lab work has been reviewed, showing white blood cell, 4.6, hemoglobin 12.3, lymphocyte count was within normal limits at 1.1, d-dimer is 0.31, sodium is 133, the rest of electrolytes were within normal limits, B1 is 20 creatinine is 1.45 with GFR of 42, lactic acid 0.9, ferritin level is 3834, AST is 163, ALT is 117, LDH is 2034, CRP is 83.4, pro-calcitonin was 0.27. Low-grade fevers followed in the emergency department. Patient was started on Decadron 6 mg daily, we'll start her on vitamins, one unit, less than plasma, we'll try to qualify her for tocilizumab 10/08/2020 patient seen in follow-up on medical floor, patient is status post Tocilizumab, infusion of 1 dose of convalescent plasma, she remains on Decadron, she remains on vitamins, IV hydration with 0.9 normal saline at 100 ML per hour, she is on subcu heparin 5000 units subcu 8 hours. Remains on 15 L high flow and nonrebreather mask, her pulse ox is 93-96%, overall reports feeling somewhat better. Follow-up chest x-ray today shows worsening diffuse lung infiltrates greatest in the lung bases, labs today show d-dimer 0.26, LDH and CRP are pending, pro-calcitonin level was low at 0.27. On 10/09/2020 patient seen in follow-up on the medical floor she is currently on 15 L high flow nasal cannula, in addition to pulmonary rehab mask, and a pulse ox is 86-98%, she is afebrile, hemodynamically patient is stable, she said no continues to bed, appears to be breathing comfortably, denies any chest discomfort, no fever or chills. Patient remains on systemic steroids, she is status post Tocilizumab and convalescent plasma. She remains on IV hydration, she states she is tolerating oral diet, no nausea or vomiting, today's labs have been reviewed, electrolytes are within normal limits, her creatinine has significantly improved, down to 1.1 from 1.45 couple days ago, BUN is 43, AST and ALT have also improved, down to 77 and 80 respectively, alk phos is at 40. Procalcitonin level was low at 0.7, tolerating activity fairly well. On 10/10/2020 patient seen in follow-up on medical floor. She is on 15 L per nonrebreather mask in addition to 15 L high flow, she is awake and alert, is short of breath with exertion, but she has been able to use the bedside commode, and tolerated fairly well, she is afebrile, denies any chest pain, no cough, lung sounds reveal scattered crackles, she is tolerating oral intake, no nausea or vomiting. No new chest x-ray, her latest d-dimer from yesterday was 0.60, LDH was 2198, and CRP was 17.8, patient remains on Decadron 6 mg daily, vitamins. This had no acute events overnight, no worsening, however no significant improvement in dyspnea and oxygenation On 10/13/2020 patient seen in follow-up on medical surgical floor. She remains on high flow oxygen per 15 L high flow nasal cannula and 100% nonrebreather mask, pulse ox is 90-95%, she doesn't With exertion, but overall seems to be improving, lung sounds reveal minimal rales at bilateral bases, without signs have been stable, she has been slow to improve, no acute events overnight, no chest discomfort. Yesterday chest x-ray shows slight worsening of diffuse infiltrates. The labs have been reviewed, her d-dimer was 1.21, and her liver enzymes have worsened with AST up to 194, and ALT of 328, alkaline phosphatase was up to 78, LDH was overall on the rise up to 2729, by CRP was improving. Clinically seems to be doing better. No worsening cough, patient would like to be able to walk around in the room, however still requiring high flow oxygen and she can only walk so far, other than that no specific complaints On 10/16/2020 patient seen in follow-up on medical floor, she still remains on Airvo, at 60 L and FiO2 of 90%, her pulse ox is 92-97%, apparently earlier this morning rapid response team was called and the patient was confused, she was hypotensive, with blood pressure of 60/40, and a liter bolus was given, currently her IV fluids are infusing at 100 ML per hour, her antihypertensives were readjusted, lisinopril has been placed on hold, metoprolol dose was adjusted, her blood pressure responded well to fluids, currently is at 92/59, she is afebrile, no complaints of chest discomfort, breathing is about the same, she does desat with any exertion, but no worsening. No new chest x-ray today, right now she is sitting up in bed, breathing fairly comfortable, no worsening cough, lung sounds reveal bilateral crackles, no worsening. Today's labs have been noted, no d-dimer from today, electric selective renal profile are unremarkable, her troponin is less than 0.012. Patient continues on dexamethasone 6 mg daily, she is on prophylactic dose of Lovenox, multivitamins. On 10/19/2020 patient seen in follow-up. She remains on high flow oxygen per Airvo currently 60 L and FiO2 of 90% in addition to partial rebreather mask, and patient removed partial rebreather mask for meals, appears to be fairly comfortable, denies any worsening dyspnea but still requiring high flow oxygen. She thinks that it might be due to nasal congestion from high flow oxygen, and she states when she cleans out her nose usually her O2 saturations improve. Patient's last chest x-ray from 10/17/2020 showed worsening bilateral diffuse lung infiltrates. Patient continues on Decadron 6 mg daily, she continues on Lovenox 50 mg twice a day her last TD was back on 10/17/2020 and was elevated at 5.17, patient remains on IV fluids at 100 ML per hour, she is tolerating oral intake, nausea vomiting or diarrhea. 10/20/2020, the patient remains on high flow oxygen at 60 L with an FiO2 of 83%. She is currently off the nonrebreather facemask. She is already feeling better. She is able to speak longer words and sentences. She is eating her diet. She is sitting up in bed. No altered mentation. She remains on Decadron 6 mg IV every 24 hours and she is also on Lovenox 50 mg subcu twice a day. The patient's blood work today shows a white cell count of 8.4 with a hemoglobin of 12.4 and a platelet of 452. D-dimer is at 4.7, the patient's LDH level is lower at 584 and the CRP is down to 0.4. Rest of the blood work and electrolytes are all within normal limits. Objective - Vital Signs Vital signs: Vital Signs Temp 97.3 F L 10/20/20 09:46 Pulse 77 10/20/20 09:46 Resp 20 10/20/20 09:46 BP 106/67 10/20/20 09:46 Pulse Ox 88 L 10/20/20 09:46 Intake & Output 10/19/20 10/20/20 10/20/20 18:59 06:59 18:59 Other: Voiding Method Bedside Commode Diaper # Voids 3 1 - Exam GENERAL EXAM: Alert, very pleasant, 50-year-old white female, on AIrvo 60 liters and 83 % FIO2, with pulse ox of 92 comfortable in no apparent distress. She her breathing is slightly labored. She gets short of breath with minimal amount of activity, talk and a cough and she continues to have occasional dry cough. HEAD: Normocephalic/atraumatic. EYES: Normal reaction of pupils, equal size. Conjunctiva pink, sclera white. NOSE: Clear with pink turbinates. THROAT: No erythema or exudates. NECK: No masses, no JVD, no thyroid enlargement, no adenopathy. CHEST: No chest wall deformity. Symmetrical expansion. LUNGS: Equal air entry with no crackles, wheeze, rhonchi or dullness. CVS: Regular rate and rhythm, normal S1 and S2, no gallops, no murmurs, no rubs ABDOMEN: Soft, nontender. No hepatosplenomegaly, normal bowel sounds, no guarding or rigidity. EXTREMITIES: No clubbing, no edema, no cyanosis, 2+ pulses and upper and lower extremities. MUSCULOSKELETAL: Muscle strength and tone normal. SPINE: No scoliosis or deformity SKIN: No rashes CENTRAL NERVOUS SYSTEM: Alert and oriented -3. No focal deficits, tone is normal in all 4 extremities. PSYCHIATRIC: Alert and oriented -3. Appropriate affect. Intact judgment and insight. - Labs CBC & Chem 7: 10/20/20 06:56 10/20/20 06:56 Labs: Abnormal Lab Results - Last 24 Hours (Table) 10/19/20 10/19/20 10/20/20 Range/Units 14:15 14:15 06:56 RBC 3.86 L (4.10-5.20) X 10*6/uL MCV 97.7 H (80.0-97.0) fL MCH 32.1 H (27.0-32.0) pg Plt Count 452 H (140-440) X 10*3/uL Immature Gran # 0.08 H (0.00-0.04) X 10*3/uL D-Dimer 4.47 H (<0.60) mg/L FEU BUN/Creatinine Ratio (12.00-20.00) Ratio ALT (8-44) U/L Lactate Dehydrogenase 1761 H (313-618) U/L Total Protein (6.2-8.2) g/dL 10/20/20 10/20/20 Range/Units 06:56 06:56 RBC (4.10-5.20) X 10*6/uL MCV (80.0-97.0) fL MCH (27.0-32.0) pg Plt Count (140-440) X 10*3/uL Immature Gran # (0.00-0.04) X 10*3/uL D-Dimer 4.74 H (<0.60) mg/L FEU BUN/Creatinine Ratio 26.25 H (12.00-20.00) Ratio ALT 69 H (8-44) U/L Lactate Dehydrogenase 583 H (313-618) U/L Total Protein 6.1 L (6.2-8.2) g/dL Assessment and Plan Plan: #1. Acute hypoxic respiratory failure, related to acute COVID19 pneumonia, She did not qualify for Remdesivir. Status post transfusion of Tocilizumab, convalescent plasma in addition to steroids chest x-ray still showing diffuse bilateral pulmonary infiltrates. For now, the patient is stable . On high flow oxygen at 60 L with an FiO2 of 83% . She is continuing her steroid treatment in addition to her anticoagulation with Lovenox. Inflammatory markers including LDH i and CRP are both improving and the patient d-dimer is slightly elevated. The patient remains on Lovenox. The patient remains on Decadron. #2. Dyspnea, cough, body aches, weakness related to the above, stable for now without any interval worsening, and the patient is regaining some of her face back #3. Acute kidney injury likely related to ATN, dehydration, creatinine is down to 0.7 #4. Recent inflammatory markers related to acute COVID 19 pneumonia #5. Increased liver enzymes related to viral pneumonia #6. Hypertension #7. Hyperlipidemia #8. History of coronary artery disease with previous stenting #9. History of myocardial infarction #10. History of morbid obesity #11. History of hypotension, covered with IV fluids. Plan: continue oxygen at high flow 60 L with an FiO2 of 83% and utilized 100% nonrebreather as needed , currently she is off the nonrebreather facemask. continue Decadron Increase the Lovenox up to 50 mg subcu every 12 hours Condition is stable with some interval improvement clinically Continue the rest of the treatment. Monitor inflammatory markers. We'll continue to follow.
--- NOTE | 2020-10-20 14:38 | P.PN ---
Subjective Progress Note Date: 10/20/20 I am assuming care of this patient as of 10/16/2020 at 8 AM. I was out of town and Dr. Craven was covering for me. H&P done by Dr. Tamayo on 10/07/2020 This is a 50-year-old female patient presented to the ER on 10/07/2020 with complaints of cough fever and body aches. Patient did test positive for COVID- 19 with symptoms starting about 8 days prior at that time patient was started on Decadron, vitamins, convulsant plasma and toclizumab. Patient does have a past medical history of coronary artery disease, hyperlipidemia, hypertension and [place]. Patient also has been cleared history of previous nicotine dependence. Patient admitted to medical floor pulmonary service is consulted On 10/16/2020 patient is alert and oriented resting in chair. Patient had episode of hypotension. At this time lisinopril DC'd parameter set to Metroprolol. Blood pressure has improved continue normal saline at 100. Patient currently on high flow oxygen with the flow rate of 60 and an FiO2 of 90%. Patient remains dyspneic. Remains on IV Decadron. Patient denies any chest pain. Patient denies nausea vomiting or diarrhea. Patient denies any urinary burning or frequency. On 10/17/2020 patient was seen and examined on the medical floor she is alert and oriented 3 in no apparent distress she is still maintained on high flow oxygen she is complaining of shortness of breath with any activity she is also complaining of cough and chest tightness otherwise she denies any complaints there is no fever or chills no headache or dizziness no chest pain no nausea or vomiting no abdominal pain no diarrhea no blood in the stools no burning with urination no frequency or urgency and no hematuria. On 10/18/2020 patient alert and oriented 3. Patient remains on airvo. Reports that she feels slightly improved. Patient denies any nausea vomiting or diarrhea. Patient denies any urinary burning or frequency. Patient remains on Decadron. Pulmonary services are following. On 10/19/2020 patient was seen and examined on the medical floor she is alert and oriented 3 in no distress she is feeling better she is still maintained on high flow oxygen via Airvo she is complaining of shortness of breath with any activity she is complaining of cough otherwise she denies any complaints there is no fever or chills no headache or dizziness no chest pain no nausea or vomiting no abdominal pain no diarrhea no blood in the stools no burning with urination no frequency or urgency and no hematuria On 10/20/2020 patient was seen and examined on the medical floor she is alert and oriented 3 in no distress she is still complaining of shortness of breath and cough otherwise she denies any complaints, vital exam reveals a temperature of 97.3 pulse 77 respiration 20 blood pressure 106/67 pulse ox 88% on airvo with FiO2 of 80% Objective - Vital Signs Vital signs: Vital Signs Temp 97.3 F L 10/20/20 09:46 Pulse 77 10/20/20 09:46 Resp 20 10/20/20 09:46 BP 106/67 10/20/20 09:46 Pulse Ox 88 L 10/20/20 09:46 Intake & Output 10/19/20 10/20/20 10/20/20 18:59 06:59 18:59 Other: Voiding Method Bedside Commode Diaper # Voids 3 1 - Exam In general patient is alert and oriented 3 in no apparent distress Head normocephalic and atraumatic Neck supple no JVD no goiter no lymphadenopathy Lungs diminished bilaterally no crackles no wheezing Heart regular rate and rhythm S1-S2, no rub or gallop Abdomen is soft nontender nondistended positive bowel sounds no hepatosplenomegaly Extremities no edema Neuro no gross focal neurological deficit - Labs CBC & Chem 7: 10/20/20 06:56 10/20/20 06:56 Labs: Abnormal Lab Results - Last 24 Hours (Table) 10/19/20 10/19/20 10/19/20 Range/Units 08:13 14:15 14:15 RBC (4.10-5.20) X 10*6/uL MCV (80.0-97.0) fL MCH (27.0-32.0) pg Plt Count (140-440) X 10*3/uL Immature Gran # (0.00-0.04) X 10*3/uL D-Dimer 4.47 H (<0.60) mg/L FEU BUN/Creatinine Ratio 27.14 H (12.00-20.00) Ratio AST 47 H (13-35) U/L ALT 90 H (8-44) U/L Lactate Dehydrogenase 1761 H (313-618) U/L Total Protein 5.9 L (6.2-8.2) g/dL Albumin 3.60 L (3.80-4.90) g/dL Albumin/Globulin Ratio 1.57 L (1.60-3.17) g/dL 10/20/20 10/20/20 10/20/20 Range/Units 06:56 06:56 06:56 RBC 3.86 L (4.10-5.20) X 10*6/uL MCV 97.7 H (80.0-97.0) fL MCH 32.1 H (27.0-32.0) pg Plt Count 452 H (140-440) X 10*3/uL Immature Gran # 0.08 H (0.00-0.04) X 10*3/uL D-Dimer 4.74 H (<0.60) mg/L FEU BUN/Creatinine Ratio 26.25 H (12.00-20.00) Ratio AST (13-35) U/L ALT 69 H (8-44) U/L Lactate Dehydrogenase 583 H (313-618) U/L Total Protein 6.1 L (6.2-8.2) g/dL Albumin (3.80-4.90) g/dL Albumin/Globulin Ratio (1.60-3.17) g/dL Assessment and Plan Assessment: 1. Acute hypoxic respiratory failure secondary to COVID-19 pneumonia. Patient is on Decadron, received Tocilizumab, and convalescent plasma. Pulmonary services are following. Remains on Airvo 2. Diarrhea secondary to COVID-19. This does seem improved 3. Acute renal failure probably prerenal azotemia and acute tubular necrosis secondary to sepsis. Improved 4. Hyponatremia on admission. Improved 5. Elevated liver enzymes secondary to sepsis and viral pneumonia. Trending down. Continue to monitor 6. History of essential hypertension 7. History of hyperlipidemia 8. History of coronary artery disease with previous stenting 9. Ex-smoker. 10. Hypotension. Lisinopril DC'd. Parameters set to Metroprolol. normal saline at 100 ordered DVT prophylaxis Lovenox. GI prophylaxis tonic Pulmonary services are following Remains on Decadron, vitamin C, zinc and vitamin D PT OT consulted Repeat labs ordered for a.m. Continue normal saline at 100 for hypotension
[2020-10-20] MEDS: MELATONIN 3 MG TABLET PO SCH (21:44)
[2020-10-20] MEDS: ATORVASTATIN 40 MG TAB PO SCH (21:44)
[2020-10-21] MEDS: ALBUTEROL HFA INHALER INHALATION SCH ×4 (08:14→21:43)
[2020-10-21] MEDS: ZINC SULFATE 220 MG CAP PO SCH (10:05)
[2020-10-21] MEDS: ASPIRIN 325 MG TAB PO SCH (10:06)
[2020-10-21] MEDS: CHOLECALCIFEROL 25 MCG (1000 IU) TABLET PO SCH (10:06)
[2020-10-21] MEDS: DOCUSATE 100 MG CAP PO SCH (10:06)
[2020-10-21] MEDS: PANTOPRAZOLE 40 MG TABLET PO SCH (10:06)
[2020-10-21] MEDS: ENOXAPARIN 60 MG/0.6 ML SYRINGE SQ SCH ×2 (10:06→19:30)
[2020-10-21] MEDS: METOPROLOL TARTRATE 25 MG TAB PO SCH (10:06)
[2020-10-21] MEDS: ASCORBIC ACID 500 MG TAB PO SCH ×2 (10:06→19:29)
[2020-10-21] MEDS: dexAMETHasone 2 MG TAB PO SCH (10:06)
[2020-10-21] MEDS: ACETAMINOPHEN TAB 325 MG TAB PO PRN ×2 (10:07→19:30)
[2020-10-21 10:30] LABS: African American GFR (CKD) 122.3 (60.0-200.0); Albumin 3.4 g/dL (3.80-4.90); Albumin/Globulin Ratio 1.48 (1.60-3.17); Anion Gap 6.7 mmol/L (4.00-12.00); Calcium 8.7 mg/dL (8.7-10.3); Carbon Dioxide 27.3 mmol/L (21.6-31.8); Globulin 2.3 g/dL (1.6-3.3); Non-African American GFR(CKD) 105.5 (60.0-200.0); Total Bilirubin 0.3 mg/dL (0.3-1.2); Total Protein 5.7 g/dL (6.2-8.2)
[2020-10-21 10:32] LABS: Basophils # (A) 0.02 X 10*3/uL (0.00-0.10); Basophils % (A) 0.3 %; Eosinophils # (A) 0.18 X 10*3/uL (0.04-0.35); Eosinophils % (A) 2.4 %; HCT 35.6 % (37.2-46.3); HGB 11.8 g/dL (12.0-15.0); Lymphocytes % (A) 27.9 %; MCH 32.2 pg (27.0-32.0); MCHC 33.1 g/dL (32.0-37.0); MCV 97.3 fL (80.0-97.0); Mean Platelet Volume 10.2 fL (9.5-12.2); Monocytes # (A) 0.74 X 10*3/uL (0.20-1.00); Monocytes % (A) 9.8 %; Neutrophils # (A) 4.39 X 10*3/uL (1.80-7.70); Neutrophils % (A) 58.1 %; Platelet Count 428 X 10*3/uL (140-440); RBC 3.66 X 10*6/uL (4.10-5.20); RDW 12.9 % (11.5-14.5); WBC 7.54 X 10*3/uL (4.50-10.00)
--- NOTE | 2020-10-21 15:39 | P.PN ---
Subjective Progress Note Date: 10/21/20 Principal diagnosis: Covid 19 pneumonia 50-year-old white female patient of Dr. Wise, who presented to the emergency department on 10/07/2020 for evaluation of dyspnea, cough, fever, body aches and chills. Patient reports symptom onset 4 days ago, she saw Dr. Wise and had an outpatient test for COVID 19, the results were unknown to her, however she was told in case of worsening symptoms to present to the emergency department. Past medical history is that of hypertension, hyperlipidemia, previous history of myocardial infarction, coronary artery disease with prior stenting. Chest x-ray shows ill-defined opacities in the lower lobes bilaterally. COVID 19 PCR was p ositive. Lab work has been reviewed, showing white blood cell, 4.6, hemoglobin 12.3, lymphocyte count was within normal limits at 1.1, d-dimer is 0.31, sodium is 133, the rest of electrolytes were within normal limits, B1 is 20 creatinine is 1.45 with GFR of 42, lactic acid 0.9, ferritin level is 3834, AST is 163, ALT is 117, LDH is 2034, CRP is 83.4, pro-calcitonin was 0.27. Low-grade fevers fo llowed in the emergency department. Patient was started on Decadron 6 mg daily, we'll start her on vitamins, one unit, less than plasma, we'll try to qualify her for tocilizumab 10/08/2020 patient seen in follow-up on medical floor, patient is status post Tocilizumab, infusion of 1 dose of convalescent plasma, she remains on Decadron, she remains on vitamins, IV hydration with 0.9 normal saline at 100 ML per hour, she is on subcu heparin 5000 units subcu 8 hours. Remains on 15 L high flow and nonrebreather mask, her pulse ox is 93-96%, overall reports feeling somewhat better. Follow-up chest x-ray today shows worsening diffuse lung infiltrates greatest in the lung bases, labs today show d-dimer 0.26, LDH and CRP are pending, pro-calcitonin level was low at 0.27. On 10/09/2020 patient seen in follow-up on the medical floor she is currently on 15 L high flow nasal cannula, in addition to pulmonary rehab mask, and a pulse ox is 86-98%, she is afebrile, hemodynamically patient is stable, she said no continues to bed, appears to be breathing comfortably, denies any chest discomfort, no fever or chills. Patient remains on systemic steroids, she is status post Tocilizumab and convalescent plasma. She remains on IV hydration, she states she is tolerating oral diet, no nausea or vomiting, today's labs have been reviewed, electrolytes are within normal limits, her creatinine has s ignificantly improved, down to 1.1 from 1.45 couple days ago, BUN is 43, AST and ALT have also improved, down to 77 and 80 respectively, alk phos is at 40. Procalcitonin level was low at 0.7, tolerating activity fairly well. On 10/10/2020 patient seen in follow-up on medical floor. She is on 15 L per nonrebreather mask in addition to 15 L high flow, she is awake and alert, is short of breath with exertion, but she has been able to use the bedside commode, and tolerated fairly well, she is afebrile, denies any chest pain, no cough, lung sounds reveal scattered crackles, she is tolerating oral intake, no nausea or vomiting. No new chest x-ray, her latest d-dimer from yesterday was 0.60, L DH was 2198, and CRP was 17.8, patient remains on Decadron 6 mg daily, vitamins. This had no acute events overnight, no worsening, however no significant improvement in dyspnea and oxygenation On 10/13/2020 patient seen in follow-up on medical surgical floor. She remains on high flow oxygen per 15 L high flow nasal cannula and 100% nonrebreather mask, pulse ox is 90-95%, she doesn't With exertion, but overall seems to be improving, lung sounds reveal minimal rales at bilateral bases, without signs have been stable, she has been slow to improve, no acute events overnight, no chest discomfort. Yesterday chest x-ray shows slight worsening of diffuse infiltrates. The labs have been reviewed, her d-dimer was 1.21, and her liver enzymes have worsened with AST up to 194, and ALT of 328, alkaline phosphatase was up to 78, LDH was overall on the rise up to 2729, by CRP was improving. Clinically seems to be doing better. No worsening cough, patient would like to be able to walk around in the room, however still requiring high flow oxygen and she can only walk so far, other than that no specific complaints On 10/16/2020 patient seen in follow-up on medical floor, she still remains on Airvo, at 60 L and FiO2 of 90%, her pulse ox is 92-97%, apparently earlier this morning rapid response team was called and the patient was confused, she was hypotensive, with blood pressure of 60/40, and a liter bolus was given, currently her IV fluids are infusing at 100 ML per hour, her antihypertensives were readjusted, lisinopril has been placed on hold, metoprolol dose was adjusted, her blood pressure responded well to fluids, currently is at 92/59, she is afebrile, no complaints of chest discomfort, breathing is about the same, she does desat with any exertion, but no worsening. No new chest x-ray today, right now she is sitting up in bed, breathing fairly comfortable, no worsening cough, lung sounds reveal bilateral crackles, no worsening. Today's labs have been noted, no d-dimer from today, electric selective renal profile are unremarkable, her troponin is less than 0.012. Patient continues on dexamethasone 6 mg daily, she is on prophylactic dose of Lovenox, multivitamins. On 10/19/2020 patient seen in follow-up. She remains on high flow oxygen per Airvo currently 60 L and FiO2 of 90% in addition to partial rebreather mask, and patient removed partial rebreather mask for meals, appears to be fairly comfortable, denies any worsening dyspnea but still requiring high flow oxygen. She thinks that it might be due to nasal congestion from high flow oxygen, and she states when she cleans out her nose usually her O2 saturations improve. Patient's last chest x-ray from 10/17/2020 showed worsening bilateral diffuse lung infiltrates. Patient continues on Decadron 6 mg daily, she continues on Lovenox 50 mg twice a day her last TD was back on 10/17/2020 and was elevated at 5.17, patient remains on IV fluids at 100 ML per hour, she is tolerating oral intake, nausea vomiting or diarrhea. On 10/21/2000 patient seen in follow-up on medical surgical floor, she is awake and alert, oriented 3, she is in no acute distress, she remains on Airvo currently at 60 L and FiO2 of 85%, her pulse ox is 91%, she thinks that she is doing better, she reports no new complaints, she does get short of breath with exertion, but overall seems to be very comfortable, no new chest x-ray today, her last chest x-ray on 10/17/2020 showed worsening bilateral diffuse lung infiltrates, patient has been afebrile, hemodynamically she remains stable, she denies any chest discomfort, no worsening cough, only occasional cough, no nausea vomiting or diarrhea, her appetite is fair, no abdominal pain today's lab work has been reviewed, showed white with 7.5, hemoglobin is 11.8, d-dimer from yesterday showed a stable d-dimer of 4.74, electrolytes and renal profile were unremarkable, BUN was 15, creatinine 0.6, her inflammatory markers on yesterday's labs were improving. Objective - Vital Signs Vital signs: Vital Signs Temp 97.5 F L 10/21/20 14:00 Pulse 81 10/21/20 14:00 Resp 24 10/21/20 14:00 BP 104/63 10/21/20 14:00 Pulse Ox 90 L 10/21/20 14:00 Intake & Output 10/20/20 10/21/20 10/21/20 18:59 06:59 18:59 Other: Voiding Method Bedside Commode Bedside Commode Diaper Diaper # Voids 3 3 - Exam GENERAL EXAM: Alert, very pleasant, 50-year-old white female, on Airvo at 60 L and FiO2 of 85% with a pulse ox of 90% HEAD: Normocephalic/atraumatic. EYES: Normal reaction of pupils, equal size. Conjunctiva pink, sclera white. NOSE: Clear with pink turbinates. THROAT: No erythema or exudates. NECK: No masses, no JVD, no thyroid enlargement, no adenopathy. CHEST: No chest wall deformity. Symmetrical expansion. LUNGS: Equal air entry with bilateral crackles CVS: Regular rate and rhythm, normal S1 and S2, no gallops, no murmurs, no rubs ABDOMEN: Soft, nontender. No hepatosplenomegaly, normal bowel sounds, no guarding or rigidity. EXTREMITIES: No clubbing, no edema, no cyanosis, 2+ pulses and upper and lower extremities. MUSCULOSKELETAL: Muscle strength and tone normal. SPINE: No scoliosis or deformity SKIN: No rashes CENTRAL NERVOUS SYSTEM: Alert and oriented -3. No focal deficits, tone is normal in all 4 extremities. PSYCHIATRIC: Alert and oriented -3. Appropriate affect. Intact judgment and insight. - Labs CBC & Chem 7: 10/21/20 06:39 10/21/20 06:39 Labs: Abnormal Lab Results - Last 24 Hours (Table) 10/21/20 10/21/20 Range/Units 06:39 06:39 RBC 3.66 L (4.10-5.20) X 10*6/uL Hgb 11.8 L (12.0-15.0) g/dL Hct 35.6 L (37.2-46.3) % MCV 97.3 H (80.0-97.0) fL MCH 32.2 H (27.0-32.0) pg Immature Gran # 0.11 H (0.00-0.04) X 10*3/uL BUN/Creatinine Ratio 25.00 H (12.00-20.00) Ratio ALT 52 H (8-44) U/L Total Protein 5.7 L (6.2-8.2) g/dL Albumin 3.40 L (3.80-4.90) g/dL Albumin/Globulin Ratio 1.48 L (1.60-3.17) g/dL Assessment and Plan Plan: Assessment: #1. Acute hypoxic respiratory failure, related to acute COVID19 pneumonia, patient reports a 4 day history of worsening dyspnea, fever, chills, patient was already in moderate to severe hypoxic respiratory failure on presentation, and as such does not qualify for Remdesivir. Status post transfusion of Tocilizumab, convalescent plasma in addition to steroids #2. Dyspnea, cough, body aches, weakness related to the above #3. Acute kidney injury likely related to ATN, dehydration #4. Recent inflammatory markers related to acute COVID 19 pneumonia #5. Increased liver enzymes related to viral pneumonia #6. Hypertension #7. Hyperlipidemia #8. History of coronary artery disease with previous stenting #9. History of myocardial infarction #10. History of morbid obesity #11. History of hypotension, likely related to hypovolemia and dehydration, and antihypertensives, responded well to IV fluids. Plan: Obtain follow-up chest x-ray in the morning Today's labs have been noted Remains on Airvo, and FiO2 is slowly being brought down, currently at 85% from 90% on yesterday's exam Clinically patient offers no complaints Vital signs are stable Encourage deep breathing and coughing, and incentive spirometry use Titrate FiO2 to maintain O2 saturation at around 89%-90 percent Continue current dose Decadron We will obtain a follow-up d-dimer and adjust her anticoagulation up accordingly I performed a history & physical examination of the patient and discussed their management with my nurse practitioner, Abby Peters. I reviewed the nurse practitioner's note and agree with the documented findings and plan of care. Lung sounds are positive for diminished breath sounds. The findings and the impression was discussed with the patient. I attest to the documentation by the nurse practitioner. Time with Patient: Less than 30
--- NOTE | 2020-10-21 18:13 | P.PN ---
Subjective Progress Note Date: 10/21/20 I am assuming care of this patient as of 10/16/2020 at 8 AM. I was out of town and Dr. Craven was covering for me. H&P done by Dr. Tamayo on 10/07/2020 This is a 50-year-old female patient presented to the ER on 10/07/2020 with complaints of cough fever and body aches. Patient did test positive for COVID- 19 with symptoms starting about 8 days prior at that time patient was started on Decadron, vitamins, convulsant plasma and toclizumab. Patient does have a past medical history of coronary artery disease, hyperlipidemia, hypertension and [place]. Patient also has been cleared history of previous nicotine dependence. Patient admitted to medical floor pulmonary service is consulted On 10/16/2020 patient is alert and oriented resting in chair. Patient had episode of hypotension. At this time lisinopril DC'd parameter set to Metroprolol. Blood pressure has improved continue normal saline at 100. Patient currently on high flow oxygen with the flow rate of 60 and an FiO2 of 90%. Patient remains dyspneic. Remains on IV Decadron. Patient denies any chest pain. Patient denies nausea vomiting or diarrhea. Patient denies any urinary burning or frequency. On 10/17/2020 patient was seen and examined on the medical floor she is alert and oriented 3 in no apparent distress she is still maintained on high flow oxygen she is complaining of shortness of breath with any activity she is also complaining of cough and chest tightness otherwise she denies any complaints there is no fever or chills no headache or dizziness no chest pain no nausea or vomiting no abdominal pain no diarrhea no blood in the stools no burning with urination no frequency or urgency and no hematuria. On 10/18/2020 patient alert and oriented 3. Patient remains on airvo. Reports that she feels slightly improved. Patient denies any nausea vomiting or diarrhea. Patient denies any urinary burning or frequency. Patient remains on Decadron. Pulmonary services are following. On 10/19/2020 patient was seen and examined on the medical floor she is alert and oriented 3 in no distress she is feeling better she is still maintained on high flow oxygen via Airvo she is complaining of shortness of breath with any activity she is complaining of cough otherwise she denies any complaints there is no fever or chills no headache or dizziness no chest pain no nausea or vomiting no abdominal pain no diarrhea no blood in the stools no burning with urination no frequency or urgency and no hematuria On 10/20/2020 patient was seen and examined on the medical floor she is alert and oriented 3 in no distress she is still complaining of shortness of breath and cough otherwise she denies any complaints, vital exam reveals a temperature of 97.3 pulse 77 respiration 20 blood pressure 106/67 pulse ox 88% on airvo with FiO2 of 80% On 10/21/2020 patient was seen and examined on the medical floor she is alert and oriented 3 in no apparent distress she is still maintained on high flow oxygen she is complaining of shortness of breath with activity she is also complaining of cough and chest tightness otherwise she denies any complaints there is no fever or chills no headache or dizziness no chest pain no nausea or vomiting no abdominal pain no diarrhea no blood in the stools no burning with urination no frequency or urgency and no hematuria. Objective - Vital Signs Vital signs: Vital Signs Temp 97.5 F L 10/21/20 06:05 Pulse 74 10/21/20 07:40 Resp 20 10/21/20 07:40 BP 117/60 10/21/20 06:05 Pulse Ox 91 L 10/21/20 03:15 Intake & Output 10/20/20 10/21/20 10/21/20 18:59 06:59 18:59 Other: Voiding Method Bedside Commode Bedside Commode Diaper Diaper # Voids 3 3 - Exam In general patient is alert and oriented 3 in no apparent distress Head normocephalic and atraumatic Neck supple no JVD no goiter no lymphadenopathy Lungs diminished bilaterally no crackles no wheezing Heart regular rate and rhythm S1-S2, no rub or gallop Abdomen is soft nontender nondistended positive bowel sounds no hepatosplenomegaly Extremities no edema Neuro no gross focal neurological deficit - Labs CBC & Chem 7: 10/21/20 06:39 10/21/20 06:39 Assessment and Plan Assessment: 1. Acute hypoxic respiratory failure secondary to COVID-19 pneumonia. Patient is on Decadron, received Tocilizumab, and convalescent plasma. Pulmonary services are following. Remains on Airvo 2. Diarrhea secondary to COVID-19. This does seem improved 3. Acute renal failure probably prerenal azotemia and acute tubular necrosis secondary to sepsis. Improved 4. Hyponatremia on admission. Improved 5. Elevated liver enzymes secondary to sepsis and viral pneumonia. Trending down. Continue to monitor 6. History of essential hypertension 7. History of hyperlipidemia 8. History of coronary artery disease with previous stenting 9. Ex-smoker. 10. Hypotension. Lisinopril DC'd. Parameters set to Metroprolol. normal saline at 100 ordered DVT prophylaxis Lovenox. GI prophylaxis tonic Pulmonary services are following Remains on Decadron, vitamin C, zinc and vitamin D PT OT consulted Repeat labs ordered for a.m. Continue normal saline at 100 for hypotension
[2020-10-21] MEDS: ATORVASTATIN 40 MG TAB PO SCH (19:30)
[2020-10-21] MEDS: MELATONIN 3 MG TABLET PO SCH (19:30)
[2020-10-22] MEDS: ACETAMINOPHEN TAB 325 MG TAB PO PRN ×4 (02:08→20:08)
[2020-10-22] MEDS: ALBUTEROL HFA INHALER INHALATION SCH ×4 (08:09→20:50)
--- NOTE | 2020-10-22 08:16 | XR ---
EXAMINATION TYPE: XR chest 1V portable DATE OF EXAM: 10/22/2020 Comparison: 10/17/2020 Clinical History: 50-year-old female covid Findings: Heart is mildly enlarged. Diffuse bilateral groundglass airspace opacities similar to slightly increa sed. No pleural effusion. Impression: Mild cardiomegaly. Diffuse groundglass airspace disease similar to slightly worsened from 10/17/2020.
[2020-10-22] MEDS: METOPROLOL TARTRATE 25 MG TAB PO SCH (08:37)
[2020-10-22] MEDS: CHOLECALCIFEROL 25 MCG (1000 IU) TABLET PO SCH (08:37)
[2020-10-22] MEDS: ENOXAPARIN 60 MG/0.6 ML SYRINGE SQ SCH ×2 (08:37→20:08)
[2020-10-22] MEDS: ZINC SULFATE 220 MG CAP PO SCH (08:38)
[2020-10-22] MEDS: ASCORBIC ACID 500 MG TAB PO SCH ×2 (08:38→20:08)
[2020-10-22] MEDS: dexAMETHasone 2 MG TAB PO SCH (08:38)
[2020-10-22] MEDS: PANTOPRAZOLE 40 MG TABLET PO SCH (08:38)
[2020-10-22] MEDS: DOCUSATE 100 MG CAP PO SCH (08:38)
[2020-10-22] MEDS: ASPIRIN 325 MG TAB PO SCH (08:38)
[2020-10-22 11:45] LABS: LDH 483 U/L (120-246)
[2020-10-22 14:22] LABS: C Reactive Protein <0.4 mg/dL (0.0-0.8)
[2020-10-22] MEDS ORDERED: FUROSEMIDE 10 MG/ML 4 ML VIAL IV STA (17:41)
--- NOTE | 2020-10-22 17:41 | P.PN ---
Subjective Progress Note Date: 10/22/20 Principal diagnosis: Covid 19 pneumonia 50-year-old white female patient of Dr. Wise, who presented to the emergency department on 10/07/2020 for evaluation of dyspnea, cough, fever, body aches and chills. Patient reports symptom onset 4 days ago, she saw Dr. Wise and had an outpatient test for COVID 19, the results were unknown to her, however she was told in case of worsening symptoms to present to the emergency department. Past medical history is that of hypertension, hyperlipidemia, previous history of myocardial infarction, coronary artery disease with prior stenting. Chest x-ray shows ill-defined opacities in the lower lobes bilaterally. COVID 19 PCR was p ositive. Lab work has been reviewed, showing white blood cell, 4.6, hemoglobin 12.3, lymphocyte count was within normal limits at 1.1, d-dimer is 0.31, sodium is 133, the rest of electrolytes were within normal limits, B1 is 20 creatinine is 1.45 with GFR of 42, lactic acid 0.9, ferritin level is 3834, AST is 163, ALT is 117, LDH is 2034, CRP is 83.4, pro-calcitonin was 0.27. Low-grade fevers fo llowed in the emergency department. Patient was started on Decadron 6 mg daily, we'll start her on vitamins, one unit, less than plasma, we'll try to qualify her for tocilizumab 10/08/2020 patient seen in follow-up on medical floor, patient is status post Tocilizumab, infusion of 1 dose of convalescent plasma, she remains on Decadron, she remains on vitamins, IV hydration with 0.9 normal saline at 100 ML per hour, she is on subcu heparin 5000 units subcu 8 hours. Remains on 15 L high flow and nonrebreather mask, her pulse ox is 93-96%, overall reports feeling somewhat better. Follow-up chest x-ray today shows worsening diffuse lung infiltrates greatest in the lung bases, labs today show d-dimer 0.26, LDH and CRP are pending, pro-calcitonin level was low at 0.27. On 10/09/2020 patient seen in follow-up on the medical floor she is currently on 15 L high flow nasal cannula, in addition to pulmonary rehab mask, and a pulse ox is 86-98%, she is afebrile, hemodynamically patient is stable, she said no continues to bed, appears to be breathing comfortably, denies any chest discomfort, no fever or chills. Patient remains on systemic steroids, she is status post Tocilizumab and convalescent plasma. She remains on IV hydration, she states she is tolerating oral diet, no nausea or vomiting, today's labs have been reviewed, electrolytes are within normal limits, her creatinine has s ignificantly improved, down to 1.1 from 1.45 couple days ago, BUN is 43, AST and ALT have also improved, down to 77 and 80 respectively, alk phos is at 40. Procalcitonin level was low at 0.7, tolerating activity fairly well. On 10/10/2020 patient seen in follow-up on medical floor. She is on 15 L per nonrebreather mask in addition to 15 L high flow, she is awake and alert, is short of breath with exertion, but she has been able to use the bedside commode, and tolerated fairly well, she is afebrile, denies any chest pain, no cough, lung sounds reveal scattered crackles, she is tolerating oral intake, no nausea or vomiting. No new chest x-ray, her latest d-dimer from yesterday was 0.60, L DH was 2198, and CRP was 17.8, patient remains on Decadron 6 mg daily, vitamins. This had no acute events overnight, no worsening, however no significant improvement in dyspnea and oxygenation On 10/13/2020 patient seen in follow-up on medical surgical floor. She remains on high flow oxygen per 15 L high flow nasal cannula and 100% nonrebreather mask, pulse ox is 90-95%, she doesn't With exertion, but overall seems to be improving, lung sounds reveal minimal rales at bilateral bases, without signs have been stable, she has been slow to improve, no acute events overnight, no chest discomfort. Yesterday chest x-ray shows slight worsening of diffuse infiltrates. The labs have been reviewed, her d-dimer was 1.21, and her liver enzymes have worsened with AST up to 194, and ALT of 328, alkaline phosphatase was up to 78, LDH was overall on the rise up to 2729, by CRP was improving. Clinically seems to be doing better. No worsening cough, patient would like to be able to walk around in the room, however still requiring high flow oxygen and she can only walk so far, other than that no specific complaints On 10/16/2020 patient seen in follow-up on medical floor, she still remains on Airvo, at 60 L and FiO2 of 90%, her pulse ox is 92-97%, apparently earlier this morning rapid response team was called and the patient was confused, she was hypotensive, with blood pressure of 60/40, and a liter bolus was given, currently her IV fluids are infusing at 100 ML per hour, her antihypertensives were readjusted, lisinopril has been placed on hold, metoprolol dose was adjusted, her blood pressure responded well to fluids, currently is at 92/59, she is afebrile, no complaints of chest discomfort, breathing is about the same, she does desat with any exertion, but no worsening. No new chest x-ray today, right now she is sitting up in bed, breathing fairly comfortable, no worsening cough, lung sounds reveal bilateral crackles, no worsening. Today's labs have been noted, no d-dimer from today, electric selective renal profile are unremarkable, her troponin is less than 0.012. Patient continues on dexamethasone 6 mg daily, she is on prophylactic dose of Lovenox, multivitamins. On 10/19/2020 patient seen in follow-up. She remains on high flow oxygen per Airvo currently 60 L and FiO2 of 90% in addition to partial rebreather mask, and patient removed partial rebreather mask for meals, appears to be fairly comfortable, denies any worsening dyspnea but still requiring high flow oxygen. She thinks that it might be due to nasal congestion from high flow oxygen, and she states when she cleans out her nose usually her O2 saturations improve. Patient's last chest x-ray from 10/17/2020 showed worsening bilateral diffuse lung infiltrates. Patient continues on Decadron 6 mg daily, she continues on Lovenox 50 mg twice a day her last TD was back on 10/17/2020 and was elevated at 5.17, patient remains on IV fluids at 100 ML per hour, she is tolerating oral intake, nausea vomiting or diarrhea. On 10/21/2000 patient seen in follow-up on medical surgical floor, she is awake and alert, oriented 3, she is in no acute distress, she remains on Airvo currently at 60 L and FiO2 of 85%, her pulse ox is 91%, she thinks that she is doing better, she reports no new complaints, she does get short of breath with exertion, but overall seems to be very comfortable, no new chest x-ray today, her last chest x-ray on 10/17/2020 showed worsening bilateral diffuse lung infiltrates, patient has been afebrile, hemodynamically she remains stable, she denies any chest discomfort, no worsening cough, only occasional cough, no nausea vomiting or diarrhea, her appetite is fair, no abdominal pain today's lab work has been reviewed, showed white with 7.5, hemoglobin is 11.8, d-dimer from yesterday showed a stable d-dimer of 4.74, electrolytes and renal profile were unremarkable, BUN was 15, creatinine 0.6, her inflammatory markers on yesterday's labs were improving. On 10/22/2020 patient seen in follow-up on medical surgical floor. She is currently on Airvo at 60 L and FiO2 of 85%, nonrebreather mask is off, her pulse ox is between 93-96%, she is breathing comfortably, no worsening dyspnea, she is working on dialysis and achieving 800-1000, minimal cough, no fever or chills, today's chest x-ray shows mild cardiomegaly, with diffuse groundglass airspace disease similar to slightly worsened from 10/17/2020. Today's labs have been reviewed, her inflammatory markers are trending down, her LDH is down to 483, CRP is currently of less than 0.4, d-dimer is 1.9, improving. No nausea vomiting or diarrhea, she is tolerating oral intake, her pro-calcitonin level is negative at 0.03. Renal function is normal on yesterday's labs, electrolytes are within normal limits. Objective - Vital Signs Vital signs: Vital Signs Temp 98.7 F 10/22/20 14:00 Pulse 95 10/22/20 14:00 Resp 23 10/22/20 14:00 BP 135/87 10/22/20 14:00 Pulse Ox 93 L 10/22/20 15:49 Intake & Output 10/21/20 10/22/20 10/22/20 18:59 06:59 18:59 Other: Voiding Method Bedside Commode Bedside Commode Bedside Commode Diaper Diaper Diaper # Voids 3 # Bowel Movements 1 - Exam GENERAL EXAM: Alert, very pleasant, 50-year-old white female, on Airvo at 60 L and FiO2 of 85% with a pulse ox of 90% HEAD: Normocephalic/atraumatic. EYES: Normal reaction of pupils, equal size. Conjunctiva pink, sclera white. NOSE: Clear with pink turbinates. THROAT: No erythema or exudates. NECK: No masses, no JVD, no thyroid enlargement, no adenopathy. CHEST: No chest wall deformity. Symmetrical expansion. LUNGS: Equal air entry with bilateral crackles CVS: Regular rate and rhythm, normal S1 and S2, no gallops, no murmurs, no rubs ABDOMEN: Soft, nontender. No hepatosplenomegaly, normal bowel sounds, no guarding or rigidity. EXTREMITIES: No clubbing, no edema, no cyanosis, 2+ pulses and upper and lower extremities. MUSCULOSKELETAL: Muscle strength and tone normal. SPINE: No scoliosis or deformity SKIN: No rashes CENTRAL NERVOUS SYSTEM: Alert and oriented -3. No focal deficits, tone is normal in all 4 extremities. PSYCHIATRIC: Alert and oriented -3. Appropriate affect. Intact judgment and insight. - Labs CBC & Chem 7: 10/21/20 06:39 10/21/20 06:39 Labs: Abnormal Lab Results - Last 24 Hours (Table) 10/22/20 10/22/20 Range/Units 06:38 06:38 D-Dimer 1.99 H (<0.60) mg/L FEU Lactate Dehydrogenase 483 H (120-246) U/L Assessment and Plan Plan: Assessment: #1. Acute hypoxic respiratory failure, related to acute COVID19 pneumonia, patient reports a 4 day history of worsening dyspnea, fever, chills, patient was already in moderate to severe hypoxic respiratory failure on presentation, and as such does not qualify for Remdesivir. Status post transfusion of Tocilizumab, convalescent plasma in addition to steroids #2. Dyspnea, cough, body aches, weakness related to the above #3. Acute kidney injury likely related to ATN, dehydration #4. Recent inflammatory markers related to acute COVID 19 pneumonia #5. Increased liver enzymes related to viral pneumonia #6. Hypertension #7. Hyperlipidemia #8. History of coronary artery disease with previous stenting #9. History of myocardial infarction #10. History of morbid obesity #11. History of hypotension, likely related to hypovolemia and dehydration, and antihypertensives, responded well to IV fluids. Plan: Today's chest x-ray has been reviewed showing worsening infiltrates We'll give 1 dose of IV Lasix Hep-Lock IV fluids Continue weaning FiO2 Inflammatory markers are improving Continue Decadron Decrease the Lovenox to prophylactic dose Slow to improve, but no worsening so far Continue to follow I performed a history & physical examination of the patient and discussed their management with my nurse practitioner, Abby Peters. I reviewed the nurse practitioner's note and agree with the documented findings and plan of care. Lung sounds are positive for diminished breath sounds. The findings and the impression was discussed with the patient. I attest to the documentation by the nurse practitioner. Time with Patient: Less than 30
--- NOTE | 2020-10-22 17:57 | P.PN ---
Subjective Progress Note Date: 10/22/20 I am assuming care of this patient as of 10/16/2020 at 8 AM. I was out of town and Dr. Craven was covering for me. H&P done by Dr. Tamayo on 10/07/2020 This is a 50-year-old female patient presented to the ER on 10/07/2020 with complaints of cough fever and body aches. Patient did test positive for COVID- 19 with symptoms starting about 8 days prior at that time patient was started on Decadron, vitamins, convulsant plasma and toclizumab. Patient does have a past medical history of coronary artery disease, hyperlipidemia, hypertension and MO. Patient also has been cleared history of previous nicotine dependence. Patient admitted to medical floor pulmonary service is consulted On 10/16/2020 patient is alert and oriented resting in chair. Patient had episode of hypotension. At this time lisinopril DC'd parameter set to Metroprolol. Blood pressure has improved continue normal saline at 100. Patient currently on high flow oxygen with the flow rate of 60 and an FiO2 of 90%. Patient remains dyspneic. Remains on IV Decadron. Patient denies any chest pain. Patient denies nausea vomiting or diarrhea. Patient denies any urinary burning or frequency. On 10/17/2020 patient was seen and examined on the medical floor she is alert and oriented 3 in no apparent distress she is still maintained on high flow oxygen she is complaining of shortness of breath with any activity she is also complaining of cough and chest tightness otherwise she denies any complaints there is no fever or chills no headache or dizziness no chest pain no nausea or vomiting no abdominal pain no diarrhea no blood in the stools no burning with urination no frequency or urgency and no hematuria. On 10/18/2020 patient alert and oriented 3. Patient remains on airvo. Reports that she feels slightly improved. Patient denies any nausea vomiting or diarrhea. Patient denies any urinary burning or frequency. Patient remains on Decadron. Pulmonary services are following. On 10/19/2020 patient was seen and examined on the medical floor she is alert and oriented 3 in no distress she is feeling better she is still maintained on high flow oxygen via Airvo she is complaining of shortness of breath with any activity she is complaining of cough otherwise she denies any complaints there is no fever or chills no headache or dizziness no chest pain no nausea or vomiting no abdominal pain no diarrhea no blood in the stools no burning with urination no frequency or urgency and no hematuria On 10/20/2020 patient was seen and examined on the medical floor she is alert and oriented 3 in no distress she is still complaining of shortness of breath and cough otherwise she denies any complaints, vital exam reveals a temperature of 97.3 pulse 77 respiration 20 blood pressure 106/67 pulse ox 88% on airvo with FiO2 of 80% On 10/21/2020 patient was seen and examined on the medical floor she is alert and oriented 3 in no apparent distress she is still maintained on high flow oxygen she is complaining of shortness of breath with activity she is also complaining of cough and chest tightness otherwise she denies any complaints there is no fever or chills no headache or dizziness no chest pain no nausea or vomiting no abdominal pain no diarrhea no blood in the stools no burning with urination no frequency or urgency and no hematuria. On 10/22/2020 patient was seen and examined on the medical floor she is alert and oriented 3 in no apparent distress he is complaining of shortness of breath with any activity and occasional cough, she is maintained on Airvo with FiO2 of 80% pulse ox is 93% temperature 98.7 pulse 95 respiration 23 blood pressure 135/87, otherwise there is no complaints there is no fever or chills no headache or dizziness no chest pain there is no nausea or vomiting no abdominal pain no diarrhea no blood in the stools no burning with urination no frequency or urgency and no hematuria Objective - Vital Signs Vital signs: Vital Signs Temp 98.0 F 10/22/20 17:46 Pulse 102 H 10/22/20 17:46 Resp 22 10/22/20 17:46 BP 121/79 10/22/20 17:46 Pulse Ox 93 L 10/22/20 17:46 Intake & Output 10/21/20 10/22/20 10/22/20 18:59 06:59 18:59 Other: Voiding Method Bedside Commode Bedside Commode Bedside Commode Diaper Diaper Diaper # Voids 3 # Bowel Movements 1 - Exam In general patient is alert and oriented 3 in no apparent distress Head normocephalic and atraumatic Neck supple no JVD no goiter no lymphadenopathy Lungs diminished bilaterally no crackles no wheezing Heart regular rate and rhythm S1-S2, no rub or gallop Abdomen is soft nontender nondistended positive bowel sounds no hepatosplenomeg dorie Extremities no edema Neuro no gross focal neurological deficit - Labs CBC & Chem 7: 10/21/20 06:39 10/21/20 06:39 Labs: Abnormal Lab Results - Last 24 Hours (Table) 10/22/20 10/22/20 Range/Units 06:38 06:38 D-Dimer 1.99 H (<0.60) mg/L FEU Lactate Dehydrogenase 483 H (120-246) U/L Assessment and Plan Assessment: 1. Acute hypoxic respiratory failure secondary to COVID-19 pneumonia. Patient is on Decadron, received Tocilizumab, and convalescent plasma. Pulmonary services are following. Remains on Airvo 2. Diarrhea secondary to COVID-19. This does seem improved 3. Acute renal failure probably prerenal azotemia and acute tubular necrosis secondary to sepsis. Improved 4. Hyponatremia on admission. Improved 5. Elevated liver enzymes secondary to sepsis and viral pneumonia. Trending down. Continue to monitor 6. History of essential hypertension 7. History of hyperlipidemia 8. History of coronary artery disease with previous stenting 9. Ex-smoker. 10. Hypotension. Lisinopril DC'd. Parameters set to Metroprolol. normal saline at 100 ordered DVT prophylaxis Lovenox. GI prophylaxis tonic Pulmonary services are following Remains on Decadron, vitamin C, zinc and vitamin D PT OT consulted Repeat labs ordered for a.m. Continue normal saline at 100 for hypotension
[2020-10-22] MEDS: ATORVASTATIN 40 MG TAB PO SCH (20:08)
[2020-10-22] MEDS: MELATONIN 3 MG TABLET PO SCH (20:08)
[2020-10-23] MEDS: ACETAMINOPHEN TAB 325 MG TAB PO PRN ×3 (02:23→22:13)
[2020-10-23] MEDS: ENOXAPARIN 60 MG/0.6 ML SYRINGE SQ SCH (07:52)
[2020-10-23] MEDS: ASCORBIC ACID 500 MG TAB PO SCH ×2 (07:52→22:13)
[2020-10-23] MEDS: DOCUSATE 100 MG CAP PO SCH (07:52)
[2020-10-23] MEDS: dexAMETHasone 2 MG TAB PO SCH (07:52)
[2020-10-23] MEDS: CHOLECALCIFEROL 25 MCG (1000 IU) TABLET PO SCH (07:52)
[2020-10-23] MEDS: ZINC SULFATE 220 MG CAP PO SCH (07:52)
[2020-10-23] MEDS: ASPIRIN 325 MG TAB PO SCH (07:52)
[2020-10-23] MEDS: PANTOPRAZOLE 40 MG TABLET PO SCH (07:52)
[2020-10-23] MEDS: METOPROLOL TARTRATE 25 MG TAB PO SCH (07:52)
[2020-10-23] MEDS: ALBUTEROL HFA INHALER INHALATION SCH ×4 (08:20→19:26)
--- NOTE | 2020-10-23 16:54 | P.PN ---
Subjective Progress Note Date: 10/23/20 Principal diagnosis: Covid 19 pneumonia 50-year-old white female patient of Dr. Wise, who presented to the emergency department on 10/07/2020 for evaluation of dyspnea, cough, fever, body aches and chills. Patient reports symptom onset 4 days ago, she saw Dr. Wise and had an outpatient test for COVID 19, the results were unknown to her, however she was told in case of worsening symptoms to present to the emergency department. Past medical history is that of hypertension, hyperlipidemia, previous history of myocardial infarction, coronary artery disease with prior stenting. Chest x-ray shows ill-defined opacities in the lower lobes bilaterally. COVID 19 PCR was p ositive. Lab work has been reviewed, showing white blood cell, 4.6, hemoglobin 12.3, lymphocyte count was within normal limits at 1.1, d-dimer is 0.31, sodium is 133, the rest of electrolytes were within normal limits, B1 is 20 creatinine is 1.45 with GFR of 42, lactic acid 0.9, ferritin level is 3834, AST is 163, ALT is 117, LDH is 2034, CRP is 83.4, pro-calcitonin was 0.27. Low-grade fevers fo llowed in the emergency department. Patient was started on Decadron 6 mg daily, we'll start her on vitamins, one unit, less than plasma, we'll try to qualify her for tocilizumab 10/08/2020 patient seen in follow-up on medical floor, patient is status post Tocilizumab, infusion of 1 dose of convalescent plasma, she remains on Decadron, she remains on vitamins, IV hydration with 0.9 normal saline at 100 ML per hour, she is on subcu heparin 5000 units subcu 8 hours. Remains on 15 L high flow and nonrebreather mask, her pulse ox is 93-96%, overall reports feeling somewhat better. Follow-up chest x-ray today shows worsening diffuse lung infiltrates greatest in the lung bases, labs today show d-dimer 0.26, LDH and CRP are pending, pro-calcitonin level was low at 0.27. On 10/09/2020 patient seen in follow-up on the medical floor she is currently on 15 L high flow nasal cannula, in addition to pulmonary rehab mask, and a pulse ox is 86-98%, she is afebrile, hemodynamically patient is stable, she said no continues to bed, appears to be breathing comfortably, denies any chest discomfort, no fever or chills. Patient remains on systemic steroids, she is status post Tocilizumab and convalescent plasma. She remains on IV hydration, she states she is tolerating oral diet, no nausea or vomiting, today's labs have been reviewed, electrolytes are within normal limits, her creatinine has s ignificantly improved, down to 1.1 from 1.45 couple days ago, BUN is 43, AST and ALT have also improved, down to 77 and 80 respectively, alk phos is at 40. Procalcitonin level was low at 0.7, tolerating activity fairly well. On 10/10/2020 patient seen in follow-up on medical floor. She is on 15 L per nonrebreather mask in addition to 15 L high flow, she is awake and alert, is short of breath with exertion, but she has been able to use the bedside commode, and tolerated fairly well, she is afebrile, denies any chest pain, no cough, lung sounds reveal scattered crackles, she is tolerating oral intake, no nausea or vomiting. No new chest x-ray, her latest d-dimer from yesterday was 0.60, L DH was 2198, and CRP was 17.8, patient remains on Decadron 6 mg daily, vitamins. This had no acute events overnight, no worsening, however no significant improvement in dyspnea and oxygenation On 10/13/2020 patient seen in follow-up on medical surgical floor. She remains on high flow oxygen per 15 L high flow nasal cannula and 100% nonrebreather mask, pulse ox is 90-95%, she doesn't With exertion, but overall seems to be improving, lung sounds reveal minimal rales at bilateral bases, without signs have been stable, she has been slow to improve, no acute events overnight, no chest discomfort. Yesterday chest x-ray shows slight worsening of diffuse infiltrates. The labs have been reviewed, her d-dimer was 1.21, and her liver enzymes have worsened with AST up to 194, and ALT of 328, alkaline phosphatase was up to 78, LDH was overall on the rise up to 2729, by CRP was improving. Clinically seems to be doing better. No worsening cough, patient would like to be able to walk around in the room, however still requiring high flow oxygen and she can only walk so far, other than that no specific complaints On 10/16/2020 patient seen in follow-up on medical floor, she still remains on Airvo, at 60 L and FiO2 of 90%, her pulse ox is 92-97%, apparently earlier this morning rapid response team was called and the patient was confused, she was hypotensive, with blood pressure of 60/40, and a liter bolus was given, currently her IV fluids are infusing at 100 ML per hour, her antihypertensives were readjusted, lisinopril has been placed on hold, metoprolol dose was adjusted, her blood pressure responded well to fluids, currently is at 92/59, she is afebrile, no complaints of chest discomfort, breathing is about the same, she does desat with any exertion, but no worsening. No new chest x-ray today, right now she is sitting up in bed, breathing fairly comfortable, no worsening cough, lung sounds reveal bilateral crackles, no worsening. Today's labs have been noted, no d-dimer from today, electric selective renal profile are unremarkable, her troponin is less than 0.012. Patient continues on dexamethasone 6 mg daily, she is on prophylactic dose of Lovenox, multivitamins. On 10/19/2020 patient seen in follow-up. She remains on high flow oxygen per Airvo currently 60 L and FiO2 of 90% in addition to partial rebreather mask, and patient removed partial rebreather mask for meals, appears to be fairly comfortable, denies any worsening dyspnea but still requiring high flow oxygen. She thinks that it might be due to nasal congestion from high flow oxygen, and she states when she cleans out her nose usually her O2 saturations improve. Patient's last chest x-ray from 10/17/2020 showed worsening bilateral diffuse lung infiltrates. Patient continues on Decadron 6 mg daily, she continues on Lovenox 50 mg twice a day her last TD was back on 10/17/2020 and was elevated at 5.17, patient remains on IV fluids at 100 ML per hour, she is tolerating oral intake, nausea vomiting or diarrhea. On 10/21/2000 patient seen in follow-up on medical surgical floor, she is awake and alert, oriented 3, she is in no acute distress, she remains on Airvo currently at 60 L and FiO2 of 85%, her pulse ox is 91%, she thinks that she is doing better, she reports no new complaints, she does get short of breath with exertion, but overall seems to be very comfortable, no new chest x-ray today, her last chest x-ray on 10/17/2020 showed worsening bilateral diffuse lung infiltrates, patient has been afebrile, hemodynamically she remains stable, she denies any chest discomfort, no worsening cough, only occasional cough, no nausea vomiting or diarrhea, her appetite is fair, no abdominal pain today's lab work has been reviewed, showed white with 7.5, hemoglobin is 11.8, d-dimer from yesterday showed a stable d-dimer of 4.74, electrolytes and renal profile were unremarkable, BUN was 15, creatinine 0.6, her inflammatory markers on yesterday's labs were improving. On 10/22/2020 patient seen in follow-up on medical surgical floor. She is currently on Airvo at 60 L and FiO2 of 85%, nonrebreather mask is off, her pulse ox is between 93-96%, she is breathing comfortably, no worsening dyspnea, she is working on dialysis and achieving 800-1000, minimal cough, no fever or chills, today's chest x-ray shows mild cardiomegaly, with diffuse groundglass airspace disease similar to slightly worsened from 10/17/2020. Today's labs have been reviewed, her inflammatory markers are trending down, her LDH is down to 483, CRP is currently of less than 0.4, d-dimer is 1.9, improving. No nausea vomiting or diarrhea, she is tolerating oral intake, her pro-calcitonin level is negative at 0.03. Renal function is normal on yesterday's labs, electrolytes are within normal limits. On 10/23/2020 patient seen in follow-up on medical surgical floor, we have not been able to make much progress in terms of weaning FiO2 with oxygen flow, the patient requires Airvo at 60 L and FiO2 of 90%, and her pulse ox still remains marginally 89-92%, she denies any worsening dyspnea, she appears to be breathing comfortably, she is working on incentive spirometer, and she is doing an exemplary job on it. She denies any cough, denies any hemoptysis, denies any chest pain, she afebrile, hemodynamically she stable, no fever or chills, no headaches no dizziness, no body aches, no chest pain, no vomiting no abdominal pain or diarrhea. No new labs today. Yesterday's chest x-ray shows mild card iomegaly, diffuse groundglass airspace disease that slightly worsened, and patient has been on oral Decadron 6 mg daily, she is on Polyvitamin's, we gave her a dose of Lasix yesterday, and she remains on Lovenox 50 mg subcu twice daily. Yesterday's d-dimer was at 1.99 and we can drop down her dose of Lovenox to prophylactic dose Objective - Vital Signs Vital signs: Vital Signs Temp 97.6 F 10/23/20 09:44 Pulse 69 10/23/20 09:44 Resp 20 10/23/20 09:44 BP 110/67 10/23/20 09:44 Pulse Ox 92 L 10/23/20 15:42 Intake & Output 10/22/20 10/23/20 10/23/20 18:59 06:59 18:59 Other: Voiding Method Bedside Commode Bedside Commode Bedside Commode Diaper Diaper # Voids 1 - Exam GENERAL EXAM: Alert, very pleasant, 50-year-old white female, on Airvo at 60 L and FiO2 of 90% with a pulse ox of 90% HEAD: Normocephalic/atraumatic. EYES: Normal reaction of pupils, equal size. Conjunctiva pink, sclera white. NOSE: Clear with pink turbinates. THROAT: No erythema or exudates. NECK: No masses, no JVD, no thyroid enlargement, no adenopathy. CHEST: No chest wall deformity. Symmetrical expansion. LUNGS: Equal air entry with bilateral crackles CVS: Regular rate and rhythm, normal S1 and S2, no gallops, no murmurs, no rubs ABDOMEN: Soft, nontender. No hepatosplenomegaly, normal bowel sounds, no guarding or rigidity. EXTREMITIES: No clubbing, no edema, no cyanosis, 2+ pulses and upper and lower extremities. MUSCULOSKELETAL: Muscle strength and tone normal. SPINE: No scoliosis or deformity SKIN: No rashes CENTRAL NERVOUS SYSTEM: Alert and oriented -3. No focal deficits, tone is normal in all 4 extremities. PSYCHIATRIC: Alert and oriented -3. Appropriate affect. Intact judgment and insight. - Labs CBC & Chem 7: 10/21/20 06:39 10/21/20 06:39 Assessment and Plan Plan: Assessment: #1. Acute hypoxic respiratory failure, related to acute COVID19 pneumonia, brando ent reports a 4 day history of worsening dyspnea, fever, chills, patient was already in moderate to severe hypoxic respiratory failure on presentation, and as such does not qualify for Remdesivir. Status post transfusion of Tocilizumab, convalescent plasma in addition to steroids #2. Dyspnea, cough, body aches, weakness related to the above #3. Acute kidney injury likely related to ATN, dehydration #4. Recent inflammatory markers related to acute COVID 19 pneumonia #5. Increased liver enzymes related to viral pneumonia #6. Hypertension #7. Hyperlipidemia #8. History of coronary artery disease with previous stenting #9. History of myocardial infarction #10. History of morbid obesity #11. History of hypotension, likely related to hypovolemia and dehydration, and antihypertensives, responded well to IV fluids. Plan: Remains on Airvo at 60 L and 90%, and she has been very slow to be weaned off But denies any worsening dyspnea We'll increase her Decadron to 6 mg twice daily We'll obtain basic labs follow-up d-dimer tomorrow, pro-calcitonin, proBNP, inflammatory markers Patient has been slow to improve, however has not worsened so far and she has no increased work of breathing, and she is maintaining O2 saturations at 89-90% on Airvo Continue to follow I performed a history & physical examination of the patient and discussed their management with my nurse practitioner, Abby Peters. I reviewed the nurse practitioner's note and agree with the documented findings and plan of care. Lung sounds are positive for diminished breath sounds. The findings and the impression was discussed with the patient. I attest to the documentation by the nurse practitioner. Time with Patient: Less than 30
--- NOTE | 2020-10-23 18:49 | P.PN ---
Subjective Progress Note Date: 10/23/20 I am assuming care of this patient as of 10/16/2020 at 8 AM. I was out of town and Dr. Craven was covering for me. H&P done by Dr. Tamayo on 10/07/2020 This is a 50-year-old female patient presented to the ER on 10/07/2020 with complaints of cough fever and body aches. Patient did test positive for COVID- 19 with symptoms starting about 8 days prior at that time patient was started on Decadron, vitamins, convulsant plasma and toclizumab. Patient does have a past medical history of coronary artery disease, hyperlipidemia, hypertension and NC. Patient also has been cleared history of previous nicotine dependence. Patient admitted to medical floor pulmonary service is consulted On 10/16/2020 patient is alert and oriented resting in chair. Patient had episode of hypotension. At this time lisinopril DC'd parameter set to Metroprolol. Blood pressure has improved continue normal saline at 100. Patient currently on high flow oxygen with the flow rate of 60 and an FiO2 of 90%. Patient remains dyspneic. Remains on IV Decadron. Patient denies any chest pain. Patient denies nausea vomiting or diarrhea. Patient denies any urinary burning or frequency. On 10/17/2020 patient was seen and examined on the medical floor she is alert and oriented 3 in no apparent distress she is still maintained on high flow oxygen she is complaining of shortness of breath with any activity she is also complaining of cough and chest tightness otherwise she denies any complaints there is no fever or chills no headache or dizziness no chest pain no nausea or vomiting no abdominal pain no diarrhea no blood in the stools no burning with urination no frequency or urgency and no hematuria. On 10/18/2020 patient alert and oriented 3. Patient remains on airvo. Reports that she feels slightly improved. Patient denies any nausea vomiting or diarrhea. Patient denies any urinary burning or frequency. Patient remains on Decadron. Pulmonary services are following. On 10/19/2020 patient was seen and examined on the medical floor she is alert and oriented 3 in no distress she is feeling better she is still maintained on high flow oxygen via Airvo she is complaining of shortness of breath with any activity she is complaining of cough otherwise she denies any complaints there is no fever or chills no headache or dizziness no chest pain no nausea or vomiting no abdominal pain no diarrhea no blood in the stools no burning with urination no frequency or urgency and no hematuria On 10/20/2020 patient was seen and examined on the medical floor she is alert and oriented 3 in no distress she is still complaining of shortness of breath and cough otherwise she denies any complaints, vital exam reveals a temperature of 97.3 pulse 77 respiration 20 blood pressure 106/67 pulse ox 88% on airvo with FiO2 of 80% On 10/21/2020 patient was seen and examined on the medical floor she is alert and oriented 3 in no apparent distress she is still maintained on high flow oxygen she is complaining of shortness of breath with activity she is also complaining of cough and chest tightness otherwise she denies any complaints there is no fever or chills no headache or dizziness no chest pain no nausea or vomiting no abdominal pain no diarrhea no blood in the stools no burning with urination no frequency or urgency and no hematuria. On 10/22/2020 patient was seen and examined on the medical floor she is alert and oriented 3 in no apparent distress he is complaining of shortness of breath with any activity and occasional cough, she is maintained on Airvo with FiO2 of 80% pulse ox is 93% temperature 98.7 pulse 95 respiration 23 blood pressure 135/87, otherwise there is no complaints there is no fever or chills no headache or dizziness no chest pain there is no nausea or vomiting no abdominal pain no diarrhea no blood in the stools no burning with urination no frequency or urgency and no hematuria On 10/23/2020 patient was seen and examined on the medical floor she is alert and oriented 3 in no apparent distress, she states that she is feeling better her breathing is feeling easier to her she is still maintained on high flow oxygen she is complaining of shortness of breath with activity she is also complaining of cough and chest tightness otherwise she denies any complaints there is no fever or chills no headache or dizziness no chest pain no nausea or vomiting no abdominal pain no diarrhea no blood in the stools no burning with urination no frequency or urgency and no hematuria. Objective - Vital Signs Vital signs: Vital Signs Temp 97.6 F 10/23/20 09:44 Pulse 69 10/23/20 09:44 Resp 20 10/23/20 09:44 BP 110/67 10/23/20 09:44 Pulse Ox 92 L 10/23/20 15:42 Intake & Output 10/22/20 10/23/20 10/23/20 18:59 06:59 18:59 Other: Voiding Method Bedside Commode Bedside Commode Bedside Commode Diaper Diaper # Voids 1 - Exam In general patient is alert and oriented 3 in no apparent distress Head normocephalic and atraumatic Neck supple no JVD no goiter no lymphadenopathy Lungs diminished bilaterally no crackles no wheezing Heart regular rate and rhythm S1-S2, no rub or gallop Abdomen is soft nontender nondistended positive bowel sounds no hepatosplenomegaly Extremities no edema Neuro no gross focal neurological deficit - Labs CBC & Chem 7: 10/21/20 06:39 10/21/20 06:39 Assessment and Plan Assessment: 1. Acute hypoxic respiratory failure secondary to COVID-19 pneumonia. Patient is on Decadron, received Tocilizumab, and convalescent plasma. Pulmonary services are following. Remains on Airvo 2. Diarrhea secondary to COVID-19. This does seem improved 3. Acute renal failure probably prerenal azotemia and acute tubular necrosis secondary to sepsis. Improved 4. Hyponatremia on admission. Improved 5. Elevated liver enzymes secondary to sepsis and viral pneumonia. Trending down. Continue to monitor 6. History of essential hypertension 7. History of hyperlipidemia 8. History of coronary artery disease with previous stenting 9. Ex-smoker. 10. Hypotension. Lisinopril DC'd. Parameters set to Metroprolol. normal saline at 100 ordered DVT prophylaxis Lovenox. GI prophylaxis tonic Pulmonary services are following Remains on Decadron, vitamin C, zinc and vitamin D PT OT consulted Repeat labs ordered for a.m. Continue normal saline at 100 for hypotension
[2020-10-23] MEDS: ATORVASTATIN 40 MG TAB PO SCH (22:14)
[2020-10-23] MEDS: DEXAMETHASONE SOD PHOSPHATE 10 MG/ML 1 ML VIAL IV SCH (22:14)
[2020-10-23] MEDS: MELATONIN 3 MG TABLET PO SCH (22:14)
--- NOTE | 2020-10-24 06:53 | XR ---
EXAMINATION TYPE: XR chest 1V portable DATE OF EXAM: 10/24/2020 CLINICAL HISTORY: Difficulty breathing and covid progress study. TECHNIQUE: Single AP portable upright view of the chest is obtained. COMPARISON: Chest x-ray from 2 days earlier and older studies FINDINGS: Stable mild cardiomegaly. Multifocal and confluent reticular opacities bilaterally redemon strated greatest in the lower lungs. Osseous structures intact. IMPRESSION: Mild cardiomegaly with multifocal and confluent reticular opacities greatest in the lower lungs redemonstrated. Findings consistent with covid-19 infection, no significant change from most r ecent x-ray.
[2020-10-24] MEDS: METOPROLOL TARTRATE 25 MG TAB PO SCH (08:58)
[2020-10-24] MEDS: ASCORBIC ACID 500 MG TAB PO SCH ×2 (08:58→19:57)
[2020-10-24] MEDS: DOCUSATE 100 MG CAP PO SCH (08:58)
[2020-10-24] MEDS: ASPIRIN 325 MG TAB PO SCH (08:58)
[2020-10-24] MEDS: ZINC SULFATE 220 MG CAP PO SCH (08:59)
[2020-10-24] MEDS: ENOXAPARIN 40 MG/0.4 ML SYRINGE SQ SCH (08:59)
[2020-10-24] MEDS: PANTOPRAZOLE 40 MG TABLET PO SCH (08:59)
[2020-10-24] MEDS: CHOLECALCIFEROL 25 MCG (1000 IU) TABLET PO SCH (08:59)
[2020-10-24] MEDS: DEXAMETHASONE SOD PHOSPHATE 10 MG/ML 1 ML VIAL IV SCH ×2 (08:59→19:57)
[2020-10-24] MEDS: ACETAMINOPHEN TAB 325 MG TAB PO PRN ×2 (09:03→17:23)
[2020-10-24] MEDS: ALBUTEROL HFA INHALER INHALATION SCH ×4 (09:48→19:47)
[2020-10-24 11:05] LABS: Basophils # (A) 0.01 X 10*3/uL (0.00-0.10); Basophils % (A) 0.1 %; Eosinophils # (A) 0.03 X 10*3/uL (0.04-0.35); Eosinophils % (A) 0.3 %; HCT 38.5 % (37.2-46.3); HGB 12.5 g/dL (12.0-15.0); Lymphocytes # (A) 1.46 X 10*3/uL (0.90-5.00); MCH 32.2 pg (27.0-32.0); MCHC 32.5 g/dL (32.0-37.0); MCV 99.2 fL (80.0-97.0); Mean Platelet Volume 10.2 fL (9.5-12.2); Monocytes # (A) 0.53 X 10*3/uL (0.20-1.00); Monocytes % (A) 6.2 %; Neutrophils # (A) 6.44 X 10*3/uL (1.80-7.70); Neutrophils % (A) 74.9 %; Platelet Count 430 X 10*3/uL (140-440); RBC 3.88 X 10*6/uL (4.10-5.20); RDW 13.3 % (11.5-14.5)
[2020-10-24 13:04] LABS: ALT 44 U/L (8-44); AST 20 U/L (13-35); African American GFR (CKD) 116.3 (60.0-200.0); Alkaline Phosphatase 79 U/L (41-126); BUN/Creat Ratio 24.29 Ratio (12.00-20.00); C Reactive Protein <0.4 mg/dL (0.0-0.8); Calcium 9.5 mg/dL (8.7-10.3); Carbon Dioxide 25.8 mmol/L (21.6-31.8); Chloride 104 mmol/L (96-109); Globulin 2.5 g/dL (1.6-3.3); Glucose 127 mg/dL (70-110); LDH 479 U/L (120-246); Non-African American GFR(CKD) 100.3 (60.0-200.0); Potassium 5.3 mmol/L (3.5-5.5); Sodium 138 mmol/L (135-145); Total Bilirubin 0.2 mg/dL (0.3-1.2); Total Protein 6.5 g/dL (6.2-8.2)
--- NOTE | 2020-10-24 17:00 | P.PN ---
Subjective Progress Note Date: 10/24/20 Principal diagnosis: Covid 19 pneumonia 50-year-old white female patient of Dr. Wise, who presented to the emergency department on 10/07/2020 for evaluation of dyspnea, cough, fever, body aches and chills. Patient reports symptom onset 4 days ago, she saw Dr. Wise and had an outpatient test for COVID 19, the results were unknown to her, however she was told in case of worsening symptoms to present to the emergency department. Past medical history is that of hypertension, hyperlipidemia, previous history of myocardial infarction, coronary artery disease with prior stenting. Chest x-ray shows ill-defined opacities in the lower lobes bilaterally. COVID 19 PCR was p ositive. Lab work has been reviewed, showing white blood cell, 4.6, hemoglobin 12.3, lymphocyte count was within normal limits at 1.1, d-dimer is 0.31, sodium is 133, the rest of electrolytes were within normal limits, B1 is 20 creatinine is 1.45 with GFR of 42, lactic acid 0.9, ferritin level is 3834, AST is 163, ALT is 117, LDH is 2034, CRP is 83.4, pro-calcitonin was 0.27. Low-grade fevers fo llowed in the emergency department. Patient was started on Decadron 6 mg daily, we'll start her on vitamins, one unit, less than plasma, we'll try to qualify her for tocilizumab 10/08/2020 patient seen in follow-up on medical floor, patient is status post Tocilizumab, infusion of 1 dose of convalescent plasma, she remains on Decadron, she remains on vitamins, IV hydration with 0.9 normal saline at 100 ML per hour, she is on subcu heparin 5000 units subcu 8 hours. Remains on 15 L high flow and nonrebreather mask, her pulse ox is 93-96%, overall reports feeling somewhat better. Follow-up chest x-ray today shows worsening diffuse lung infiltrates greatest in the lung bases, labs today show d-dimer 0.26, LDH and CRP are pending, pro-calcitonin level was low at 0.27. On 10/09/2020 patient seen in follow-up on the medical floor she is currently on 15 L high flow nasal cannula, in addition to pulmonary rehab mask, and a pulse ox is 86-98%, she is afebrile, hemodynamically patient is stable, she said no continues to bed, appears to be breathing comfortably, denies any chest discomfort, no fever or chills. Patient remains on systemic steroids, she is status post Tocilizumab and convalescent plasma. She remains on IV hydration, she states she is tolerating oral diet, no nausea or vomiting, today's labs have been reviewed, electrolytes are within normal limits, her creatinine has s ignificantly improved, down to 1.1 from 1.45 couple days ago, BUN is 43, AST and ALT have also improved, down to 77 and 80 respectively, alk phos is at 40. Procalcitonin level was low at 0.7, tolerating activity fairly well. On 10/10/2020 patient seen in follow-up on medical floor. She is on 15 L per nonrebreather mask in addition to 15 L high flow, she is awake and alert, is short of breath with exertion, but she has been able to use the bedside commode, and tolerated fairly well, she is afebrile, denies any chest pain, no cough, lung sounds reveal scattered crackles, she is tolerating oral intake, no nausea or vomiting. No new chest x-ray, her latest d-dimer from yesterday was 0.60, L DH was 2198, and CRP was 17.8, patient remains on Decadron 6 mg daily, vitamins. This had no acute events overnight, no worsening, however no significant improvement in dyspnea and oxygenation On 10/13/2020 patient seen in follow-up on medical surgical floor. She remains on high flow oxygen per 15 L high flow nasal cannula and 100% nonrebreather mask, pulse ox is 90-95%, she doesn't With exertion, but overall seems to be improving, lung sounds reveal minimal rales at bilateral bases, without signs have been stable, she has been slow to improve, no acute events overnight, no chest discomfort. Yesterday chest x-ray shows slight worsening of diffuse infiltrates. The labs have been reviewed, her d-dimer was 1.21, and her liver enzymes have worsened with AST up to 194, and ALT of 328, alkaline phosphatase was up to 78, LDH was overall on the rise up to 2729, by CRP was improving. Clinically seems to be doing better. No worsening cough, patient would like to be able to walk around in the room, however still requiring high flow oxygen and she can only walk so far, other than that no specific complaints On 10/16/2020 patient seen in follow-up on medical floor, she still remains on Airvo, at 60 L and FiO2 of 90%, her pulse ox is 92-97%, apparently earlier this morning rapid response team was called and the patient was confused, she was hypotensive, with blood pressure of 60/40, and a liter bolus was given, currently her IV fluids are infusing at 100 ML per hour, her antihypertensives were readjusted, lisinopril has been placed on hold, metoprolol dose was adjusted, her blood pressure responded well to fluids, currently is at 92/59, she is afebrile, no complaints of chest discomfort, breathing is about the same, she does desat with any exertion, but no worsening. No new chest x-ray today, right now she is sitting up in bed, breathing fairly comfortable, no worsening cough, lung sounds reveal bilateral crackles, no worsening. Today's labs have been noted, no d-dimer from today, electric selective renal profile are unremarkable, her troponin is less than 0.012. Patient continues on dexamethasone 6 mg daily, she is on prophylactic dose of Lovenox, multivitamins. On 10/19/2020 patient seen in follow-up. She remains on high flow oxygen per Airvo currently 60 L and FiO2 of 90% in addition to partial rebreather mask, and patient removed partial rebreather mask for meals, appears to be fairly comfortable, denies any worsening dyspnea but still requiring high flow oxygen. She thinks that it might be due to nasal congestion from high flow oxygen, and she states when she cleans out her nose usually her O2 saturations improve. Patient's last chest x-ray from 10/17/2020 showed worsening bilateral diffuse lung infiltrates. Patient continues on Decadron 6 mg daily, she continues on Lovenox 50 mg twice a day her last TD was back on 10/17/2020 and was elevated at 5.17, patient remains on IV fluids at 100 ML per hour, she is tolerating oral intake, nausea vomiting or diarrhea. On 10/21/2000 patient seen in follow-up on medical surgical floor, she is awake and alert, oriented 3, she is in no acute distress, she remains on Airvo currently at 60 L and FiO2 of 85%, her pulse ox is 91%, she thinks that she is doing better, she reports no new complaints, she does get short of breath with exertion, but overall seems to be very comfortable, no new chest x-ray today, her last chest x-ray on 10/17/2020 showed worsening bilateral diffuse lung infiltrates, patient has been afebrile, hemodynamically she remains stable, she denies any chest discomfort, no worsening cough, only occasional cough, no nausea vomiting or diarrhea, her appetite is fair, no abdominal pain today's lab work has been reviewed, showed white with 7.5, hemoglobin is 11.8, d-dimer from yesterday showed a stable d-dimer of 4.74, electrolytes and renal profile were unremarkable, BUN was 15, creatinine 0.6, her inflammatory markers on yesterday's labs were improving. On 10/22/2020 patient seen in follow-up on medical surgical floor. She is currently on Airvo at 60 L and FiO2 of 85%, nonrebreather mask is off, her pulse ox is between 93-96%, she is breathing comfortably, no worsening dyspnea, she is working on dialysis and achieving 800-1000, minimal cough, no fever or chills, today's chest x-ray shows mild cardiomegaly, with diffuse groundglass airspace disease similar to slightly worsened from 10/17/2020. Today's labs have been reviewed, her inflammatory markers are trending down, her LDH is down to 483, CRP is currently of less than 0.4, d-dimer is 1.9, improving. No nausea vomiting or diarrhea, she is tolerating oral intake, her pro-calcitonin level is negative at 0.03. Renal function is normal on yesterday's labs, electrolytes are within normal limits. On 10/23/2020 patient seen in follow-up on medical surgical floor, we have not been able to make much progress in terms of weaning FiO2 with oxygen flow, the patient requires Airvo at 60 L and FiO2 of 90%, and her pulse ox still remains marginally 89-92%, she denies any worsening dyspnea, she appears to be breathing comfortably, she is working on incentive spirometer, and she is doing an exemplary job on it. She denies any cough, denies any hemoptysis, denies any chest pain, she afebrile, hemodynamically she stable, no fever or chills, no headaches no dizziness, no body aches, no chest pain, no vomiting no abdominal pain or diarrhea. No new labs today. Yesterday's chest x-ray shows mild card iomegaly, diffuse groundglass airspace disease that slightly worsened, and patient has been on oral Decadron 6 mg daily, she is on Polyvitamin's, we gave her a dose of Lasix yesterday, and she remains on Lovenox 50 mg subcu twice daily. Yesterday's d-dimer was at 1.99 and we can drop down her dose of Lovenox to prophylactic dose On 10/25/2000 patient seen in follow-up on medical surgical floor, she continues to be on Airvo, she has been slow in terms of weaning from the oxygen, but no worsening dyspnea, breathing comfortably, compressive chest discomfort,vitals have been stable. Her pulse ox is between 93-94% on Airvo a 60 L and FiO2 of 90%, she's been afebrile. Today's chest x-ray shows stable findings with multifocal and confluent reticulonodular opacities greatest in the lower lungs, today's labs have been reviewed, d-dimer is down to 1.09, improving, white blood cell count is 8.6, hemoglobin is 12.5, electrolytes and renal profile are within normal limits. LDH tinniest improve, and is down to 479, CRP is less than 0.4, appropriate calcitonin level was low at 0.04. She is currently in Decadron 6 migraine twice daily, she is on Lovenox 40 mg daily, she isn't multivitamins. Objective - Vital Signs Vital signs: Vital Signs Temp 98.0 F 10/24/20 13:37 Pulse 82 10/24/20 13:37 Resp 24 10/24/20 13:37 BP 155/89 10/24/20 13:37 Pulse Ox 93 L 10/24/20 16:20 Intake & Output 10/23/20 10/24/20 10/24/20 18:59 06:59 18:59 Intake Total 200 Balance 200 Intake: Oral 200 Other: Voiding Method Bedside Commode Bedside Commode Bedside Commode # Voids 4 # Bowel Movements 1 - Exam GENERAL EXAM: Alert, very pleasant, 50-year-old white female, on Airvo at 60 L and FiO2 of 90% with a pulse ox of 90% HEAD: Normocephalic/atraumatic. EYES: Normal reaction of pupils, equal size. Conjunctiva pink, sclera white. NOSE: Clear with pink turbinates. THROAT: No erythema or exudates. NECK: No masses, no JVD, no thyroid enlargement, no adenopathy. CHEST: No chest wall deformity. Symmetrical expansion. LUNGS: Equal air entry with bilateral crackles CVS: Regular rate and rhythm, normal S1 and S2, no gallops, no murmurs, no rubs ABDOMEN: Soft, nontender. No hepatosplenomegaly, normal bowel sounds, no guarding or rigidity. EXTREMITIES: No clubbing, no edema, no cyanosis, 2+ pulses and upper and lower extremities. MUSCULOSKELETAL: Muscle strength and tone normal. SPINE: No scoliosis or deformity SKIN: No rashes CENTRAL NERVOUS SYSTEM: Alert and oriented -3. No focal deficits, tone is normal in all 4 extremities. PSYCHIATRIC: Alert and oriented -3. Appropriate affect. Intact judgment and insight. - Labs CBC & Chem 7: 10/24/20 06:46 10/24/20 06:46 Labs: Abnormal Lab Results - Last 24 Hours (Table) 10/24/20 10/24/20 10/24/20 Range/Units 06:46 06:46 06:46 RBC 3.88 L (4.10-5.20) X 10*6/uL MCV 99.2 H (80.0-97.0) fL MCH 32.2 H (27.0-32.0) pg Immature Gran # 0.13 H (0.00-0.04) X 10*3/uL Eosinophils # 0.03 L (0.04-0.35) X 10*3/uL D-Dimer 1.09 H (<0.60) mg/L FEU BUN/Creatinine Ratio 24.29 H (12.00-20.00) Ratio Glucose 127 H (70-110) mg/dL Total Bilirubin 0.2 L (0.3-1.2) mg/dL Lactate Dehydrogenase 479 H (120-246) U/L Assessment and Plan Plan: Assessment: #1. Acute hypoxic respiratory failure, related to acute COVID19 pneumonia, patient reports a 4 day history of worsening dyspnea, fever, chills, patient was already in moderate to severe hypoxic respiratory failure on presentation, and as such does not qualify for Remdesivir. Status post transfusion of Tocilizumab, convalescent plasma in addition to steroids #2. Dyspnea, cough, body aches, weakness related to the above #3. Acute kidney injury likely related to ATN, dehydration #4. Recent inflammatory markers related to acute COVID 19 pneumonia #5. Increased liver enzymes related to viral pneumonia #6. Hypertension #7. Hyperlipidemia #8. History of coronary artery disease with previous stenting #9. History of myocardial infarction #10. History of morbid obesity #11. History of hypotension, likely related to hypovolemia and dehydration, and antihypertensives, responded well to IV fluids. Plan: Remains on Airvo at 60 L and 90%, and she has been very slow to be weaned off No increased work of breathing Continue Decadron to 6 mg twice daily MAXIMO 7, chest x-ray has been reviewed Patient has been slow to improve, however has not worsened so far and she has no increased work of breathing, and she is maintaining O2 saturations at 89-90% on Airvo Continue to follow I performed a history & physical examination of the patient and discussed their management with my nurse practitioner, Abby Peters. I reviewed the nurse practitioner's note and agree with the documented findings and plan of care. Lung sounds are positive for diminished breath sounds. The findings and the impression was discussed with the patient. I attest to the documentation by the nurse practitioner. Time with Patient: Less than 30
--- NOTE | 2020-10-24 18:06 | P.PN ---
Subjective Progress Note Date: 10/24/20 I am assuming care of this patient as of 10/16/2020 at 8 AM. I was out of town and Dr. Craven was covering for me. H&P done by Dr. Tamayo on 10/07/2020 This is a 50-year-old female patient presented to the ER on 10/07/2020 with complaints of cough fever and body aches. Patient did test positive for COVID- 19 with symptoms starting about 8 days prior at that time patient was started on Decadron, vitamins, convulsant plasma and toclizumab. Patient does have a past medical history of coronary artery disease, hyperlipidemia, hypertension and OR. Patient also has been cleared history of previous nicotine dependence. Patient admitted to medical floor pulmonary service is consulted On 10/16/2020 patient is alert and oriented resting in chair. Patient had episode of hypotension. At this time lisinopril DC'd parameter set to Metroprolol. Blood pressure has improved continue normal saline at 100. Patient currently on high flow oxygen with the flow rate of 60 and an FiO2 of 90%. Patient remains dyspneic. Remains on IV Decadron. Patient denies any chest pain. Patient denies nausea vomiting or diarrhea. Patient denies any urinary burning or frequency. On 10/17/2020 patient was seen and examined on the medical floor she is alert and oriented 3 in no apparent distress she is still maintained on high flow oxygen she is complaining of shortness of breath with any activity she is also complaining of cough and chest tightness otherwise she denies any complaints there is no fever or chills no headache or dizziness no chest pain no nausea or vomiting no abdominal pain no diarrhea no blood in the stools no burning with urination no frequency or urgency and no hematuria. On 10/18/2020 patient alert and oriented 3. Patient remains on airvo. Reports that she feels slightly improved. Patient denies any nausea vomiting or diarrhea. Patient denies any urinary burning or frequency. Patient remains on Decadron. Pulmonary services are following. On 10/19/2020 patient was seen and examined on the medical floor she is alert and oriented 3 in no distress she is feeling better she is still maintained on high flow oxygen via Airvo she is complaining of shortness of breath with any activity she is complaining of cough otherwise she denies any complaints there is no fever or chills no headache or dizziness no chest pain no nausea or vomiting no abdominal pain no diarrhea no blood in the stools no burning with urination no frequency or urgency and no hematuria On 10/20/2020 patient was seen and examined on the medical floor she is alert and oriented 3 in no distress she is still complaining of shortness of breath and cough otherwise she denies any complaints, vital exam reveals a temperature of 97.3 pulse 77 respiration 20 blood pressure 106/67 pulse ox 88% on airvo with FiO2 of 80% On 10/21/2020 patient was seen and examined on the medical floor she is alert and oriented 3 in no apparent distress she is still maintained on high flow oxygen she is complaining of shortness of breath with activity she is also complaining of cough and chest tightness otherwise she denies any complaints there is no fever or chills no headache or dizziness no chest pain no nausea or vomiting no abdominal pain no diarrhea no blood in the stools no burning with urination no frequency or urgency and no hematuria. On 10/22/2020 patient was seen and examined on the medical floor she is alert and oriented 3 in no apparent distress he is complaining of shortness of breath with any activity and occasional cough, she is maintained on Airvo with FiO2 of 80% pulse ox is 93% temperature 98.7 pulse 95 respiration 23 blood pressure 135/87, otherwise there is no complaints there is no fever or chills no headache or dizziness no chest pain there is no nausea or vomiting no abdominal pain no diarrhea no blood in the stools no burning with urination no frequency or urgency and no hematuria On 10/23/2020 patient was seen and examined on the medical floor she is alert and oriented 3 in no apparent distress, she states that she is feeling better h er breathing is feeling easier to her she is still maintained on high flow oxygen she is complaining of shortness of breath with activity she is also complaining of cough and chest tightness otherwise she denies any complaints there is no fever or chills no headache or dizziness no chest pain no nausea or vomiting no abdominal pain no diarrhea no blood in the stools no burning with urination no frequency or urgency and no hematuria. On 10/24/2020 patient was seen and examined on the medical floor she is alert and oriented 3 in no apparent distress, she is still maintained on high flow oxygen she is complaining of shortness of breath with activity she is also complaining of cough and chest tightness otherwise she denies any complaints there is no fever or chills no headache or dizziness no chest pain no nausea or vomiting no abdominal pain no diarrhea no blood in the stools no burning with urination no frequency or urgency and no hematuria. Objective - Vital Signs Vital signs: Vital Signs Temp 97.9 F 10/24/20 17:30 Pulse 94 10/24/20 17:30 Resp 26 H 10/24/20 17:30 BP 136/84 10/24/20 17:30 Pulse Ox 92 L 10/24/20 17:30 Intake & Output 10/23/20 10/24/20 10/24/20 18:59 06:59 18:59 Intake Total 200 Balance 200 Intake: Oral 200 Other: Voiding Method Bedside Commode Bedside Commode Bedside Commode # Voids 4 3 # Bowel Movements 1 - Exam In general patient is alert and oriented 3 in no apparent distress Head normocephalic and atraumatic Neck supple no JVD no goiter no lymphadenopathy Lungs diminished bilaterally no crackles no wheezing Heart regular rate and rhythm S1-S2, no rub or gallop Abdomen is soft nontender nondistended positive bowel sounds no hepatosplenomegaly Extremities no edema Neuro no gross focal neurological deficit - Labs CBC & Chem 7: 10/24/20 06:46 10/24/20 06:46 Labs: Abnormal Lab Results - Last 24 Hours (Table) 10/24/20 10/24/20 10/24/20 Range/Units 06:46 06:46 06:46 RBC 3.88 L (4.10-5.20) X 10*6/uL MCV 99.2 H (80.0-97.0) fL MCH 32.2 H (27.0-32.0) pg Immature Gran # 0.13 H (0.00-0.04) X 10*3/uL Eosinophils # 0.03 L (0.04-0.35) X 10*3/uL D-Dimer 1.09 H (<0.60) mg/L FEU BUN/Creatinine Ratio 24.29 H (12.00-20.00) Ratio Glucose 127 H (70-110) mg/dL Total Bilirubin 0.2 L (0.3-1.2) mg/dL Lactate Dehydrogenase 479 H (120-246) U/L Assessment and Plan Assessment: 1. Acute hypoxic respiratory failure secondary to COVID-19 pneumonia. Patient is on Decadron, received Tocilizumab, and convalescent plasma. Pulmonary services are following. Remains on Airvo 2. Diarrhea secondary to COVID-19. This does seem improved 3. Acute renal failure probably prerenal azotemia and acute tubular necrosis secondary to sepsis. Improved 4. Hyponatremia on admission. Improved 5. Elevated liver enzymes secondary to sepsis and viral pneumonia. Trending down. Continue to monitor 6. History of essential hypertension 7. History of hyperlipidemia 8. History of coronary artery disease with previous stenting 9. Ex-smoker. 10. Hypotension. Lisinopril DC'd. Parameters set to Metroprolol. normal saline at 100 ordered DVT prophylaxis Lovenox. GI prophylaxis tonic Pulmonary services are following Remains on Decadron, vitamin C, zinc and vitamin D PT OT consulted Repeat labs ordered for a.m. Continue normal saline at 100 for hypotension
[2020-10-24] MEDS: MELATONIN 3 MG TABLET PO SCH (19:57)
[2020-10-24] MEDS: ATORVASTATIN 40 MG TAB PO SCH (19:57)
[2020-10-25] MEDS: ACETAMINOPHEN TAB 325 MG TAB PO PRN ×4 (01:14→20:20)
[2020-10-25 08:00] LABS: ALT 38 U/L (4-34); AST 24 U/L (14-36); African American GFR (CKD) >90 (>60 ml/min/1.73 sqM); Albumin 3.8 g/dL (3.5-5.0); Albumin/Globulin Ratio 1.3; Alkaline Phosphatase 71 U/L (38-126); Anion Gap 5 mmol/L; Blood Urea Nitrogen 15 mg/dL (7-17); Calcium 9.4 mg/dL (8.4-10.2); Carbon Dioxide 30 mmol/L (22-30); Chloride 101 mmol/L (98-107); Glucose 133 mg/dL (74-99); Non-African American GFR(CKD) >90 (>60 ml/min/1.73 sqM); Potassium 4.8 mmol/L (3.5-5.1); Sodium 136 mmol/L (137-145); Total Bilirubin 0.2 mg/dL (0.2-1.3); Total Protein 6.8 g/dL (6.3-8.2)
[2020-10-25] MEDS: DOCUSATE 100 MG CAP PO SCH (08:01)
[2020-10-25] MEDS: ENOXAPARIN 40 MG/0.4 ML SYRINGE SQ SCH (08:01)
[2020-10-25] MEDS: CHOLECALCIFEROL 25 MCG (1000 IU) TABLET PO SCH (08:01)
[2020-10-25] MEDS: PANTOPRAZOLE 40 MG TABLET PO SCH (08:01)
[2020-10-25] MEDS: DEXAMETHASONE SOD PHOSPHATE 10 MG/ML 1 ML VIAL IV SCH ×2 (08:01→20:21)
[2020-10-25] MEDS: METOPROLOL TARTRATE 25 MG TAB PO SCH (08:01)
[2020-10-25] MEDS: ASPIRIN 325 MG TAB PO SCH (08:02)
[2020-10-25] MEDS: ASCORBIC ACID 500 MG TAB PO SCH ×2 (08:02→20:20)
[2020-10-25] MEDS: ZINC SULFATE 220 MG CAP PO SCH (08:02)
[2020-10-25] MEDS: ALBUTEROL HFA INHALER INHALATION SCH ×4 (09:26→21:19)
[2020-10-25 10:54] LABS: Basophils # (A) 0.01 X 10*3/uL (0.00-0.10); Basophils % (A) 0.1 %; Eosinophils # (A) 0.02 X 10*3/uL (0.04-0.35); Eosinophils % (A) 0.2 %; HCT 39.3 % (37.2-46.3); HGB 12.6 g/dL (12.0-15.0); Lymphocytes # (A) 1.62 X 10*3/uL (0.90-5.00); MCH 31.9 pg (27.0-32.0); MCHC 32.1 g/dL (32.0-37.0); MCV 99.5 fL (80.0-97.0); Monocytes # (A) 0.64 X 10*3/uL (0.20-1.00); Monocytes % (A) 6.7 %; Neutrophils # (A) 7.15 X 10*3/uL (1.80-7.70); Neutrophils % (A) 74.8 %; Platelet Count 393 X 10*3/uL (140-440); RBC 3.95 X 10*6/uL (4.10-5.20); RDW 13.4 % (11.5-14.5); WBC 9.55 X 10*3/uL (4.50-10.00)
--- NOTE | 2020-10-25 15:10 | P.PN ---
Subjective Progress Note Date: 10/25/20 I am assuming care of this patient as of 10/16/2020 at 8 AM. I was out of town and Dr. Craven was covering for me. H&P done by Dr. Tamayo on 10/07/2020 This is a 50-year-old female patient presented to the ER on 10/07/2020 with complaints of cough fever and body aches. Patient did test positive for COVID- 19 with symptoms starting about 8 days prior at that time patient was started on Decadron, vitamins, convulsant plasma and toclizumab. Patient does have a past medical history of coronary artery disease, hyperlipidemia, hypertension and PA. Patient also has been cleared history of previous nicotine dependence. Patient admitted to medical floor pulmonary service is consulted On 10/16/2020 patient is alert and oriented resting in chair. Patient had episode of hypotension. At this time lisinopril DC'd parameter set to Metroprolol. Blood pressure has improved continue normal saline at 100. Patient currently on high flow oxygen with the flow rate of 60 and an FiO2 of 90%. Patient remains dyspneic. Remains on IV Decadron. Patient denies any chest pain. Patient denies nausea vomiting or diarrhea. Patient denies any urinary burning or frequency. On 10/17/2020 patient was seen and examined on the medical floor she is alert and oriented 3 in no apparent distress she is still maintained on high flow oxygen she is complaining of shortness of breath with any activity she is also complaining of cough and chest tightness otherwise she denies any complaints there is no fever or chills no headache or dizziness no chest pain no nausea or vomiting no abdominal pain no diarrhea no blood in the stools no burning with urination no frequency or urgency and no hematuria. On 10/18/2020 patient alert and oriented 3. Patient remains on airvo. Reports that she feels slightly improved. Patient denies any nausea vomiting or diarrhea. Patient denies any urinary burning or frequency. Patient remains on Decadron. Pulmonary services are following. On 10/19/2020 patient was seen and examined on the medical floor she is alert and oriented 3 in no distress she is feeling better she is still maintained on high flow oxygen via Airvo she is complaining of shortness of breath with any activity she is complaining of cough otherwise she denies any complaints there is no fever or chills no headache or dizziness no chest pain no nausea or vomiting no abdominal pain no diarrhea no blood in the stools no burning with urination no frequency or urgency and no hematuria On 10/20/2020 patient was seen and examined on the medical floor she is alert and oriented 3 in no distress she is still complaining of shortness of breath and cough otherwise she denies any complaints, vital exam reveals a temperature of 97.3 pulse 77 respiration 20 blood pressure 106/67 pulse ox 88% on airvo with FiO2 of 80% On 10/21/2020 patient was seen and examined on the medical floor she is alert and oriented 3 in no apparent distress she is still maintained on high flow oxygen she is complaining of shortness of breath with activity she is also complaining of cough and chest tightness otherwise she denies any complaints there is no fever or chills no headache or dizziness no chest pain no nausea or vomiting no abdominal pain no diarrhea no blood in the stools no burning with urination no frequency or urgency and no hematuria. On 10/22/2020 patient was seen and examined on the medical floor she is alert and oriented 3 in no apparent distress he is complaining of shortness of breath with any activity and occasional cough, she is maintained on Airvo with FiO2 of 80% pulse ox is 93% temperature 98.7 pulse 95 respiration 23 blood pressure 135/87, otherwise there is no complaints there is no fever or chills no headache or dizziness no chest pain there is no nausea or vomiting no abdominal pain no diarrhea no blood in the stools no burning with urination no frequency or urgency and no hematuria On 10/23/2020 patient was seen and examined on the medical floor she is alert and oriented 3 in no apparent distress, she states that she is feeling better h er breathing is feeling easier to her she is still maintained on high flow oxygen she is complaining of shortness of breath with activity she is also complaining of cough and chest tightness otherwise she denies any complaints there is no fever or chills no headache or dizziness no chest pain no nausea or vomiting no abdominal pain no diarrhea no blood in the stools no burning with urination no frequency or urgency and no hematuria. On 10/24/2020 patient was seen and examined on the medical floor she is alert and oriented 3 in no apparent distress, she is still maintained on high flow oxygen she is complaining of shortness of breath with activity she is also complaining of cough and chest tightness otherwise she denies any complaints there is no fever or chills no headache or dizziness no chest pain no nausea or vomiting no abdominal pain no diarrhea no blood in the stools no burning with urination no frequency or urgency and no hematuria. on 10/25/2020 patient was seen and examined on the medical floor she is alert and oriented 3 in no distress, she is still maintained on high flow oxygen via Airvo, she reports some improvement in her shortness of breath and cough, there is no fever or chills no headache or dizziness no chest pain no nausea or vomiting no abdominal pain no diarrhea no blood in the stools no burning with urination no frequency or urgency and no hematuria Objective - Vital Signs Vital signs: Vital Signs Temp 97.9 F 10/25/20 09:58 Pulse 86 10/25/20 09:58 Resp 16 10/25/20 09:58 BP 136/83 10/25/20 09:58 Pulse Ox 90 L 10/25/20 09:58 Intake & Output 10/24/20 10/25/20 10/25/20 18:59 06:59 18:59 Intake Total 200 236 Balance 200 236 Intake: Oral 200 236 Other: Voiding Method Bedside Commode # Voids 3 2 - Exam In general patient is alert and oriented 3 in no apparent distress Head normocephalic and atraumatic Neck supple no JVD no goiter no lymphadenopathy Lungs diminished bilaterally no crackles no wheezing Heart regular rate and rhythm S1-S2, no rub or gallop Abdomen is soft nontender nondistended positive bowel sounds no hepatosplenomegaly Extremities no edema Neuro no gross focal neurological deficit - Labs CBC & Chem 7: 10/25/20 06:27 10/25/20 06:27 Labs: Abnormal Lab Results - Last 24 Hours (Table) 10/25/20 10/25/20 Range/Units 06:27 06:27 RBC 3.95 L (4.10-5.20) X 10*6/uL MCV 99.5 H (80.0-97.0) fL Immature Gran # 0.11 H (0.00-0.04) X 10*3/uL Eosinophils # 0.02 L (0.04-0.35) X 10*3/uL Sodium 136 L (137-145) mmol/L Glucose 133 H (74-99) mg/dL ALT 38 H (4-34) U/L Assessment and Plan Assessment: 1. Acute hypoxic respiratory failure secondary to COVID-19 pneumonia. Patient is on Decadron, received Tocilizumab, and convalescent plasma. Pulmonary services are following. Remains on Airvo 2. Diarrhea secondary to COVID-19. This does seem improved 3. Acute renal failure probably prerenal azotemia and acute tubular necrosis secondary to sepsis. Improved 4. Hyponatremia on admission. Improved 5. Elevated liver enzymes secondary to sepsis and viral pneumonia. Trending down. Continue to monitor 6. History of essential hypertension 7. History of hyperlipidemia 8. History of coronary artery disease with previous stenting 9. Ex-smoker. 10. Hypotension. Lisinopril DC'd. Parameters set to Metroprolol. normal saline at 100 ordered DVT prophylaxis Lovenox. GI prophylaxis tonic Pulmonary services are following Remains on Decadron, vitamin C, zinc and vitamin D PT OT consulted Repeat labs ordered for a.m. Continue normal saline at 100 for hypotension
--- NOTE | 2020-10-25 17:28 | P.PN ---
Subjective Progress Note Date: 10/25/20 Principal diagnosis: Covid 19 pneumonia 50-year-old white female patient of Dr. Wise, who presented to the emergency department on 10/07/2020 for evaluation of dyspnea, cough, fever, body aches and chills. Patient reports symptom onset 4 days ago, she saw Dr. Wise and had an outpatient test for COVID 19, the results were unknown to her, however she was told in case of worsening symptoms to present to the emergency department. Past medical history is that of hypertension, hyperlipidemia, previous history of myocardial infarction, coronary artery disease with prior stenting. Chest x-ray shows ill-defined opacities in the lower lobes bilaterally. COVID 19 PCR was p ositive. Lab work has been reviewed, showing white blood cell, 4.6, hemoglobin 12.3, lymphocyte count was within normal limits at 1.1, d-dimer is 0.31, sodium is 133, the rest of electrolytes were within normal limits, B1 is 20 creatinine is 1.45 with GFR of 42, lactic acid 0.9, ferritin level is 3834, AST is 163, ALT is 117, LDH is 2034, CRP is 83.4, pro-calcitonin was 0.27. Low-grade fevers fo llowed in the emergency department. Patient was started on Decadron 6 mg daily, we'll start her on vitamins, one unit, less than plasma, we'll try to qualify her for tocilizumab 10/08/2020 patient seen in follow-up on medical floor, patient is status post Tocilizumab, infusion of 1 dose of convalescent plasma, she remains on Decadron, she remains on vitamins, IV hydration with 0.9 normal saline at 100 ML per hour, she is on subcu heparin 5000 units subcu 8 hours. Remains on 15 L high flow and nonrebreather mask, her pulse ox is 93-96%, overall reports feeling somewhat better. Follow-up chest x-ray today shows worsening diffuse lung infiltrates greatest in the lung bases, labs today show d-dimer 0.26, LDH and CRP are pending, pro-calcitonin level was low at 0.27. On 10/09/2020 patient seen in follow-up on the medical floor she is currently on 15 L high flow nasal cannula, in addition to pulmonary rehab mask, and a pulse ox is 86-98%, she is afebrile, hemodynamically patient is stable, she said no continues to bed, appears to be breathing comfortably, denies any chest discomfort, no fever or chills. Patient remains on systemic steroids, she is status post Tocilizumab and convalescent plasma. She remains on IV hydration, she states she is tolerating oral diet, no nausea or vomiting, today's labs have been reviewed, electrolytes are within normal limits, her creatinine has s ignificantly improved, down to 1.1 from 1.45 couple days ago, BUN is 43, AST and ALT have also improved, down to 77 and 80 respectively, alk phos is at 40. Procalcitonin level was low at 0.7, tolerating activity fairly well. On 10/10/2020 patient seen in follow-up on medical floor. She is on 15 L per nonrebreather mask in addition to 15 L high flow, she is awake and alert, is short of breath with exertion, but she has been able to use the bedside commode, and tolerated fairly well, she is afebrile, denies any chest pain, no cough, lung sounds reveal scattered crackles, she is tolerating oral intake, no nausea or vomiting. No new chest x-ray, her latest d-dimer from yesterday was 0.60, L DH was 2198, and CRP was 17.8, patient remains on Decadron 6 mg daily, vitamins. This had no acute events overnight, no worsening, however no significant improvement in dyspnea and oxygenation On 10/13/2020 patient seen in follow-up on medical surgical floor. She remains on high flow oxygen per 15 L high flow nasal cannula and 100% nonrebreather mask, pulse ox is 90-95%, she doesn't With exertion, but overall seems to be improving, lung sounds reveal minimal rales at bilateral bases, without signs have been stable, she has been slow to improve, no acute events overnight, no chest discomfort. Yesterday chest x-ray shows slight worsening of diffuse infiltrates. The labs have been reviewed, her d-dimer was 1.21, and her liver enzymes have worsened with AST up to 194, and ALT of 328, alkaline phosphatase was up to 78, LDH was overall on the rise up to 2729, by CRP was improving. Clinically seems to be doing better. No worsening cough, patient would like to be able to walk around in the room, however still requiring high flow oxygen and she can only walk so far, other than that no specific complaints On 10/16/2020 patient seen in follow-up on medical floor, she still remains on Airvo, at 60 L and FiO2 of 90%, her pulse ox is 92-97%, apparently earlier this morning rapid response team was called and the patient was confused, she was hypotensive, with blood pressure of 60/40, and a liter bolus was given, currently her IV fluids are infusing at 100 ML per hour, her antihypertensives were readjusted, lisinopril has been placed on hold, metoprolol dose was adjusted, her blood pressure responded well to fluids, currently is at 92/59, she is afebrile, no complaints of chest discomfort, breathing is about the same, she does desat with any exertion, but no worsening. No new chest x-ray today, right now she is sitting up in bed, breathing fairly comfortable, no worsening cough, lung sounds reveal bilateral crackles, no worsening. Today's labs have been noted, no d-dimer from today, electric selective renal profile are unremarkable, her troponin is less than 0.012. Patient continues on dexamethasone 6 mg daily, she is on prophylactic dose of Lovenox, multivitamins. On 10/19/2020 patient seen in follow-up. She remains on high flow oxygen per Airvo currently 60 L and FiO2 of 90% in addition to partial rebreather mask, and patient removed partial rebreather mask for meals, appears to be fairly comfortable, denies any worsening dyspnea but still requiring high flow oxygen. She thinks that it might be due to nasal congestion from high flow oxygen, and she states when she cleans out her nose usually her O2 saturations improve. Patient's last chest x-ray from 10/17/2020 showed worsening bilateral diffuse lung infiltrates. Patient continues on Decadron 6 mg daily, she continues on Lovenox 50 mg twice a day her last TD was back on 10/17/2020 and was elevated at 5.17, patient remains on IV fluids at 100 ML per hour, she is tolerating oral intake, nausea vomiting or diarrhea. On 10/21/2000 patient seen in follow-up on medical surgical floor, she is awake and alert, oriented 3, she is in no acute distress, she remains on Airvo currently at 60 L and FiO2 of 85%, her pulse ox is 91%, she thinks that she is doing better, she reports no new complaints, she does get short of breath with exertion, but overall seems to be very comfortable, no new chest x-ray today, her last chest x-ray on 10/17/2020 showed worsening bilateral diffuse lung infiltrates, patient has been afebrile, hemodynamically she remains stable, she denies any chest discomfort, no worsening cough, only occasional cough, no nausea vomiting or diarrhea, her appetite is fair, no abdominal pain today's lab work has been reviewed, showed white with 7.5, hemoglobin is 11.8, d-dimer from yesterday showed a stable d-dimer of 4.74, electrolytes and renal profile were unremarkable, BUN was 15, creatinine 0.6, her inflammatory markers on yesterday's labs were improving. On 10/22/2020 patient seen in follow-up on medical surgical floor. She is currently on Airvo at 60 L and FiO2 of 85%, nonrebreather mask is off, her pulse ox is between 93-96%, she is breathing comfortably, no worsening dyspnea, she is working on dialysis and achieving 800-1000, minimal cough, no fever or chills, today's chest x-ray shows mild cardiomegaly, with diffuse groundglass airspace disease similar to slightly worsened from 10/17/2020. Today's labs have been reviewed, her inflammatory markers are trending down, her LDH is down to 483, CRP is currently of less than 0.4, d-dimer is 1.9, improving. No nausea vomiting or diarrhea, she is tolerating oral intake, her pro-calcitonin level is negative at 0.03. Renal function is normal on yesterday's labs, electrolytes are within normal limits. On 10/23/2020 patient seen in follow-up on medical surgical floor, we have not been able to make much progress in terms of weaning FiO2 with oxygen flow, the patient requires Airvo at 60 L and FiO2 of 90%, and her pulse ox still remains marginally 89-92%, she denies any worsening dyspnea, she appears to be breathing comfortably, she is working on incentive spirometer, and she is doing an exemplary job on it. She denies any cough, denies any hemoptysis, denies any chest pain, she afebrile, hemodynamically she stable, no fever or chills, no headaches no dizziness, no body aches, no chest pain, no vomiting no abdominal pain or diarrhea. No new labs today. Yesterday's chest x-ray shows mild card iomegaly, diffuse groundglass airspace disease that slightly worsened, and patient has been on oral Decadron 6 mg daily, she is on Polyvitamin's, we gave her a dose of Lasix yesterday, and she remains on Lovenox 50 mg subcu twice daily. Yesterday's d-dimer was at 1.99 and we can drop down her dose of Lovenox to prophylactic dose On 10/24/2020 patient seen in follow-up on medical surgical floor, she continues to be on Airvo, she has been slow in terms of weaning from the oxygen, but no worsening dyspnea, breathing comfortably, compressive chest discomfort,vitals have been stable. Her pulse ox is between 93-94% on Airvo a 60 L and FiO2 of 90%, she's been afebrile. Today's chest x-ray shows stable findings with multifocal and confluent reticulonodular opacities greatest in the lower lungs, today's labs have been reviewed, d-dimer is down to 1.09, improving, white blood cell count is 8.6, hemoglobin is 12.5, electrolytes and renal profile are within normal limits. LDH tinniest improve, and is down to 479, CRP is less than 0.4, appropriate calcitonin level was low at 0.04. She is currently in Decadron 6 migraine twice daily, she is on Lovenox 40 mg daily, she isn't multivitamins. On 10/25/2020 patient seen in follow-up on medical surgical floor. She continues on Airvo at 60 L and FiO2 of 90%, not requiring nonrebreather mask with that. Seems to be breathing comfortably, her pulse ox is 92-93%, she's been afebrile, hemodynamically she's been stable, she's been getting up out of bed and move around as much as the Airvo tubing with a lower her, she is using the bedside commode, her appetite is fair, she has had no fever or chills, no cough, and no chest discomfort. Today's labs have been reviewed, white blood cell count of 9.5, hemoglobin is 12.6, electrolytes and renal profile are unremarkable Objective - Vital Signs Vital signs: Vital Signs Temp 98 F 10/25/20 17:20 Pulse 76 10/25/20 17:20 Resp 16 10/25/20 17:20 BP 136/82 10/25/20 17:20 Pulse Ox 92 L 10/25/20 17:20 Intake & Output 10/24/20 10/25/20 10/25/20 18:59 06:59 18:59 Intake Total 200 472 Balance 200 472 Intake: Oral 200 472 Other: Voiding Method Bedside Commode # Voids 3 2 - Exam GENERAL EXAM: Alert, very pleasant, 50-year-old white female, on Airvo at 60 L and FiO2 of 90% with a pulse ox of 93% HEAD: Normocephalic/atraumatic. EYES: Normal reaction of pupils, equal size. Conjunctiva pink, sclera white. NOSE: Clear with pink turbinates. THROAT: No erythema or exudates. NECK: No masses, no JVD, no thyroid enlargement, no adenopathy. CHEST: No chest wall deformity. Symmetrical expansion. LUNGS: Equal air entry with bilateral crackles CVS: Regular rate and rhythm, normal S1 and S2, no gallops, no murmurs, no rubs ABDOMEN: Soft, nontender. No hepatosplenomegaly, normal bowel sounds, no guarding or rigidity. EXTREMITIES: No clubbing, no edema, no cyanosis, 2+ pulses and upper and lower extremities. MUSCULOSKELETAL: Muscle strength and tone normal. SPINE: No scoliosis or deformity SKIN: No rashes CENTRAL NERVOUS SYSTEM: Alert and oriented -3. No focal deficits, tone is normal in all 4 extremities. PSYCHIATRIC: Alert and oriented -3. Appropriate affect. Intact judgment and insight. - Labs CBC & Chem 7: 10/25/20 06:27 10/25/20 06:27 Labs: Abnormal Lab Results - Last 24 Hours (Table) 10/25/20 10/25/20 Range/Units 06:27 06:27 RBC 3.95 L (4.10-5.20) X 10*6/uL MCV 99.5 H (80.0-97.0) fL Immature Gran # 0.11 H (0.00-0.04) X 10*3/uL Eosinophils # 0.02 L (0.04-0.35) X 10*3/uL Sodium 136 L (137-145) mmol/L Glucose 133 H (74-99) mg/dL ALT 38 H (4-34) U/L Assessment and Plan Plan: Assessment: #1. Acute hypoxic respiratory failure, related to acute COVID19 pneumonia, patient reports a 4 day history of worsening dyspnea, fever, chills, patient was already in moderate to severe hypoxic respiratory failure on presentation, and as such does not qualify for Remdesivir. Status post transfusion of Tocilizumab, convalescent plasma in addition to steroids #2. Dyspnea, cough, body aches, weakness related to the above #3. Acute kidney injury likely related to ATN, dehydration #4. Recent inflammatory markers related to acute COVID 19 pneumonia #5. Increased liver enzymes related to viral pneumonia #6. Hypertension #7. Hyperlipidemia #8. History of coronary artery disease with previous stenting #9. History of myocardial infarction #10. History of morbid obesity #11. History of hypotension, likely related to hypovolemia and dehydration, and antihypertensives, responded well to IV fluids. Plan: Patient remains stable although still requiring high flow oxygen Remains on Airvo at 60 L and FiO2 of 90% No increased work of breathing Continue Decadron to 6 mg twice daily Continue making attempts to wean oxygen to maintain O2 saturations between 88- 90% Encourage deep breathing and coughing I performed a history & physical examination of the patient and discussed their management with my nurse practitioner, Abby Peters. I reviewed the nurse practitioner's note and agree with the documented findings and plan of care. Lung sounds are positive for diminished breath sounds. The findings and the impression was discussed with the patient. I attest to the documentation by the nurse practitioner. Time with Patient: Less than 30
[2020-10-25] MEDS: MELATONIN 3 MG TABLET PO SCH (20:20)
[2020-10-25] MEDS: ATORVASTATIN 40 MG TAB PO SCH (20:20)
[2020-10-26] MEDS: ACETAMINOPHEN TAB 325 MG TAB PO PRN ×3 (03:05→19:10)
[2020-10-26] MEDS: ALBUTEROL HFA INHALER INHALATION SCH ×4 (07:29→19:29)
[2020-10-26] MEDS: ENOXAPARIN 40 MG/0.4 ML SYRINGE SQ SCH (08:01)
[2020-10-26] MEDS: CHOLECALCIFEROL 25 MCG (1000 IU) TABLET PO SCH (08:01)
[2020-10-26] MEDS: ZINC SULFATE 220 MG CAP PO SCH (08:01)
[2020-10-26] MEDS: ASCORBIC ACID 500 MG TAB PO SCH ×2 (08:01→19:10)
[2020-10-26] MEDS: PANTOPRAZOLE 40 MG TABLET PO SCH (08:01)
[2020-10-26] MEDS: ASPIRIN 325 MG TAB PO SCH (08:01)
[2020-10-26] MEDS: METOPROLOL TARTRATE 25 MG TAB PO SCH (08:01)
[2020-10-26] MEDS: DEXAMETHASONE SOD PHOSPHATE 10 MG/ML 1 ML VIAL IV SCH ×2 (08:02→19:10)
[2020-10-26] MEDS: DOCUSATE 100 MG CAP PO SCH (08:02)
[2020-10-26 08:29] LABS: ALT 35 U/L (4-34); AST 23 U/L (14-36); African American GFR (CKD) >90 (>60 ml/min/1.73 sqM); Albumin 3.4 g/dL (3.5-5.0); Albumin/Globulin Ratio 1.1; Alkaline Phosphatase 55 U/L (38-126); Anion Gap 6 mmol/L; Blood Urea Nitrogen 17 mg/dL (7-17); Carbon Dioxide 29 mmol/L (22-30); Chloride 101 mmol/L (98-107); Globulin 3.1 g/dL; Glucose 111 mg/dL (74-99); Non-African American GFR(CKD) >90 (>60 ml/min/1.73 sqM); Potassium 4.4 mmol/L (3.5-5.1); Sodium 136 mmol/L (137-145); Total Bilirubin 0.3 mg/dL (0.2-1.3); Total Protein 6.5 g/dL (6.3-8.2)
[2020-10-26 11:54] LABS: Basophils # (A) 0.02 X 10*3/uL (0.00-0.10); Basophils % (A) 0.2 %; Eosinophils # (A) 0.05 X 10*3/uL (0.04-0.35); Eosinophils % (A) 0.5 %; HCT 38.1 % (37.2-46.3); HGB 12.3 g/dL (12.0-15.0); Lymphocytes # (A) 1.61 X 10*3/uL (0.90-5.00); Lymphocytes % (A) 16.7 %; MCH 31.7 pg (27.0-32.0); MCHC 32.3 g/dL (32.0-37.0); MCV 98.2 fL (80.0-97.0); Mean Platelet Volume 10.3 fL (9.5-12.2); Monocytes # (A) 0.78 X 10*3/uL (0.20-1.00); Monocytes % (A) 8.1 %; Neutrophils # (A) 7.04 X 10*3/uL (1.80-7.70); Neutrophils % (A) 73.2 %; Platelet Count 351 X 10*3/uL (140-440); RBC 3.88 X 10*6/uL (4.10-5.20); RDW 13.5 % (11.5-14.5); WBC 9.63 X 10*3/uL (4.50-10.00)
--- NOTE | 2020-10-26 13:21 | P.PN ---
Subjective Progress Note Date: 10/26/20 I am assuming care of this patient as of 10/16/2020 at 8 AM. I was out of town and Dr. Craven was covering for me. H&P done by Dr. Tamayo on 10/07/2020 This is a 50-year-old female patient presented to the ER on 10/07/2020 with complaints of cough fever and body aches. Patient did test positive for COVID- 19 with symptoms starting about 8 days prior at that time patient was started on Decadron, vitamins, convulsant plasma and toclizumab. Patient does have a past medical history of coronary artery disease, hyperlipidemia, hypertension and ND. Patient also has been cleared history of previous nicotine dependence. Patient admitted to medical floor pulmonary service is consulted On 10/16/2020 patient is alert and oriented resting in chair. Patient had episode of hypotension. At this time lisinopril DC'd parameter set to Metroprolol. Blood pressure has improved continue normal saline at 100. Patient currently on high flow oxygen with the flow rate of 60 and an FiO2 of 90%. Patient remains dyspneic. Remains on IV Decadron. Patient denies any chest pain. Patient denies nausea vomiting or diarrhea. Patient denies any urinary burning or frequency. On 10/17/2020 patient was seen and examined on the medical floor she is alert and oriented 3 in no apparent distress she is still maintained on high flow oxygen she is complaining of shortness of breath with any activity she is also complaining of cough and chest tightness otherwise she denies any complaints there is no fever or chills no headache or dizziness no chest pain no nausea or vomiting no abdominal pain no diarrhea no blood in the stools no burning with urination no frequency or urgency and no hematuria. On 10/18/2020 patient alert and oriented 3. Patient remains on airvo. Reports that she feels slightly improved. Patient denies any nausea vomiting or diarrhea. Patient denies any urinary burning or frequency. Patient remains on Decadron. Pulmonary services are following. On 10/19/2020 patient was seen and examined on the medical floor she is alert and oriented 3 in no distress she is feeling better she is still maintained on high flow oxygen via Airvo she is complaining of shortness of breath with any activity she is complaining of cough otherwise she denies any complaints there is no fever or chills no headache or dizziness no chest pain no nausea or vomiting no abdominal pain no diarrhea no blood in the stools no burning with urination no frequency or urgency and no hematuria On 10/20/2020 patient was seen and examined on the medical floor she is alert and oriented 3 in no distress she is still complaining of shortness of breath and cough otherwise she denies any complaints, vital exam reveals a temperature of 97.3 pulse 77 respiration 20 blood pressure 106/67 pulse ox 88% on airvo with FiO2 of 80% On 10/21/2020 patient was seen and examined on the medical floor she is alert and oriented 3 in no apparent distress she is still maintained on high flow oxygen she is complaining of shortness of breath with activity she is also complaining of cough and chest tightness otherwise she denies any complaints there is no fever or chills no headache or dizziness no chest pain no nausea or vomiting no abdominal pain no diarrhea no blood in the stools no burning with urination no frequency or urgency and no hematuria. On 10/22/2020 patient was seen and examined on the medical floor she is alert and oriented 3 in no apparent distress he is complaining of shortness of breath with any activity and occasional cough, she is maintained on Airvo with FiO2 of 80% pulse ox is 93% temperature 98.7 pulse 95 respiration 23 blood pressure 135/87, otherwise there is no complaints there is no fever or chills no headache or dizziness no chest pain there is no nausea or vomiting no abdominal pain no diarrhea no blood in the stools no burning with urination no frequency or urgency and no hematuria On 10/23/2020 patient was seen and examined on the medical floor she is alert and oriented 3 in no apparent distress, she states that she is feeling better h er breathing is feeling easier to her she is still maintained on high flow oxygen she is complaining of shortness of breath with activity she is also complaining of cough and chest tightness otherwise she denies any complaints there is no fever or chills no headache or dizziness no chest pain no nausea or vomiting no abdominal pain no diarrhea no blood in the stools no burning with urination no frequency or urgency and no hematuria. On 10/24/2020 patient was seen and examined on the medical floor she is alert and oriented 3 in no apparent distress, she is still maintained on high flow oxygen she is complaining of shortness of breath with activity she is also complaining of cough and chest tightness otherwise she denies any complaints there is no fever or chills no headache or dizziness no chest pain no nausea or vomiting no abdominal pain no diarrhea no blood in the stools no burning with urination no frequency or urgency and no hematuria. on 10/25/2020 patient was seen and examined on the medical floor she is alert and oriented 3 in no distress, she is still maintained on high flow oxygen via Airvo, she reports some improvement in her shortness of breath and cough, there is no fever or chills no headache or dizziness no chest pain no nausea or vomiting no abdominal pain no diarrhea no blood in the stools no burning with urination no frequency or urgency and no hematuria. On 10/26/2020 patient was seen and examined on the medical floor she is alert and oriented, she is still maintained on high flow oxygen via Airvo, she is still complaining of shortness of breath and cough otherwise she denies any complaints there is no fever or chills no headache or dizziness no chest pain no palpitation no nausea or vomiting no abdominal pain no diarrhea and no urinary symptoms Objective - Vital Signs Vital signs: Vital Signs Temp 97.4 F L 10/26/20 05:05 Pulse 78 10/26/20 05:05 Resp 21 10/26/20 05:05 BP 131/65 10/26/20 05:05 Pulse Ox 91 L 10/26/20 07:30 Intake & Output 10/25/20 10/26/20 10/26/20 18:59 06:59 18:59 Intake Total 472 Balance 472 Intake: Oral 472 Other: Voiding Method Bedside Commode # Voids 1 3 # Bowel Movements 1 1 - Exam In general patient is alert and oriented 3 in no apparent distress Head normocephalic and atraumatic Neck supple no JVD no goiter no lymphadenopathy Lungs diminished bilaterally no crackles no wheezing Heart regular rate and rhythm S1-S2, no rub or gallop Abdomen is soft nontender nondistended positive bowel sounds no hepatosplenomegaly Extremities no edema Neuro no gross focal neurological deficit - Labs CBC & Chem 7: 10/26/20 07:23 10/26/20 07:23 Labs: Abnormal Lab Results - Last 24 Hours (Table) 10/25/20 10/26/20 Range/Units 06:27 07:23 RBC 3.95 L (4.10-5.20) X 10*6/uL MCV 99.5 H (80.0-97.0) fL Immature Gran # 0.11 H (0.00-0.04) X 10*3/uL Eosinophils # 0.02 L (0.04-0.35) X 10*3/uL Sodium 136 L (137-145) mmol/L Glucose 111 H (74-99) mg/dL ALT 35 H (4-34) U/L Albumin 3.4 L (3.5-5.0) g/dL Assessment and Plan Assessment: 1. Acute hypoxic respiratory failure secondary to COVID-19 pneumonia. Patient is on Decadron, received Tocilizumab, and convalescent plasma. Pulmonary servic es are following. Remains on Airvo 2. Diarrhea secondary to COVID-19. This does seem improved 3. Acute renal failure probably prerenal azotemia and acute tubular necrosis secondary to sepsis. Improved 4. Hyponatremia on admission. Improved 5. Elevated liver enzymes secondary to sepsis and viral pneumonia. Trending down. Continue to monitor 6. History of essential hypertension 7. History of hyperlipidemia 8. History of coronary artery disease with previous stenting 9. Ex-smoker. 10. Hypotension. Lisinopril DC'd. Parameters set to Metroprolol. normal saline at 100 ordered DVT prophylaxis Lovenox. GI prophylaxis tonic Pulmonary services are following Remains on Decadron, vitamin C, zinc and vitamin D PT OT consulted Repeat labs ordered for a.m. Continue normal saline at 100 for hypotension
--- NOTE | 2020-10-26 16:20 | P.PN ---
Subjective Progress Note Date: 10/26/20 Principal diagnosis: Covid 19 pneumonia 50-year-old white female patient of Dr. Wise, who presented to the emergency department on 10/07/2020 for evaluation of dyspnea, cough, fever, body aches and chills. Patient reports symptom onset 4 days ago, she saw Dr. Wise and had an outpatient test for COVID 19, the results were unknown to her, however she was told in case of worsening symptoms to present to the emergency department. Past medical history is that of hypertension, hyperlipidemia, previous history of myocardial infarction, coronary artery disease with prior stenting. Chest x-ray shows ill-defined opacities in the lower lobes bilaterally. COVID 19 PCR was p ositive. Lab work has been reviewed, showing white blood cell, 4.6, hemoglobin 12.3, lymphocyte count was within normal limits at 1.1, d-dimer is 0.31, sodium is 133, the rest of electrolytes were within normal limits, B1 is 20 creatinine is 1.45 with GFR of 42, lactic acid 0.9, ferritin level is 3834, AST is 163, ALT is 117, LDH is 2034, CRP is 83.4, pro-calcitonin was 0.27. Low-grade fevers fo llowed in the emergency department. Patient was started on Decadron 6 mg daily, we'll start her on vitamins, one unit, less than plasma, we'll try to qualify her for tocilizumab 10/08/2020 patient seen in follow-up on medical floor, patient is status post Tocilizumab, infusion of 1 dose of convalescent plasma, she remains on Decadron, she remains on vitamins, IV hydration with 0.9 normal saline at 100 ML per hour, she is on subcu heparin 5000 units subcu 8 hours. Remains on 15 L high flow and nonrebreather mask, her pulse ox is 93-96%, overall reports feeling somewhat better. Follow-up chest x-ray today shows worsening diffuse lung infiltrates greatest in the lung bases, labs today show d-dimer 0.26, LDH and CRP are pending, pro-calcitonin level was low at 0.27. On 10/09/2020 patient seen in follow-up on the medical floor she is currently on 15 L high flow nasal cannula, in addition to pulmonary rehab mask, and a pulse ox is 86-98%, she is afebrile, hemodynamically patient is stable, she said no continues to bed, appears to be breathing comfortably, denies any chest discomfort, no fever or chills. Patient remains on systemic steroids, she is status post Tocilizumab and convalescent plasma. She remains on IV hydration, she states she is tolerating oral diet, no nausea or vomiting, today's labs have been reviewed, electrolytes are within normal limits, her creatinine has s ignificantly improved, down to 1.1 from 1.45 couple days ago, BUN is 43, AST and ALT have also improved, down to 77 and 80 respectively, alk phos is at 40. Procalcitonin level was low at 0.7, tolerating activity fairly well. On 10/10/2020 patient seen in follow-up on medical floor. She is on 15 L per nonrebreather mask in addition to 15 L high flow, she is awake and alert, is short of breath with exertion, but she has been able to use the bedside commode, and tolerated fairly well, she is afebrile, denies any chest pain, no cough, lung sounds reveal scattered crackles, she is tolerating oral intake, no nausea or vomiting. No new chest x-ray, her latest d-dimer from yesterday was 0.60, L DH was 2198, and CRP was 17.8, patient remains on Decadron 6 mg daily, vitamins. This had no acute events overnight, no worsening, however no significant improvement in dyspnea and oxygenation On 10/13/2020 patient seen in follow-up on medical surgical floor. She remains on high flow oxygen per 15 L high flow nasal cannula and 100% nonrebreather mask, pulse ox is 90-95%, she doesn't With exertion, but overall seems to be improving, lung sounds reveal minimal rales at bilateral bases, without signs have been stable, she has been slow to improve, no acute events overnight, no chest discomfort. Yesterday chest x-ray shows slight worsening of diffuse infiltrates. The labs have been reviewed, her d-dimer was 1.21, and her liver enzymes have worsened with AST up to 194, and ALT of 328, alkaline phosphatase was up to 78, LDH was overall on the rise up to 2729, by CRP was improving. Clinically seems to be doing better. No worsening cough, patient would like to be able to walk around in the room, however still requiring high flow oxygen and she can only walk so far, other than that no specific complaints On 10/16/2020 patient seen in follow-up on medical floor, she still remains on Airvo, at 60 L and FiO2 of 90%, her pulse ox is 92-97%, apparently earlier this morning rapid response team was called and the patient was confused, she was hypotensive, with blood pressure of 60/40, and a liter bolus was given, currently her IV fluids are infusing at 100 ML per hour, her antihypertensives were readjusted, lisinopril has been placed on hold, metoprolol dose was adjusted, her blood pressure responded well to fluids, currently is at 92/59, she is afebrile, no complaints of chest discomfort, breathing is about the same, she does desat with any exertion, but no worsening. No new chest x-ray today, right now she is sitting up in bed, breathing fairly comfortable, no worsening cough, lung sounds reveal bilateral crackles, no worsening. Today's labs have been noted, no d-dimer from today, electric selective renal profile are unremarkable, her troponin is less than 0.012. Patient continues on dexamethasone 6 mg daily, she is on prophylactic dose of Lovenox, multivitamins. On 10/19/2020 patient seen in follow-up. She remains on high flow oxygen per Airvo currently 60 L and FiO2 of 90% in addition to partial rebreather mask, and patient removed partial rebreather mask for meals, appears to be fairly comfortable, denies any worsening dyspnea but still requiring high flow oxygen. She thinks that it might be due to nasal congestion from high flow oxygen, and she states when she cleans out her nose usually her O2 saturations improve. Patient's last chest x-ray from 10/17/2020 showed worsening bilateral diffuse lung infiltrates. Patient continues on Decadron 6 mg daily, she continues on Lovenox 50 mg twice a day her last TD was back on 10/17/2020 and was elevated at 5.17, patient remains on IV fluids at 100 ML per hour, she is tolerating oral intake, nausea vomiting or diarrhea. On 10/21/2000 patient seen in follow-up on medical surgical floor, she is awake and alert, oriented 3, she is in no acute distress, she remains on Airvo currently at 60 L and FiO2 of 85%, her pulse ox is 91%, she thinks that she is doing better, she reports no new complaints, she does get short of breath with exertion, but overall seems to be very comfortable, no new chest x-ray today, her last chest x-ray on 10/17/2020 showed worsening bilateral diffuse lung infiltrates, patient has been afebrile, hemodynamically she remains stable, she denies any chest discomfort, no worsening cough, only occasional cough, no nausea vomiting or diarrhea, her appetite is fair, no abdominal pain today's lab work has been reviewed, showed white with 7.5, hemoglobin is 11.8, d-dimer from yesterday showed a stable d-dimer of 4.74, electrolytes and renal profile were unremarkable, BUN was 15, creatinine 0.6, her inflammatory markers on yesterday's labs were improving. On 10/22/2020 patient seen in follow-up on medical surgical floor. She is currently on Airvo at 60 L and FiO2 of 85%, nonrebreather mask is off, her pulse ox is between 93-96%, she is breathing comfortably, no worsening dyspnea, she is working on dialysis and achieving 800-1000, minimal cough, no fever or chills, today's chest x-ray shows mild cardiomegaly, with diffuse groundglass airspace disease similar to slightly worsened from 10/17/2020. Today's labs have been reviewed, her inflammatory markers are trending down, her LDH is down to 483, CRP is currently of less than 0.4, d-dimer is 1.9, improving. No nausea vomiting or diarrhea, she is tolerating oral intake, her pro-calcitonin level is negative at 0.03. Renal function is normal on yesterday's labs, electrolytes are within normal limits. On 10/23/2020 patient seen in follow-up on medical surgical floor, we have not been able to make much progress in terms of weaning FiO2 with oxygen flow, the patient requires Airvo at 60 L and FiO2 of 90%, and her pulse ox still remains marginally 89-92%, she denies any worsening dyspnea, she appears to be breathing comfortably, she is working on incentive spirometer, and she is doing an exemplary job on it. She denies any cough, denies any hemoptysis, denies any chest pain, she afebrile, hemodynamically she stable, no fever or chills, no headaches no dizziness, no body aches, no chest pain, no vomiting no abdominal pain or diarrhea. No new labs today. Yesterday's chest x-ray shows mild card iomegaly, diffuse groundglass airspace disease that slightly worsened, and patient has been on oral Decadron 6 mg daily, she is on Polyvitamin's, we gave her a dose of Lasix yesterday, and she remains on Lovenox 50 mg subcu twice daily. Yesterday's d-dimer was at 1.99 and we can drop down her dose of Lovenox to prophylactic dose On 10/24/2020 patient seen in follow-up on medical surgical floor, she continues to be on Airvo, she has been slow in terms of weaning from the oxygen, but no worsening dyspnea, breathing comfortably, compressive chest discomfort,vitals have been stable. Her pulse ox is between 93-94% on Airvo a 60 L and FiO2 of 90%, she's been afebrile. Today's chest x-ray shows stable findings with multifocal and confluent reticulonodular opacities greatest in the lower lungs, today's labs have been reviewed, d-dimer is down to 1.09, improving, white blood cell count is 8.6, hemoglobin is 12.5, electrolytes and renal profile are within normal limits. LDH tinniest improve, and is down to 479, CRP is less than 0.4, appropriate calcitonin level was low at 0.04. She is currently in Decadron 6 migraine twice daily, she is on Lovenox 40 mg daily, she isn't multivitamins. On 10/25/2020 patient seen in follow-up on medical surgical floor. She continues on Airvo at 60 L and FiO2 of 90%, not requiring nonrebreather mask with that. Seems to be breathing comfortably, her pulse ox is 92-93%, she's been afebrile, hemodynamically she's been stable, she's been getting up out of bed and move around as much as the Airvo tubing with a lower her, she is using the bedside commode, her appetite is fair, she has had no fever or chills, no cough, and no chest discomfort. Today's labs have been reviewed, white blood cell count of 9.5, hemoglobin is 12.6, electrolytes and renal profile are unremarkable On 10/26/2020 patient seen in follow-up on medical surgical floor. Still remains on Airvo, and other than requiring high flow oxygen patient appears to be quite stable, no worsening dyspnea, she is breathing comfortably, she has been get not to the bedside commode, sitting up on the edge of the bed and in the chair, tolerates activity quite well, her FiO2 is currently at 80% and this is down from 90%, oxygen flow is currently at 60 L, she is not requiring additional nonrebreather mask, she is afebrile, no complaints of worsening dyspnea, cough, no nausea vomiting or diarrhea. Today's labs have been reviewed, white blood cell count is 9.6, hemoglobin is 12.3, electrolytes and renal profile were fairly unremarkable. She remains on Decadron at 6 mg twice daily, she is on Polyvitamin, and once daily dose of Lovenox Objective - Vital Signs Vital signs: Vital Signs Temp 99.2 F 10/26/20 13:31 Pulse 95 10/26/20 13:31 Resp 20 10/26/20 13:31 BP 154/83 10/26/20 13:31 Pulse Ox 93 L 10/26/20 13:31 Intake & Output 10/25/20 10/26/20 10/26/20 18:59 06:59 18:59 Intake Total 472 Balance 472 Intake: Oral 472 Other: Voiding Method Bedside Commode Bedside Commode # Voids 1 3 # Bowel Movements 1 1 - Exam GENERAL EXAM: Alert, very pleasant, 50-year-old white female, on Airvo at 60 L and FiO2 of 80% with a pulse ox of 93% HEAD: Normocephalic/atraumatic. EYES: Normal reaction of pupils, equal size. Conjunctiva pink, sclera white. NOSE: Clear with pink turbinates. THROAT: No erythema or exudates. NECK: No masses, no JVD, no thyroid enlargement, no adenopathy. CHEST: No chest wall deformity. Symmetrical expansion. LUNGS: Equal air entry with bilateral crackles CVS: Regular rate and rhythm, normal S1 and S2, no gallops, no murmurs, no rubs ABDOMEN: Soft, nontender. No hepatosplenomegaly, normal bowel sounds, no guarding or rigidity. EXTREMITIES: No clubbing, no edema, no cyanosis, 2+ pulses and upper and lower extremities. MUSCULOSKELETAL: Muscle strength and tone normal. SPINE: No scoliosis or deformity SKIN: No rashes CENTRAL NERVOUS SYSTEM: Alert and oriented -3. No focal deficits, tone is normal in all 4 extremities. PSYCHIATRIC: Alert and oriented -3. Appropriate affect. Intact judgment and insight. - Labs CBC & Chem 7: 10/26/20 07:23 10/26/20 07:23 Labs: Abnormal Lab Results - Last 24 Hours (Table) 10/26/20 10/26/20 Range/Units 07:23 07:23 RBC 3.88 L (4.10-5.20) X 10*6/uL MCV 98.2 H (80.0-97.0) fL Immature Gran # 0.13 H (0.00-0.04) X 10*3/uL Sodium 136 L (137-145) mmol/L Glucose 111 H (74-99) mg/dL ALT 35 H (4-34) U/L Albumin 3.4 L (3.5-5.0) g/dL Assessment and Plan Plan: Assessment: #1. Acute hypoxic respiratory failure, related to acute COVID19 pneumonia, patient reports a 4 day history of worsening dyspnea, fever, chills, patient was already in moderate to severe hypoxic respiratory failure on presentation, and as such does not qualify for Remdesivir. Status post transfusion of Tocili zumab, convalescent plasma in addition to steroids #2. Dyspnea, cough, body aches, weakness related to the above #3. Acute kidney injury likely related to ATN, dehydration #4. Recent inflammatory markers related to acute COVID 19 pneumonia #5. Increased liver enzymes related to viral pneumonia #6. Hypertension #7. Hyperlipidemia #8. History of coronary artery disease with previous stenting #9. History of myocardial infarction #10. History of morbid obesity #11. History of hypotension, likely related to hypovolemia and dehydration, and antihypertensives, responded well to IV fluids. Plan: Patient remains stable although still requiring high flow oxygen Remains on Airvo at 60 L , but FiO2 is down to 80%, and patient is not requiring additional her percent nonrebreather mask No increased work of breathing Continue Decadron to 6 mg twice daily Continue making attempts to wean oxygen to maintain O2 saturations between 88- 90% Encourage deep breathing and coughing Follow-up d-dimer tomorrow, today's labs have been reviewed I performed a history & physical examination of the patient and discussed their management with my nurse practitioner, Abby Peters. I reviewed the nurse practitioner's note and agree with the documented findings and plan of care. Lung sounds are positive for diminished breath sounds. The findings and the impression was discussed with the patient. I attest to the documentation by the nurse practitioner. Time with Patient: Less than 30
[2020-10-26] MEDS: MELATONIN 3 MG TABLET PO SCH (19:10)
[2020-10-26] MEDS: ATORVASTATIN 40 MG TAB PO SCH (19:10)
[2020-10-27] MEDS: ACETAMINOPHEN TAB 325 MG TAB PO PRN ×4 (00:57→20:26)
[2020-10-27] MEDS: PANTOPRAZOLE 40 MG TABLET PO SCH (07:34)
[2020-10-27] MEDS: CHOLECALCIFEROL 25 MCG (1000 IU) TABLET PO SCH (07:34)
[2020-10-27] MEDS: ENOXAPARIN 40 MG/0.4 ML SYRINGE SQ SCH (07:34)
[2020-10-27] MEDS: METOPROLOL TARTRATE 25 MG TAB PO SCH (07:34)
[2020-10-27] MEDS: ASCORBIC ACID 500 MG TAB PO SCH ×2 (07:34→20:25)
[2020-10-27] MEDS: DEXAMETHASONE SOD PHOSPHATE 10 MG/ML 1 ML VIAL IV SCH ×2 (07:34→20:25)
[2020-10-27] MEDS: ZINC SULFATE 220 MG CAP PO SCH (07:35)
[2020-10-27] MEDS: DOCUSATE 100 MG CAP PO SCH (07:35)
[2020-10-27] MEDS: ASPIRIN 325 MG TAB PO SCH (07:35)
[2020-10-27] MEDS: ALBUTEROL HFA INHALER INHALATION SCH ×4 (07:50→19:36)
--- NOTE | 2020-10-27 15:17 | P.PN ---
Subjective Progress Note Date: 10/27/20 I am assuming care of this patient as of 10/16/2020 at 8 AM. I was out of town and Dr. Craven was covering for me. H&P done by Dr. Tamayo on 10/07/2020 This is a 50-year-old female patient presented to the ER on 10/07/2020 with complaints of cough fever and body aches. Patient did test positive for COVID- 19 with symptoms starting about 8 days prior at that time patient was started on Decadron, vitamins, convulsant plasma and toclizumab. Patient does have a past medical history of coronary artery disease, hyperlipidemia, hypertension and NH. Patient also has been cleared history of previous nicotine dependence. Patient admitted to medical floor pulmonary service is consulted On 10/16/2020 patient is alert and oriented resting in chair. Patient had episode of hypotension. At this time lisinopril DC'd parameter set to Metroprolol. Blood pressure has improved continue normal saline at 100. Patient currently on high flow oxygen with the flow rate of 60 and an FiO2 of 90%. Patient remains dyspneic. Remains on IV Decadron. Patient denies any chest pain. Patient denies nausea vomiting or diarrhea. Patient denies any urinary burning or frequency. On 10/17/2020 patient was seen and examined on the medical floor she is alert and oriented 3 in no apparent distress she is still maintained on high flow oxygen she is complaining of shortness of breath with any activity she is also complaining of cough and chest tightness otherwise she denies any complaints there is no fever or chills no headache or dizziness no chest pain no nausea or vomiting no abdominal pain no diarrhea no blood in the stools no burning with urination no frequency or urgency and no hematuria. On 10/18/2020 patient alert and oriented 3. Patient remains on airvo. Reports that she feels slightly improved. Patient denies any nausea vomiting or diarrhea. Patient denies any urinary burning or frequency. Patient remains on Decadron. Pulmonary services are following. On 10/19/2020 patient was seen and examined on the medical floor she is alert and oriented 3 in no distress she is feeling better she is still maintained on high flow oxygen via Airvo she is complaining of shortness of breath with any activity she is complaining of cough otherwise she denies any complaints there is no fever or chills no headache or dizziness no chest pain no nausea or vomiting no abdominal pain no diarrhea no blood in the stools no burning with urination no frequency or urgency and no hematuria On 10/20/2020 patient was seen and examined on the medical floor she is alert and oriented 3 in no distress she is still complaining of shortness of breath and cough otherwise she denies any complaints, vital exam reveals a temperature of 97.3 pulse 77 respiration 20 blood pressure 106/67 pulse ox 88% on airvo with FiO2 of 80% On 10/21/2020 patient was seen and examined on the medical floor she is alert and oriented 3 in no apparent distress she is still maintained on high flow oxygen she is complaining of shortness of breath with activity she is also complaining of cough and chest tightness otherwise she denies any complaints there is no fever or chills no headache or dizziness no chest pain no nausea or vomiting no abdominal pain no diarrhea no blood in the stools no burning with urination no frequency or urgency and no hematuria. On 10/22/2020 patient was seen and examined on the medical floor she is alert and oriented 3 in no apparent distress he is complaining of shortness of breath with any activity and occasional cough, she is maintained on Airvo with FiO2 of 80% pulse ox is 93% temperature 98.7 pulse 95 respiration 23 blood pressure 135/87, otherwise there is no complaints there is no fever or chills no headache or dizziness no chest pain there is no nausea or vomiting no abdominal pain no diarrhea no blood in the stools no burning with urination no frequency or urgency and no hematuria On 10/23/2020 patient was seen and examined on the medical floor she is alert and oriented 3 in no apparent distress, she states that she is feeling better h er breathing is feeling easier to her she is still maintained on high flow oxygen she is complaining of shortness of breath with activity she is also complaining of cough and chest tightness otherwise she denies any complaints there is no fever or chills no headache or dizziness no chest pain no nausea or vomiting no abdominal pain no diarrhea no blood in the stools no burning with urination no frequency or urgency and no hematuria. On 10/24/2020 patient was seen and examined on the medical floor she is alert and oriented 3 in no apparent distress, she is still maintained on high flow oxygen she is complaining of shortness of breath with activity she is also complaining of cough and chest tightness otherwise she denies any complaints there is no fever or chills no headache or dizziness no chest pain no nausea or vomiting no abdominal pain no diarrhea no blood in the stools no burning with urination no frequency or urgency and no hematuria. on 10/25/2020 patient was seen and examined on the medical floor she is alert and oriented 3 in no distress, she is still maintained on high flow oxygen via Airvo, she reports some improvement in her shortness of breath and cough, there is no fever or chills no headache or dizziness no chest pain no nausea or vomiting no abdominal pain no diarrhea no blood in the stools no burning with urination no frequency or urgency and no hematuria. On 10/26/2020 patient was seen and examined on the medical floor she is alert and oriented, she is still maintained on high flow oxygen via Airvo, she is still complaining of shortness of breath and cough otherwise she denies any complaints there is no fever or chills no headache or dizziness no chest pain no palpitation no nausea or vomiting no abdominal pain no diarrhea and no urinary symptoms. On 10/27/2020 Patient was seen and examined on the medical floor, he is alert and oriented x3 in no distress, she is still complaining of shortness of breath otherwise she denies any complaints there is no fever or chills no headache or dizziness no chest pain no palpitation no cough no nausea or vomiting no abdominal pain no diarrhea no blood in the stools no burning with urination no frequency or urgency and no hematuria, there is no weakness or numbness in any of the extremities no change in vision speech or gait. At this time oxygen requirements are coming down gradually, possible discharge to home in 2-3 days, if oxygen requirements are down to 4-5 L per minute Objective - Vital Signs Vital signs: Vital Signs Temp 98.4 F 10/27/20 05:16 Pulse 74 10/27/20 05:16 Resp 19 10/27/20 05:16 BP 158/87 10/27/20 05:16 Pulse Ox 87 L 10/27/20 07:58 Intake & Output 10/26/20 10/27/20 10/27/20 18:59 06:59 18:59 Other: Voiding Method Bedside Commode Bedside Commode # Voids 4 3 # Bowel Movements 1 - Exam In general patient is alert and oriented 3 in no apparent distress Head normocephalic and atraumatic Neck supple no JVD no goiter no lymphadenopathy Lungs diminished bilaterally no crackles no wheezing Heart regular rate and rhythm S1-S2, no rub or gallop Abdomen is soft nontender nondistended positive bowel sounds no hepatosplenomegaly Extremities no edema Neuro no gross focal neurological deficit - Labs CBC & Chem 7: 10/26/20 07:23 10/26/20 07:23 Labs: Abnormal Lab Results - Last 24 Hours (Table) 10/26/20 10/27/20 Range/Units 07:23 07:02 RBC 3.88 L (4.10-5.20) X 10*6/uL MCV 98.2 H (80.0-97.0) fL Immature Gran # 0.13 H (0.00-0.04) X 10*3/uL D-Dimer 0.62 H (<0.60) mg/L FEU Assessment and Plan Assessment: 1. Acute hypoxic respiratory failure secondary to COVID-19 pneumonia. Patient is on Decadron, received Tocilizumab, and convalescent plasma. Pulmonary services are following. Remains on Airvo 2. Diarrhea secondary to COVID-19. This does seem improved 3. Acute renal failure probably prerenal azotemia and acute tubular necrosis secondary to sepsis. Improved 4. Hyponatremia on admission. Improved 5. Elevated liver enzymes secondary to sepsis and viral pneumonia. Trending down. Continue to monitor 6. History of essential hypertension 7. History of hyperlipidemia 8. History of coronary artery disease with previous stenting 9. Ex-smoker. 10. Hypotension. Lisinopril DC'd. Parameters set to Metroprolol. normal saline at 100 ordered DVT prophylaxis Lovenox. GI prophylaxis tonic Pulmonary services are following Remains on Decadron, vitamin C, zinc and vitamin D PT OT consulted Repeat labs ordered for a.m. Continue normal saline at 100 for hypotension
--- NOTE | 2020-10-27 15:52 | P.PN ---
Subjective Progress Note Date: 10/27/20 Principal diagnosis: COVID-19 pneumonia 50-year-old white female patient of Dr. Wise, who presented to the emergency department on 10/07/2020 for evaluation of dyspnea, cough, fever, body aches and chills. Patient reports symptom onset 4 days ago, she saw Dr. Wise and had an outpatient test for COVID 19, the results were unknown to her, however she was told in case of worsening symptoms to present to the emergency department. Past medical history is that of hypertension, hyperlipidemia, previous history of myocardial infarction, coronary artery disease with prior stenting. Chest x-ray shows ill-defined opacities in the lower lobes bilaterally. COVID 19 PCR was p ositive. Lab work has been reviewed, showing white blood cell, 4.6, hemoglobin 12.3, lymphocyte count was within normal limits at 1.1, d-dimer is 0.31, sodium is 133, the rest of electrolytes were within normal limits, B1 is 20 creatinine is 1.45 with GFR of 42, lactic acid 0.9, ferritin level is 3834, AST is 163, ALT is 117, LDH is 2034, CRP is 83.4, pro-calcitonin was 0.27. Low-grade fevers fo llowed in the emergency department. Patient was started on Decadron 6 mg daily, we'll start her on vitamins, one unit, less than plasma, we'll try to qualify her for tocilizumab 10/08/2020 patient seen in follow-up on medical floor, patient is status post Tocilizumab, infusion of 1 dose of convalescent plasma, she remains on Decadron, she remains on vitamins, IV hydration with 0.9 normal saline at 100 ML per hour, she is on subcu heparin 5000 units subcu 8 hours. Remains on 15 L high flow and nonrebreather mask, her pulse ox is 93-96%, overall reports feeling somewhat better. Follow-up chest x-ray today shows worsening diffuse lung infiltrates greatest in the lung bases, labs today show d-dimer 0.26, LDH and CRP are pending, pro-calcitonin level was low at 0.27. On 10/09/2020 patient seen in follow-up on the medical floor she is currently on 15 L high flow nasal cannula, in addition to pulmonary rehab mask, and a pulse ox is 86-98%, she is afebrile, hemodynamically patient is stable, she said no continues to bed, appears to be breathing comfortably, denies any chest discomfort, no fever or chills. Patient remains on systemic steroids, she is status post Tocilizumab and convalescent plasma. She remains on IV hydration, she states she is tolerating oral diet, no nausea or vomiting, today's labs have been reviewed, electrolytes are within normal limits, her creatinine has s ignificantly improved, down to 1.1 from 1.45 couple days ago, BUN is 43, AST and ALT have also improved, down to 77 and 80 respectively, alk phos is at 40. Procalcitonin level was low at 0.7, tolerating activity fairly well. On 10/10/2020 patient seen in follow-up on medical floor. She is on 15 L per nonrebreather mask in addition to 15 L high flow, she is awake and alert, is short of breath with exertion, but she has been able to use the bedside commode, and tolerated fairly well, she is afebrile, denies any chest pain, no cough, lung sounds reveal scattered crackles, she is tolerating oral intake, no nausea or vomiting. No new chest x-ray, her latest d-dimer from yesterday was 0.60, L DH was 2198, and CRP was 17.8, patient remains on Decadron 6 mg daily, vitamins. This had no acute events overnight, no worsening, however no significant improvement in dyspnea and oxygenation On 10/13/2020 patient seen in follow-up on medical surgical floor. She remains on high flow oxygen per 15 L high flow nasal cannula and 100% nonrebreather mask, pulse ox is 90-95%, she doesn't With exertion, but overall seems to be improving, lung sounds reveal minimal rales at bilateral bases, without signs have been stable, she has been slow to improve, no acute events overnight, no chest discomfort. Yesterday chest x-ray shows slight worsening of diffuse infiltrates. The labs have been reviewed, her d-dimer was 1.21, and her liver enzymes have worsened with AST up to 194, and ALT of 328, alkaline phosphatase was up to 78, LDH was overall on the rise up to 2729, by CRP was improving. Clinically seems to be doing better. No worsening cough, patient would like to be able to walk around in the room, however still requiring high flow oxygen and she can only walk so far, other than that no specific complaints On 10/16/2020 patient seen in follow-up on medical floor, she still remains on Airvo, at 60 L and FiO2 of 90%, her pulse ox is 92-97%, apparently earlier this morning rapid response team was called and the patient was confused, she was hypotensive, with blood pressure of 60/40, and a liter bolus was given, currently her IV fluids are infusing at 100 ML per hour, her antihypertensives were readjusted, lisinopril has been placed on hold, metoprolol dose was adjusted, her blood pressure responded well to fluids, currently is at 92/59, she is afebrile, no complaints of chest discomfort, breathing is about the same, she does desat with any exertion, but no worsening. No new chest x-ray today, right now she is sitting up in bed, breathing fairly comfortable, no worsening cough, lung sounds reveal bilateral crackles, no worsening. Today's labs have been noted, no d-dimer from today, electric selective renal profile are unremarkable, her troponin is less than 0.012. Patient continues on dexamethasone 6 mg daily, she is on prophylactic dose of Lovenox, multivitamins. On 10/19/2020 patient seen in follow-up. She remains on high flow oxygen per Airvo currently 60 L and FiO2 of 90% in addition to partial rebreather mask, and patient removed partial rebreather mask for meals, appears to be fairly comfortable, denies any worsening dyspnea but still requiring high flow oxygen. She thinks that it might be due to nasal congestion from high flow oxygen, and she states when she cleans out her nose usually her O2 saturations improve. Patient's last chest x-ray from 10/17/2020 showed worsening bilateral diffuse lung infiltrates. Patient continues on Decadron 6 mg daily, she continues on Lovenox 50 mg twice a day her last TD was back on 10/17/2020 and was elevated at 5.17, patient remains on IV fluids at 100 ML per hour, she is tolerating oral intake, nausea vomiting or diarrhea. On 10/21/2000 patient seen in follow-up on medical surgical floor, she is awake and alert, oriented 3, she is in no acute distress, she remains on Airvo currently at 60 L and FiO2 of 85%, her pulse ox is 91%, she thinks that she is doing better, she reports no new complaints, she does get short of breath with exertion, but overall seems to be very comfortable, no new chest x-ray today, her last chest x-ray on 10/17/2020 showed worsening bilateral diffuse lung infiltrates, patient has been afebrile, hemodynamically she remains stable, she denies any chest discomfort, no worsening cough, only occasional cough, no nausea vomiting or diarrhea, her appetite is fair, no abdominal pain today's lab work has been reviewed, showed white with 7.5, hemoglobin is 11.8, d-dimer from yesterday showed a stable d-dimer of 4.74, electrolytes and renal profile were unremarkable, BUN was 15, creatinine 0.6, her inflammatory markers on yesterday's labs were improving. On 10/22/2020 patient seen in follow-up on medical surgical floor. She is currently on Airvo at 60 L and FiO2 of 85%, nonrebreather mask is off, her pulse ox is between 93-96%, she is breathing comfortably, no worsening dyspnea, she is working on dialysis and achieving 800-1000, minimal cough, no fever or chills, today's chest x-ray shows mild cardiomegaly, with diffuse groundglass airspace disease similar to slightly worsened from 10/17/2020. Today's labs have been reviewed, her inflammatory markers are trending down, her LDH is down to 483, CRP is currently of less than 0.4, d-dimer is 1.9, improving. No nausea vomiting or diarrhea, she is tolerating oral intake, her pro-calcitonin level is negative at 0.03. Renal function is normal on yesterday's labs, electrolytes are within normal limits. On 10/23/2020 patient seen in follow-up on medical surgical floor, we have not been able to make much progress in terms of weaning FiO2 with oxygen flow, the patient requires Airvo at 60 L and FiO2 of 90%, and her pulse ox still remains marginally 89-92%, she denies any worsening dyspnea, she appears to be breathing comfortably, she is working on incentive spirometer, and she is doing an exemplary job on it. She denies any cough, denies any hemoptysis, denies any chest pain, she afebrile, hemodynamically she stable, no fever or chills, no headaches no dizziness, no body aches, no chest pain, no vomiting no abdominal pain or diarrhea. No new labs today. Yesterday's chest x-ray shows mild card iomegaly, diffuse groundglass airspace disease that slightly worsened, and patient has been on oral Decadron 6 mg daily, she is on Polyvitamin's, we gave her a dose of Lasix yesterday, and she remains on Lovenox 50 mg subcu twice daily. Yesterday's d-dimer was at 1.99 and we can drop down her dose of Lovenox to prophylactic dose On 10/24/2020 patient seen in follow-up on medical surgical floor, she continues to be on Airvo, she has been slow in terms of weaning from the oxygen, but no worsening dyspnea, breathing comfortably, compressive chest discomfort,vitals have been stable. Her pulse ox is between 93-94% on Airvo a 60 L and FiO2 of 90%, she's been afebrile. Today's chest x-ray shows stable findings with multifocal and confluent reticulonodular opacities greatest in the lower lungs, today's labs have been reviewed, d-dimer is down to 1.09, improving, white blood cell count is 8.6, hemoglobin is 12.5, electrolytes and renal profile are within normal limits. LDH tinniest improve, and is down to 479, CRP is less than 0.4, appropriate calcitonin level was low at 0.04. She is currently in Decadron 6 migraine twice daily, she is on Lovenox 40 mg daily, she isn't multivitamins. On 10/25/2020 patient seen in follow-up on medical surgical floor. She continues on Airvo at 60 L and FiO2 of 90%, not requiring nonrebreather mask with that. Seems to be breathing comfortably, her pulse ox is 92-93%, she's been afebrile, hemodynamically she's been stable, she's been getting up out of bed and move around as much as the Airvo tubing with a lower her, she is using the bedside commode, her appetite is fair, she has had no fever or chills, no cough, and no chest discomfort. Today's labs have been reviewed, white blood cell count of 9.5, hemoglobin is 12.6, electrolytes and renal profile are unremarkable On 10/26/2020 patient seen in follow-up on medical surgical floor. Still remains on Airvo, and other than requiring high flow oxygen patient appears to be quite stable, no worsening dyspnea, she is breathing comfortably, she has been get not to the bedside commode, sitting up on the edge of the bed and in the chair, tolerates activity quite well, her FiO2 is currently at 80% and this is down from 90%, oxygen flow is currently at 60 L, she is not requiring additional nonrebreather mask, she is afebrile, no complaints of worsening dyspnea, cough, no nausea vomiting or diarrhea. Today's labs have been reviewed, white blood cell count is 9.6, hemoglobin is 12.3, electrolytes and renal profile were fairly unremarkable. She remains on Decadron at 6 mg twice daily, she is on Polyvitamin, and once daily dose of Lovenox The patient is seen today 10/27/2020 follow-up on the regular medical floor. She is currently resting chronic in bed. Awake and alert in no acute distress. She is still on AirVo high flow oxygen at 60 L and 80% FiO2. Crackles in the posterior bases. She is feeling a bit better today compared to yesterday. D- dimer 0.62. Remains on IV Decadron, Lovenox, vitamin supplements. Objective - Vital Signs Vital signs: Vital Signs Temp 98.4 F 10/27/20 14:10 Pulse 81 10/27/20 14:10 Resp 20 10/27/20 14:10 BP 138/84 10/27/20 14:10 Pulse Ox 93 L 10/27/20 14:10 Intake & Output 10/26/20 10/27/20 10/27/20 18:59 06:59 18:59 Other: Voiding Method Bedside Commode Bedside Commode # Voids 4 3 # Bowel Movements 1 - Exam GENERAL EXAM: Alert, active, very pleasant 50-year-old female patient, on AirVo high flow oxygen at 60 L and 80% FiO2, comfortable in no apparent distress. HEAD: Normocephalic. EYES: Normal reaction of pupils, equal size. NOSE: Clear with pink turbinates. THROAT: No erythema or exudates. NECK: No masses, no JVD. CHEST: No chest wall deformity. LUNGS: Equal air entry with coarse crackles in the bilateral bases CVS: S1 and S2 normal with no audible murmur, regular rhythm. ABDOMEN: No hepatosplenomegaly, normal bowel sounds, no guarding or rigidity. SPINE: No scoliosis or deformity SKIN: No rashes CENTRAL NERVOUS SYSTEM: No focal deficits, tone is normal in all 4 extremities. EXTREMITIES: There is no peripheral edema. No clubbing, no cyanosis. Peripheral pulses are intact. - Labs CBC & Chem 7: 10/26/20 07:23 10/26/20 07:23 Labs: Abnormal Lab Results - Last 24 Hours (Table) 10/27/20 Range/Units 07:02 D-Dimer 0.62 H (<0.60) mg/L FEU Assessment and Plan Assessment: 1 Acute hypoxic respiratory failure, related to acute COVID19 pneumonia, patient reports a 4 day history of worsening dyspnea, fever, chills, patient was already in moderate to severe hypoxic respiratory failure on presentation, and as such does not qualify for Remdesivir. Received Tocilizumab, convalescent plasma 2 Dyspnea, cough, body aches, weakness related to the above 3 Acute kidney injury likely related to ATN, dehydration 4 Recent inflammatory markers related to acute COVID 19 pneumonia 5 Increased liver enzymes related to viral pneumonia 6 Hypertension 7 Hyperlipidemia 8 History of coronary artery disease with previous stenting 9 History of myocardial infarction 10 History of morbid obesity 11 History of hypotension, likely related to hypovolemia and dehydration, and antihypertensives, responded well to IV fluids. Plan: The patient was seen and evaluated by Dr. Gamez Continue to titrate down the FiO2 as tolerated Currently lying in a prone position Remains on dexamethasone, Lovenox, vitamin supplements Received TOCI and convalescent plasma Follow-up chest x-ray and labs in a.m. We'll continue to follow I, the cosigning physician, performed a history & physical examination of the patient. Lungs sounds crackles in the bilateral bases. Maintaining good O2 saturations in the 90s on AirVo at 60 L and 80% FiO2. I discussed the assessment and plan of care with my nurse practitioner, Yessenia Lam. I attest to the above note as dictated by her.
[2020-10-27] MEDS: ATORVASTATIN 40 MG TAB PO SCH (20:25)
[2020-10-27] MEDS: MELATONIN 3 MG TABLET PO SCH (20:26)
[2020-10-28] MEDS: ACETAMINOPHEN TAB 325 MG TAB PO PRN ×4 (02:17→20:57)
--- NOTE | 2020-10-28 07:23 | XR ---
EXAMINATION TYPE: XR chest 1V portable DATE OF EXAM: 10/28/2020 HISTORY: Covid 19 pneumonia COMPARISON: 10/24/2020 TECHNIQUE: Single view of the chest is submitted. FINDINGS: Coarse infiltrates throughout both lung land persists although may be slightly improved at the lung bases. The heart is stable. Hilar and mediastinal structures are within normal limits. Degenerative changes are seen of the dorsal spine. IMPRESSION: 1. Coarse infiltrates throughout both lung land persists although may be slightly improved at the lung bases.
[2020-10-28] MEDS: ALBUTEROL HFA INHALER INHALATION SCH ×4 (08:08→19:45)
[2020-10-28] MEDS: CHOLECALCIFEROL 25 MCG (1000 IU) TABLET PO SCH (08:14)
[2020-10-28] MEDS: ASPIRIN 325 MG TAB PO SCH (08:14)
[2020-10-28] MEDS: PANTOPRAZOLE 40 MG TABLET PO SCH (08:14)
[2020-10-28] MEDS: ZINC SULFATE 220 MG CAP PO SCH (08:14)
[2020-10-28] MEDS: DOCUSATE 100 MG CAP PO SCH (08:14)
[2020-10-28] MEDS: ASCORBIC ACID 500 MG TAB PO SCH ×2 (08:14→20:58)
[2020-10-28] MEDS: METOPROLOL TARTRATE 25 MG TAB PO SCH (08:14)
[2020-10-28] MEDS: DEXAMETHASONE SOD PHOSPHATE 10 MG/ML 1 ML VIAL IV SCH ×2 (08:14→20:58)
[2020-10-28] MEDS: ENOXAPARIN 40 MG/0.4 ML SYRINGE SQ SCH (08:15)
[2020-10-28 11:20] LABS: African American GFR (CKD) 122.3 (60.0-200.0); Albumin 3.8 g/dL (3.80-4.90); Albumin/Globulin Ratio 1.73 (1.60-3.17); Anion Gap 3.9 mmol/L (4.00-12.00); BUN/Creat Ratio 28.33 Ratio (12.00-20.00); Carbon Dioxide 31.1 mmol/L (21.6-31.8); Globulin 2.2 g/dL (1.6-3.3); Non-African American GFR(CKD) 105.5 (60.0-200.0); Potassium 4.6 mmol/L (3.5-5.5); Total Bilirubin 0.2 mg/dL (0.3-1.2)
[2020-10-28 12:01] LABS: Basophils # (A) 0.02 X 10*3/uL (0.00-0.10); Basophils % (A) 0.2 %; Eosinophils # (A) 0.03 X 10*3/uL (0.04-0.35); Eosinophils % (A) 0.3 %; HGB 12.2 g/dL (12.0-15.0); Lymphocytes # (A) 1.54 X 10*3/uL (0.90-5.00); Lymphocytes % (A) 14.3 %; MCH 32.6 pg (27.0-32.0); MCV 98.9 fL (80.0-97.0); Mean Platelet Volume 10.3 fL (9.5-12.2); Monocytes # (A) 0.93 X 10*3/uL (0.20-1.00); Monocytes % (A) 8.6 %; Neutrophils # (A) 8.03 X 10*3/uL (1.80-7.70); Neutrophils % (A) 74.4 %; Platelet Count 292 X 10*3/uL (140-440); RBC 3.74 X 10*6/uL (4.10-5.20); RDW 13.6 % (11.5-14.5); WBC 10.79 X 10*3/uL (4.50-10.00)
[2020-10-28] MEDS: CALCIUM CARBONATE 500 MG CHEWABLE PO PRN ×2 (15:48→20:59)
--- NOTE | 2020-10-28 16:32 | P.PN ---
Subjective Progress Note Date: 10/28/20 Principal diagnosis: Covid 19 pneumonia 50-year-old white female patient of Dr. Wise, who presented to the emergency department on 10/07/2020 for evaluation of dyspnea, cough, fever, body aches and chills. Patient reports symptom onset 4 days ago, she saw Dr. Wise and had an outpatient test for COVID 19, the results were unknown to her, however she was told in case of worsening symptoms to present to the emergency department. Past medical history is that of hypertension, hyperlipidemia, previous history of myocardial infarction, coronary artery disease with prior stenting. Chest x-ray shows ill-defined opacities in the lower lobes bilaterally. COVID 19 PCR was p ositive. Lab work has been reviewed, showing white blood cell, 4.6, hemoglobin 12.3, lymphocyte count was within normal limits at 1.1, d-dimer is 0.31, sodium is 133, the rest of electrolytes were within normal limits, B1 is 20 creatinine is 1.45 with GFR of 42, lactic acid 0.9, ferritin level is 3834, AST is 163, ALT is 117, LDH is 2034, CRP is 83.4, pro-calcitonin was 0.27. Low-grade fevers fo llowed in the emergency department. Patient was started on Decadron 6 mg daily, we'll start her on vitamins, one unit, less than plasma, we'll try to qualify her for tocilizumab 10/08/2020 patient seen in follow-up on medical floor, patient is status post Tocilizumab, infusion of 1 dose of convalescent plasma, she remains on Decadron, she remains on vitamins, IV hydration with 0.9 normal saline at 100 ML per hour, she is on subcu heparin 5000 units subcu 8 hours. Remains on 15 L high flow and nonrebreather mask, her pulse ox is 93-96%, overall reports feeling somewhat better. Follow-up chest x-ray today shows worsening diffuse lung infiltrates greatest in the lung bases, labs today show d-dimer 0.26, LDH and CRP are pending, pro-calcitonin level was low at 0.27. On 10/09/2020 patient seen in follow-up on the medical floor she is currently on 15 L high flow nasal cannula, in addition to pulmonary rehab mask, and a pulse ox is 86-98%, she is afebrile, hemodynamically patient is stable, she said no continues to bed, appears to be breathing comfortably, denies any chest discomfort, no fever or chills. Patient remains on systemic steroids, she is status post Tocilizumab and convalescent plasma. She remains on IV hydration, she states she is tolerating oral diet, no nausea or vomiting, today's labs have been reviewed, electrolytes are within normal limits, her creatinine has s ignificantly improved, down to 1.1 from 1.45 couple days ago, BUN is 43, AST and ALT have also improved, down to 77 and 80 respectively, alk phos is at 40. Procalcitonin level was low at 0.7, tolerating activity fairly well. On 10/10/2020 patient seen in follow-up on medical floor. She is on 15 L per nonrebreather mask in addition to 15 L high flow, she is awake and alert, is short of breath with exertion, but she has been able to use the bedside commode, and tolerated fairly well, she is afebrile, denies any chest pain, no cough, lung sounds reveal scattered crackles, she is tolerating oral intake, no nausea or vomiting. No new chest x-ray, her latest d-dimer from yesterday was 0.60, L DH was 2198, and CRP was 17.8, patient remains on Decadron 6 mg daily, vitamins. This had no acute events overnight, no worsening, however no significant improvement in dyspnea and oxygenation On 10/13/2020 patient seen in follow-up on medical surgical floor. She remains on high flow oxygen per 15 L high flow nasal cannula and 100% nonrebreather mask, pulse ox is 90-95%, she doesn't With exertion, but overall seems to be improving, lung sounds reveal minimal rales at bilateral bases, without signs have been stable, she has been slow to improve, no acute events overnight, no chest discomfort. Yesterday chest x-ray shows slight worsening of diffuse infiltrates. The labs have been reviewed, her d-dimer was 1.21, and her liver enzymes have worsened with AST up to 194, and ALT of 328, alkaline phosphatase was up to 78, LDH was overall on the rise up to 2729, by CRP was improving. Clinically seems to be doing better. No worsening cough, patient would like to be able to walk around in the room, however still requiring high flow oxygen and she can only walk so far, other than that no specific complaints On 10/16/2020 patient seen in follow-up on medical floor, she still remains on Airvo, at 60 L and FiO2 of 90%, her pulse ox is 92-97%, apparently earlier this morning rapid response team was called and the patient was confused, she was hypotensive, with blood pressure of 60/40, and a liter bolus was given, currently her IV fluids are infusing at 100 ML per hour, her antihypertensives were readjusted, lisinopril has been placed on hold, metoprolol dose was adjusted, her blood pressure responded well to fluids, currently is at 92/59, she is afebrile, no complaints of chest discomfort, breathing is about the same, she does desat with any exertion, but no worsening. No new chest x-ray today, right now she is sitting up in bed, breathing fairly comfortable, no worsening cough, lung sounds reveal bilateral crackles, no worsening. Today's labs have been noted, no d-dimer from today, electric selective renal profile are unremarkable, her troponin is less than 0.012. Patient continues on dexamethasone 6 mg daily, she is on prophylactic dose of Lovenox, multivitamins. On 10/19/2020 patient seen in follow-up. She remains on high flow oxygen per Airvo currently 60 L and FiO2 of 90% in addition to partial rebreather mask, and patient removed partial rebreather mask for meals, appears to be fairly comfortable, denies any worsening dyspnea but still requiring high flow oxygen. She thinks that it might be due to nasal congestion from high flow oxygen, and she states when she cleans out her nose usually her O2 saturations improve. Patient's last chest x-ray from 10/17/2020 showed worsening bilateral diffuse lung infiltrates. Patient continues on Decadron 6 mg daily, she continues on Lovenox 50 mg twice a day her last TD was back on 10/17/2020 and was elevated at 5.17, patient remains on IV fluids at 100 ML per hour, she is tolerating oral intake, nausea vomiting or diarrhea. On 10/21/2000 patient seen in follow-up on medical surgical floor, she is awake and alert, oriented 3, she is in no acute distress, she remains on Airvo currently at 60 L and FiO2 of 85%, her pulse ox is 91%, she thinks that she is doing better, she reports no new complaints, she does get short of breath with exertion, but overall seems to be very comfortable, no new chest x-ray today, her last chest x-ray on 10/17/2020 showed worsening bilateral diffuse lung infiltrates, patient has been afebrile, hemodynamically she remains stable, she denies any chest discomfort, no worsening cough, only occasional cough, no nausea vomiting or diarrhea, her appetite is fair, no abdominal pain today's lab work has been reviewed, showed white with 7.5, hemoglobin is 11.8, d-dimer from yesterday showed a stable d-dimer of 4.74, electrolytes and renal profile were unremarkable, BUN was 15, creatinine 0.6, her inflammatory markers on yesterday's labs were improving. On 10/22/2020 patient seen in follow-up on medical surgical floor. She is currently on Airvo at 60 L and FiO2 of 85%, nonrebreather mask is off, her pulse ox is between 93-96%, she is breathing comfortably, no worsening dyspnea, she is working on dialysis and achieving 800-1000, minimal cough, no fever or chills, today's chest x-ray shows mild cardiomegaly, with diffuse groundglass airspace disease similar to slightly worsened from 10/17/2020. Today's labs have been reviewed, her inflammatory markers are trending down, her LDH is down to 483, CRP is currently of less than 0.4, d-dimer is 1.9, improving. No nausea vomiting or diarrhea, she is tolerating oral intake, her pro-calcitonin level is negative at 0.03. Renal function is normal on yesterday's labs, electrolytes are within normal limits. On 10/23/2020 patient seen in follow-up on medical surgical floor, we have not been able to make much progress in terms of weaning FiO2 with oxygen flow, the patient requires Airvo at 60 L and FiO2 of 90%, and her pulse ox still remains marginally 89-92%, she denies any worsening dyspnea, she appears to be breathing comfortably, she is working on incentive spirometer, and she is doing an exemplary job on it. She denies any cough, denies any hemoptysis, denies any chest pain, she afebrile, hemodynamically she stable, no fever or chills, no headaches no dizziness, no body aches, no chest pain, no vomiting no abdominal pain or diarrhea. No new labs today. Yesterday's chest x-ray shows mild card iomegaly, diffuse groundglass airspace disease that slightly worsened, and patient has been on oral Decadron 6 mg daily, she is on Polyvitamin's, we gave her a dose of Lasix yesterday, and she remains on Lovenox 50 mg subcu twice daily. Yesterday's d-dimer was at 1.99 and we can drop down her dose of Lovenox to prophylactic dose On 10/24/2020 patient seen in follow-up on medical surgical floor, she continues to be on Airvo, she has been slow in terms of weaning from the oxygen, but no worsening dyspnea, breathing comfortably, compressive chest discomfort,vitals have been stable. Her pulse ox is between 93-94% on Airvo a 60 L and FiO2 of 90%, she's been afebrile. Today's chest x-ray shows stable findings with multifocal and confluent reticulonodular opacities greatest in the lower lungs, today's labs have been reviewed, d-dimer is down to 1.09, improving, white blood cell count is 8.6, hemoglobin is 12.5, electrolytes and renal profile are within normal limits. LDH tinniest improve, and is down to 479, CRP is less than 0.4, appropriate calcitonin level was low at 0.04. She is currently in Decadron 6 migraine twice daily, she is on Lovenox 40 mg daily, she isn't multivitamins. On 10/25/2020 patient seen in follow-up on medical surgical floor. She continues on Airvo at 60 L and FiO2 of 90%, not requiring nonrebreather mask with that. Seems to be breathing comfortably, her pulse ox is 92-93%, she's been afebrile, hemodynamically she's been stable, she's been getting up out of bed and move around as much as the Airvo tubing with a lower her, she is using the bedside commode, her appetite is fair, she has had no fever or chills, no cough, and no chest discomfort. Today's labs have been reviewed, white blood cell count of 9.5, hemoglobin is 12.6, electrolytes and renal profile are unremarkable On 10/26/2020 patient seen in follow-up on medical surgical floor. Still remains on Airvo, and other than requiring high flow oxygen patient appears to be quite stable, no worsening dyspnea, she is breathing comfortably, she has been get not to the bedside commode, sitting up on the edge of the bed and in the chair, tolerates activity quite well, her FiO2 is currently at 80% and this is down from 90%, oxygen flow is currently at 60 L, she is not requiring additional nonrebreather mask, she is afebrile, no complaints of worsening dyspnea, cough, no nausea vomiting or diarrhea. Today's labs have been reviewed, white blood cell count is 9.6, hemoglobin is 12.3, electrolytes and renal profile were fairly unremarkable. She remains on Decadron at 6 mg twice daily, she is on Polyvitamin, and once daily dose of Lovenox On 10/28/2020 patient seen in follow-up on medical surgical floor. She looks very comfortable, her Airvo settings are at 30 L and FiO2 of 57%, her pulse ox is around 85-92%, but patient looks very stable, breathing is nonlabored, no chest discomfort, no lightheadedness or dizziness, she is afebrile, hemodynamically she stable. Her chest x-ray shows coarse infiltrates throughout both lung land may be slightly improved at the lung bases. These labs have been reviewed showing white blood cell count of 10.79, hemoglobin of 12.2, d- dimer is 0.57, BUN of 17 creatinine 0.6, the rest of electrolytes are within normal limits. Patient is tolerating oral intake, she's been getting up to the commode, tolerates activity well. She remains on twice a dose of Decadron 6 mg, and her Lovenox 40 mg daily, in addition to vitamins. Objective - Vital Signs Vital signs: Vital Signs Temp 98.3 F 10/28/20 13:49 Pulse 94 10/28/20 13:49 Resp 24 10/28/20 13:49 BP 154/80 10/28/20 13:49 Pulse Ox 85 L 10/28/20 13:49 Intake & Output 10/27/20 10/28/20 10/28/20 18:59 06:59 18:59 Other: Voiding Method Bedside Commode Bedside Commode # Voids 4 4 # Bowel Movements 2 - Exam GENERAL EXAM: Alert, very pleasant, 50-year-old white female, on Airvo at 30 L and FiO2 of 57% with a pulse ox of 86-92% HEAD: Normocephalic/atraumatic. EYES: Normal reaction of pupils, equal size. Conjunctiva pink, sclera white. NOSE: Clear with pink turbinates. THROAT: No erythema or exudates. NECK: No masses, no JVD, no thyroid enlargement, no adenopathy. CHEST: No chest wall deformity. Symmetrical expansion. LUNGS: Equal air entry with bilateral crackles CVS: Regular rate and rhythm, normal S1 and S2, no gallops, no murmurs, no rubs ABDOMEN: Soft, nontender. No hepatosplenomegaly, normal bowel sounds, no guarding or rigidity. EXTREMITIES: No clubbing, no edema, no cyanosis, 2+ pulses and upper and lower extremities. MUSCULOSKELETAL: Muscle strength and tone normal. SPINE: No scoliosis or deformity SKIN: No rashes CENTRAL NERVOUS SYSTEM: Alert and oriented -3. No focal deficits, tone is normal in all 4 extremities. PSYCHIATRIC: Alert and oriented -3. Appropriate affect. Intact judgment and insight. - Labs CBC & Chem 7: 10/28/20 08:02 10/28/20 08:02 Labs: Abnormal Lab Results - Last 24 Hours (Table) 10/28/20 10/28/20 Range/Units 08:02 08:02 WBC 10.79 H (4.50-10.00) X 10*3/uL RBC 3.74 L (4.10-5.20) X 10*6/uL Hct 37.0 L (37.2-46.3) % MCV 98.9 H (80.0-97.0) fL MCH 32.6 H (27.0-32.0) pg Immature Gran # 0.24 H (0.00-0.04) X 10*3/uL Neutrophils # 8.03 H (1.80-7.70) X 10*3/uL Eosinophils # 0.03 L (0.04-0.35) X 10*3/uL Anion Gap 3.90 L (4.00-12.00) mmol/L BUN/Creatinine Ratio 28.33 H (12.00-20.00) Ratio Glucose 119 H (70-110) mg/dL Total Bilirubin 0.2 L (0.3-1.2) mg/dL Total Protein 6.0 L (6.2-8.2) g/dL Assessment and Plan Plan: Assessment: #1. Acute hypoxic respiratory failure, related to acute COVID19 pneumonia, patient reports a 4 day history of worsening dyspnea, fever, chills, patient was already in moderate to severe hypoxic respiratory failure on presentation, and as such does not qualify for Remdesivir. Status post transfusion of Tocilizumab, convalescent plasma in addition to steroids #2. Dyspnea, cough, body aches, weakness related to the above #3. Acute kidney injury likely related to ATN, dehydration #4. Recent inflammatory markers related to acute COVID 19 pneumonia #5. Increased liver enzymes related to viral pneumonia #6. Hypertension #7. Hyperlipidemia #8. History of coronary artery disease with previous stenting #9. History of myocardial infarction #10. History of morbid obesity #11. History of hypotension, likely related to hypovolemia and dehydration, and antihypertensives, responded well to IV fluids. Plan: Patient remains on Arava currently at 30 L and FiO2 of 57%, slowly coming down on the FiO2 No increased work of breathing Continue Decadron to 6 mg twice daily Continue making attempts to wean oxygen to maintain O2 saturations between 88- 90% Encourage deep breathing and coughing Follow-up d-dimer tomorrow, today's labs have been reviewed I performed a history & physical examination of the patient and discussed their management with my nurse practitioner, Abby Peters. I reviewed the nurse practitioner's note and agree with the documented findings and plan of care. Lung sounds are positive for diminished breath sounds. The findings and the impression was discussed with the patient. I attest to the documentation by the nurse practitioner. Time with Patient: Less than 30
--- NOTE | 2020-10-28 18:54 | P.PN ---
Subjective Progress Note Date: 10/28/20 I am assuming care of this patient as of 10/16/2020 at 8 AM. I was out of town and Dr. Craven was covering for me. H&P done by Dr. Tamayo on 10/07/2020 This is a 50-year-old female patient presented to the ER on 10/07/2020 with complaints of cough fever and body aches. Patient did test positive for COVID- 19 with symptoms starting about 8 days prior at that time patient was started on Decadron, vitamins, convulsant plasma and toclizumab. Patient does have a past medical history of coronary artery disease, hyperlipidemia, hypertension and [place]. Patient also has been cleared history of previous nicotine dependence. Patient admitted to medical floor pulmonary service is consulted On 10/16/2020 patient is alert and oriented resting in chair. Patient had episode of hypotension. At this time lisinopril DC'd parameter set to Metroprolol. Blood pressure has improved continue normal saline at 100. Patient currently on high flow oxygen with the flow rate of 60 and an FiO2 of 90%. Patient remains dyspneic. Remains on IV Decadron. Patient denies any chest pain. Patient denies nausea vomiting or diarrhea. Patient denies any urinary burning or frequency. On 10/17/2020 patient was seen and examined on the medical floor she is alert and oriented 3 in no apparent distress she is still maintained on high flow oxygen she is complaining of shortness of breath with any activity she is also complaining of cough and chest tightness otherwise she denies any complaints there is no fever or chills no headache or dizziness no chest pain no nausea or vomiting no abdominal pain no diarrhea no blood in the stools no burning with urination no frequency or urgency and no hematuria. On 10/18/2020 patient alert and oriented 3. Patient remains on airvo. Reports that she feels slightly improved. Patient denies any nausea vomiting or diarrhea. Patient denies any urinary burning or frequency. Patient remains on Decadron. Pulmonary services are following. On 10/19/2020 patient was seen and examined on the medical floor she is alert and oriented 3 in no distress she is feeling better she is still maintained on high flow oxygen via Airvo she is complaining of shortness of breath with any activity she is complaining of cough otherwise she denies any complaints there is no fever or chills no headache or dizziness no chest pain no nausea or vomiting no abdominal pain no diarrhea no blood in the stools no burning with urination no frequency or urgency and no hematuria On 10/20/2020 patient was seen and examined on the medical floor she is alert and oriented 3 in no distress she is still complaining of shortness of breath and cough otherwise she denies any complaints, vital exam reveals a temperature of 97.3 pulse 77 respiration 20 blood pressure 106/67 pulse ox 88% on airvo with FiO2 of 80% On 10/21/2020 patient was seen and examined on the medical floor she is alert and oriented 3 in no apparent distress she is still maintained on high flow oxygen she is complaining of shortness of breath with activity she is also complaining of cough and chest tightness otherwise she denies any complaints there is no fever or chills no headache or dizziness no chest pain no nausea or vomiting no abdominal pain no diarrhea no blood in the stools no burning with urination no frequency or urgency and no hematuria. On 10/22/2020 patient was seen and examined on the medical floor she is alert and oriented 3 in no apparent distress he is complaining of shortness of breath with any activity and occasional cough, she is maintained on Airvo with FiO2 of 80% pulse ox is 93% temperature 98.7 pulse 95 respiration 23 blood pressure 135/87, otherwise there is no complaints there is no fever or chills no headache or dizziness no chest pain there is no nausea or vomiting no abdominal pain no diarrhea no blood in the stools no burning with urination no frequency or urgency and no hematuria On 10/23/2020 patient was seen and examined on the medical floor she is alert and oriented 3 in no apparent distress, she states that she is feeling better h er breathing is feeling easier to her she is still maintained on high flow oxygen she is complaining of shortness of breath with activity she is also complaining of cough and chest tightness otherwise she denies any complaints there is no fever or chills no headache or dizziness no chest pain no nausea or vomiting no abdominal pain no diarrhea no blood in the stools no burning with urination no frequency or urgency and no hematuria. On 10/24/2020 patient was seen and examined on the medical floor she is alert and oriented 3 in no apparent distress, she is still maintained on high flow oxygen she is complaining of shortness of breath with activity she is also complaining of cough and chest tightness otherwise she denies any complaints there is no fever or chills no headache or dizziness no chest pain no nausea or vomiting no abdominal pain no diarrhea no blood in the stools no burning with urination no frequency or urgency and no hematuria. on 10/25/2020 patient was seen and examined on the medical floor she is alert and oriented 3 in no distress, she is still maintained on high flow oxygen via Airvo, she reports some improvement in her shortness of breath and cough, there is no fever or chills no headache or dizziness no chest pain no nausea or vomiting no abdominal pain no diarrhea no blood in the stools no burning with urination no frequency or urgency and no hematuria. On 10/26/2020 patient was seen and examined on the medical floor she is alert and oriented, she is still maintained on high flow oxygen via Airvo, she is still complaining of shortness of breath and cough otherwise she denies any complaints there is no fever or chills no headache or dizziness no chest pain no palpitation no nausea or vomiting no abdominal pain no diarrhea and no urinary symptoms. On 10/27/2020 Patient was seen and examined on the medical floor, he is alert and oriented x3 in no distress, she is still complaining of shortness of breath otherwise she denies any complaints there is no fever or chills no headache or dizziness no chest pain no palpitation no cough no nausea or vomiting no abdominal pain no diarrhea no blood in the stools no burning with urination no frequency or urgency and no hematuria, there is no weakness or numbness in any of the extremities no change in vision speech or gait. At this time oxygen requirements are coming down gradually, possible discharge to home in 2-3 days, if oxygen requirements are down to 4-5 L per minute On 10/28/2020 Patient was seen and examined on the medical floor, he is alert and oriented x 3 in no distress, he denies any complaints there is no fever or chills no headache or dizziness no chest pain no shortness of breath no palpitation no cough no nausea or vomiting no abdominal pain no diarrhea no blood in the stools no burning with urination no frequency or urgency and no hematuria, there is no weakness or numbness in any of the extremities no change in vision speech or gait. Possible discharge to home in the next 1-2 days if oxygen requirements are down Objective - Vital Signs Vital signs: Vital Signs Temp 98.6 F 10/28/20 10:00 Pulse 75 10/28/20 10:00 Resp 20 10/28/20 10:00 BP 96/56 10/28/20 10:00 Pulse Ox 86 L 10/28/20 10:00 Intake & Output 10/27/20 10/28/20 10/28/20 18:59 06:59 18:59 Other: Voiding Method Bedside Commode # Voids 4 4 # Bowel Movements 2 - Exam In general patient is alert and oriented 3 in no apparent distress Head normocephalic and atraumatic Neck supple no JVD no goiter no lymphadenopathy Lungs diminished bilaterally no crackles no wheezing Heart regular rate and rhythm S1-S2, no rub or gallop Abdomen is soft nontender nondistended positive bowel sounds no hepatosplenomegaly Extremities no edema Neuro no gross focal neurological deficit - Labs CBC & Chem 7: 10/28/20 08:02 10/28/20 08:02 Labs: Abnormal Lab Results - Last 24 Hours (Table) 10/28/20 10/28/20 Range/Units 08:02 08:02 WBC 10.79 H (4.50-10.00) X 10*3/uL RBC 3.74 L (4.10-5.20) X 10*6/uL Hct 37.0 L (37.2-46.3) % MCV 98.9 H (80.0-97.0) fL MCH 32.6 H (27.0-32.0) pg Immature Gran # 0.24 H (0.00-0.04) X 10*3/uL Neutrophils # 8.03 H (1.80-7.70) X 10*3/uL Eosinophils # 0.03 L (0.04-0.35) X 10*3/uL Anion Gap 3.90 L (4.00-12.00) mmol/L BUN/Creatinine Ratio 28.33 H (12.00-20.00) Ratio Glucose 119 H (70-110) mg/dL Total Bilirubin 0.2 L (0.3-1.2) mg/dL Total Protein 6.0 L (6.2-8.2) g/dL Assessment and Plan Assessment: 1. Acute hypoxic respiratory failure secondary to COVID-19 pneumonia. Patient is on Decadron, received Tocilizumab, and convalescent plasma. Pulmonary services are following. Remains on Airvo 2. Diarrhea secondary to COVID-19. This does seem improved 3. Acute renal failure probably prerenal azotemia and acute tubular necrosis se condary to sepsis. Improved 4. Hyponatremia on admission. Improved 5. Elevated liver enzymes secondary to sepsis and viral pneumonia. Trending down. Continue to monitor 6. History of essential hypertension 7. History of hyperlipidemia 8. History of coronary artery disease with previous stenting 9. Ex-smoker. 10. Hypotension. Lisinopril DC'd. Parameters set to Metroprolol. normal saline at 100 ordered DVT prophylaxis Lovenox. GI prophylaxis tonic Pulmonary services are following Remains on Decadron, vitamin C, zinc and vitamin D PT OT consulted Repeat labs ordered for a.m. Continue normal saline at 100 for hypotension
[2020-10-28] MEDS: ATORVASTATIN 40 MG TAB PO SCH (20:57)
[2020-10-28] MEDS: ALPRAZolam 0.25 MG TAB PO PRN (20:58)
[2020-10-28] MEDS: MELATONIN 3 MG TABLET PO SCH (20:59)
[2020-10-29] MEDS: ACETAMINOPHEN TAB 325 MG TAB PO PRN ×2 (06:00→16:01)
[2020-10-29] MEDS: ALBUTEROL HFA INHALER INHALATION SCH ×4 (07:14→21:28)
[2020-10-29] MEDS: DEXAMETHASONE SOD PHOSPHATE 10 MG/ML 1 ML VIAL IV SCH ×2 (09:20→21:33)
[2020-10-29] MEDS: CHOLECALCIFEROL 25 MCG (1000 IU) TABLET PO SCH (09:21)
[2020-10-29] MEDS: ZINC SULFATE 220 MG CAP PO SCH (09:21)
[2020-10-29] MEDS: ENOXAPARIN 40 MG/0.4 ML SYRINGE SQ SCH (09:21)
[2020-10-29] MEDS: ASPIRIN 325 MG TAB PO SCH (09:21)
[2020-10-29] MEDS: METOPROLOL TARTRATE 25 MG TAB PO SCH (09:21)
[2020-10-29] MEDS: ASCORBIC ACID 500 MG TAB PO SCH ×2 (09:21→21:33)
[2020-10-29] MEDS: DOCUSATE 100 MG CAP PO SCH (09:21)
[2020-10-29] MEDS: PANTOPRAZOLE 40 MG TABLET PO SCH (09:21)
--- NOTE | 2020-10-29 13:16 | P.PN ---
Subjective Progress Note Date: 10/29/20 Principal diagnosis: Covid 19 pneumonia 50-year-old white female patient of Dr. Wise, who presented to the emergency department on 10/07/2020 for evaluation of dyspnea, cough, fever, body aches and chills. Patient reports symptom onset 4 days ago, she saw Dr. Wise and had an outpatient test for COVID 19, the results were unknown to her, however she was told in case of worsening symptoms to present to the emergency department. Past medical history is that of hypertension, hyperlipidemia, previous history of myocardial infarction, coronary artery disease with prior stenting. Chest x-ray shows ill-defined opacities in the lower lobes bilaterally. COVID 19 PCR was p ositive. Lab work has been reviewed, showing white blood cell, 4.6, hemoglobin 12.3, lymphocyte count was within normal limits at 1.1, d-dimer is 0.31, sodium is 133, the rest of electrolytes were within normal limits, B1 is 20 creatinine is 1.45 with GFR of 42, lactic acid 0.9, ferritin level is 3834, AST is 163, ALT is 117, LDH is 2034, CRP is 83.4, pro-calcitonin was 0.27. Low-grade fevers fo llowed in the emergency department. Patient was started on Decadron 6 mg daily, we'll start her on vitamins, one unit, less than plasma, we'll try to qualify her for tocilizumab 10/08/2020 patient seen in follow-up on medical floor, patient is status post Tocilizumab, infusion of 1 dose of convalescent plasma, she remains on Decadron, she remains on vitamins, IV hydration with 0.9 normal saline at 100 ML per hour, she is on subcu heparin 5000 units subcu 8 hours. Remains on 15 L high flow and nonrebreather mask, her pulse ox is 93-96%, overall reports feeling somewhat better. Follow-up chest x-ray today shows worsening diffuse lung infiltrates greatest in the lung bases, labs today show d-dimer 0.26, LDH and CRP are pending, pro-calcitonin level was low at 0.27. On 10/09/2020 patient seen in follow-up on the medical floor she is currently on 15 L high flow nasal cannula, in addition to pulmonary rehab mask, and a pulse ox is 86-98%, she is afebrile, hemodynamically patient is stable, she said no continues to bed, appears to be breathing comfortably, denies any chest discomfort, no fever or chills. Patient remains on systemic steroids, she is status post Tocilizumab and convalescent plasma. She remains on IV hydration, she states she is tolerating oral diet, no nausea or vomiting, today's labs have been reviewed, electrolytes are within normal limits, her creatinine has s ignificantly improved, down to 1.1 from 1.45 couple days ago, BUN is 43, AST and ALT have also improved, down to 77 and 80 respectively, alk phos is at 40. Procalcitonin level was low at 0.7, tolerating activity fairly well. On 10/10/2020 patient seen in follow-up on medical floor. She is on 15 L per nonrebreather mask in addition to 15 L high flow, she is awake and alert, is short of breath with exertion, but she has been able to use the bedside commode, and tolerated fairly well, she is afebrile, denies any chest pain, no cough, lung sounds reveal scattered crackles, she is tolerating oral intake, no nausea or vomiting. No new chest x-ray, her latest d-dimer from yesterday was 0.60, L DH was 2198, and CRP was 17.8, patient remains on Decadron 6 mg daily, vitamins. This had no acute events overnight, no worsening, however no significant improvement in dyspnea and oxygenation On 10/13/2020 patient seen in follow-up on medical surgical floor. She remains on high flow oxygen per 15 L high flow nasal cannula and 100% nonrebreather mask, pulse ox is 90-95%, she doesn't With exertion, but overall seems to be improving, lung sounds reveal minimal rales at bilateral bases, without signs have been stable, she has been slow to improve, no acute events overnight, no chest discomfort. Yesterday chest x-ray shows slight worsening of diffuse infiltrates. The labs have been reviewed, her d-dimer was 1.21, and her liver enzymes have worsened with AST up to 194, and ALT of 328, alkaline phosphatase was up to 78, LDH was overall on the rise up to 2729, by CRP was improving. Clinically seems to be doing better. No worsening cough, patient would like to be able to walk around in the room, however still requiring high flow oxygen and she can only walk so far, other than that no specific complaints On 10/16/2020 patient seen in follow-up on medical floor, she still remains on Airvo, at 60 L and FiO2 of 90%, her pulse ox is 92-97%, apparently earlier this morning rapid response team was called and the patient was confused, she was hypotensive, with blood pressure of 60/40, and a liter bolus was given, currently her IV fluids are infusing at 100 ML per hour, her antihypertensives were readjusted, lisinopril has been placed on hold, metoprolol dose was adjusted, her blood pressure responded well to fluids, currently is at 92/59, she is afebrile, no complaints of chest discomfort, breathing is about the same, she does desat with any exertion, but no worsening. No new chest x-ray today, right now she is sitting up in bed, breathing fairly comfortable, no worsening cough, lung sounds reveal bilateral crackles, no worsening. Today's labs have been noted, no d-dimer from today, electric selective renal profile are unremarkable, her troponin is less than 0.012. Patient continues on dexamethasone 6 mg daily, she is on prophylactic dose of Lovenox, multivitamins. On 10/19/2020 patient seen in follow-up. She remains on high flow oxygen per Airvo currently 60 L and FiO2 of 90% in addition to partial rebreather mask, and patient removed partial rebreather mask for meals, appears to be fairly comfortable, denies any worsening dyspnea but still requiring high flow oxygen. She thinks that it might be due to nasal congestion from high flow oxygen, and she states when she cleans out her nose usually her O2 saturations improve. Patient's last chest x-ray from 10/17/2020 showed worsening bilateral diffuse lung infiltrates. Patient continues on Decadron 6 mg daily, she continues on Lovenox 50 mg twice a day her last TD was back on 10/17/2020 and was elevated at 5.17, patient remains on IV fluids at 100 ML per hour, she is tolerating oral intake, nausea vomiting or diarrhea. On 10/21/2000 patient seen in follow-up on medical surgical floor, she is awake and alert, oriented 3, she is in no acute distress, she remains on Airvo currently at 60 L and FiO2 of 85%, her pulse ox is 91%, she thinks that she is doing better, she reports no new complaints, she does get short of breath with exertion, but overall seems to be very comfortable, no new chest x-ray today, her last chest x-ray on 10/17/2020 showed worsening bilateral diffuse lung infiltrates, patient has been afebrile, hemodynamically she remains stable, she denies any chest discomfort, no worsening cough, only occasional cough, no nausea vomiting or diarrhea, her appetite is fair, no abdominal pain today's lab work has been reviewed, showed white with 7.5, hemoglobin is 11.8, d-dimer from yesterday showed a stable d-dimer of 4.74, electrolytes and renal profile were unremarkable, BUN was 15, creatinine 0.6, her inflammatory markers on yesterday's labs were improving. On 10/22/2020 patient seen in follow-up on medical surgical floor. She is currently on Airvo at 60 L and FiO2 of 85%, nonrebreather mask is off, her pulse ox is between 93-96%, she is breathing comfortably, no worsening dyspnea, she is working on dialysis and achieving 800-1000, minimal cough, no fever or chills, today's chest x-ray shows mild cardiomegaly, with diffuse groundglass airspace disease similar to slightly worsened from 10/17/2020. Today's labs have been reviewed, her inflammatory markers are trending down, her LDH is down to 483, CRP is currently of less than 0.4, d-dimer is 1.9, improving. No nausea vomiting or diarrhea, she is tolerating oral intake, her pro-calcitonin level is negative at 0.03. Renal function is normal on yesterday's labs, electrolytes are within normal limits. On 10/23/2020 patient seen in follow-up on medical surgical floor, we have not been able to make much progress in terms of weaning FiO2 with oxygen flow, the patient requires Airvo at 60 L and FiO2 of 90%, and her pulse ox still remains marginally 89-92%, she denies any worsening dyspnea, she appears to be breathing comfortably, she is working on incentive spirometer, and she is doing an exemplary job on it. She denies any cough, denies any hemoptysis, denies any chest pain, she afebrile, hemodynamically she stable, no fever or chills, no headaches no dizziness, no body aches, no chest pain, no vomiting no abdominal pain or diarrhea. No new labs today. Yesterday's chest x-ray shows mild card iomegaly, diffuse groundglass airspace disease that slightly worsened, and patient has been on oral Decadron 6 mg daily, she is on Polyvitamin's, we gave her a dose of Lasix yesterday, and she remains on Lovenox 50 mg subcu twice daily. Yesterday's d-dimer was at 1.99 and we can drop down her dose of Lovenox to prophylactic dose On 10/24/2020 patient seen in follow-up on medical surgical floor, she continues to be on Airvo, she has been slow in terms of weaning from the oxygen, but no worsening dyspnea, breathing comfortably, compressive chest discomfort,vitals have been stable. Her pulse ox is between 93-94% on Airvo a 60 L and FiO2 of 90%, she's been afebrile. Today's chest x-ray shows stable findings with multifocal and confluent reticulonodular opacities greatest in the lower lungs, today's labs have been reviewed, d-dimer is down to 1.09, improving, white blood cell count is 8.6, hemoglobin is 12.5, electrolytes and renal profile are within normal limits. LDH tinniest improve, and is down to 479, CRP is less than 0.4, appropriate calcitonin level was low at 0.04. She is currently in Decadron 6 migraine twice daily, she is on Lovenox 40 mg daily, she isn't multivitamins. On 10/25/2020 patient seen in follow-up on medical surgical floor. She continues on Airvo at 60 L and FiO2 of 90%, not requiring nonrebreather mask with that. Seems to be breathing comfortably, her pulse ox is 92-93%, she's been afebrile, hemodynamically she's been stable, she's been getting up out of bed and move around as much as the Airvo tubing with a lower her, she is using the bedside commode, her appetite is fair, she has had no fever or chills, no cough, and no chest discomfort. Today's labs have been reviewed, white blood cell count of 9.5, hemoglobin is 12.6, electrolytes and renal profile are unremarkable On 10/26/2020 patient seen in follow-up on medical surgical floor. Still remains on Airvo, and other than requiring high flow oxygen patient appears to be quite stable, no worsening dyspnea, she is breathing comfortably, she has been get not to the bedside commode, sitting up on the edge of the bed and in the chair, tolerates activity quite well, her FiO2 is currently at 80% and this is down from 90%, oxygen flow is currently at 60 L, she is not requiring additional nonrebreather mask, she is afebrile, no complaints of worsening dyspnea, cough, no nausea vomiting or diarrhea. Today's labs have been reviewed, white blood cell count is 9.6, hemoglobin is 12.3, electrolytes and renal profile were fairly unremarkable. She remains on Decadron at 6 mg twice daily, she is on Polyvitamin, and once daily dose of Lovenox On 10/28/2020 patient seen in follow-up on medical surgical floor. She looks very comfortable, her Airvo settings are at 30 L and FiO2 of 57%, her pulse ox is around 85-92%, but patient looks very stable, breathing is nonlabored, no chest discomfort, no lightheadedness or dizziness, she is afebrile, hemodynamically she stable. Her chest x-ray shows coarse infiltrates throughout both lung land may be slightly improved at the lung bases. These labs have been reviewed showing white blood cell count of 10.79, hemoglobin of 12.2, d- dimer is 0.57, BUN of 17 creatinine 0.6, the rest of electrolytes are within normal limits. Patient is tolerating oral intake, she's been getting up to the commode, tolerates activity well. She remains on twice a dose of Decadron 6 mg, and her Lovenox 40 mg daily, in addition to vitamins. On 10/29/2020 patient is seen in follow-up on medical surgical floor, she is on Airvo, currently down to 30 L and FiO2 of 50%, she is breathing quite comfortably, pulse ox is 90-91%, no fever or chills, hemodynamically stable, her chest x-ray yesterday showed coarse infiltrates throughout both lungs slightly improved at the lung bases. Today's labs have been reviewed, d-dimer 0.53, follow-up LDH and CRP are pending. Patient remains on prophylactic Lovenox, and dexamethasone 6 mg twice daily. No nausea vomiting or diarrhea, she is tolerating oral intake. Objective - Vital Signs Vital signs: Vital Signs Temp 98.7 F 10/29/20 10:00 Pulse 88 10/29/20 10:00 Resp 18 10/29/20 10:00 BP 163/96 10/29/20 10:00 Pulse Ox 91 L 10/29/20 10:00 Intake & Output 10/28/20 10/29/20 10/29/20 18:59 06:59 18:59 Output Total 600 Balance -600 Output: Urine 600 Other: Voiding Method Bedside Commode Bedside Commode Bedside Commode # Voids 5 3 # Bowel Movements 1 1 - Exam GENERAL EXAM: Alert, very pleasant, 50-year-old white female, on Airvo at 30 L and FiO2 of 50% with a pulse ox of 90-91% HEAD: Normocephalic/atraumatic. EYES: Normal reaction of pupils, equal size. Conjunctiva pink, sclera white. NOSE: Clear with pink turbinates. THROAT: No erythema or exudates. NECK: No masses, no JVD, no thyroid enlargement, no adenopathy. CHEST: No chest wall deformity. Symmetrical expansion. LUNGS: Equal air entry with bilateral crackles CVS: Regular rate and rhythm, normal S1 and S2, no gallops, no murmurs, no rubs ABDOMEN: Soft, nontender. No hepatosplenomegaly, normal bowel sounds, no guarding or rigidity. EXTREMITIES: No clubbing, no edema, no cyanosis, 2+ pulses and upper and lower extremities. MUSCULOSKELETAL: Muscle strength and tone normal. SPINE: No scoliosis or deformity SKIN: No rashes CENTRAL NERVOUS SYSTEM: Alert and oriented -3. No focal deficits, tone is normal in all 4 extremities. PSYCHIATRIC: Alert and oriented -3. Appropriate affect. Intact judgment and insight. - Labs CBC & Chem 7: 10/28/20 08:02 10/28/20 08:02 Assessment and Plan Plan: Assessment: #1. Acute hypoxic respiratory failure, related to acute COVID19 pneumonia, patient reports a 4 day history of worsening dyspnea, fever, chills, patient was already in moderate to severe hypoxic respiratory failure on presentation, and as such does not qualify for Remdesivir. Status post transfusion of Tocilizumab, convalescent plasma in addition to steroids #2. Dyspnea, cough, body aches, weakness related to the above #3. Acute kidney injury likely related to ATN, dehydration #4. Recent inflammatory markers related to acute COVID 19 pneumonia #5. Increased liver enzymes related to viral pneumonia #6. Hypertension #7. Hyperlipidemia #8. History of coronary artery disease with previous stenting #9. History of myocardial infarction #10. History of morbid obesity #11. History of hypotension, likely related to hypovolemia and dehydration, and antihypertensives, responded well to IV fluids. Plan: Airvo currently down to 30 L and FiO2 of 50%, patient is maintaining O2 saturations above 90% We'll switch her to regular nasal cannula starting at 15 L and will continue weaning it down Today's d-dimer was noted, continue current dose Lovenox Continue chronic dose IV Decadron Inflammatory markers are pending Yesterday's chest x-ray showed improvement of bilateral airspace disease at the bases Patient is improving and will continue to make attempts to wean the FiO2 down further I performed a history & physical examination of the patient and discussed their management with my nurse practitioner, Abby Peters. I reviewed the nurse practitioner's note and agree with the documented findings and plan of care. Lung sounds are positive for diminished breath sounds. The findings and the impression was discussed with the patient. I attest to the documentation by the nurse practitioner. Time with Patient: Less than 30
--- NOTE | 2020-10-29 19:13 | P.PN ---
Subjective Progress Note Date: 10/29/20 I am assuming care of this patient as of 10/16/2020 at 8 AM. I was out of town and Dr. Craven was covering for me. H&P done by Dr. Tamayo on 10/07/2020 This is a 50-year-old female patient presented to the ER on 10/07/2020 with complaints of cough fever and body aches. Patient did test positive for COVID- 19 with symptoms starting about 8 days prior at that time patient was started on Decadron, vitamins, convulsant plasma and toclizumab. Patient does have a past medical history of coronary artery disease, hyperlipidemia, hypertension and [place]. Patient also has been cleared history of previous nicotine dependence. Patient admitted to medical floor pulmonary service is consulted On 10/16/2020 patient is alert and oriented resting in chair. Patient had episode of hypotension. At this time lisinopril DC'd parameter set to Metroprolol. Blood pressure has improved continue normal saline at 100. Patient currently on high flow oxygen with the flow rate of 60 and an FiO2 of 90%. Patient remains dyspneic. Remains on IV Decadron. Patient denies any chest pain. Patient denies nausea vomiting or diarrhea. Patient denies any urinary burning or frequency. On 10/17/2020 patient was seen and examined on the medical floor she is alert and oriented 3 in no apparent distress she is still maintained on high flow oxygen she is complaining of shortness of breath with any activity she is also complaining of cough and chest tightness otherwise she denies any complaints there is no fever or chills no headache or dizziness no chest pain no nausea or vomiting no abdominal pain no diarrhea no blood in the stools no burning with urination no frequency or urgency and no hematuria. On 10/18/2020 patient alert and oriented 3. Patient remains on airvo. Reports that she feels slightly improved. Patient denies any nausea vomiting or diarrhea. Patient denies any urinary burning or frequency. Patient remains on Decadron. Pulmonary services are following. On 10/19/2020 patient was seen and examined on the medical floor she is alert and oriented 3 in no distress she is feeling better she is still maintained on high flow oxygen via Airvo she is complaining of shortness of breath with any activity she is complaining of cough otherwise she denies any complaints there is no fever or chills no headache or dizziness no chest pain no nausea or vomiting no abdominal pain no diarrhea no blood in the stools no burning with urination no frequency or urgency and no hematuria On 10/20/2020 patient was seen and examined on the medical floor she is alert and oriented 3 in no distress she is still complaining of shortness of breath and cough otherwise she denies any complaints, vital exam reveals a temperature of 97.3 pulse 77 respiration 20 blood pressure 106/67 pulse ox 88% on airvo with FiO2 of 80% On 10/21/2020 patient was seen and examined on the medical floor she is alert and oriented 3 in no apparent distress she is still maintained on high flow oxygen she is complaining of shortness of breath with activity she is also complaining of cough and chest tightness otherwise she denies any complaints there is no fever or chills no headache or dizziness no chest pain no nausea or vomiting no abdominal pain no diarrhea no blood in the stools no burning with urination no frequency or urgency and no hematuria. On 10/22/2020 patient was seen and examined on the medical floor she is alert and oriented 3 in no apparent distress he is complaining of shortness of breath with any activity and occasional cough, she is maintained on Airvo with FiO2 of 80% pulse ox is 93% temperature 98.7 pulse 95 respiration 23 blood pressure 135/87, otherwise there is no complaints there is no fever or chills no headache or dizziness no chest pain there is no nausea or vomiting no abdominal pain no diarrhea no blood in the stools no burning with urination no frequency or urgency and no hematuria On 10/23/2020 patient was seen and examined on the medical floor she is alert and oriented 3 in no apparent distress, she states that she is feeling better h er breathing is feeling easier to her she is still maintained on high flow oxygen she is complaining of shortness of breath with activity she is also complaining of cough and chest tightness otherwise she denies any complaints there is no fever or chills no headache or dizziness no chest pain no nausea or vomiting no abdominal pain no diarrhea no blood in the stools no burning with urination no frequency or urgency and no hematuria. On 10/24/2020 patient was seen and examined on the medical floor she is alert and oriented 3 in no apparent distress, she is still maintained on high flow oxygen she is complaining of shortness of breath with activity she is also complaining of cough and chest tightness otherwise she denies any complaints there is no fever or chills no headache or dizziness no chest pain no nausea or vomiting no abdominal pain no diarrhea no blood in the stools no burning with urination no frequency or urgency and no hematuria. on 10/25/2020 patient was seen and examined on the medical floor she is alert and oriented 3 in no distress, she is still maintained on high flow oxygen via Airvo, she reports some improvement in her shortness of breath and cough, there is no fever or chills no headache or dizziness no chest pain no nausea or vomiting no abdominal pain no diarrhea no blood in the stools no burning with urination no frequency or urgency and no hematuria. On 10/26/2020 patient was seen and examined on the medical floor she is alert and oriented, she is still maintained on high flow oxygen via Airvo, she is still complaining of shortness of breath and cough otherwise she denies any complaints there is no fever or chills no headache or dizziness no chest pain no palpitation no nausea or vomiting no abdominal pain no diarrhea and no urinary symptoms. On 10/27/2020 Patient was seen and examined on the medical floor, he is alert and oriented x3 in no distress, she is still complaining of shortness of breath otherwise she denies any complaints there is no fever or chills no headache or dizziness no chest pain no palpitation no cough no nausea or vomiting no abdominal pain no diarrhea no blood in the stools no burning with urination no frequency or urgency and no hematuria, there is no weakness or numbness in any of the extremities no change in vision speech or gait. At this time oxygen requirements are coming down gradually, possible discharge to home in 2-3 days, if oxygen requirements are down to 4-5 L per minute On 10/28/2020 Patient was seen and examined on the medical floor, he is alert and oriented x 3 in no distress, he denies any complaints there is no fever or chills no headache or dizziness no chest pain no shortness of breath no palpitation no cough no nausea or vomiting no abdominal pain no diarrhea no blood in the stools no burning with urination no frequency or urgency and no hematuria, there is no weakness or numbness in any of the extremities no change in vision speech or gait. Possible discharge to home in the next 1-2 days if oxygen requirements are down. On 10/29/2020 Patient was seen and examined on the medical floor, he is alert and oriented x 3 in no distress, she is still complaining of shortness of breath with any activity and occasional cough otherwise she denies any complaints there is no fever or chills no headache or dizziness no chest pain, no palpitation no nausea or vomiting no abdominal pain no diarrhea no blood in the stools no burning with urination no frequency or urgency and no hematuria, there is no weakness or numbness in any of the extremities no change in vision speech or g ait. Today Airvo was discontinued, and patient was started on nasal cannula, she is still requiring 10 L of oxygen per minute, possible discharge to home in the next 1-2 days if her oxygen requirement are decreasing Objective - Vital Signs Vital signs: Vital Signs Temp 97.8 F 10/29/20 18:00 Pulse 92 10/29/20 18:00 Resp 19 10/29/20 18:00 BP 132/83 10/29/20 18:00 Pulse Ox 92 L 10/29/20 18:00 Intake & Output 10/29/20 10/29/20 10/30/20 06:59 18:59 06:59 Intake Total 1080 Output Total 600 Balance -600 1080 Intake: Oral 1080 Output: Urine 600 Other: Voiding Method Bedside Commode Bedside Commode # Voids 3 10 # Bowel Movements 1 2 - Exam In general patient is alert and oriented 3 in no apparent distress Head normocephalic and atraumatic Neck supple no JVD no goiter no lymphadenopathy Lungs diminished bilaterally no crackles no wheezing Heart regular rate and rhythm S1-S2, no rub or gallop Abdomen is soft nontender nondistended positive bowel sounds no hepatosplenomegaly Extremities no edema Neuro no gross focal neurological deficit - Labs CBC & Chem 7: 10/28/20 08:02 10/28/20 08:02 Assessment and Plan Assessment: 1. Acute hypoxic respiratory failure secondary to COVID-19 pneumonia. Patient is on Decadron, received Tocilizumab, and convalescent plasma. Pulmonary services are following. Remains on Airvo 2. Diarrhea secondary to COVID-19. This does seem improved 3. Acute renal failure probably prerenal azotemia and acute tubular necrosis secondary to sepsis. Improved 4. Hyponatremia on admission. Improved 5. Elevated liver enzymes secondary to sepsis and viral pneumonia. Trending down. Continue to monitor 6. History of essential hypertension 7. History of hyperlipidemia 8. History of coronary artery disease with previous stenting 9. Ex-smoker. 10. Hypotension. Lisinopril DC'd. Parameters set to Metroprolol. normal saline at 100 ordered DVT prophylaxis Lovenox. GI prophylaxis tonic Pulmonary services are following Remains on Decadron, vitamin C, zinc and vitamin D PT OT consulted Repeat labs ordered for a.m. Continue normal saline at 100 for hypotension
[2020-10-29] MEDS: MELATONIN 3 MG TABLET PO SCH (21:33)
[2020-10-29] MEDS: ATORVASTATIN 40 MG TAB PO SCH (21:33)
[2020-10-30] MEDS: ACETAMINOPHEN TAB 325 MG TAB PO PRN ×4 (02:43→19:59)
[2020-10-30] MEDS: ASCORBIC ACID 500 MG TAB PO SCH ×2 (08:15→19:59)
[2020-10-30] MEDS: ASPIRIN 325 MG TAB PO SCH (08:15)
[2020-10-30] MEDS: CHOLECALCIFEROL 25 MCG (1000 IU) TABLET PO SCH (08:15)
[2020-10-30] MEDS: METOPROLOL TARTRATE 25 MG TAB PO SCH (08:15)
[2020-10-30] MEDS: DEXAMETHASONE SOD PHOSPHATE 10 MG/ML 1 ML VIAL IV SCH ×2 (08:15→20:00)
[2020-10-30] MEDS: ENOXAPARIN 40 MG/0.4 ML SYRINGE SQ SCH (08:16)
[2020-10-30] MEDS: PANTOPRAZOLE 40 MG TABLET PO SCH (08:16)
[2020-10-30] MEDS: DOCUSATE 100 MG CAP PO SCH (08:16)
[2020-10-30] MEDS: ZINC SULFATE 220 MG CAP PO SCH (08:16)
[2020-10-30] MEDS: ALBUTEROL HFA INHALER INHALATION SCH ×4 (08:31→21:01)
--- NOTE | 2020-10-30 15:16 | P.PN ---
Subjective Progress Note Date: 10/30/20 Principal diagnosis: Covid 19 pneumonia 50-year-old white female patient of Dr. Wise, who presented to the emergency department on 10/07/2020 for evaluation of dyspnea, cough, fever, body aches and chills. Patient reports symptom onset 4 days ago, she saw Dr. Wise and had an outpatient test for COVID 19, the results were unknown to her, however she was told in case of worsening symptoms to present to the emergency department. Past medical history is that of hypertension, hyperlipidemia, previous history of myocardial infarction, coronary artery disease with prior stenting. Chest x-ray shows ill-defined opacities in the lower lobes bilaterally. COVID 19 PCR was p ositive. Lab work has been reviewed, showing white blood cell, 4.6, hemoglobin 12.3, lymphocyte count was within normal limits at 1.1, d-dimer is 0.31, sodium is 133, the rest of electrolytes were within normal limits, B1 is 20 creatinine is 1.45 with GFR of 42, lactic acid 0.9, ferritin level is 3834, AST is 163, ALT is 117, LDH is 2034, CRP is 83.4, pro-calcitonin was 0.27. Low-grade fevers fo llowed in the emergency department. Patient was started on Decadron 6 mg daily, we'll start her on vitamins, one unit, less than plasma, we'll try to qualify her for tocilizumab 10/08/2020 patient seen in follow-up on medical floor, patient is status post Tocilizumab, infusion of 1 dose of convalescent plasma, she remains on Decadron, she remains on vitamins, IV hydration with 0.9 normal saline at 100 ML per hour, she is on subcu heparin 5000 units subcu 8 hours. Remains on 15 L high flow and nonrebreather mask, her pulse ox is 93-96%, overall reports feeling somewhat better. Follow-up chest x-ray today shows worsening diffuse lung infiltrates greatest in the lung bases, labs today show d-dimer 0.26, LDH and CRP are pending, pro-calcitonin level was low at 0.27. On 10/09/2020 patient seen in follow-up on the medical floor she is currently on 15 L high flow nasal cannula, in addition to pulmonary rehab mask, and a pulse ox is 86-98%, she is afebrile, hemodynamically patient is stable, she said no continues to bed, appears to be breathing comfortably, denies any chest discomfort, no fever or chills. Patient remains on systemic steroids, she is status post Tocilizumab and convalescent plasma. She remains on IV hydration, she states she is tolerating oral diet, no nausea or vomiting, today's labs have been reviewed, electrolytes are within normal limits, her creatinine has s ignificantly improved, down to 1.1 from 1.45 couple days ago, BUN is 43, AST and ALT have also improved, down to 77 and 80 respectively, alk phos is at 40. Procalcitonin level was low at 0.7, tolerating activity fairly well. On 10/10/2020 patient seen in follow-up on medical floor. She is on 15 L per nonrebreather mask in addition to 15 L high flow, she is awake and alert, is short of breath with exertion, but she has been able to use the bedside commode, and tolerated fairly well, she is afebrile, denies any chest pain, no cough, lung sounds reveal scattered crackles, she is tolerating oral intake, no nausea or vomiting. No new chest x-ray, her latest d-dimer from yesterday was 0.60, L DH was 2198, and CRP was 17.8, patient remains on Decadron 6 mg daily, vitamins. This had no acute events overnight, no worsening, however no significant improvement in dyspnea and oxygenation On 10/13/2020 patient seen in follow-up on medical surgical floor. She remains on high flow oxygen per 15 L high flow nasal cannula and 100% nonrebreather mask, pulse ox is 90-95%, she doesn't With exertion, but overall seems to be improving, lung sounds reveal minimal rales at bilateral bases, without signs have been stable, she has been slow to improve, no acute events overnight, no chest discomfort. Yesterday chest x-ray shows slight worsening of diffuse infiltrates. The labs have been reviewed, her d-dimer was 1.21, and her liver enzymes have worsened with AST up to 194, and ALT of 328, alkaline phosphatase was up to 78, LDH was overall on the rise up to 2729, by CRP was improving. Clinically seems to be doing better. No worsening cough, patient would like to be able to walk around in the room, however still requiring high flow oxygen and she can only walk so far, other than that no specific complaints On 10/16/2020 patient seen in follow-up on medical floor, she still remains on Airvo, at 60 L and FiO2 of 90%, her pulse ox is 92-97%, apparently earlier this morning rapid response team was called and the patient was confused, she was hypotensive, with blood pressure of 60/40, and a liter bolus was given, currently her IV fluids are infusing at 100 ML per hour, her antihypertensives were readjusted, lisinopril has been placed on hold, metoprolol dose was adjusted, her blood pressure responded well to fluids, currently is at 92/59, she is afebrile, no complaints of chest discomfort, breathing is about the same, she does desat with any exertion, but no worsening. No new chest x-ray today, right now she is sitting up in bed, breathing fairly comfortable, no worsening cough, lung sounds reveal bilateral crackles, no worsening. Today's labs have been noted, no d-dimer from today, electric selective renal profile are unremarkable, her troponin is less than 0.012. Patient continues on dexamethasone 6 mg daily, she is on prophylactic dose of Lovenox, multivitamins. On 10/19/2020 patient seen in follow-up. She remains on high flow oxygen per Airvo currently 60 L and FiO2 of 90% in addition to partial rebreather mask, and patient removed partial rebreather mask for meals, appears to be fairly comfortable, denies any worsening dyspnea but still requiring high flow oxygen. She thinks that it might be due to nasal congestion from high flow oxygen, and she states when she cleans out her nose usually her O2 saturations improve. Patient's last chest x-ray from 10/17/2020 showed worsening bilateral diffuse lung infiltrates. Patient continues on Decadron 6 mg daily, she continues on Lovenox 50 mg twice a day her last TD was back on 10/17/2020 and was elevated at 5.17, patient remains on IV fluids at 100 ML per hour, she is tolerating oral intake, nausea vomiting or diarrhea. On 10/21/2000 patient seen in follow-up on medical surgical floor, she is awake and alert, oriented 3, she is in no acute distress, she remains on Airvo currently at 60 L and FiO2 of 85%, her pulse ox is 91%, she thinks that she is doing better, she reports no new complaints, she does get short of breath with exertion, but overall seems to be very comfortable, no new chest x-ray today, her last chest x-ray on 10/17/2020 showed worsening bilateral diffuse lung infiltrates, patient has been afebrile, hemodynamically she remains stable, she denies any chest discomfort, no worsening cough, only occasional cough, no nausea vomiting or diarrhea, her appetite is fair, no abdominal pain today's lab work has been reviewed, showed white with 7.5, hemoglobin is 11.8, d-dimer from yesterday showed a stable d-dimer of 4.74, electrolytes and renal profile were unremarkable, BUN was 15, creatinine 0.6, her inflammatory markers on yesterday's labs were improving. On 10/22/2020 patient seen in follow-up on medical surgical floor. She is currently on Airvo at 60 L and FiO2 of 85%, nonrebreather mask is off, her pulse ox is between 93-96%, she is breathing comfortably, no worsening dyspnea, she is working on dialysis and achieving 800-1000, minimal cough, no fever or chills, today's chest x-ray shows mild cardiomegaly, with diffuse groundglass airspace disease similar to slightly worsened from 10/17/2020. Today's labs have been reviewed, her inflammatory markers are trending down, her LDH is down to 483, CRP is currently of less than 0.4, d-dimer is 1.9, improving. No nausea vomiting or diarrhea, she is tolerating oral intake, her pro-calcitonin level is negative at 0.03. Renal function is normal on yesterday's labs, electrolytes are within normal limits. On 10/23/2020 patient seen in follow-up on medical surgical floor, we have not been able to make much progress in terms of weaning FiO2 with oxygen flow, the patient requires Airvo at 60 L and FiO2 of 90%, and her pulse ox still remains marginally 89-92%, she denies any worsening dyspnea, she appears to be breathing comfortably, she is working on incentive spirometer, and she is doing an exemplary job on it. She denies any cough, denies any hemoptysis, denies any chest pain, she afebrile, hemodynamically she stable, no fever or chills, no headaches no dizziness, no body aches, no chest pain, no vomiting no abdominal pain or diarrhea. No new labs today. Yesterday's chest x-ray shows mild card iomegaly, diffuse groundglass airspace disease that slightly worsened, and patient has been on oral Decadron 6 mg daily, she is on Polyvitamin's, we gave her a dose of Lasix yesterday, and she remains on Lovenox 50 mg subcu twice daily. Yesterday's d-dimer was at 1.99 and we can drop down her dose of Lovenox to prophylactic dose On 10/24/2020 patient seen in follow-up on medical surgical floor, she continues to be on Airvo, she has been slow in terms of weaning from the oxygen, but no worsening dyspnea, breathing comfortably, compressive chest discomfort,vitals have been stable. Her pulse ox is between 93-94% on Airvo a 60 L and FiO2 of 90%, she's been afebrile. Today's chest x-ray shows stable findings with multifocal and confluent reticulonodular opacities greatest in the lower lungs, today's labs have been reviewed, d-dimer is down to 1.09, improving, white blood cell count is 8.6, hemoglobin is 12.5, electrolytes and renal profile are within normal limits. LDH tinniest improve, and is down to 479, CRP is less than 0.4, appropriate calcitonin level was low at 0.04. She is currently in Decadron 6 migraine twice daily, she is on Lovenox 40 mg daily, she isn't multivitamins. On 10/25/2020 patient seen in follow-up on medical surgical floor. She continues on Airvo at 60 L and FiO2 of 90%, not requiring nonrebreather mask with that. Seems to be breathing comfortably, her pulse ox is 92-93%, she's been afebrile, hemodynamically she's been stable, she's been getting up out of bed and move around as much as the Airvo tubing with a lower her, she is using the bedside commode, her appetite is fair, she has had no fever or chills, no cough, and no chest discomfort. Today's labs have been reviewed, white blood cell count of 9.5, hemoglobin is 12.6, electrolytes and renal profile are unremarkable On 10/26/2020 patient seen in follow-up on medical surgical floor. Still remains on Airvo, and other than requiring high flow oxygen patient appears to be quite stable, no worsening dyspnea, she is breathing comfortably, she has been get not to the bedside commode, sitting up on the edge of the bed and in the chair, tolerates activity quite well, her FiO2 is currently at 80% and this is down from 90%, oxygen flow is currently at 60 L, she is not requiring additional nonrebreather mask, she is afebrile, no complaints of worsening dyspnea, cough, no nausea vomiting or diarrhea. Today's labs have been reviewed, white blood cell count is 9.6, hemoglobin is 12.3, electrolytes and renal profile were fairly unremarkable. She remains on Decadron at 6 mg twice daily, she is on Polyvitamin, and once daily dose of Lovenox On 10/28/2020 patient seen in follow-up on medical surgical floor. She looks very comfortable, her Airvo settings are at 30 L and FiO2 of 57%, her pulse ox is around 85-92%, but patient looks very stable, breathing is nonlabored, no chest discomfort, no lightheadedness or dizziness, she is afebrile, hemodynamically she stable. Her chest x-ray shows coarse infiltrates throughout both lung land may be slightly improved at the lung bases. These labs have been reviewed showing white blood cell count of 10.79, hemoglobin of 12.2, d- dimer is 0.57, BUN of 17 creatinine 0.6, the rest of electrolytes are within normal limits. Patient is tolerating oral intake, she's been getting up to the commode, tolerates activity well. She remains on twice a dose of Decadron 6 mg, and her Lovenox 40 mg daily, in addition to vitamins. On 10/29/2020 patient is seen in follow-up on medical surgical floor, she is on Airvo, currently down to 30 L and FiO2 of 50%, she is breathing quite comfortably, pulse ox is 90-91%, no fever or chills, hemodynamically stable, her chest x-ray yesterday showed coarse infiltrates throughout both lungs slightly improved at the lung bases. Today's labs have been reviewed, d-dimer 0.53, follow-up LDH and CRP are pending. Patient remains on prophylactic Lovenox, and dexamethasone 6 mg twice daily. No nausea vomiting or diarrhea, she is tolerating oral intake. On 10/30/2020 patient seen in follow-up on medical surgical floor, she is currently on high flow nasal cannula, and she is currently down to 13 L and her pulse ox is 92%, she is breathing very comfortably, she seems very comfortable, she is afebrile, she is eating lunch, denies any specific complaints, she is staying very positive about her recovery, she's had no acute events overnight. No new chest x-ray today. No new labs. Objective - Vital Signs Vital signs: Vital Signs Temp 98.3 F 10/30/20 14:00 Pulse 73 10/30/20 14:00 Resp 20 10/30/20 14:00 BP 154/79 10/30/20 14:00 Pulse Ox 91 L 10/30/20 14:52 Intake & Output 10/29/20 10/30/20 10/30/20 18:59 06:59 18:59 Intake Total 1080 Balance 1080 Intake: Oral 1080 Other: Voiding Method Bedside Commode Bedside Commode # Voids 10 3 # Bowel Movements 2 1 - Exam GENERAL EXAM: Alert, very pleasant, 50-year-old white female, on 13 L high flow nasal cannula and her pulse ox is 92% HEAD: Normocephalic/atraumatic. EYES: Normal reaction of pupils, equal size. Conjunctiva pink, sclera white. NOSE: Clear with pink turbinates. THROAT: No erythema or exudates. NECK: No masses, no JVD, no thyroid enlargement, no adenopathy. CHEST: No chest wall deformity. Symmetrical expansion. LUNGS: Equal air entry with bilateral crackles CVS: Regular rate and rhythm, normal S1 and S2, no gallops, no murmurs, no rubs ABDOMEN: Soft, nontender. No hepatosplenomegaly, normal bowel sounds, no guarding or rigidity. EXTREMITIES: No clubbing, no edema, no cyanosis, 2+ pulses and upper and lower extremities. MUSCULOSKELETAL: Muscle strength and tone normal. SPINE: No scoliosis or deformity SKIN: No rashes CENTRAL NERVOUS SYSTEM: Alert and oriented -3. No focal deficits, tone is normal in all 4 extremities. PSYCHIATRIC: Alert and oriented -3. Appropriate affect. Intact judgment and insight. - Labs CBC & Chem 7: 10/28/20 08:02 10/28/20 08:02 Assessment and Plan Plan: Assessment: #1. Acute hypoxic respiratory failure, related to acute COVID19 pneumonia, patient reports a 4 day history of worsening dyspnea, fever, chills, patient was already in moderate to severe hypoxic respiratory failure on presentation, and as such does not qualify for Remdesivir. Status post transfusion of Tocilizumab, convalescent plasma in addition to steroids #2. Dyspnea, cough, body aches, weakness related to the above #3. Acute kidney injury likely related to ATN, dehydration #4. Recent inflammatory markers related to acute COVID 19 pneumonia #5. Increased liver enzymes related to viral pneumonia #6. Hypertension #7. Hyperlipidemia #8. History of coronary artery disease with previous stenting #9. History of myocardial infarction #10. History of morbid obesity #11. History of hypotension, likely related to hypovolemia and dehydration, and antihypertensives, responded well to IV fluids. Plan: Continue weaning FiO2 to keep O2 sats ranges between 89-90%, and currently patient is down to 13 L high flow nasal cannula She continues to improve, no worsening dyspnea Vital signs are stable Continue current dose Decadron, continue Lovenox Once patient is down to 5 L may consider discharge home Continue to follow I performed a history & physical examination of the patient and discussed their management with my nurse practitioner, Abby Peters. I reviewed the nurse practitioner's note and agree with the documented findings and plan of care. Lung sounds are positive for diminished breath sounds. The findings and the impression was discussed with the patient. I attest to the documentation by the nurse practitioner. Time with Patient: Less than 30
--- NOTE | 2020-10-30 17:27 | P.PN ---
Subjective Progress Note Date: 10/30/20 I am assuming care of this patient as of 10/16/2020 at 8 AM. I was out of town and Dr. Craven was covering for me. H&P done by Dr. Tamayo on 10/07/2020 This is a 50-year-old female patient presented to the ER on 10/07/2020 with complaints of cough fever and body aches. Patient did test positive for COVID- 19 with symptoms starting about 8 days prior at that time patient was started on Decadron, vitamins, convulsant plasma and toclizumab. Patient does have a past medical history of coronary artery disease, hyperlipidemia, hypertension and DE. Patient also has been cleared history of previous nicotine dependence. Patient admitted to medical floor pulmonary service is consulted On 10/16/2020 patient is alert and oriented resting in chair. Patient had episode of hypotension. At this time lisinopril DC'd parameter set to Metroprolol. Blood pressure has improved continue normal saline at 100. Patient currently on high flow oxygen with the flow rate of 60 and an FiO2 of 90%. Patient remains dyspneic. Remains on IV Decadron. Patient denies any chest pain. Patient denies nausea vomiting or diarrhea. Patient denies any urinary burning or frequency. On 10/17/2020 patient was seen and examined on the medical floor she is alert and oriented 3 in no apparent distress she is still maintained on high flow oxygen she is complaining of shortness of breath with any activity she is also complaining of cough and chest tightness otherwise she denies any complaints there is no fever or chills no headache or dizziness no chest pain no nausea or vomiting no abdominal pain no diarrhea no blood in the stools no burning with urination no frequency or urgency and no hematuria. On 10/18/2020 patient alert and oriented 3. Patient remains on airvo. Reports that she feels slightly improved. Patient denies any nausea vomiting or diarrhea. Patient denies any urinary burning or frequency. Patient remains on Decadron. Pulmonary services are following. On 10/19/2020 patient was seen and examined on the medical floor she is alert and oriented 3 in no distress she is feeling better she is still maintained on high flow oxygen via Airvo she is complaining of shortness of breath with any activity she is complaining of cough otherwise she denies any complaints there is no fever or chills no headache or dizziness no chest pain no nausea or vomiting no abdominal pain no diarrhea no blood in the stools no burning with urination no frequency or urgency and no hematuria On 10/20/2020 patient was seen and examined on the medical floor she is alert and oriented 3 in no distress she is still complaining of shortness of breath and cough otherwise she denies any complaints, vital exam reveals a temperature of 97.3 pulse 77 respiration 20 blood pressure 106/67 pulse ox 88% on airvo with FiO2 of 80% On 10/21/2020 patient was seen and examined on the medical floor she is alert and oriented 3 in no apparent distress she is still maintained on high flow oxygen she is complaining of shortness of breath with activity she is also complaining of cough and chest tightness otherwise she denies any complaints there is no fever or chills no headache or dizziness no chest pain no nausea or vomiting no abdominal pain no diarrhea no blood in the stools no burning with urination no frequency or urgency and no hematuria. On 10/22/2020 patient was seen and examined on the medical floor she is alert and oriented 3 in no apparent distress he is complaining of shortness of breath with any activity and occasional cough, she is maintained on Airvo with FiO2 of 80% pulse ox is 93% temperature 98.7 pulse 95 respiration 23 blood pressure 135/87, otherwise there is no complaints there is no fever or chills no headache or dizziness no chest pain there is no nausea or vomiting no abdominal pain no diarrhea no blood in the stools no burning with urination no frequency or urgency and no hematuria On 10/23/2020 patient was seen and examined on the medical floor she is alert and oriented 3 in no apparent distress, she states that she is feeling better h er breathing is feeling easier to her she is still maintained on high flow oxygen she is complaining of shortness of breath with activity she is also complaining of cough and chest tightness otherwise she denies any complaints there is no fever or chills no headache or dizziness no chest pain no nausea or vomiting no abdominal pain no diarrhea no blood in the stools no burning with urination no frequency or urgency and no hematuria. On 10/24/2020 patient was seen and examined on the medical floor she is alert and oriented 3 in no apparent distress, she is still maintained on high flow oxygen she is complaining of shortness of breath with activity she is also complaining of cough and chest tightness otherwise she denies any complaints there is no fever or chills no headache or dizziness no chest pain no nausea or vomiting no abdominal pain no diarrhea no blood in the stools no burning with urination no frequency or urgency and no hematuria. on 10/25/2020 patient was seen and examined on the medical floor she is alert and oriented 3 in no distress, she is still maintained on high flow oxygen via Airvo, she reports some improvement in her shortness of breath and cough, there is no fever or chills no headache or dizziness no chest pain no nausea or vomiting no abdominal pain no diarrhea no blood in the stools no burning with urination no frequency or urgency and no hematuria. On 10/26/2020 patient was seen and examined on the medical floor she is alert and oriented, she is still maintained on high flow oxygen via Airvo, she is still complaining of shortness of breath and cough otherwise she denies any complaints there is no fever or chills no headache or dizziness no chest pain no palpitation no nausea or vomiting no abdominal pain no diarrhea and no urinary symptoms. On 10/27/2020 Patient was seen and examined on the medical floor, he is alert and oriented x3 in no distress, she is still complaining of shortness of breath otherwise she denies any complaints there is no fever or chills no headache or dizziness no chest pain no palpitation no cough no nausea or vomiting no abdominal pain no diarrhea no blood in the stools no burning with urination no frequency or urgency and no hematuria, there is no weakness or numbness in any of the extremities no change in vision speech or gait. At this time oxygen requirements are coming down gradually, possible discharge to home in 2-3 days, if oxygen requirements are down to 4-5 L per minute On 10/28/2020 Patient was seen and examined on the medical floor, he is alert and oriented x 3 in no distress, he denies any complaints there is no fever or chills no headache or dizziness no chest pain no shortness of breath no palpitation no cough no nausea or vomiting no abdominal pain no diarrhea no blood in the stools no burning with urination no frequency or urgency and no hematuria, there is no weakness or numbness in any of the extremities no change in vision speech or gait. Possible discharge to home in the next 1-2 days if oxygen requirements are down. On 10/29/2020 Patient was seen and examined on the medical floor, he is alert and oriented x 3 in no distress, she is still complaining of shortness of breath with any activity and occasional cough otherwise she denies any complaints there is no fever or chills no headache or dizziness no chest pain, no palpitation no nausea or vomiting no abdominal pain no diarrhea no blood in the stools no burning with urination no frequency or urgency and no hematuria, there is no weakness or numbness in any of the extremities no change in vision speech or g ait. Today Airvo was discontinued, and patient was started on nasal cannula, she is still requiring 10 L of oxygen per minute, possible discharge to home in the next 1-2 days if her oxygen requirement are decreasing On 10/30/2020 patient was seen and examined on the medical floor she is alert and oriented in no distress she is still maintained on oxygen via nasal cannula at 10 L/m she is still complaining of shortness of breath with any activity otherwise she denies any complaints Objective - Vital Signs Vital signs: Vital Signs Temp 98.2 F 10/30/20 10:00 Pulse 82 10/30/20 10:00 Resp 18 10/30/20 10:00 BP 162/83 10/30/20 10:00 Pulse Ox 90 L 10/30/20 10:00 Intake & Output 10/29/20 10/30/20 10/30/20 18:59 06:59 18:59 Intake Total 1080 Balance 1080 Intake: Oral 1080 Other: Voiding Method Bedside Commode Bedside Commode # Voids 10 3 # Bowel Movements 2 1 - Exam In general patient is alert and oriented 3 in no apparent distress Head normocephalic and atraumatic Neck supple no JVD no goiter no lymphadenopathy Lungs diminished bilaterally no crackles no wheezing Heart regular rate and rhythm S1-S2, no rub or gallop Abdomen is soft nontender nondistended positive bowel sounds no hepatosplenomegaly Extremities no edema Neuro no gross focal neurological deficit - Labs CBC & Chem 7: 10/28/20 08:02 10/28/20 08:02 Assessment and Plan Assessment: 1. Acute hypoxic respiratory failure secondary to COVID-19 pneumonia. Patient is on Decadron, received Tocilizumab, and convalescent plasma. Pulmonary services are following. Remains on Airvo 2. Diarrhea secondary to COVID-19. This does seem improved 3. Acute renal failure probably prerenal azotemia and acute tubular necrosis secondary to sepsis. Improved 4. Hyponatremia on admission. Improved 5. Elevated liver enzymes secondary to sepsis and viral pneumonia. Trending down. Continue to monitor 6. History of essential hypertension 7. History of hyperlipidemia 8. History of coronary artery disease with previous stenting 9. Ex-smoker. 10. Hypotension. Lisinopril DC'd. Parameters set to Metroprolol. normal saline at 100 ordered DVT prophylaxis Lovenox. GI prophylaxis tonic Pulmonary services are following Remains on Decadron, vitamin C, zinc and vitamin D PT OT consulted Repeat labs ordered for a.m. Continue normal saline at 100 for hypotension
[2020-10-30] MEDS: MELATONIN 3 MG TABLET PO SCH (19:59)
[2020-10-30] MEDS: ATORVASTATIN 40 MG TAB PO SCH (19:59)
[2020-10-31] MEDS: ACETAMINOPHEN TAB 325 MG TAB PO PRN ×3 (02:27→20:19)
[2020-10-31] MEDS: ALBUTEROL HFA INHALER INHALATION SCH ×4 (07:12→20:33)
[2020-10-31] MEDS: PANTOPRAZOLE 40 MG TABLET PO SCH (08:08)
[2020-10-31] MEDS: ZINC SULFATE 220 MG CAP PO SCH (08:08)
[2020-10-31] MEDS: METOPROLOL TARTRATE 25 MG TAB PO SCH (08:08)
[2020-10-31] MEDS: ENOXAPARIN 40 MG/0.4 ML SYRINGE SQ SCH (08:08)
[2020-10-31] MEDS: ASCORBIC ACID 500 MG TAB PO SCH ×2 (08:09→20:19)
[2020-10-31] MEDS: DOCUSATE 100 MG CAP PO SCH (08:09)
[2020-10-31] MEDS: DEXAMETHASONE SOD PHOSPHATE 10 MG/ML 1 ML VIAL IV SCH ×2 (08:09→20:19)
[2020-10-31] MEDS: CHOLECALCIFEROL 25 MCG (1000 IU) TABLET PO SCH (08:09)
[2020-10-31] MEDS: ASPIRIN 325 MG TAB PO SCH (08:09)
--- NOTE | 2020-10-31 15:04 | P.PN ---
Subjective Progress Note Date: 10/31/20 Principal diagnosis: Covid 19 pneumonia 50-year-old white female patient of Dr. Wise, who presented to the emergency department on 10/07/2020 for evaluation of dyspnea, cough, fever, body aches and chills. Patient reports symptom onset 4 days ago, she saw Dr. Wise and had an outpatient test for COVID 19, the results were unknown to her, however she was told in case of worsening symptoms to present to the emergency department. Past medical history is that of hypertension, hyperlipidemia, previous history of myocardial infarction, coronary artery disease with prior stenting. Chest x-ray shows ill-defined opacities in the lower lobes bilaterally. COVID 19 PCR was p ositive. Lab work has been reviewed, showing white blood cell, 4.6, hemoglobin 12.3, lymphocyte count was within normal limits at 1.1, d-dimer is 0.31, sodium is 133, the rest of electrolytes were within normal limits, B1 is 20 creatinine is 1.45 with GFR of 42, lactic acid 0.9, ferritin level is 3834, AST is 163, ALT is 117, LDH is 2034, CRP is 83.4, pro-calcitonin was 0.27. Low-grade fevers fo llowed in the emergency department. Patient was started on Decadron 6 mg daily, we'll start her on vitamins, one unit, less than plasma, we'll try to qualify her for tocilizumab 10/08/2020 patient seen in follow-up on medical floor, patient is status post Tocilizumab, infusion of 1 dose of convalescent plasma, she remains on Decadron, she remains on vitamins, IV hydration with 0.9 normal saline at 100 ML per hour, she is on subcu heparin 5000 units subcu 8 hours. Remains on 15 L high flow and nonrebreather mask, her pulse ox is 93-96%, overall reports feeling somewhat better. Follow-up chest x-ray today shows worsening diffuse lung infiltrates greatest in the lung bases, labs today show d-dimer 0.26, LDH and CRP are pending, pro-calcitonin level was low at 0.27. On 10/09/2020 patient seen in follow-up on the medical floor she is currently on 15 L high flow nasal cannula, in addition to pulmonary rehab mask, and a pulse ox is 86-98%, she is afebrile, hemodynamically patient is stable, she said no continues to bed, appears to be breathing comfortably, denies any chest discomfort, no fever or chills. Patient remains on systemic steroids, she is status post Tocilizumab and convalescent plasma. She remains on IV hydration, she states she is tolerating oral diet, no nausea or vomiting, today's labs have been reviewed, electrolytes are within normal limits, her creatinine has s ignificantly improved, down to 1.1 from 1.45 couple days ago, BUN is 43, AST and ALT have also improved, down to 77 and 80 respectively, alk phos is at 40. Procalcitonin level was low at 0.7, tolerating activity fairly well. On 10/10/2020 patient seen in follow-up on medical floor. She is on 15 L per nonrebreather mask in addition to 15 L high flow, she is awake and alert, is short of breath with exertion, but she has been able to use the bedside commode, and tolerated fairly well, she is afebrile, denies any chest pain, no cough, lung sounds reveal scattered crackles, she is tolerating oral intake, no nausea or vomiting. No new chest x-ray, her latest d-dimer from yesterday was 0.60, L DH was 2198, and CRP was 17.8, patient remains on Decadron 6 mg daily, vitamins. This had no acute events overnight, no worsening, however no significant improvement in dyspnea and oxygenation On 10/13/2020 patient seen in follow-up on medical surgical floor. She remains on high flow oxygen per 15 L high flow nasal cannula and 100% nonrebreather mask, pulse ox is 90-95%, she doesn't With exertion, but overall seems to be improving, lung sounds reveal minimal rales at bilateral bases, without signs have been stable, she has been slow to improve, no acute events overnight, no chest discomfort. Yesterday chest x-ray shows slight worsening of diffuse infiltrates. The labs have been reviewed, her d-dimer was 1.21, and her liver enzymes have worsened with AST up to 194, and ALT of 328, alkaline phosphatase was up to 78, LDH was overall on the rise up to 2729, by CRP was improving. Clinically seems to be doing better. No worsening cough, patient would like to be able to walk around in the room, however still requiring high flow oxygen and she can only walk so far, other than that no specific complaints On 10/16/2020 patient seen in follow-up on medical floor, she still remains on Airvo, at 60 L and FiO2 of 90%, her pulse ox is 92-97%, apparently earlier this morning rapid response team was called and the patient was confused, she was hypotensive, with blood pressure of 60/40, and a liter bolus was given, currently her IV fluids are infusing at 100 ML per hour, her antihypertensives were readjusted, lisinopril has been placed on hold, metoprolol dose was adjusted, her blood pressure responded well to fluids, currently is at 92/59, she is afebrile, no complaints of chest discomfort, breathing is about the same, she does desat with any exertion, but no worsening. No new chest x-ray today, right now she is sitting up in bed, breathing fairly comfortable, no worsening cough, lung sounds reveal bilateral crackles, no worsening. Today's labs have been noted, no d-dimer from today, electric selective renal profile are unremarkable, her troponin is less than 0.012. Patient continues on dexamethasone 6 mg daily, she is on prophylactic dose of Lovenox, multivitamins. On 10/19/2020 patient seen in follow-up. She remains on high flow oxygen per Airvo currently 60 L and FiO2 of 90% in addition to partial rebreather mask, and patient removed partial rebreather mask for meals, appears to be fairly comfortable, denies any worsening dyspnea but still requiring high flow oxygen. She thinks that it might be due to nasal congestion from high flow oxygen, and she states when she cleans out her nose usually her O2 saturations improve. Patient's last chest x-ray from 10/17/2020 showed worsening bilateral diffuse lung infiltrates. Patient continues on Decadron 6 mg daily, she continues on Lovenox 50 mg twice a day her last TD was back on 10/17/2020 and was elevated at 5.17, patient remains on IV fluids at 100 ML per hour, she is tolerating oral intake, nausea vomiting or diarrhea. On 10/21/2000 patient seen in follow-up on medical surgical floor, she is awake and alert, oriented 3, she is in no acute distress, she remains on Airvo currently at 60 L and FiO2 of 85%, her pulse ox is 91%, she thinks that she is doing better, she reports no new complaints, she does get short of breath with exertion, but overall seems to be very comfortable, no new chest x-ray today, her last chest x-ray on 10/17/2020 showed worsening bilateral diffuse lung infiltrates, patient has been afebrile, hemodynamically she remains stable, she denies any chest discomfort, no worsening cough, only occasional cough, no nausea vomiting or diarrhea, her appetite is fair, no abdominal pain today's lab work has been reviewed, showed white with 7.5, hemoglobin is 11.8, d-dimer from yesterday showed a stable d-dimer of 4.74, electrolytes and renal profile were unremarkable, BUN was 15, creatinine 0.6, her inflammatory markers on yesterday's labs were improving. On 10/22/2020 patient seen in follow-up on medical surgical floor. She is currently on Airvo at 60 L and FiO2 of 85%, nonrebreather mask is off, her pulse ox is between 93-96%, she is breathing comfortably, no worsening dyspnea, she is working on dialysis and achieving 800-1000, minimal cough, no fever or chills, today's chest x-ray shows mild cardiomegaly, with diffuse groundglass airspace disease similar to slightly worsened from 10/17/2020. Today's labs have been reviewed, her inflammatory markers are trending down, her LDH is down to 483, CRP is currently of less than 0.4, d-dimer is 1.9, improving. No nausea vomiting or diarrhea, she is tolerating oral intake, her pro-calcitonin level is negative at 0.03. Renal function is normal on yesterday's labs, electrolytes are within normal limits. On 10/23/2020 patient seen in follow-up on medical surgical floor, we have not been able to make much progress in terms of weaning FiO2 with oxygen flow, the patient requires Airvo at 60 L and FiO2 of 90%, and her pulse ox still remains marginally 89-92%, she denies any worsening dyspnea, she appears to be breathing comfortably, she is working on incentive spirometer, and she is doing an exemplary job on it. She denies any cough, denies any hemoptysis, denies any chest pain, she afebrile, hemodynamically she stable, no fever or chills, no headaches no dizziness, no body aches, no chest pain, no vomiting no abdominal pain or diarrhea. No new labs today. Yesterday's chest x-ray shows mild card iomegaly, diffuse groundglass airspace disease that slightly worsened, and patient has been on oral Decadron 6 mg daily, she is on Polyvitamin's, we gave her a dose of Lasix yesterday, and she remains on Lovenox 50 mg subcu twice daily. Yesterday's d-dimer was at 1.99 and we can drop down her dose of Lovenox to prophylactic dose On 10/24/2020 patient seen in follow-up on medical surgical floor, she continues to be on Airvo, she has been slow in terms of weaning from the oxygen, but no worsening dyspnea, breathing comfortably, compressive chest discomfort,vitals have been stable. Her pulse ox is between 93-94% on Airvo a 60 L and FiO2 of 90%, she's been afebrile. Today's chest x-ray shows stable findings with multifocal and confluent reticulonodular opacities greatest in the lower lungs, today's labs have been reviewed, d-dimer is down to 1.09, improving, white blood cell count is 8.6, hemoglobin is 12.5, electrolytes and renal profile are within normal limits. LDH tinniest improve, and is down to 479, CRP is less than 0.4, appropriate calcitonin level was low at 0.04. She is currently in Decadron 6 migraine twice daily, she is on Lovenox 40 mg daily, she isn't multivitamins. On 10/25/2020 patient seen in follow-up on medical surgical floor. She continues on Airvo at 60 L and FiO2 of 90%, not requiring nonrebreather mask with that. Seems to be breathing comfortably, her pulse ox is 92-93%, she's been afebrile, hemodynamically she's been stable, she's been getting up out of bed and move around as much as the Airvo tubing with a lower her, she is using the bedside commode, her appetite is fair, she has had no fever or chills, no cough, and no chest discomfort. Today's labs have been reviewed, white blood cell count of 9.5, hemoglobin is 12.6, electrolytes and renal profile are unremarkable On 10/26/2020 patient seen in follow-up on medical surgical floor. Still remains on Airvo, and other than requiring high flow oxygen patient appears to be quite stable, no worsening dyspnea, she is breathing comfortably, she has been get not to the bedside commode, sitting up on the edge of the bed and in the chair, tolerates activity quite well, her FiO2 is currently at 80% and this is down from 90%, oxygen flow is currently at 60 L, she is not requiring additional nonrebreather mask, she is afebrile, no complaints of worsening dyspnea, cough, no nausea vomiting or diarrhea. Today's labs have been reviewed, white blood cell count is 9.6, hemoglobin is 12.3, electrolytes and renal profile were fairly unremarkable. She remains on Decadron at 6 mg twice daily, she is on Polyvitamin, and once daily dose of Lovenox On 10/28/2020 patient seen in follow-up on medical surgical floor. She looks very comfortable, her Airvo settings are at 30 L and FiO2 of 57%, her pulse ox is around 85-92%, but patient looks very stable, breathing is nonlabored, no chest discomfort, no lightheadedness or dizziness, she is afebrile, hemodynamically she stable. Her chest x-ray shows coarse infiltrates throughout both lung land may be slightly improved at the lung bases. These labs have been reviewed showing white blood cell count of 10.79, hemoglobin of 12.2, d- dimer is 0.57, BUN of 17 creatinine 0.6, the rest of electrolytes are within normal limits. Patient is tolerating oral intake, she's been getting up to the commode, tolerates activity well. She remains on twice a dose of Decadron 6 mg, and her Lovenox 40 mg daily, in addition to vitamins. On 10/29/2020 patient is seen in follow-up on medical surgical floor, she is on Airvo, currently down to 30 L and FiO2 of 50%, she is breathing quite comfortably, pulse ox is 90-91%, no fever or chills, hemodynamically stable, her chest x-ray yesterday showed coarse infiltrates throughout both lungs slightly improved at the lung bases. Today's labs have been reviewed, d-dimer 0.53, follow-up LDH and CRP are pending. Patient remains on prophylactic Lovenox, and dexamethasone 6 mg twice daily. No nausea vomiting or diarrhea, she is tolerating oral intake. On 10/30/2020 patient seen in follow-up on medical surgical floor, she is currently on high flow nasal cannula, and she is currently down to 13 L and her pulse ox is 92%, she is breathing very comfortably, she seems very comfortable, she is afebrile, she is eating lunch, denies any specific complaints, she is staying very positive about her recovery, she's had no acute events overnight. No new chest x-ray today. No new labs. On 10/31/2020 patient is seen in follow-up on medical surgical floor, she is currently down to 10 L per high flow nasal cannula and her O2 saturations are ranging between 89-94%, she is breathing comfortably, although at times does get little bit anxious, her FiO2 was dropped down to 8 L and she is maintaining O2 s aturations at around 92%, she is breathing out of her mouth most of the time, she has a high flow nasal cannula in her nose and she was instructed to take a breath through her nose, clinically she seems to be the same, she has remained stable, no worsening dyspnea, no cough. No new labs today, no new chest x-rays, she remains on Decadron 6 mg twice daily, and she is on prophylactic dose Lovenox. Objective - Vital Signs Vital signs: Vital Signs Temp 98.0 F 10/31/20 10:00 Pulse 86 10/31/20 10:00 Resp 22 10/31/20 10:00 BP 159/91 10/31/20 10:00 Pulse Ox 89 L 10/31/20 11:14 Intake & Output 10/30/20 10/31/20 10/31/20 18:59 06:59 18:59 Intake Total 1680 Balance 1680 Intake: Oral 1680 Other: Voiding Method Bedside Commode Bedside Commode # Voids 3 3 - Exam GENERAL EXAM: Alert, very pleasant, 50-year-old white female, on 85 L high flow nasal cannula and her pulse ox is 92% HEAD: Normocephalic/atraumatic. EYES: Normal reaction of pupils, equal size. Conjunctiva pink, sclera white. NOSE: Clear with pink turbinates. THROAT: No erythema or exudates. NECK: No masses, no JVD, no thyroid enlargement, no adenopathy. CHEST: No chest wall deformity. Symmetrical expansion. LUNGS: Equal air entry with bilateral crackles CVS: Regular rate and rhythm, normal S1 and S2, no gallops, no murmurs, no rubs ABDOMEN: Soft, nontender. No hepatosplenomegaly, normal bowel sounds, no guarding or rigidity. EXTREMITIES: No clubbing, no edema, no cyanosis, 2+ pulses and upper and lower extremities. MUSCULOSKELETAL: Muscle strength and tone normal. SPINE: No scoliosis or deformity SKIN: No rashes CENTRAL NERVOUS SYSTEM: Alert and oriented -3. No focal deficits, tone is normal in all 4 extremities. PSYCHIATRIC: Alert and oriented -3. Appropriate affect. Intact judgment and insight. - Labs CBC & Chem 7: 10/28/20 08:02 10/28/20 08:02 Assessment and Plan Plan: Assessment: #1. Acute hypoxic respiratory failure, related to acute COVID19 pneumonia, patient reports a 4 day history of worsening dyspnea, fever, chills, patient was already in moderate to severe hypoxic respiratory failure on presentation, and as such does not qualify for Remdesivir. Status post transfusion of Tocilizumab, convalescent plasma in addition to steroids #2. Dyspnea, cough, body aches, weakness related to the above #3. Acute kidney injury likely related to ATN, dehydration #4. Recent inflammatory markers related to acute COVID 19 pneumonia #5. Increased liver enzymes related to viral pneumonia #6. Hypertension #7. Hyperlipidemia #8. History of coronary artery disease with previous stenting #9. History of myocardial infarction #10. History of morbid obesity #11. History of hypotension, likely related to hypovolemia and dehydration, and antihypertensives, responded well to IV fluids. Plan: Accept O2 saturations at 88% and above as well as the patient is asymptomatic No worsening dyspnea or hypoxia Continue current dose Decadron and Lovenox Follow-up chest x-ray tomorrow, follow up labs including basic labs Once patient is down to 5 L may consider discharge home Continue to follow I performed a history & physical examination of the patient and discussed their management with my nurse practitioner, Abby Peters. I reviewed the nurse practitioner's note and agree with the documented findings and plan of care. Lung sounds are positive for diminished breath sounds. The findings and the impression was discussed with the patient. I attest to the documentation by the nurse practitioner. Time with Patient: Less than 30
[2020-10-31] MEDS: ALPRAZolam 0.25 MG TAB PO PRN ×2 (15:44→20:19)
--- NOTE | 2020-10-31 17:22 | P.PN ---
Subjective Progress Note Date: 10/31/20 I am assuming care of this patient as of 10/16/2020 at 8 AM. I was out of town and Dr. Craven was covering for me. H&P done by Dr. Tamayo on 10/07/2020 This is a 50-year-old female patient presented to the ER on 10/07/2020 with complaints of cough fever and body aches. Patient did test positive for COVID- 19 with symptoms starting about 8 days prior at that time patient was started on Decadron, vitamins, convulsant plasma and toclizumab. Patient does have a past medical history of coronary artery disease, hyperlipidemia, hypertension and ME. Patient also has been cleared history of previous nicotine dependence. Patient admitted to medical floor pulmonary service is consulted On 10/16/2020 patient is alert and oriented resting in chair. Patient had episode of hypotension. At this time lisinopril DC'd parameter set to Metroprolol. Blood pressure has improved continue normal saline at 100. Patient currently on high flow oxygen with the flow rate of 60 and an FiO2 of 90%. Patient remains dyspneic. Remains on IV Decadron. Patient denies any chest pain. Patient denies nausea vomiting or diarrhea. Patient denies any urinary burning or frequency. On 10/17/2020 patient was seen and examined on the medical floor she is alert and oriented 3 in no apparent distress she is still maintained on high flow oxygen she is complaining of shortness of breath with any activity she is also complaining of cough and chest tightness otherwise she denies any complaints there is no fever or chills no headache or dizziness no chest pain no nausea or vomiting no abdominal pain no diarrhea no blood in the stools no burning with urination no frequency or urgency and no hematuria. On 10/18/2020 patient alert and oriented 3. Patient remains on airvo. Reports that she feels slightly improved. Patient denies any nausea vomiting or diarrhea. Patient denies any urinary burning or frequency. Patient remains on Decadron. Pulmonary services are following. On 10/19/2020 patient was seen and examined on the medical floor she is alert and oriented 3 in no distress she is feeling better she is still maintained on high flow oxygen via Airvo she is complaining of shortness of breath with any activity she is complaining of cough otherwise she denies any complaints there is no fever or chills no headache or dizziness no chest pain no nausea or vomiting no abdominal pain no diarrhea no blood in the stools no burning with urination no frequency or urgency and no hematuria On 10/20/2020 patient was seen and examined on the medical floor she is alert and oriented 3 in no distress she is still complaining of shortness of breath and cough otherwise she denies any complaints, vital exam reveals a temperature of 97.3 pulse 77 respiration 20 blood pressure 106/67 pulse ox 88% on airvo with FiO2 of 80% On 10/21/2020 patient was seen and examined on the medical floor she is alert and oriented 3 in no apparent distress she is still maintained on high flow oxygen she is complaining of shortness of breath with activity she is also complaining of cough and chest tightness otherwise she denies any complaints there is no fever or chills no headache or dizziness no chest pain no nausea or vomiting no abdominal pain no diarrhea no blood in the stools no burning with urination no frequency or urgency and no hematuria. On 10/22/2020 patient was seen and examined on the medical floor she is alert and oriented 3 in no apparent distress he is complaining of shortness of breath with any activity and occasional cough, she is maintained on Airvo with FiO2 of 80% pulse ox is 93% temperature 98.7 pulse 95 respiration 23 blood pressure 135/87, otherwise there is no complaints there is no fever or chills no headache or dizziness no chest pain there is no nausea or vomiting no abdominal pain no diarrhea no blood in the stools no burning with urination no frequency or urgency and no hematuria On 10/23/2020 patient was seen and examined on the medical floor she is alert and oriented 3 in no apparent distress, she states that she is feeling better h er breathing is feeling easier to her she is still maintained on high flow oxygen she is complaining of shortness of breath with activity she is also complaining of cough and chest tightness otherwise she denies any complaints there is no fever or chills no headache or dizziness no chest pain no nausea or vomiting no abdominal pain no diarrhea no blood in the stools no burning with urination no frequency or urgency and no hematuria. On 10/24/2020 patient was seen and examined on the medical floor she is alert and oriented 3 in no apparent distress, she is still maintained on high flow oxygen she is complaining of shortness of breath with activity she is also complaining of cough and chest tightness otherwise she denies any complaints there is no fever or chills no headache or dizziness no chest pain no nausea or vomiting no abdominal pain no diarrhea no blood in the stools no burning with urination no frequency or urgency and no hematuria. on 10/25/2020 patient was seen and examined on the medical floor she is alert and oriented 3 in no distress, she is still maintained on high flow oxygen via Airvo, she reports some improvement in her shortness of breath and cough, there is no fever or chills no headache or dizziness no chest pain no nausea or vomiting no abdominal pain no diarrhea no blood in the stools no burning with urination no frequency or urgency and no hematuria. On 10/26/2020 patient was seen and examined on the medical floor she is alert and oriented, she is still maintained on high flow oxygen via Airvo, she is still complaining of shortness of breath and cough otherwise she denies any complaints there is no fever or chills no headache or dizziness no chest pain no palpitation no nausea or vomiting no abdominal pain no diarrhea and no urinary symptoms. On 10/27/2020 Patient was seen and examined on the medical floor, he is alert and oriented x3 in no distress, she is still complaining of shortness of breath otherwise she denies any complaints there is no fever or chills no headache or dizziness no chest pain no palpitation no cough no nausea or vomiting no abdominal pain no diarrhea no blood in the stools no burning with urination no frequency or urgency and no hematuria, there is no weakness or numbness in any of the extremities no change in vision speech or gait. At this time oxygen requirements are coming down gradually, possible discharge to home in 2-3 days, if oxygen requirements are down to 4-5 L per minute On 10/28/2020 Patient was seen and examined on the medical floor, he is alert and oriented x 3 in no distress, he denies any complaints there is no fever or chills no headache or dizziness no chest pain no shortness of breath no palpitation no cough no nausea or vomiting no abdominal pain no diarrhea no blood in the stools no burning with urination no frequency or urgency and no hematuria, there is no weakness or numbness in any of the extremities no change in vision speech or gait. Possible discharge to home in the next 1-2 days if oxygen requirements are down. On 10/29/2020 Patient was seen and examined on the medical floor, he is alert and oriented x 3 in no distress, she is still complaining of shortness of breath with any activity and occasional cough otherwise she denies any complaints there is no fever or chills no headache or dizziness no chest pain, no palpitation no nausea or vomiting no abdominal pain no diarrhea no blood in the stools no burning with urination no frequency or urgency and no hematuria, there is no weakness or numbness in any of the extremities no change in vision speech or g ait. Today Airvo was discontinued, and patient was started on nasal cannula, she is still requiring 10 L of oxygen per minute, possible discharge to home in the next 1-2 days if her oxygen requirement are decreasing On 10/30/2020 patient was seen and examined on the medical floor she is alert and oriented in no distress she is still maintained on oxygen via nasal cannula at 10 L/m she is still complaining of shortness of breath with any activity otherwise she denies any complaints On 10/31/2020 Patient was seen and examined on the medical floor, he is alert and oriented x 3 in no distress, he denies any complaints there is no fever or chills no headache or dizziness no chest pain no shortness of breath no palpitation no cough no nausea or vomiting no abdominal pain no diarrhea no blood in the stools no burning with urination no frequency or urgency and no hematuria, there is no weakness or numbness in any of the extremities no change in vision speech or gait. She is still maintained on oxygen 8 L nasal cannula, pulse oximetry is 90% , continue with Decadron, possible discharge to home tomorrow if oxygen requirements are down to 4-5 L/m Objective - Vital Signs Vital signs: Vital Signs Temp 97.2 F L 10/31/20 05:45 Pulse 101 H 10/31/20 05:45 Resp 12 10/31/20 05:45 BP 151/83 10/31/20 05:45 Pulse Ox 90 L 10/31/20 05:45 Intake & Output 10/30/20 10/31/20 10/31/20 18:59 06:59 18:59 Intake Total 1680 Balance 1680 Intake: Oral 1680 Other: Voiding Method Bedside Commode Bedside Commode # Voids 3 3 - Exam In general patient is alert and oriented 3 in no apparent distress Head normocephalic and atraumatic Neck supple no JVD no goiter no lymphadenopathy Lungs diminished bilaterally no crackles no wheezing Heart regular rate and rhythm S1-S2, no rub or gallop Abdomen is soft nontender nondistended positive bowel sounds no hepatosplenomegaly Extremities no edema Neuro no gross focal neurological deficit - Labs CBC & Chem 7: 10/28/20 08:02 10/28/20 08:02 Assessment and Plan Assessment: 1. Acute hypoxic respiratory failure secondary to COVID-19 pneumonia. Patient is on Decadron, received Tocilizumab, and convalescent plasma. Pulmonary services are following. Remains on Airvo 2. Diarrhea secondary to COVID-19. This does seem improved 3. Acute renal failure probably prerenal azotemia and acute tubular necrosis secondary to sepsis. Improved 4. Hyponatremia on admission. Improved 5. Elevated liver enzymes secondary to sepsis and viral pneumonia. Trending down. Continue to monitor 6. History of essential hypertension 7. History of hyperlipidemia 8. History of coronary artery disease with previous stenting 9. Ex-smoker. 10. Hypotension. Lisinopril DC'd. Parameters set to Metroprolol. normal s karl at 100 ordered DVT prophylaxis Lovenox. GI prophylaxis tonic Pulmonary services are following Remains on Decadron, vitamin C, zinc and vitamin D PT OT consulted Repeat labs ordered for a.m. Continue normal saline at 100 for hypotension
[2020-10-31] MEDS: MELATONIN 3 MG TABLET PO SCH (20:19)
[2020-10-31] MEDS: ATORVASTATIN 40 MG TAB PO SCH (20:19)
[2020-11-01] MEDS: ALBUTEROL HFA INHALER INHALATION SCH ×5 (00:54→20:41)
[2020-11-01] MEDS: ACETAMINOPHEN TAB 325 MG TAB PO PRN ×3 (05:23→21:45)
--- NOTE | 2020-11-01 07:42 | XR ---
EXAMINATION TYPE: XR chest 1V portable DATE OF EXAM: 11/01/2020 HISTORY: Shortness of breath. COMPARISON: 10/28/2020 TECHNIQUE: Single view of the chest is submitted. FINDINGS: Demonstrated are scattered senescent parenchymal change. Scattered airspace and interstitial infiltrates persist throughout both lung land essentially uncha nged. The heart is stable. Hilar and mediastinal structures are within normal limits. Degenerative changes are seen of the dorsal spine. IMPRESSION: 1. Scattered airspace and interstitial infiltrates persist throughout both lung land essentially u nchanged.
[2020-11-01] MEDS: CHOLECALCIFEROL 25 MCG (1000 IU) TABLET PO SCH (08:07)
[2020-11-01] MEDS: ASCORBIC ACID 500 MG TAB PO SCH ×2 (08:07→19:36)
[2020-11-01] MEDS: DEXAMETHASONE SOD PHOSPHATE 10 MG/ML 1 ML VIAL IV SCH ×2 (08:07→19:38)
[2020-11-01] MEDS: ALPRAZolam 0.25 MG TAB PO PRN ×3 (08:07→21:39)
[2020-11-01] MEDS: ZINC SULFATE 220 MG CAP PO SCH (08:07)
[2020-11-01] MEDS: PANTOPRAZOLE 40 MG TABLET PO SCH (08:07)
[2020-11-01] MEDS: ASPIRIN 325 MG TAB PO SCH (08:07)
[2020-11-01] MEDS: ENOXAPARIN 40 MG/0.4 ML SYRINGE SQ SCH (08:08)
[2020-11-01] MEDS: DOCUSATE 100 MG CAP PO SCH (08:08)
[2020-11-01] MEDS: METOPROLOL TARTRATE 25 MG TAB PO SCH (08:10)
[2020-11-01 11:03] LABS: Basophils # (A) 0.04 X 10*3/uL (0.00-0.10); Basophils % (A) 0.4 %; Eosinophils # (A) 0 X 10*3/uL (0.04-0.35); Eosinophils % (A) 0 %; HCT 38.3 % (37.2-46.3); HGB 12.7 g/dL (12.0-15.0); Lymphocytes # (A) 1.45 X 10*3/uL (0.90-5.00); Lymphocytes % (A) 14.3 %; MCHC 33.2 g/dL (32.0-37.0); MCV 96.5 fL (80.0-97.0); Mean Platelet Volume 10.2 fL (9.5-12.2); Monocytes # (A) 0.75 X 10*3/uL (0.20-1.00); Monocytes % (A) 7.4 %; Neutrophils # (A) 7.45 X 10*3/uL (1.80-7.70); Neutrophils % (A) 73.6 %; Platelet Count 253 X 10*3/uL (140-440); RBC 3.97 X 10*6/uL (4.10-5.20); RDW 13.4 % (11.5-14.5); WBC 10.13 X 10*3/uL (4.50-10.00)
[2020-11-01 13:42] LABS: African American GFR (CKD) 129.9 (60.0-200.0); Anion Gap 10.4 mmol/L (4.00-12.00); Carbon Dioxide 21.6 mmol/L (21.6-31.8); Non-African American GFR(CKD) 112.1 (60.0-200.0); Potassium 4.5 mmol/L (3.5-5.5)
--- NOTE | 2020-11-01 13:55 | P.PN ---
Subjective Progress Note Date: 11/01/20 Principal diagnosis: Covid 19 pneumonia 50-year-old white female patient of Dr. Wise, who presented to the emergency department on 10/07/2020 for evaluation of dyspnea, cough, fever, body aches and chills. Patient reports symptom onset 4 days ago, she saw Dr. Wise and had an outpatient test for COVID 19, the results were unknown to her, however she was told in case of worsening symptoms to present to the emergency department. Past medical history is that of hypertension, hyperlipidemia, previous history of myocardial infarction, coronary artery disease with prior stenting. Chest x-ray shows ill-defined opacities in the lower lobes bilaterally. COVID 19 PCR was p ositive. Lab work has been reviewed, showing white blood cell, 4.6, hemoglobin 12.3, lymphocyte count was within normal limits at 1.1, d-dimer is 0.31, sodium is 133, the rest of electrolytes were within normal limits, B1 is 20 creatinine is 1.45 with GFR of 42, lactic acid 0.9, ferritin level is 3834, AST is 163, ALT is 117, LDH is 2034, CRP is 83.4, pro-calcitonin was 0.27. Low-grade fevers fo llowed in the emergency department. Patient was started on Decadron 6 mg daily, we'll start her on vitamins, one unit, less than plasma, we'll try to qualify her for tocilizumab 10/08/2020 patient seen in follow-up on medical floor, patient is status post Tocilizumab, infusion of 1 dose of convalescent plasma, she remains on Decadron, she remains on vitamins, IV hydration with 0.9 normal saline at 100 ML per hour, she is on subcu heparin 5000 units subcu 8 hours. Remains on 15 L high flow and nonrebreather mask, her pulse ox is 93-96%, overall reports feeling somewhat better. Follow-up chest x-ray today shows worsening diffuse lung infiltrates greatest in the lung bases, labs today show d-dimer 0.26, LDH and CRP are pending, pro-calcitonin level was low at 0.27. On 10/09/2020 patient seen in follow-up on the medical floor she is currently on 15 L high flow nasal cannula, in addition to pulmonary rehab mask, and a pulse ox is 86-98%, she is afebrile, hemodynamically patient is stable, she said no continues to bed, appears to be breathing comfortably, denies any chest discomfort, no fever or chills. Patient remains on systemic steroids, she is status post Tocilizumab and convalescent plasma. She remains on IV hydration, she states she is tolerating oral diet, no nausea or vomiting, today's labs have been reviewed, electrolytes are within normal limits, her creatinine has s ignificantly improved, down to 1.1 from 1.45 couple days ago, BUN is 43, AST and ALT have also improved, down to 77 and 80 respectively, alk phos is at 40. Procalcitonin level was low at 0.7, tolerating activity fairly well. On 10/10/2020 patient seen in follow-up on medical floor. She is on 15 L per nonrebreather mask in addition to 15 L high flow, she is awake and alert, is short of breath with exertion, but she has been able to use the bedside commode, and tolerated fairly well, she is afebrile, denies any chest pain, no cough, lung sounds reveal scattered crackles, she is tolerating oral intake, no nausea or vomiting. No new chest x-ray, her latest d-dimer from yesterday was 0.60, L DH was 2198, and CRP was 17.8, patient remains on Decadron 6 mg daily, vitamins. This had no acute events overnight, no worsening, however no significant improvement in dyspnea and oxygenation On 10/13/2020 patient seen in follow-up on medical surgical floor. She remains on high flow oxygen per 15 L high flow nasal cannula and 100% nonrebreather mask, pulse ox is 90-95%, she doesn't With exertion, but overall seems to be improving, lung sounds reveal minimal rales at bilateral bases, without signs have been stable, she has been slow to improve, no acute events overnight, no chest discomfort. Yesterday chest x-ray shows slight worsening of diffuse infiltrates. The labs have been reviewed, her d-dimer was 1.21, and her liver enzymes have worsened with AST up to 194, and ALT of 328, alkaline phosphatase was up to 78, LDH was overall on the rise up to 2729, by CRP was improving. Clinically seems to be doing better. No worsening cough, patient would like to be able to walk around in the room, however still requiring high flow oxygen and she can only walk so far, other than that no specific complaints On 10/16/2020 patient seen in follow-up on medical floor, she still remains on Airvo, at 60 L and FiO2 of 90%, her pulse ox is 92-97%, apparently earlier this morning rapid response team was called and the patient was confused, she was hypotensive, with blood pressure of 60/40, and a liter bolus was given, currently her IV fluids are infusing at 100 ML per hour, her antihypertensives were readjusted, lisinopril has been placed on hold, metoprolol dose was adjusted, her blood pressure responded well to fluids, currently is at 92/59, she is afebrile, no complaints of chest discomfort, breathing is about the same, she does desat with any exertion, but no worsening. No new chest x-ray today, right now she is sitting up in bed, breathing fairly comfortable, no worsening cough, lung sounds reveal bilateral crackles, no worsening. Today's labs have been noted, no d-dimer from today, electric selective renal profile are unremarkable, her troponin is less than 0.012. Patient continues on dexamethasone 6 mg daily, she is on prophylactic dose of Lovenox, multivitamins. On 10/19/2020 patient seen in follow-up. She remains on high flow oxygen per Airvo currently 60 L and FiO2 of 90% in addition to partial rebreather mask, and patient removed partial rebreather mask for meals, appears to be fairly comfortable, denies any worsening dyspnea but still requiring high flow oxygen. She thinks that it might be due to nasal congestion from high flow oxygen, and she states when she cleans out her nose usually her O2 saturations improve. Patient's last chest x-ray from 10/17/2020 showed worsening bilateral diffuse lung infiltrates. Patient continues on Decadron 6 mg daily, she continues on Lovenox 50 mg twice a day her last TD was back on 10/17/2020 and was elevated at 5.17, patient remains on IV fluids at 100 ML per hour, she is tolerating oral intake, nausea vomiting or diarrhea. On 10/21/2000 patient seen in follow-up on medical surgical floor, she is awake and alert, oriented 3, she is in no acute distress, she remains on Airvo currently at 60 L and FiO2 of 85%, her pulse ox is 91%, she thinks that she is doing better, she reports no new complaints, she does get short of breath with exertion, but overall seems to be very comfortable, no new chest x-ray today, her last chest x-ray on 10/17/2020 showed worsening bilateral diffuse lung infiltrates, patient has been afebrile, hemodynamically she remains stable, she denies any chest discomfort, no worsening cough, only occasional cough, no nausea vomiting or diarrhea, her appetite is fair, no abdominal pain today's lab work has been reviewed, showed white with 7.5, hemoglobin is 11.8, d-dimer from yesterday showed a stable d-dimer of 4.74, electrolytes and renal profile were unremarkable, BUN was 15, creatinine 0.6, her inflammatory markers on yesterday's labs were improving. On 10/22/2020 patient seen in follow-up on medical surgical floor. She is currently on Airvo at 60 L and FiO2 of 85%, nonrebreather mask is off, her pulse ox is between 93-96%, she is breathing comfortably, no worsening dyspnea, she is working on dialysis and achieving 800-1000, minimal cough, no fever or chills, today's chest x-ray shows mild cardiomegaly, with diffuse groundglass airspace disease similar to slightly worsened from 10/17/2020. Today's labs have been reviewed, her inflammatory markers are trending down, her LDH is down to 483, CRP is currently of less than 0.4, d-dimer is 1.9, improving. No nausea vomiting or diarrhea, she is tolerating oral intake, her pro-calcitonin level is negative at 0.03. Renal function is normal on yesterday's labs, electrolytes are within normal limits. On 10/23/2020 patient seen in follow-up on medical surgical floor, we have not been able to make much progress in terms of weaning FiO2 with oxygen flow, the patient requires Airvo at 60 L and FiO2 of 90%, and her pulse ox still remains marginally 89-92%, she denies any worsening dyspnea, she appears to be breathing comfortably, she is working on incentive spirometer, and she is doing an exemplary job on it. She denies any cough, denies any hemoptysis, denies any chest pain, she afebrile, hemodynamically she stable, no fever or chills, no headaches no dizziness, no body aches, no chest pain, no vomiting no abdominal pain or diarrhea. No new labs today. Yesterday's chest x-ray shows mild card iomegaly, diffuse groundglass airspace disease that slightly worsened, and patient has been on oral Decadron 6 mg daily, she is on Polyvitamin's, we gave her a dose of Lasix yesterday, and she remains on Lovenox 50 mg subcu twice daily. Yesterday's d-dimer was at 1.99 and we can drop down her dose of Lovenox to prophylactic dose On 10/24/2020 patient seen in follow-up on medical surgical floor, she continues to be on Airvo, she has been slow in terms of weaning from the oxygen, but no worsening dyspnea, breathing comfortably, compressive chest discomfort,vitals have been stable. Her pulse ox is between 93-94% on Airvo a 60 L and FiO2 of 90%, she's been afebrile. Today's chest x-ray shows stable findings with multifocal and confluent reticulonodular opacities greatest in the lower lungs, today's labs have been reviewed, d-dimer is down to 1.09, improving, white blood cell count is 8.6, hemoglobin is 12.5, electrolytes and renal profile are within normal limits. LDH tinniest improve, and is down to 479, CRP is less than 0.4, appropriate calcitonin level was low at 0.04. She is currently in Decadron 6 migraine twice daily, she is on Lovenox 40 mg daily, she isn't multivitamins. On 10/25/2020 patient seen in follow-up on medical surgical floor. She continues on Airvo at 60 L and FiO2 of 90%, not requiring nonrebreather mask with that. Seems to be breathing comfortably, her pulse ox is 92-93%, she's been afebrile, hemodynamically she's been stable, she's been getting up out of bed and move around as much as the Airvo tubing with a lower her, she is using the bedside commode, her appetite is fair, she has had no fever or chills, no cough, and no chest discomfort. Today's labs have been reviewed, white blood cell count of 9.5, hemoglobin is 12.6, electrolytes and renal profile are unremarkable On 10/26/2020 patient seen in follow-up on medical surgical floor. Still remains on Airvo, and other than requiring high flow oxygen patient appears to be quite stable, no worsening dyspnea, she is breathing comfortably, she has been get not to the bedside commode, sitting up on the edge of the bed and in the chair, tolerates activity quite well, her FiO2 is currently at 80% and this is down from 90%, oxygen flow is currently at 60 L, she is not requiring additional nonrebreather mask, she is afebrile, no complaints of worsening dyspnea, cough, no nausea vomiting or diarrhea. Today's labs have been reviewed, white blood cell count is 9.6, hemoglobin is 12.3, electrolytes and renal profile were fairly unremarkable. She remains on Decadron at 6 mg twice daily, she is on Polyvitamin, and once daily dose of Lovenox On 10/28/2020 patient seen in follow-up on medical surgical floor. She looks very comfortable, her Airvo settings are at 30 L and FiO2 of 57%, her pulse ox is around 85-92%, but patient looks very stable, breathing is nonlabored, no chest discomfort, no lightheadedness or dizziness, she is afebrile, hemodynamically she stable. Her chest x-ray shows coarse infiltrates throughout both lung land may be slightly improved at the lung bases. These labs have been reviewed showing white blood cell count of 10.79, hemoglobin of 12.2, d- dimer is 0.57, BUN of 17 creatinine 0.6, the rest of electrolytes are within normal limits. Patient is tolerating oral intake, she's been getting up to the commode, tolerates activity well. She remains on twice a dose of Decadron 6 mg, and her Lovenox 40 mg daily, in addition to vitamins. On 10/29/2020 patient is seen in follow-up on medical surgical floor, she is on Airvo, currently down to 30 L and FiO2 of 50%, she is breathing quite comfortably, pulse ox is 90-91%, no fever or chills, hemodynamically stable, her chest x-ray yesterday showed coarse infiltrates throughout both lungs slightly improved at the lung bases. Today's labs have been reviewed, d-dimer 0.53, follow-up LDH and CRP are pending. Patient remains on prophylactic Lovenox, and dexamethasone 6 mg twice daily. No nausea vomiting or diarrhea, she is tolerating oral intake. On 10/30/2020 patient seen in follow-up on medical surgical floor, she is currently on high flow nasal cannula, and she is currently down to 13 L and her pulse ox is 92%, she is breathing very comfortably, she seems very comfortable, she is afebrile, she is eating lunch, denies any specific complaints, she is staying very positive about her recovery, she's had no acute events overnight. No new chest x-ray today. No new labs. On 10/31/2020 patient is seen in follow-up on medical surgical floor, she is currently down to 10 L per high flow nasal cannula and her O2 saturations are ranging between 89-94%, she is breathing comfortably, although at times does get little bit anxious, her FiO2 was dropped down to 8 L and she is maintaining O2 s aturations at around 92%, she is breathing out of her mouth most of the time, she has a high flow nasal cannula in her nose and she was instructed to take a breath through her nose, clinically she seems to be the same, she has remained stable, no worsening dyspnea, no cough. No new labs today, no new chest x-rays, she remains on Decadron 6 mg twice daily, and she is on prophylactic dose Lovenox. On 11/01/2020 patient seen in follow-up on medical surgical floor, breathing seems to be stable, she is currently on 11 L of oxygen, and she states at night and during episodes of desaturation after exertion staff turns up her FiO2. On 11 L of oxygen her pulse ox is 95%, and this was turned down to 7 L, pulse ox recheck was done in 20 minutes, and patient maintained her O2 saturation at 94%, and FiO2 was subsequently dropped down to 5 L, and patient is tolerating it quite well. Today's chest x-ray shows scattered airspace and interstitial infiltrates history unchanged. today's labs have been reviewed Objective - Vital Signs Vital signs: Vital Signs Temp 97.6 F 11/01/20 10:00 Pulse 88 11/01/20 10:00 Resp 20 11/01/20 10:00 BP 170/112 11/01/20 10:00 Pulse Ox 85 L 11/01/20 10:00 Intake & Output 10/31/20 11/01/20 11/01/20 18:59 06:59 18:59 Intake Total 1100 Output Total 600 Balance 500 Weight 107.955 kg Intake: Oral 1100 Output: Urine 600 Other: Voiding Method Bedside Commode # Voids 2 3 # Bowel Movements 1 1 - Exam GENERAL EXAM: Alert, very pleasant, 50-year-old white female, on 11 l/min85 L high flow nasal cannula and her pulse ox is 92% HEAD: Normocephalic/atraumatic. EYES: Normal reaction of pupils, equal size. Conjunctiva pink, sclera white. NOSE: Clear with pink turbinates. THROAT: No erythema or exudates. NECK: No masses, no JVD, no thyroid enlargement, no adenopathy. CHEST: No chest wall deformity. Symmetrical expansion. LUNGS: Equal air entry with bilateral crackles CVS: Regular rate and rhythm, normal S1 and S2, no gallops, no murmurs, no rubs ABDOMEN: Soft, nontender. No hepatosplenomegaly, normal bowel sounds, no guarding or rigidity. EXTREMITIES: No clubbing, no edema, no cyanosis, 2+ pulses and upper and lower extremities. MUSCULOSKELETAL: Muscle strength and tone normal. SPINE: No scoliosis or deformity SKIN: No rashes CENTRAL NERVOUS SYSTEM: Alert and oriented -3. No focal deficits, tone is normal in all 4 extremities. PSYCHIATRIC: Alert and oriented -3. Appropriate affect. Intact judgment and insight. - Labs CBC & Chem 7: 11/01/20 06:34 11/01/20 06:34 Labs: Abnormal Lab Results - Last 24 Hours (Table) 11/01/20 11/01/20 Range/Units 06:34 06:34 WBC 10.13 H (4.50-10.00) X 10*3/uL RBC 3.97 L (4.10-5.20) X 10*6/uL Immature Gran # 0.44 H (0.00-0.04) X 10*3/uL Eosinophils # 0 L (0.04-0.35) X 10*3/uL Creatinine 0.5 L (0.6-1.5) mg/dL BUN/Creatinine Ratio 40.00 H (12.00-20.00) Ratio Glucose 179 H (70-110) mg/dL Lactate Dehydrogenase 424 H (120-246) U/L Assessment and Plan Plan: Assessment: #1. Acute hypoxic respiratory failure, related to acute COVID19 pneumonia, patient reports a 4 day history of worsening dyspnea, fever, chills, patient was already in moderate to severe hypoxic respiratory failure on presentation, and as such does not qualify for Remdesivir. Status post transfusion of Tocilizumab, convalescent plasma in addition to steroids #2. Dyspnea, cough, body aches, weakness related to the above #3. Acute kidney injury likely related to ATN, dehydration #4. Recent inflammatory markers related to acute COVID 19 pneumonia #5. Increased liver enzymes related to viral pneumonia #6. Hypertension #7. Hyperlipidemia #8. History of coronary artery disease with previous stenting #9. History of myocardial infarction #10. History of morbid obesity #11. History of hypotension, likely related to hypovolemia and dehydration, and antihypertensives, responded well to IV fluids. Plan: Accept O2 saturations at 88% and above as well as the patient is asymptomatic No worsening dyspnea or hypoxia Today's chest x-ray has been reviewed and bilateral airspace disease is essentially unchanged Once patient is down to 5 L may consider discharge home Continue to follow I performed a history & physical examination of the patient and discussed their management with my nurse practitioner, Abby Peters. I reviewed the nurse practitioner's note and agree with the documented findings and plan of care. Lung sounds are positive for diminished breath sounds. The findings and the impression was discussed with the patient. I attest to the documentation by the nurse practitioner. Time with Patient: Less than 30
[2020-11-01] MEDS: MELATONIN 3 MG TABLET PO SCH (19:38)
[2020-11-01] MEDS: ATORVASTATIN 40 MG TAB PO SCH (19:38)
[2020-11-02] MEDS: ACETAMINOPHEN TAB 325 MG TAB PO PRN ×2 (04:35→10:38)
[2020-11-02] MEDS: ALPRAZolam 0.25 MG TAB PO PRN ×3 (04:37→21:21)
[2020-11-02] MEDS: DOCUSATE 100 MG CAP PO SCH (08:35)
[2020-11-02] MEDS: ZINC SULFATE 220 MG CAP PO SCH (08:35)
[2020-11-02] MEDS: CHOLECALCIFEROL 25 MCG (1000 IU) TABLET PO SCH (08:35)
[2020-11-02] MEDS: DEXAMETHASONE SOD PHOSPHATE 10 MG/ML 1 ML VIAL IV SCH (08:35)
[2020-11-02] MEDS: PANTOPRAZOLE 40 MG TABLET PO SCH (08:35)
[2020-11-02] MEDS: METOPROLOL TARTRATE 25 MG TAB PO SCH (08:35)
[2020-11-02] MEDS: ENOXAPARIN 40 MG/0.4 ML SYRINGE SQ SCH (08:35)
[2020-11-02] MEDS: ASPIRIN 325 MG TAB PO SCH (08:35)
[2020-11-02] MEDS: ASCORBIC ACID 500 MG TAB PO SCH ×2 (08:35→20:03)
[2020-11-02] MEDS: ALBUTEROL HFA INHALER INHALATION SCH ×4 (08:54→21:02)
--- NOTE | 2020-11-02 08:58 | P.PN ---
Subjective Progress Note Date: 11/01/20 I am assuming care of this patient as of 10/16/2020 at 8 AM. I was out of town and Dr. Craven was covering for me. H&P done by Dr. Tamayo on 10/07/2020 This is a 50-year-old female patient presented to the ER on 10/07/2020 with complaints of cough fever and body aches. Patient did test positive for COVID- 19 with symptoms starting about 8 days prior at that time patient was started on Decadron, vitamins, convulsant plasma and toclizumab. Patient does have a past medical history of coronary artery disease, hyperlipidemia, hypertension and ME. Patient also has been cleared history of previous nicotine dependence. Patient admitted to medical floor pulmonary service is consulted On 10/16/2020 patient is alert and oriented resting in chair. Patient had episode of hypotension. At this time lisinopril DC'd parameter set to Metroprolol. Blood pressure has improved continue normal saline at 100. Patient currently on high flow oxygen with the flow rate of 60 and an FiO2 of 90%. Patient remains dyspneic. Remains on IV Decadron. Patient denies any chest pain. Patient denies nausea vomiting or diarrhea. Patient denies any urinary burning or frequency. On 10/17/2020 patient was seen and examined on the medical floor she is alert and oriented 3 in no apparent distress she is still maintained on high flow oxygen she is complaining of shortness of breath with any activity she is also complaining of cough and chest tightness otherwise she denies any complaints there is no fever or chills no headache or dizziness no chest pain no nausea or vomiting no abdominal pain no diarrhea no blood in the stools no burning with urination no frequency or urgency and no hematuria. On 10/18/2020 patient alert and oriented 3. Patient remains on airvo. Reports that she feels slightly improved. Patient denies any nausea vomiting or diarrhea. Patient denies any urinary burning or frequency. Patient remains on Decadron. Pulmonary services are following. On 10/19/2020 patient was seen and examined on the medical floor she is alert and oriented 3 in no distress she is feeling better she is still maintained on high flow oxygen via Airvo she is complaining of shortness of breath with any activity she is complaining of cough otherwise she denies any complaints there is no fever or chills no headache or dizziness no chest pain no nausea or vomiting no abdominal pain no diarrhea no blood in the stools no burning with urination no frequency or urgency and no hematuria On 10/20/2020 patient was seen and examined on the medical floor she is alert and oriented 3 in no distress she is still complaining of shortness of breath and cough otherwise she denies any complaints, vital exam reveals a temperature of 97.3 pulse 77 respiration 20 blood pressure 106/67 pulse ox 88% on airvo with FiO2 of 80% On 10/21/2020 patient was seen and examined on the medical floor she is alert and oriented 3 in no apparent distress she is still maintained on high flow oxygen she is complaining of shortness of breath with activity she is also complaining of cough and chest tightness otherwise she denies any complaints there is no fever or chills no headache or dizziness no chest pain no nausea or vomiting no abdominal pain no diarrhea no blood in the stools no burning with urination no frequency or urgency and no hematuria. On 10/22/2020 patient was seen and examined on the medical floor she is alert and oriented 3 in no apparent distress he is complaining of shortness of breath with any activity and occasional cough, she is maintained on Airvo with FiO2 of 80% pulse ox is 93% temperature 98.7 pulse 95 respiration 23 blood pressure 135/87, otherwise there is no complaints there is no fever or chills no headache or dizziness no chest pain there is no nausea or vomiting no abdominal pain no diarrhea no blood in the stools no burning with urination no frequency or urgency and no hematuria On 10/23/2020 patient was seen and examined on the medical floor she is alert and oriented 3 in no apparent distress, she states that she is feeling better h er breathing is feeling easier to her she is still maintained on high flow oxygen she is complaining of shortness of breath with activity she is also complaining of cough and chest tightness otherwise she denies any complaints there is no fever or chills no headache or dizziness no chest pain no nausea or vomiting no abdominal pain no diarrhea no blood in the stools no burning with urination no frequency or urgency and no hematuria. On 10/24/2020 patient was seen and examined on the medical floor she is alert and oriented 3 in no apparent distress, she is still maintained on high flow oxygen she is complaining of shortness of breath with activity she is also complaining of cough and chest tightness otherwise she denies any complaints there is no fever or chills no headache or dizziness no chest pain no nausea or vomiting no abdominal pain no diarrhea no blood in the stools no burning with urination no frequency or urgency and no hematuria. on 10/25/2020 patient was seen and examined on the medical floor she is alert and oriented 3 in no distress, she is still maintained on high flow oxygen via Airvo, she reports some improvement in her shortness of breath and cough, there is no fever or chills no headache or dizziness no chest pain no nausea or vomiting no abdominal pain no diarrhea no blood in the stools no burning with urination no frequency or urgency and no hematuria. On 10/26/2020 patient was seen and examined on the medical floor she is alert and oriented, she is still maintained on high flow oxygen via Airvo, she is still complaining of shortness of breath and cough otherwise she denies any complaints there is no fever or chills no headache or dizziness no chest pain no palpitation no nausea or vomiting no abdominal pain no diarrhea and no urinary symptoms. On 10/27/2020 Patient was seen and examined on the medical floor, he is alert and oriented x3 in no distress, she is still complaining of shortness of breath otherwise she denies any complaints there is no fever or chills no headache or dizziness no chest pain no palpitation no cough no nausea or vomiting no abdominal pain no diarrhea no blood in the stools no burning with urination no frequency or urgency and no hematuria, there is no weakness or numbness in any of the extremities no change in vision speech or gait. At this time oxygen requirements are coming down gradually, possible discharge to home in 2-3 days, if oxygen requirements are down to 4-5 L per minute On 10/28/2020 Patient was seen and examined on the medical floor, he is alert and oriented x 3 in no distress, he denies any complaints there is no fever or chills no headache or dizziness no chest pain no shortness of breath no palpitation no cough no nausea or vomiting no abdominal pain no diarrhea no blood in the stools no burning with urination no frequency or urgency and no hematuria, there is no weakness or numbness in any of the extremities no change in vision speech or gait. Possible discharge to home in the next 1-2 days if oxygen requirements are down. On 10/29/2020 Patient was seen and examined on the medical floor, he is alert and oriented x 3 in no distress, she is still complaining of shortness of breath with any activity and occasional cough otherwise she denies any complaints there is no fever or chills no headache or dizziness no chest pain, no palpitation no nausea or vomiting no abdominal pain no diarrhea no blood in the stools no burning with urination no frequency or urgency and no hematuria, there is no weakness or numbness in any of the extremities no change in vision speech or g ait. Today Airvo was discontinued, and patient was started on nasal cannula, she is still requiring 10 L of oxygen per minute, possible discharge to home in the next 1-2 days if her oxygen requirement are decreasing On 10/30/2020 patient was seen and examined on the medical floor she is alert and oriented in no distress she is still maintained on oxygen via nasal cannula at 10 L/m she is still complaining of shortness of breath with any activity otherwise she denies any complaints On 10/31/2020 Patient was seen and examined on the medical floor, he is alert and oriented x 3 in no distress, he denies any complaints there is no fever or chills no headache or dizziness no chest pain no shortness of breath no palpitation no cough no nausea or vomiting no abdominal pain no diarrhea no blood in the stools no burning with urination no frequency or urgency and no hematuria, there is no weakness or numbness in any of the extremities no change in vision speech or gait. She is still maintained on oxygen 8 L nasal cannula, pulse oximetry is 90% , continue with Decadron, possible discharge to home tomorrow if oxygen requirements are down to 4-5 L/m On 11/01/2020 Patient was seen and examined on the medical floor, he is alert and oriented x 3 in no distress, he denies any complaints there is no fever or chills no headache or dizziness no chest pain no shortness of breath no palpitation no cough no nausea or vomiting no abdominal pain no diarrhea no blood in the stools, and no urinary symptoms there is no weakness or numbness in any of the extremities no change in vision speech or gait. She is still maintained on oxygen 8 L nasal cannula, pulse oximetry is 90% , continue with Decadron, possible discharge to home tomorrow if oxygen requirements are down to 4-5 L/m Objective - Vital Signs Vital signs: Vital Signs Temp 97.6 F 11/01/20 10:00 Pulse 88 11/01/20 10:00 Resp 20 11/01/20 10:00 BP 170/112 11/01/20 10:00 Pulse Ox 85 L 11/01/20 10:00 Intake & Output 10/31/20 11/01/20 11/01/20 18:59 06:59 18:59 Intake Total 1100 Output Total 600 Balance 500 Weight 107.955 kg Intake: Oral 1100 Output: Urine 600 Other: Voiding Method Bedside Commode # Voids 2 3 # Bowel Movements 1 1 - Exam In general patient is alert and oriented 3 in no apparent distress Head normocephalic and atraumatic Neck supple no JVD no goiter no lymphadenopathy Lungs diminished bilaterally no crackles no wheezing Heart regular rate and rhythm S1-S2, no rub or gallop Abdomen is soft nontender nondistended positive bowel sounds no hepatosplenomegaly Extremities no edema Neuro no gross focal neurological deficit - Labs CBC & Chem 7: 11/01/20 06:34 11/01/20 06:34 Labs: Abnormal Lab Results - Last 24 Hours (Table) 11/01/20 Range/Units 06:34 WBC 10.13 H (4.50-10.00) X 10*3/uL RBC 3.97 L (4.10-5.20) X 10*6/uL Immature Gran # 0.44 H (0.00-0.04) X 10*3/uL Eosinophils # 0 L (0.04-0.35) X 10*3/uL Assessment and Plan Assessment: 1. Acute hypoxic respiratory failure secondary to COVID-19 pneumonia. Patient is on Decadron, received Tocilizumab, and convalescent plasma. Pulmonary services are following. Remains on Airvo 2. Diarrhea secondary to COVID-19. This does seem improved 3. Acute renal failure probably prerenal azotemia and acute tubular necrosis secondary to sepsis. Improved 4. Hyponatremia on admission. Improved 5. Elevated liver enzymes secondary to sepsis and viral pneumonia. Trending down. Continue to monitor 6. History of essential hypertension 7. History of hyperlipidemia 8. History of coronary artery disease with previous stenting 9. Ex-smoker. 10. Hypotension. Lisinopril DC'd. Parameters set to Metroprolol. normal sa line at 100 ordered DVT prophylaxis Lovenox. GI prophylaxis tonic Pulmonary services are following Remains on Decadron, vitamin C, zinc and vitamin D PT OT consulted Repeat labs ordered for a.m. Continue normal saline at 100 for hypotension
[2020-11-02] MEDS ORDERED: FUROSEMIDE 10 MG/ML 2 ML VIAL IV ONE (11:30)
[2020-11-02] MEDS: amLODIPine 5 MG TAB PO SCH (14:11)
--- NOTE | 2020-11-02 14:58 | P.PN ---
Subjective Progress Note Date: 11/02/20 Principal diagnosis: Covid 19 pneumonia 50-year-old white female patient of Dr. Wise, who presented to the emergency department on 10/07/2020 for evaluation of dyspnea, cough, fever, body aches and chills. Patient reports symptom onset 4 days ago, she saw Dr. Wise and had an outpatient test for COVID 19, the results were unknown to her, however she was told in case of worsening symptoms to present to the emergency department. Past medical history is that of hypertension, hyperlipidemia, previous history of myocardial infarction, coronary artery disease with prior stenting. Chest x-ray shows ill-defined opacities in the lower lobes bilaterally. COVID 19 PCR was p ositive. Lab work has been reviewed, showing white blood cell, 4.6, hemoglobin 12.3, lymphocyte count was within normal limits at 1.1, d-dimer is 0.31, sodium is 133, the rest of electrolytes were within normal limits, B1 is 20 creatinine is 1.45 with GFR of 42, lactic acid 0.9, ferritin level is 3834, AST is 163, ALT is 117, LDH is 2034, CRP is 83.4, pro-calcitonin was 0.27. Low-grade fevers fo llowed in the emergency department. Patient was started on Decadron 6 mg daily, we'll start her on vitamins, one unit, less than plasma, we'll try to qualify her for tocilizumab 10/08/2020 patient seen in follow-up on medical floor, patient is status post Tocilizumab, infusion of 1 dose of convalescent plasma, she remains on Decadron, she remains on vitamins, IV hydration with 0.9 normal saline at 100 ML per hour, she is on subcu heparin 5000 units subcu 8 hours. Remains on 15 L high flow and nonrebreather mask, her pulse ox is 93-96%, overall reports feeling somewhat better. Follow-up chest x-ray today shows worsening diffuse lung infiltrates greatest in the lung bases, labs today show d-dimer 0.26, LDH and CRP are pending, pro-calcitonin level was low at 0.27. On 10/09/2020 patient seen in follow-up on the medical floor she is currently on 15 L high flow nasal cannula, in addition to pulmonary rehab mask, and a pulse ox is 86-98%, she is afebrile, hemodynamically patient is stable, she said no continues to bed, appears to be breathing comfortably, denies any chest discomfort, no fever or chills. Patient remains on systemic steroids, she is status post Tocilizumab and convalescent plasma. She remains on IV hydration, she states she is tolerating oral diet, no nausea or vomiting, today's labs have been reviewed, electrolytes are within normal limits, her creatinine has s ignificantly improved, down to 1.1 from 1.45 couple days ago, BUN is 43, AST and ALT have also improved, down to 77 and 80 respectively, alk phos is at 40. Procalcitonin level was low at 0.7, tolerating activity fairly well. On 10/10/2020 patient seen in follow-up on medical floor. She is on 15 L per nonrebreather mask in addition to 15 L high flow, she is awake and alert, is short of breath with exertion, but she has been able to use the bedside commode, and tolerated fairly well, she is afebrile, denies any chest pain, no cough, lung sounds reveal scattered crackles, she is tolerating oral intake, no nausea or vomiting. No new chest x-ray, her latest d-dimer from yesterday was 0.60, L DH was 2198, and CRP was 17.8, patient remains on Decadron 6 mg daily, vitamins. This had no acute events overnight, no worsening, however no significant improvement in dyspnea and oxygenation On 10/13/2020 patient seen in follow-up on medical surgical floor. She remains on high flow oxygen per 15 L high flow nasal cannula and 100% nonrebreather mask, pulse ox is 90-95%, she doesn't With exertion, but overall seems to be improving, lung sounds reveal minimal rales at bilateral bases, without signs have been stable, she has been slow to improve, no acute events overnight, no chest discomfort. Yesterday chest x-ray shows slight worsening of diffuse infiltrates. The labs have been reviewed, her d-dimer was 1.21, and her liver enzymes have worsened with AST up to 194, and ALT of 328, alkaline phosphatase was up to 78, LDH was overall on the rise up to 2729, by CRP was improving. Clinically seems to be doing better. No worsening cough, patient would like to be able to walk around in the room, however still requiring high flow oxygen and she can only walk so far, other than that no specific complaints On 10/16/2020 patient seen in follow-up on medical floor, she still remains on Airvo, at 60 L and FiO2 of 90%, her pulse ox is 92-97%, apparently earlier this morning rapid response team was called and the patient was confused, she was hypotensive, with blood pressure of 60/40, and a liter bolus was given, currently her IV fluids are infusing at 100 ML per hour, her antihypertensives were readjusted, lisinopril has been placed on hold, metoprolol dose was adjusted, her blood pressure responded well to fluids, currently is at 92/59, she is afebrile, no complaints of chest discomfort, breathing is about the same, she does desat with any exertion, but no worsening. No new chest x-ray today, right now she is sitting up in bed, breathing fairly comfortable, no worsening cough, lung sounds reveal bilateral crackles, no worsening. Today's labs have been noted, no d-dimer from today, electric selective renal profile are unremarkable, her troponin is less than 0.012. Patient continues on dexamethasone 6 mg daily, she is on prophylactic dose of Lovenox, multivitamins. On 10/19/2020 patient seen in follow-up. She remains on high flow oxygen per Airvo currently 60 L and FiO2 of 90% in addition to partial rebreather mask, and patient removed partial rebreather mask for meals, appears to be fairly comfortable, denies any worsening dyspnea but still requiring high flow oxygen. She thinks that it might be due to nasal congestion from high flow oxygen, and she states when she cleans out her nose usually her O2 saturations improve. Patient's last chest x-ray from 10/17/2020 showed worsening bilateral diffuse lung infiltrates. Patient continues on Decadron 6 mg daily, she continues on Lovenox 50 mg twice a day her last TD was back on 10/17/2020 and was elevated at 5.17, patient remains on IV fluids at 100 ML per hour, she is tolerating oral intake, nausea vomiting or diarrhea. On 10/21/2000 patient seen in follow-up on medical surgical floor, she is awake and alert, oriented 3, she is in no acute distress, she remains on Airvo currently at 60 L and FiO2 of 85%, her pulse ox is 91%, she thinks that she is doing better, she reports no new complaints, she does get short of breath with exertion, but overall seems to be very comfortable, no new chest x-ray today, her last chest x-ray on 10/17/2020 showed worsening bilateral diffuse lung infiltrates, patient has been afebrile, hemodynamically she remains stable, she denies any chest discomfort, no worsening cough, only occasional cough, no nausea vomiting or diarrhea, her appetite is fair, no abdominal pain today's lab work has been reviewed, showed white with 7.5, hemoglobin is 11.8, d-dimer from yesterday showed a stable d-dimer of 4.74, electrolytes and renal profile were unremarkable, BUN was 15, creatinine 0.6, her inflammatory markers on yesterday's labs were improving. On 10/22/2020 patient seen in follow-up on medical surgical floor. She is currently on Airvo at 60 L and FiO2 of 85%, nonrebreather mask is off, her pulse ox is between 93-96%, she is breathing comfortably, no worsening dyspnea, she is working on dialysis and achieving 800-1000, minimal cough, no fever or chills, today's chest x-ray shows mild cardiomegaly, with diffuse groundglass airspace disease similar to slightly worsened from 10/17/2020. Today's labs have been reviewed, her inflammatory markers are trending down, her LDH is down to 483, CRP is currently of less than 0.4, d-dimer is 1.9, improving. No nausea vomiting or diarrhea, she is tolerating oral intake, her pro-calcitonin level is negative at 0.03. Renal function is normal on yesterday's labs, electrolytes are within normal limits. On 10/23/2020 patient seen in follow-up on medical surgical floor, we have not been able to make much progress in terms of weaning FiO2 with oxygen flow, the patient requires Airvo at 60 L and FiO2 of 90%, and her pulse ox still remains marginally 89-92%, she denies any worsening dyspnea, she appears to be breathing comfortably, she is working on incentive spirometer, and she is doing an exemplary job on it. She denies any cough, denies any hemoptysis, denies any chest pain, she afebrile, hemodynamically she stable, no fever or chills, no headaches no dizziness, no body aches, no chest pain, no vomiting no abdominal pain or diarrhea. No new labs today. Yesterday's chest x-ray shows mild card iomegaly, diffuse groundglass airspace disease that slightly worsened, and patient has been on oral Decadron 6 mg daily, she is on Polyvitamin's, we gave her a dose of Lasix yesterday, and she remains on Lovenox 50 mg subcu twice daily. Yesterday's d-dimer was at 1.99 and we can drop down her dose of Lovenox to prophylactic dose On 10/24/2020 patient seen in follow-up on medical surgical floor, she continues to be on Airvo, she has been slow in terms of weaning from the oxygen, but no worsening dyspnea, breathing comfortably, compressive chest discomfort,vitals have been stable. Her pulse ox is between 93-94% on Airvo a 60 L and FiO2 of 90%, she's been afebrile. Today's chest x-ray shows stable findings with multifocal and confluent reticulonodular opacities greatest in the lower lungs, today's labs have been reviewed, d-dimer is down to 1.09, improving, white blood cell count is 8.6, hemoglobin is 12.5, electrolytes and renal profile are within normal limits. LDH tinniest improve, and is down to 479, CRP is less than 0.4, appropriate calcitonin level was low at 0.04. She is currently in Decadron 6 migraine twice daily, she is on Lovenox 40 mg daily, she isn't multivitamins. On 10/25/2020 patient seen in follow-up on medical surgical floor. She continues on Airvo at 60 L and FiO2 of 90%, not requiring nonrebreather mask with that. Seems to be breathing comfortably, her pulse ox is 92-93%, she's been afebrile, hemodynamically she's been stable, she's been getting up out of bed and move around as much as the Airvo tubing with a lower her, she is using the bedside commode, her appetite is fair, she has had no fever or chills, no cough, and no chest discomfort. Today's labs have been reviewed, white blood cell count of 9.5, hemoglobin is 12.6, electrolytes and renal profile are unremarkable On 10/26/2020 patient seen in follow-up on medical surgical floor. Still remains on Airvo, and other than requiring high flow oxygen patient appears to be quite stable, no worsening dyspnea, she is breathing comfortably, she has been get not to the bedside commode, sitting up on the edge of the bed and in the chair, tolerates activity quite well, her FiO2 is currently at 80% and this is down from 90%, oxygen flow is currently at 60 L, she is not requiring additional nonrebreather mask, she is afebrile, no complaints of worsening dyspnea, cough, no nausea vomiting or diarrhea. Today's labs have been reviewed, white blood cell count is 9.6, hemoglobin is 12.3, electrolytes and renal profile were fairly unremarkable. She remains on Decadron at 6 mg twice daily, she is on Polyvitamin, and once daily dose of Lovenox On 10/28/2020 patient seen in follow-up on medical surgical floor. She looks very comfortable, her Airvo settings are at 30 L and FiO2 of 57%, her pulse ox is around 85-92%, but patient looks very stable, breathing is nonlabored, no chest discomfort, no lightheadedness or dizziness, she is afebrile, hemodynamically she stable. Her chest x-ray shows coarse infiltrates throughout both lung land may be slightly improved at the lung bases. These labs have been reviewed showing white blood cell count of 10.79, hemoglobin of 12.2, d- dimer is 0.57, BUN of 17 creatinine 0.6, the rest of electrolytes are within normal limits. Patient is tolerating oral intake, she's been getting up to the commode, tolerates activity well. She remains on twice a dose of Decadron 6 mg, and her Lovenox 40 mg daily, in addition to vitamins. On 10/29/2020 patient is seen in follow-up on medical surgical floor, she is on Airvo, currently down to 30 L and FiO2 of 50%, she is breathing quite comfortably, pulse ox is 90-91%, no fever or chills, hemodynamically stable, her chest x-ray yesterday showed coarse infiltrates throughout both lungs slightly improved at the lung bases. Today's labs have been reviewed, d-dimer 0.53, follow-up LDH and CRP are pending. Patient remains on prophylactic Lovenox, and dexamethasone 6 mg twice daily. No nausea vomiting or diarrhea, she is tolerating oral intake. On 10/30/2020 patient seen in follow-up on medical surgical floor, she is currently on high flow nasal cannula, and she is currently down to 13 L and her pulse ox is 92%, she is breathing very comfortably, she seems very comfortable, she is afebrile, she is eating lunch, denies any specific complaints, she is staying very positive about her recovery, she's had no acute events overnight. No new chest x-ray today. No new labs. On 10/31/2020 patient is seen in follow-up on medical surgical floor, she is currently down to 10 L per high flow nasal cannula and her O2 saturations are ranging between 89-94%, she is breathing comfortably, although at times does get little bit anxious, her FiO2 was dropped down to 8 L and she is maintaining O2 s aturations at around 92%, she is breathing out of her mouth most of the time, she has a high flow nasal cannula in her nose and she was instructed to take a breath through her nose, clinically she seems to be the same, she has remained stable, no worsening dyspnea, no cough. No new labs today, no new chest x-rays, she remains on Decadron 6 mg twice daily, and she is on prophylactic dose Lovenox. On 11/01/2020 patient seen in follow-up on medical surgical floor, breathing seems to be stable, she is currently on 11 L of oxygen, and she states at night and during episodes of desaturation after exertion staff turns up her FiO2. On 11 L of oxygen her pulse ox is 95%, and this was turned down to 7 L, pulse ox recheck was done in 20 minutes, and patient maintained her O2 saturation at 94%, and FiO2 was subsequently dropped down to 5 L, and patient is tolerating it quite well. Today's chest x-ray shows scattered airspace and interstitial infiltrates history unchanged. today's labs have been reviewed On 11/02/2020 patient seen in follow-up on medical surgical floor. She is currently down to 5 L of oxygen, her sat is around 89-92%, she is breathing very comfortably, breathing has been stable, and has not worsened. She's been afebrile, she is hypertensive today, with the systolic of 85 and diastolic of 103. She has been on twice daily dose of Decadron for several days at 6 mg. S he also received a dose of IV Lasix today per primary care service. Chest x-ray showed scattered airspace and interstitial infiltrates throughout both lungs essentially unchanged. No new labs, chest x-rays, no acute events overnight. Appetite is good, patient has been get not to the bedside commode tolerating activity fairly well, she is hoping to be able to go home tomorrow Objective - Vital Signs Vital signs: Vital Signs Temp 97.5 F L 11/02/20 10:09 Pulse 90 11/02/20 10:09 Resp 18 11/02/20 10:09 BP 185/103 11/02/20 10:09 Pulse Ox 87 L 11/02/20 10:09 Intake & Output 11/01/20 11/02/20 11/02/20 18:59 06:59 18:59 Other: # Voids 2 2 # Bowel Movements 1 - Exam GENERAL EXAM: Alert, very pleasant, 50-year-old white female, on 5 l/min85 L high flow nasal cannula and her pulse ox is 92% HEAD: Normocephalic/atraumatic. EYES: Normal reaction of pupils, equal size. Conjunctiva pink, sclera white. NOSE: Clear with pink turbinates. THROAT: No erythema or exudates. NECK: No masses, no JVD, no thyroid enlargement, no adenopathy. CHEST: No chest wall deformity. Symmetrical expansion. LUNGS: Equal air entry with bilateral crackles CVS: Regular rate and rhythm, normal S1 and S2, no gallops, no murmurs, no rubs ABDOMEN: Soft, nontender. No hepatosplenomegaly, normal bowel sounds, no guarding or rigidity. EXTREMITIES: No clubbing, no edema, no cyanosis, 2+ pulses and upper and lower extremities. MUSCULOSKELETAL: Muscle strength and tone normal. SPINE: No scoliosis or deformity SKIN: No rashes CENTRAL NERVOUS SYSTEM: Alert and oriented -3. No focal deficits, tone is normal in all 4 extremities. PSYCHIATRIC: Alert and oriented -3. Appropriate affect. Intact judgment and insight. - Labs CBC & Chem 7: 11/01/20 06:34 11/01/20 06:34 Assessment and Plan Plan: Assessment: #1. Acute hypoxic respiratory failure, related to acute COVID19 pneumonia, estrellita arechiga reports a 4 day history of worsening dyspnea, fever, chills, patient was already in moderate to severe hypoxic respiratory failure on presentation, and as such does not qualify for Remdesivir. Status post transfusion of Tocilizumab, convalescent plasma in addition to steroids #2. Dyspnea, cough, body aches, weakness related to the above #3. Acute kidney injury likely related to ATN, dehydration #4. Recent inflammatory markers related to acute COVID 19 pneumonia #5. Increased liver enzymes related to viral pneumonia #6. Hypertension #7. Hyperlipidemia #8. History of coronary artery disease with previous stenting #9. History of myocardial infarction #10. History of morbid obesity #11. History of hypotension, likely related to hypovolemia and dehydration, and antihypertensives, responded well to IV fluids. Plan: Accept O2 saturations at 88% and above Currently down to 5 L, no worsening dyspnea, or hypoxia Cutback the Decadron to once daily We'll add Norvasc 5 mg daily Continue current dose Lovenox Possible discharge home in the next 24 hours if cleared by medicine I performed a history & physical examination of the patient and discussed their management with my nurse practitioner, Abby Peters. I reviewed the nurse practitioner's note and agree with the documented findings and plan of care. Lung sounds are positive for diminished breath sounds. The findings and the impression was discussed with the patient. I attest to the documentation by the nurse practitioner. Time with Patient: Less than 30
[2020-11-02] MEDS: MELATONIN 3 MG TABLET PO SCH (20:03)
[2020-11-02] MEDS: ATORVASTATIN 40 MG TAB PO SCH (20:03)
[2020-11-03] MEDS: ACETAMINOPHEN TAB 325 MG TAB PO PRN ×2 (02:08→09:38)
[2020-11-03] MEDS: ALPRAZolam 0.25 MG TAB PO PRN ×2 (03:35→08:49)
[2020-11-03 06:58] VITALS: RESP 16
[2020-11-03] MEDS: ALBUTEROL HFA INHALER INHALATION SCH ×2 (07:31→11:37)
[2020-11-03] MEDS: CHOLECALCIFEROL 25 MCG (1000 IU) TABLET PO SCH (07:43)
[2020-11-03] MEDS: PANTOPRAZOLE 40 MG TABLET PO SCH (07:43)
[2020-11-03] MEDS: DOCUSATE 100 MG CAP PO SCH ×2 (07:43→07:46)
[2020-11-03] MEDS: ASPIRIN 325 MG TAB PO SCH (07:43)
[2020-11-03] MEDS: amLODIPine 5 MG TAB PO SCH (07:43)
[2020-11-03] MEDS: METOPROLOL TARTRATE 25 MG TAB PO SCH (07:43)
[2020-11-03] MEDS: ZINC SULFATE 220 MG CAP PO SCH (07:43)
[2020-11-03] MEDS: ASCORBIC ACID 500 MG TAB PO SCH (07:44)
[2020-11-03] MEDS: ENOXAPARIN 40 MG/0.4 ML SYRINGE SQ SCH (07:44)
[2020-11-03] MEDS ORDERED: DEXAMETHASONE SOD PHOSPHATE 10 MG/ML 1 ML VIAL IV SCH (09:00)
[2020-11-03 10:00] VITALS: BP 174/89; PULSE 89; TEMP 96.9
--- NOTE | 2020-11-03 10:50 | P.DS ---
Providers Date of admission: 10/07/20 05:13 Expected date of discharge: 11/03/20 Attending physician: Jeanette Wise Consults: 10/07/20 05:28 Consult Physician Urgent Consulting Provider: Bhavna Gamez Consult Reason/Comments: Coveted 19 pneumonia with room air hypoxia Do you want consulting provider notified?: Yes Primary care physician: Jeanette Billie [facility] Course: Diagnoses on discharge: 1. Acute hypoxic respiratory failure secondary to COVID-19 pneumonia. Patient is on Decadron, received Tocilizumab, and convalescent plasma. Pulmonary servi abran are following. Remains on Airvo 2. Diarrhea secondary to COVID-19. This does seem improved 3. Acute renal failure probably prerenal azotemia and acute tubular necrosis secondary to sepsis. Improved 4. Hyponatremia on admission. Improved 5. Elevated liver enzymes secondary to sepsis and viral pneumonia. Trending down. Continue to monitor 6. History of essential hypertension 7. History of hyperlipidemia 8. History of coronary artery disease with previous stenting 9. Ex-smoker. 10. Hypotension. Lisinopril DC'd. Parameters set to Metroprolol. normal saline at 100 ordered Hospital course: This is a 50-year-old female patient presented to the ER on 10/07/2020 with complaints of cough fever and body aches. Patient did test positive for COVID- 19 with symptoms starting about 8 days prior at that time patient was started on Decadron, vitamins, convulsant plasma and toclizumab. Patient does have a past medical history of coronary artery disease, hyperlipidemia, hypertension and MD. Patient also has been cleared history of previous nicotine dependence. Patient admitted to medical floor pulmonary service is consulted On 10/16/2020 patient is alert and oriented resting in chair. Patient had episode of hypotension. At this time lisinopril DC'd parameter set to Metroprolol. Blood pressure has improved continue normal saline at 100. Patient currently on high flow oxygen with the flow rate of 60 and an FiO2 of 90%. Patient remains dyspneic. Remains on IV Decadron. Patient denies any chest pain. Patient denies nausea vomiting or diarrhea. Patient denies any urinary burning or frequency. On 10/17/2020 patient was seen and examined on the medical floor she is alert and oriented 3 in no apparent distress she is still maintained on high flow oxygen she is complaining of shortness of breath with any activity she is also complaining of cough and chest tightness otherwise she denies any complaints there is no fever or chills no headache or dizziness no chest pain no nausea or vomiting no abdominal pain no diarrhea no blood in the stools no burning with urination no frequency or urgency and no hematuria. On 10/18/2020 patient alert and oriented 3. Patient remains on airvo. Reports that she feels slightly improved. Patient denies any nausea vomiting or diarrhea. Patient denies any urinary burning or frequency. Patient remains on Decadron. Pulmonary services are following. On 10/19/2020 patient was seen and examined on the medical floor she is alert and oriented 3 in no distress she is feeling better she is still maintained on high flow oxygen via Airvo she is complaining of shortness of breath with any activity she is complaining of cough otherwise she denies any complaints there is no fever or chills no headache or dizziness no chest pain no nausea or vomiting no abdominal pain no diarrhea no blood in the stools no burning with urination no frequency or urgency and no hematuria On 10/20/2020 patient was seen and examined on the medical floor she is alert and oriented 3 in no distress she is still complaining of shortness of breath and cough otherwise she denies any complaints, vital exam reveals a temperature of 97.3 pulse 77 respiration 20 blood pressure 106/67 pulse ox 88% on airvo with FiO2 of 80% On 10/21/2020 patient was seen and examined on the medical floor she is alert and oriented 3 in no apparent distress she is still maintained on high flow oxygen she is complaining of shortness of breath with activity she is also complaining of cough and chest tightness otherwise she denies any complaints there is no fever or chills no headache or dizziness no chest pain no nausea or vomiting no abdominal pain no diarrhea no blood in the stools no burning with urination no frequency or urgency and no hematuria. On 10/22/2020 patient was seen and examined on the medical floor she is alert and oriented 3 in no apparent distress he is complaining of shortness of breath with any activity and occasional cough, she is maintained on Airvo with FiO2 of 80% pulse ox is 93% temperature 98.7 pulse 95 respiration 23 blood pressure 135/87, otherwise there is no complaints there is no fever or chills no headache or dizziness no chest pain there is no nausea or vomiting no abdominal pain no diarrhea no blood in the stools no burning with urination no frequency or urge ncy and no hematuria On 10/23/2020 patient was seen and examined on the medical floor she is alert and oriented 3 in no apparent distress, she states that she is feeling better her breathing is feeling easier to her she is still maintained on high flow oxygen she is complaining of shortness of breath with activity she is also complaining of cough and chest tightness otherwise she denies any complaints there is no fever or chills no headache or dizziness no chest pain no nausea or vomiting no abdominal pain no diarrhea no blood in the stools no burning with urination no frequency or urgency and no hematuria. On 10/24/2020 patient was seen and examined on the medical floor she is alert and oriented 3 in no apparent distress, she is still maintained on high flow oxygen she is complaining of shortness of breath with activity she is also complaining of cough and chest tightness otherwise she denies any complaints there is no fever or chills no headache or dizziness no chest pain no nausea or vomiting no abdominal pain no diarrhea no blood in the stools no burning with urination no frequency or urgency and no hematuria. on 10/25/2020 patient was seen and examined on the medical floor she is alert and oriented 3 in no distress, she is still maintained on high flow oxygen via Airvo, she reports some improvement in her shortness of breath and cough, there is no fever or chills no headache or dizziness no chest pain no nausea or vomiting no abdominal pain no diarrhea no blood in the stools no burning with urination no frequency or urgency and no hematuria. On 10/26/2020 patient was seen and examined on the medical floor she is alert and oriented, she is still maintained on high flow oxygen via Airvo, she is still complaining of shortness of breath and cough otherwise she denies any complaints there is no fever or chills no headache or dizziness no chest pain no palpitation no nausea or vomiting no abdominal pain no diarrhea and no urinary symptoms. On 10/27/2020 Patient was seen and examined on the medical floor, he is alert and oriented x3 in no distress, she is still complaining of shortness of breath otherwise she denies any complaints there is no fever or chills no headache or dizziness no chest pain no palpitation no cough no nausea or vomiting no abdominal pain no diarrhea no blood in the stools no burning with urination no frequency or urgency and no hematuria, there is no weakness or numbness in any of the extremities no change in vision speech or gait. At this time oxygen requirements are coming down gradually, possible discharge to home in 2-3 days, if oxygen requirements are down to 4-5 L per minute On 10/28/2020 Patient was seen and examined on the medical floor, he is alert and oriented x 3 in no distress, he denies any complaints there is no fever or chills no headache or dizziness no chest pain no shortness of breath no palpitation no cough no nausea or vomiting no abdominal pain no diarrhea no blood in the stools no burning with urination no frequency or urgency and no hematuria, there is no weakness or numbness in any of the extremities no change in vision speech or gait. Possible discharge to home in the next 1-2 days if o xygen requirements are down. On 10/29/2020 Patient was seen and examined on the medical floor, he is alert and oriented x 3 in no distress, she is still complaining of shortness of breath with any activity and occasional cough otherwise she denies any complaints there is no fever or chills no headache or dizziness no chest pain, no palpitation no nausea or vomiting no abdominal pain no diarrhea no blood in the stools no burning with urination no frequency or urgency and no hematuria, there is no weakness or numbness in any of the extremities no change in vision speech or gait. Today Airvo was discontinued, and patient was started on nasal cannula, she is still requiring 10 L of oxygen per minute, possible discharge to home in the next 1-2 days if her oxygen requirement are decreasing On 10/30/2020 patient was seen and examined on the medical floor she is alert and oriented in no distress she is still maintained on oxygen via nasal cannula at 10 L/m she is still complaining of shortness of breath with any activity otherwise she denies any complaints On 10/31/2020 Patient was seen and examined on the medical floor, she is alert and oriented x 3 in no distress, he denies any complaints there is no fever or chills no headache or dizziness no chest pain no shortness of breath no palpitation no cough no nausea or vomiting no abdominal pain no diarrhea no blood in the stools no burning with urination no frequency or urgency and no hematuria, there is no weakness or numbness in any of the extremities no change in vision speech or gait. She is still maintained on oxygen 8 L nasal cannula, pulse oximetry is 90% , continue with Decadron, possible discharge to home tomorrow if oxygen requirements are down to 4-5 L/m On 11/01/2020 Patient was seen and examined on the medical floor, she is alert and oriented x 3 in no distress, he denies any complaints there is no fever or chills no headache or dizziness no chest pain no shortness of breath no palpitation no cough no nausea or vomiting no abdominal pain no diarrhea no blood in the stools, and no urinary symptoms there is no weakness or numbness in any of the extremities no change in vision speech or gait. She is still maintained on oxygen 8 L nasal cannula, pulse oximetry is 90% , continue with Decadron, possible discharge to home tomorrow if oxygen requirements are down to 4-5 L/m On 11/02/2020 Patient was seen and examined on the medical floor, she is alert and oriented x 3 in no distress, he denies any complaints there is no fever or chills no headache or dizziness no chest pain no shortness of breath no p alpitation no cough no nausea or vomiting no abdominal pain no diarrhea no blood in the stools no burning with urination no frequency or urgency and no hematuria, there is no weakness or numbness in any of the extremities no change in vision speech or gait. Patient is still requiring 5-10 L of oxygen per minute she is agreeable to stay 1 more day. On 11/03/2020atient was seen and examined on the medical floor, he is alert and oriente, she denies any complaints there is no fever or chills no headache or dizziness no chest pain no shortness of breath no palpitation no cough no nausea or vomiting no abdominal pain no diarrhea no blood in the stools no burning with urination no frequency or urgency and no hematuria, there is no weakness or numbness in any of the extremities no change in vision speech or gait. During the night patient had significant drop in her oxygen level however at this time her oxygen is above 90% on 5 L nasal cannula. Will proceed with discharging patient to hold. Patient will need a sleep study in the next few weeks after she recovers from her Covid infection Patient Condition at Discharge: Fair Plan - Discharge Summary Discharge Rx Participant: Yes New Discharge Prescriptions: New Melatonin 3 mg PO HS tablet Zinc Sulfate [Orazinc] 220 mg PO DAILY cap Pantoprazole [Protonix] 40 mg PO AC-BRKFST tablet. Dexamethasone [Decadron] 6 mg PO BID 10 Days #20 tablet Albuterol Inhaler [Ventolin Hfa Inhaler] 2 puff INHALATION RT-QID puff Ascorbic Acid [Vitamin C] 500 mg PO BID tab Cholecalciferol [Vitamin D3 (25 Mcg = 1000 Iu)] 50 mcg PO DAILY tablet ALPRAZolam [Xanax] 0.25 mg PO TID PRN tab PRN Reason: Anxiety amLODIPine [Norvasc] 5 mg PO DAILY tab Continue Aspirin 325 mg PO DAILY #30 tab Docusate [Colace] 100 mg PO DAILY hydroCHLOROthiazide [Hydrodiuril] 25 mg PO DAILY Metoprolol Tartrate [Lopressor] 25 mg PO DAILY Rosuvastatin [Crestor] 20 mg PO DAILY lisinopriL [Zestril] 20 mg PO BID Discontinued Naproxen 500 mg PO BID PRN PRN Reason: Pain Cyclobenzaprine [Flexeril] 5 mg PO HS PRN PRN Reason: Muscle Spasm Discharge Medication List Aspirin 325 mg PO DAILY #30 tab 10/21/15 [Rx] Docusate [Colace] 100 mg PO DAILY 10/07/20 [History] Metoprolol Tartrate [Lopressor] 25 mg PO DAILY 10/07/20 [History] Rosuvastatin [Crestor] 20 mg PO DAILY 10/07/20 [History] hydroCHLOROthiazide [Hydrodiuril] 25 mg PO DAILY 10/07/20 [History] lisinopriL [Zestril] 20 mg PO BID 10/07/20 [History] ALPRAZolam [Xanax] 0.25 mg PO TID PRN tab 11/02/20 [Rx] Albuterol Inhaler [Ventolin Hfa Inhaler] 2 puff INHALATION RT-QID puff 11/02/20 [Rx] Ascorbic Acid [Vitamin C] 500 mg PO BID tab 11/02/20 [Rx] Cholecalciferol [Vitamin D3 (25 Mcg = 1000 Iu)] 50 mcg PO DAILY tablet 05/01/21 [Rx] Dexamethasone [Decadron] 6 mg PO BID 10 Days #20 tablet 11/02/20 [Rx] Melatonin 3 mg PO HS tablet 11/02/20 [Rx] Pantoprazole [Protonix] 40 mg PO AC-BRKFST tablet. 11/02/20 [Rx] Zinc Sulfate [Orazinc] 220 mg PO DAILY cap 11/02/20 [Rx] amLODIPine [Norvasc] 5 mg PO DAILY tab 11/03/20 [Rx] Follow up Appointment(s)/Referral(s): [facility],Equipment [NON-STAFF] - (Call [facility] IMMEDIATELY to arrange delivery of the oxygen concentrator for home once you are discharged) David Cannon DO [Doctor of Osteopathic Medicine] - 2 Weeks Jeanette Wise MD [Primary Care Provider] - 1-2 days [facility] Visiting Nurse, [NON-STAFF] - Patient Instructions/Handouts: Coronavirus Disease 2019 (COVID-19) Activity/Diet/Wound Care/Special Instructions: Patient requires a bedside commode and 4 wheeled walker with a seat and breaks because she is room confined due to COVID-19 pnemonia, hypoxia, increased oxygen demands, and weakness.
--- NOTE | 2020-11-03 14:42 | P.PN ---
Subjective Progress Note Date: 11/03/20 Principal diagnosis: Covid 19 pneumonia 50-year-old white female patient of Dr. Wise, who presented to the emergency department on 10/07/2020 for evaluation of dyspnea, cough, fever, body aches and chills. Patient reports symptom onset 4 days ago, she saw Dr. Wise and had an outpatient test for COVID 19, the results were unknown to her, however she was told in case of worsening symptoms to present to the emergency department. Past medical history is that of hypertension, hyperlipidemia, previous history of myocardial infarction, coronary artery disease with prior stenting. Chest x-ray shows ill-defined opacities in the lower lobes bilaterally. COVID 19 PCR was p ositive. Lab work has been reviewed, showing white blood cell, 4.6, hemoglobin 12.3, lymphocyte count was within normal limits at 1.1, d-dimer is 0.31, sodium is 133, the rest of electrolytes were within normal limits, B1 is 20 creatinine is 1.45 with GFR of 42, lactic acid 0.9, ferritin level is 3834, AST is 163, ALT is 117, LDH is 2034, CRP is 83.4, pro-calcitonin was 0.27. Low-grade fevers fo llowed in the emergency department. Patient was started on Decadron 6 mg daily, we'll start her on vitamins, one unit, less than plasma, we'll try to qualify her for tocilizumab 10/08/2020 patient seen in follow-up on medical floor, patient is status post Tocilizumab, infusion of 1 dose of convalescent plasma, she remains on Decadron, she remains on vitamins, IV hydration with 0.9 normal saline at 100 ML per hour, she is on subcu heparin 5000 units subcu 8 hours. Remains on 15 L high flow and nonrebreather mask, her pulse ox is 93-96%, overall reports feeling somewhat better. Follow-up chest x-ray today shows worsening diffuse lung infiltrates greatest in the lung bases, labs today show d-dimer 0.26, LDH and CRP are pending, pro-calcitonin level was low at 0.27. On 10/09/2020 patient seen in follow-up on the medical floor she is currently on 15 L high flow nasal cannula, in addition to pulmonary rehab mask, and a pulse ox is 86-98%, she is afebrile, hemodynamically patient is stable, she said no continues to bed, appears to be breathing comfortably, denies any chest discomfort, no fever or chills. Patient remains on systemic steroids, she is status post Tocilizumab and convalescent plasma. She remains on IV hydration, she states she is tolerating oral diet, no nausea or vomiting, today's labs have been reviewed, electrolytes are within normal limits, her creatinine has s ignificantly improved, down to 1.1 from 1.45 couple days ago, BUN is 43, AST and ALT have also improved, down to 77 and 80 respectively, alk phos is at 40. Procalcitonin level was low at 0.7, tolerating activity fairly well. On 10/10/2020 patient seen in follow-up on medical floor. She is on 15 L per nonrebreather mask in addition to 15 L high flow, she is awake and alert, is short of breath with exertion, but she has been able to use the bedside commode, and tolerated fairly well, she is afebrile, denies any chest pain, no cough, lung sounds reveal scattered crackles, she is tolerating oral intake, no nausea or vomiting. No new chest x-ray, her latest d-dimer from yesterday was 0.60, L DH was 2198, and CRP was 17.8, patient remains on Decadron 6 mg daily, vitamins. This had no acute events overnight, no worsening, however no significant improvement in dyspnea and oxygenation On 10/13/2020 patient seen in follow-up on medical surgical floor. She remains on high flow oxygen per 15 L high flow nasal cannula and 100% nonrebreather mask, pulse ox is 90-95%, she doesn't With exertion, but overall seems to be improving, lung sounds reveal minimal rales at bilateral bases, without signs have been stable, she has been slow to improve, no acute events overnight, no chest discomfort. Yesterday chest x-ray shows slight worsening of diffuse infiltrates. The labs have been reviewed, her d-dimer was 1.21, and her liver enzymes have worsened with AST up to 194, and ALT of 328, alkaline phosphatase was up to 78, LDH was overall on the rise up to 2729, by CRP was improving. Clinically seems to be doing better. No worsening cough, patient would like to be able to walk around in the room, however still requiring high flow oxygen and she can only walk so far, other than that no specific complaints On 10/16/2020 patient seen in follow-up on medical floor, she still remains on Airvo, at 60 L and FiO2 of 90%, her pulse ox is 92-97%, apparently earlier this morning rapid response team was called and the patient was confused, she was hypotensive, with blood pressure of 60/40, and a liter bolus was given, currently her IV fluids are infusing at 100 ML per hour, her antihypertensives were readjusted, lisinopril has been placed on hold, metoprolol dose was adjusted, her blood pressure responded well to fluids, currently is at 92/59, she is afebrile, no complaints of chest discomfort, breathing is about the same, she does desat with any exertion, but no worsening. No new chest x-ray today, right now she is sitting up in bed, breathing fairly comfortable, no worsening cough, lung sounds reveal bilateral crackles, no worsening. Today's labs have been noted, no d-dimer from today, electric selective renal profile are unremarkable, her troponin is less than 0.012. Patient continues on dexamethasone 6 mg daily, she is on prophylactic dose of Lovenox, multivitamins. On 10/19/2020 patient seen in follow-up. She remains on high flow oxygen per Airvo currently 60 L and FiO2 of 90% in addition to partial rebreather mask, and patient removed partial rebreather mask for meals, appears to be fairly comfortable, denies any worsening dyspnea but still requiring high flow oxygen. She thinks that it might be due to nasal congestion from high flow oxygen, and she states when she cleans out her nose usually her O2 saturations improve. Patient's last chest x-ray from 10/17/2020 showed worsening bilateral diffuse lung infiltrates. Patient continues on Decadron 6 mg daily, she continues on Lovenox 50 mg twice a day her last TD was back on 10/17/2020 and was elevated at 5.17, patient remains on IV fluids at 100 ML per hour, she is tolerating oral intake, nausea vomiting or diarrhea. On 10/21/2000 patient seen in follow-up on medical surgical floor, she is awake and alert, oriented 3, she is in no acute distress, she remains on Airvo currently at 60 L and FiO2 of 85%, her pulse ox is 91%, she thinks that she is doing better, she reports no new complaints, she does get short of breath with exertion, but overall seems to be very comfortable, no new chest x-ray today, her last chest x-ray on 10/17/2020 showed worsening bilateral diffuse lung infiltrates, patient has been afebrile, hemodynamically she remains stable, she denies any chest discomfort, no worsening cough, only occasional cough, no nausea vomiting or diarrhea, her appetite is fair, no abdominal pain today's lab work has been reviewed, showed white with 7.5, hemoglobin is 11.8, d-dimer from yesterday showed a stable d-dimer of 4.74, electrolytes and renal profile were unremarkable, BUN was 15, creatinine 0.6, her inflammatory markers on yesterday's labs were improving. On 10/22/2020 patient seen in follow-up on medical surgical floor. She is currently on Airvo at 60 L and FiO2 of 85%, nonrebreather mask is off, her pulse ox is between 93-96%, she is breathing comfortably, no worsening dyspnea, she is working on dialysis and achieving 800-1000, minimal cough, no fever or chills, today's chest x-ray shows mild cardiomegaly, with diffuse groundglass airspace disease similar to slightly worsened from 10/17/2020. Today's labs have been reviewed, her inflammatory markers are trending down, her LDH is down to 483, CRP is currently of less than 0.4, d-dimer is 1.9, improving. No nausea vomiting or diarrhea, she is tolerating oral intake, her pro-calcitonin level is negative at 0.03. Renal function is normal on yesterday's labs, electrolytes are within normal limits. On 10/23/2020 patient seen in follow-up on medical surgical floor, we have not been able to make much progress in terms of weaning FiO2 with oxygen flow, the patient requires Airvo at 60 L and FiO2 of 90%, and her pulse ox still remains marginally 89-92%, she denies any worsening dyspnea, she appears to be breathing comfortably, she is working on incentive spirometer, and she is doing an exemplary job on it. She denies any cough, denies any hemoptysis, denies any chest pain, she afebrile, hemodynamically she stable, no fever or chills, no headaches no dizziness, no body aches, no chest pain, no vomiting no abdominal pain or diarrhea. No new labs today. Yesterday's chest x-ray shows mild card iomegaly, diffuse groundglass airspace disease that slightly worsened, and patient has been on oral Decadron 6 mg daily, she is on Polyvitamin's, we gave her a dose of Lasix yesterday, and she remains on Lovenox 50 mg subcu twice daily. Yesterday's d-dimer was at 1.99 and we can drop down her dose of Lovenox to prophylactic dose On 10/24/2020 patient seen in follow-up on medical surgical floor, she continues to be on Airvo, she has been slow in terms of weaning from the oxygen, but no worsening dyspnea, breathing comfortably, compressive chest discomfort,vitals have been stable. Her pulse ox is between 93-94% on Airvo a 60 L and FiO2 of 90%, she's been afebrile. Today's chest x-ray shows stable findings with multifocal and confluent reticulonodular opacities greatest in the lower lungs, today's labs have been reviewed, d-dimer is down to 1.09, improving, white blood cell count is 8.6, hemoglobin is 12.5, electrolytes and renal profile are within normal limits. LDH tinniest improve, and is down to 479, CRP is less than 0.4, appropriate calcitonin level was low at 0.04. She is currently in Decadron 6 migraine twice daily, she is on Lovenox 40 mg daily, she isn't multivitamins. On 10/25/2020 patient seen in follow-up on medical surgical floor. She continues on Airvo at 60 L and FiO2 of 90%, not requiring nonrebreather mask with that. Seems to be breathing comfortably, her pulse ox is 92-93%, she's been afebrile, hemodynamically she's been stable, she's been getting up out of bed and move around as much as the Airvo tubing with a lower her, she is using the bedside commode, her appetite is fair, she has had no fever or chills, no cough, and no chest discomfort. Today's labs have been reviewed, white blood cell count of 9.5, hemoglobin is 12.6, electrolytes and renal profile are unremarkable On 10/26/2020 patient seen in follow-up on medical surgical floor. Still remains on Airvo, and other than requiring high flow oxygen patient appears to be quite stable, no worsening dyspnea, she is breathing comfortably, she has been get not to the bedside commode, sitting up on the edge of the bed and in the chair, tolerates activity quite well, her FiO2 is currently at 80% and this is down from 90%, oxygen flow is currently at 60 L, she is not requiring additional nonrebreather mask, she is afebrile, no complaints of worsening dyspnea, cough, no nausea vomiting or diarrhea. Today's labs have been reviewed, white blood cell count is 9.6, hemoglobin is 12.3, electrolytes and renal profile were fairly unremarkable. She remains on Decadron at 6 mg twice daily, she is on Polyvitamin, and once daily dose of Lovenox On 10/28/2020 patient seen in follow-up on medical surgical floor. She looks very comfortable, her Airvo settings are at 30 L and FiO2 of 57%, her pulse ox is around 85-92%, but patient looks very stable, breathing is nonlabored, no chest discomfort, no lightheadedness or dizziness, she is afebrile, hemodynamically she stable. Her chest x-ray shows coarse infiltrates throughout both lung land may be slightly improved at the lung bases. These labs have been reviewed showing white blood cell count of 10.79, hemoglobin of 12.2, d- dimer is 0.57, BUN of 17 creatinine 0.6, the rest of electrolytes are within normal limits. Patient is tolerating oral intake, she's been getting up to the commode, tolerates activity well. She remains on twice a dose of Decadron 6 mg, and her Lovenox 40 mg daily, in addition to vitamins. On 10/29/2020 patient is seen in follow-up on medical surgical floor, she is on Airvo, currently down to 30 L and FiO2 of 50%, she is breathing quite comfortably, pulse ox is 90-91%, no fever or chills, hemodynamically stable, her chest x-ray yesterday showed coarse infiltrates throughout both lungs slightly improved at the lung bases. Today's labs have been reviewed, d-dimer 0.53, follow-up LDH and CRP are pending. Patient remains on prophylactic Lovenox, and dexamethasone 6 mg twice daily. No nausea vomiting or diarrhea, she is tolerating oral intake. On 10/30/2020 patient seen in follow-up on medical surgical floor, she is currently on high flow nasal cannula, and she is currently down to 13 L and her pulse ox is 92%, she is breathing very comfortably, she seems very comfortable, she is afebrile, she is eating lunch, denies any specific complaints, she is staying very positive about her recovery, she's had no acute events overnight. No new chest x-ray today. No new labs. On 10/31/2020 patient is seen in follow-up on medical surgical floor, she is currently down to 10 L per high flow nasal cannula and her O2 saturations are ranging between 89-94%, she is breathing comfortably, although at times does get little bit anxious, her FiO2 was dropped down to 8 L and she is maintaining O2 s aturations at around 92%, she is breathing out of her mouth most of the time, she has a high flow nasal cannula in her nose and she was instructed to take a breath through her nose, clinically she seems to be the same, she has remained stable, no worsening dyspnea, no cough. No new labs today, no new chest x-rays, she remains on Decadron 6 mg twice daily, and she is on prophylactic dose Lovenox. On 11/01/2020 patient seen in follow-up on medical surgical floor, breathing seems to be stable, she is currently on 11 L of oxygen, and she states at night and during episodes of desaturation after exertion staff turns up her FiO2. On 11 L of oxygen her pulse ox is 95%, and this was turned down to 7 L, pulse ox recheck was done in 20 minutes, and patient maintained her O2 saturation at 94%, and FiO2 was subsequently dropped down to 5 L, and patient is tolerating it quite well. Today's chest x-ray shows scattered airspace and interstitial infiltrates history unchanged. today's labs have been reviewed On 11/02/2020 patient seen in follow-up on medical surgical floor. She is currently down to 5 L of oxygen, her sat is around 89-92%, she is breathing very comfortably, breathing has been stable, and has not worsened. She's been afebrile, she is hypertensive today, with the systolic of 85 and diastolic of 103. She has been on twice daily dose of Decadron for several days at 6 mg. S he also received a dose of IV Lasix today per primary care service. Chest x-ray showed scattered airspace and interstitial infiltrates throughout both lungs essentially unchanged. No new labs, chest x-rays, no acute events overnight. Appetite is good, patient has been get not to the bedside commode tolerating activity fairly well, she is hoping to be able to go home tomorrow On 11/03/2020 patient seen in follow-up on medical surgical floor, she is currently down to 4 L of oxygen, and her pulse ox is 92 percent, her breathing has been stable, no worsening dyspnea, she is breathing quite comfortably, she's had no acute events overnight, she is been get not to the commode and utilizing the commode, tolerates activity well, appetite is fair, no cough or congestion, no wheezing, her last chest x-ray from 11/01/2020 showed scattered airspace and interstitial infiltrates throughout both lung land essentially unchanged Objective - Vital Signs Vital signs: Vital Signs Temp 96.9 F L 11/03/20 09:59 Pulse 89 11/03/20 09:59 Resp 16 11/03/20 09:59 BP 174/89 11/03/20 09:59 Pulse Ox 94 L 11/03/20 10:00 Intake & Output 11/02/20 11/03/20 11/03/20 18:59 06:59 18:59 Other: Voiding Method Bedside Commode # Voids 2 5 # Bowel Movements 1 1 - Exam GENERAL EXAM: Alert, very pleasant, 50-year-old white female, on 3 l/min85 L high flow nasal cannula and her pulse ox is 92% HEAD: Normocephalic/atraumatic. EYES: Normal reaction of pupils, equal size. Conjunctiva pink, sclera white. NOSE: Clear with pink turbinates. THROAT: No erythema or exudates. NECK: No masses, no JVD, no thyroid enlargement, no adenopathy. CHEST: No chest wall deformity. Symmetrical expansion. LUNGS: Equal air entry with bilateral crackles CVS: Regular rate and rhythm, normal S1 and S2, no gallops, no murmurs, no rubs ABDOMEN: Soft, nontender. No hepatosplenomegaly, normal bowel sounds, no guarding or rigidity. EXTREMITIES: No clubbing, no edema, no cyanosis, 2+ pulses and upper and lower extremities. MUSCULOSKELETAL: Muscle strength and tone normal. SPINE: No scoliosis or deformity SKIN: No rashes CENTRAL NERVOUS SYSTEM: Alert and oriented -3. No focal deficits, tone is normal in all 4 extremities. PSYCHIATRIC: Alert and oriented -3. Appropriate affect. Intact judgment and insight. - Labs CBC & Chem 7: 11/01/20 06:34 11/01/20 06:34 Assessment and Plan Plan: Assessment: #1. Acute hypoxic respiratory failure, related to acute COVID19 pneumonia, patient reports a 4 day history of worsening dyspnea, fever, chills, patient was already in moderate to severe hypoxic respiratory failure on presentation, and as such does not qualify for Remdesivir. Status post transfusion of Tocilizumab, convalescent plasma in addition to steroids #2. Dyspnea, cough, body aches, weakness related to the above #3. Acute kidney injury likely related to ATN, dehydration #4. Recent inflammatory markers related to acute COVID 19 pneumonia #5. Increased liver enzymes related to viral pneumonia #6. Hypertension #7. Hyperlipidemia #8. History of coronary artery disease with previous stenting #9. History of myocardial infarction #10. History of morbid obesity #11. History of hypotension, likely related to hypovolemia and dehydration, and antihypertensives, responded well to IV fluids. Plan: FiO2 is down to 3 L and patient is maintaining O2 saturations at or above 90% No worsening dyspnea, vital signs have been stable, no cough, no fever Today's labs have been noted, d-dimer is 0.39, improved I performed a history & physical examination of the patient and discussed their management with my nurse practitioner, Abby Peters. I reviewed the nurse practitioner's note and agree with the documented findings and plan of care. Lung sounds are positive for diminished breath sounds. The findings and the impression was discussed with the patient. I attest to the documentation by the nurse practitioner. Time with Patient: Less than 30
== END 2020-11-03 14:00 | disposition home health service (06) | DRG 871 ==
LOC: EC 02:26 → 4SSUR 05:13
PROVIDERS: ADMIT Internal Medicine; ATTEND Internal Medicine
PROC: XW033H5 Introduction of Tocilizumab into Peripheral Vein, Percutaneous Approach, New Technology Group 5 (ICD-10-PCS; principal; 2020-10-07)
PROC: XW13325 Transfusion of Convalescent Plasma (Nonautologous) into Peripheral Vein, Percutaneous Approach, New Technology Group 5 (ICD-10-PCS; principal; 2020-10-07)
PROC: 5A0955A Assistance with Respiratory Ventilation, Greater than 96 Consecutive Hours, High Flow/Velocity Cannula (ICD-10-PCS; 2020-10-07)
DX: A41.89 Other specified sepsis (principal); U07.1 COVID-19; J96.01 Acute respiratory failure with hypoxia; N17.0 Acute kidney failure with tubular necrosis; J12.82 Pneumonia due to coronavirus disease 2019; E87.1 Hypo-osmolality and hyponatremia; A08.39 Other viral enteritis; Z68.41 Body mass index [BMI] 40.0-44.9, adult; E66.01 Morbid (severe) obesity due to excess calories; R65.20 Severe sepsis without septic shock; E86.1 Hypovolemia; E86.0 Dehydration; I25.10 Atherosclerotic heart disease of native coronary artery without angina pectoris; E78.5 Hyperlipidemia, unspecified; I25.2 Old myocardial infarction; I10 Essential (primary) hypertension; R74.01 Elevation of levels of liver transaminase levels; Z79.82 Long term (current) use of aspirin; Z79.899 Other long term (current) drug therapy; Z87.891 Personal history of nicotine dependence; Z95.5 Presence of coronary angioplasty implant and graft; Z71.3 Dietary counseling and surveillance; Z88.0 Allergy status to penicillin; Z82.3 Family history of stroke
CPT/HCPCS: 36415; 71045; 80048; 80053; 82728; 83605; 83615; 83735; 83880; 84145; 84484; 85025; 85379; 85610; 85730; 86140; 86850; 86900; 86901; 87635; 93005; 94640; 94760; 96374; 99285

== ENCOUNTER → 2021-01-02 | Outpatient (CLI) | payer OTHER ==
--- NOTE | 2021-01-02 16:01 | CT ---
EXAMINATION TYPE: CT angio chest DATE OF EXAM: 01/02/2021 COMPARISON: Radiograph earlier today HISTORY: 50-year-old female U07.1, Post covid. Pt now on oxygen TECHNIQUE: Contiguous axial scanning of the chest performed with IV Contrast, patient injected with 1 00 mL of Isovue 370. Coronal/sagittal MIP reconstructions performed. CT DLP: 441.30 mGycm Automated exposure control for dose reduction was used. FINDINGS: Heart upper limits of normal in size without pericardial effusion. No flattening of the interventricu lar septum or reflux of contrast into the hepatic veins. Prominent three-vessel coronary artery calci fications are present. Aorta normal caliber with bovine configuration to the aortic arch. Prominent but nonenlarged 8mm low right paratracheal lymph node. No thoracic lymphadenopathy by CT si ze criteria. Mildly enlarged caliber to the main right pulmonary artery at 2.7 cm. There is suboptimal opacificati on of pulmonary arterial system. More distal branches are very heterogeneous limiting assessment. No large central or definite lobar branch embolus. There is a couple areas such as axial image 68 involv ing a segmental branch of the right lower lobe where the exam is equivocal for PE. Groundglass changes in the upper lungs. Basilar breathing motion artifacts. Underlying mild centrilob ular emphysema in the upper lungs. No pleural effusion. Small hiatal hernia. Bones: No osseous destructive process. IMPRESSION: 1. SUBOPTIMAL OPACIFICATION OF THE PULMONARY ARTERIAL SYSTEM AND BREATHING MOTION ARTIFACTS LIMITS TH E EXAM. NO LARGE CENTRAL OR DEFINITE LOBAR BRANCH EMBOLUS. MANY OF THE SEGMENTAL AND MORE DISTAL AGUSTÍN RIAL BRANCHES ARE NONDIAGNOSTIC AND EMBOLI IN THESE LOCATIONS CANNOT BE EXCLUDED ON BASIS OF THE EXAM , FOR EXAMPLE, A SEGMENTAL BRANCH OF THE RIGHT LOWER LOBE ON AXIAL IMAGE 68. 2. COPD WITH MILD EMPHYSEMA AND UPPER LUNG GROUNDGLASS CHANGES, POSSIBLE SCARRING OR RESIDUAL PNEUMON ITIS A SEQUELA OF PATIENT'S REPORTED COVID INFECTION. 3. CAD with 3 vessel coronary artery calcifications.
== END | disposition home or self-care (01) ==
LOC: RADCTMAIN 14:22
PROVIDERS: ATTEND Internal Medicine
DX: U07.1 COVID-19 (principal); J43.9 Emphysema, unspecified; I25.10 Atherosclerotic heart disease of native coronary artery without angina pectoris
CPT/HCPCS: 71275; Q9967

== ENCOUNTER → 2021-01-06 | Outpatient (CLI) | payer OTHER | END | disposition home or self-care (01) | LOC: RADNMMAIN 01-03 09:54 → LABWHC1 10:30 | PROVIDERS: ATTEND Internal Medicine | DX: R06.09 Other forms of dyspnea (principal) | CPT/HCPCS: 85379 ==

== ENCOUNTER → 2022-03-04 | Outpatient (CLI) | payer OTHER ==
--- NOTE | 2022-03-05 08:12 | MM ---
Reason for Exam: Screening (asymptomatic). Last mammogram was performed 1 year(s) and 9 month(s) ago. Patient History: Menarche at age 12. Patient has no children. Postmenopausal. Risk Values: Iman 5 year model risk: 1.2%. NCI Lifetime model risk: 9.4%. Prior Study Comparison: 09/22/2016 Right Diagnostic Mammogram, [facility]. 09/22/2016 Right Diagnostic Ultrasound, [facility]. 04/06/2017 Bilateral Diagnostic Mammogram, [facility]. 04/06/2017 Right Diagnostic Ultrasound, [facility]. 09/29/2017 Right Diagnostic Mammogram, [facility]. 09/29/2017 Right Diagnostic Ultrasound, [facility]. 11/15/2018 Bilateral Diagnostic Mammogram, [facility]. 11/15/2018 Right Diagnostic Ultrasound, [facility]. 05/16/2020 Bilateral Screening Mammogram, [facility]. Tissue Density: The breast tissue is heterogeneously dense. This may lower the sensitivity of mammography. Findings: Analyzed By CAD. There is no suspicious group of microcalcifications or new suspicious mass in either breast. Chronic nodularity within both breasts. No significant change from prior exams. Overall Assessment: Benign, BI-RAD 2 Management: Screening Mammogram of both breasts in 1 year. A clinical breast exam by your physician is recommended on an annual basis and results should be correlated with mammographic findings. Electronically signed and approved by: Chidi Canchola D.O.
== END | disposition home or self-care (01) ==
LOC: RADMAMWWP 14:22
PROVIDERS: ATTEND Internal Medicine
DX: Z12.31 Encounter for screening mammogram for malignant neoplasm of breast (principal); Z78.0 Asymptomatic menopausal state
CPT/HCPCS: 77067

== ENCOUNTER → 2023-05-10 | Outpatient (CLI) | payer OTHER ==
--- NOTE | 2023-05-10 11:49 | MM ---
Reason for Exam: Screening (asymptomatic). Last mammogram was performed 1 year(s) and 3 month(s) ago. Patient History: Menarche at age 12. Patient has no children. Postmenopausal. Risk Values: Iman 5 year model risk: 1.3%. NCI Lifetime model risk: 9.3%. Prior Study Comparison: 11/15/2018 Bilateral Diagnostic Mammogram, [facility]. 05/16/2020 Bilateral Screening Mammogram, [facility]. 03/04/2022 Bilateral MG screening mammo w CAD, [facility]. Tissue Density: There are scattered fibroglandular densities. Findings: Analyzed By CAD. There is no suspicious group of microcalcifications or new suspicious mass. Overall Assessment: Negative, BI-RAD 1 Management: Screening Mammogram of both breasts in [address] [facility] will attempt to contact patient to return for supplemental views and ultrasound if indicated. Patient should continue monthly self-breast exams. A clinical breast exam by your physician is recommended on an annual basis. This exam should not preclude additional follow-up of suspicious palpable abnormalities. Note on Iman scores and lifetime risk: 1. A Iman score greater than 3% is considered moderate risk. If this is the case, consider specialist referral to assess eligibility for a risk reducing agent. 2. If overall lifetime risk for the development of breast cancer is 20% or higher, the patient may qualify for future screening with alternating mammogram and breast MRI. Electronically signed and approved by: David Gallegos DO
== END | disposition home or self-care (01) ==
LOC: RADMAMWWP 10:56
PROVIDERS: ATTEND Internal Medicine
DX: Z12.31 Encounter for screening mammogram for malignant neoplasm of breast (principal); Z78.0 Asymptomatic menopausal state
CPT/HCPCS: 77067